=== PATIENT | female | born 1955 | race African-American/Black ===

== ENCOUNTER 2024-07-30 12:49 | Emergency (ER) | payer MEDICARE, SELFPAY ==
--- NOTE | ~2024-07-30 | CT_ITS ---
EXAMINATION: CT brain wo con DATE: 07/30/2024 14:09 INDICATION: Unwitnessed fall TECHNIQUE: Computed tomography (CT) of the head was performed without intravenous contrast. Sagittal and coronal reconstructions were performed. The mA was adjusted according to patient size. Iterative reconstruction technique was employed. The dose-length product was 605.33 mGy-cm. COMPARISON: None FINDINGS: No fracture. A couple small regions of encephalomalacia in the left parietal and occipital lobes cons istent with sequela of old infarcts. Additional small old infarcts in the bilateral basal ganglia are prominent along the head and body of the right caudate nucleus with associated expected dilation of the adjacent anterior horn of the right lateral ventricle. No acute intracranial hemorrhage, acute in farction or abnormal extra axial fluid collection. There is mild scattered white matter hypoattenuati on consistent with chronic small vessel ischemic disease. Symmetric prominence of the sulci consisten t with mild age-appropriate diffuse cerebral volume loss. No mass/mass effect. Mild mucosal thickenin g the right maxillary sinus. Small bilateral mastoid effusions. The orbits are normal. IMPRESSION: 1. No fracture or acute intracranial process. 2. 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 Reviewed, dictated and finalized at location A. AURANT SERVER
--- NOTE | ~2024-07-30 | CT_ITS ---
EXAMINATION: CT cervical spine wo con DATE: 07/30/2024 14:09 INDICATION: Neck injury. Fall. TECHNIQUE: Computed tomography (CT) of the cervical spine was performed without intravenous contrast. Automated exposure control and iterative reconstruction technique were employed. The dose-length pro duct was 482.90 mGy-cm. COMPARISON: None FINDINGS: There is mild emphysema. There are bilateral mastoid effusions. There is 11 degrees dextros coliosis of cervical spine. Vertebral body heights are normal. There is mildly decreased disc height at C5-C6 and moderately decreased disc height at C7-T1. The following disc levels are specifically di scussed: C2-C3: There is no uncovertebral joint osteoarthritis. There is severe right and mild left facet join t osteoarthritis. There is no neural foraminal stenosis. There is no central canal stenosis. C3-C4: There is no uncovertebral joint osteoarthritis. There is severe right and moderate left facet joint osteoarthritis. There is no neural foraminal stenosis. There is no central canal stenosis. C4-C5: There is no uncovertebral joint osteoarthritis. There is moderate right and severe left facet joint osteoarthritis. There is no neural foraminal stenosis. There is no central canal stenosis. C5-C6: There is no uncovertebral joint osteoarthritis. There is mild right and severe left facet join t osteoarthritis. There is no neural foraminal stenosis. There is no central canal stenosis. C6-C7: There is no uncovertebral joint osteoarthritis. There is mild right and moderate left facet dinh int osteoarthritis. There is no neural foraminal stenosis. There is mild central canal stenosis. C7-T1: There is mild bilateral uncovertebral joint osteoarthritis. There is mild bilateral facet join t osteoarthritis. There is no neural foraminal stenosis. There is mild central canal stenosis. IMPRESSION: 1. No fracture. 2. Mild cervical spondylosis. 3. Cervical dextroscoliosis. Reviewed, dictated and finalized at location A. CHISE SALES MANAGER
[2024-07-30 13:08] VITALS: BP 105/67; PULSE 62; RESP 16; TEMP 36.2; O2SAT 96
--- NOTE | 2024-07-30 14:07 | PC.NURSE ---
[facility] All questions answered at this time.
--- NOTE | 2024-07-30 14:26 | ED_ITS ---
HPI - General Adult General Chief complaint: Fall Stated complaint: unwitnessed fall Time Seen by Provider: 07/30/24 13:24 Source: EMS Mode of arrival: EMS Limitations: altered mental status History of Present Illness HPI narrative: 68-year-old with a history of CVA, A&O x1 [facility] with the complaints of possible fall. Patient was seen by the nurse on the floor by her bedside. Patient upon arrival has no obvious signs of trauma she is to her baseline. Onset (ago): hour(s) (1) Related Data Home Medications ?Medication ?Instructions ?Recorded ?Confirmed ?Last Taken ?Type acetaminophen 325 mg tablet 650 mg feeding tube Q4H PRN pain 07/26/24 07/26/24 Unknown History amlodipine 10 mg tablet (Norvasc) 10 mg feeding tube DAILY 07/26/24 07/26/24 Unknown History aspirin 81 mg chewable tablet 81 mg feeding tube DAILY 07/26/24 07/26/24 Unknown History atorvastatin 80 mg tablet (Lipitor) 80 mg feeding tube HS 07/26/24 07/26/24 Unknown History clopidogrel 75 mg tablet 75 mg feeding tube DAILY 07/26/24 07/26/24 Unknown History ergocalciferol (vitamin D2) 1,250 50,000 unit feeding tube WEEKLY 07/26/24 07/26/24 Unknown History mcg (50,000 unit) capsule losartan 100 mg tablet (Cozaar) 100 mg feeding tube DAILY 07/26/24 07/26/24 Unknown History metformin 500 mg tablet 500 mg feeding tube BID 07/26/24 07/26/24 Unknown History psyllium husk (aspartame) 3.4 gram 1 packet PO BID 07/26/24 07/26/24 Unknown History oral powder packet (Metamucil Fiber Singles) ramelteon 8 mg tablet 8 mg PO HS 07/26/24 07/26/24 Unknown History Allergies Allergy/AdvReac Type Severity Reaction Status Date / Time No Known Allergies Allergy Verified 07/27/24 01:59 Review of Systems Review of Systems: ROS unobtainable: Yes unobtainable due to mental status (Dementia) PMFSH Past Medical History Medical History Diabetes mellitus with hyperglycemia Essential (primary) hypertension HLD (hyperlipidemia) Aneurysm, carotid artery, internal CKD (chronic kidney disease) Smoker Social History Social History Smoking packs per day: 0.5 Smoking cigarettes per day: 10.0 Smoking status: Current every day smoker Do You Feel Safe in your Home?: Yes Lack of Transportation: No Lack of Food: Never True Current Housing: I Have Housing Concerned About Future Housing: Decline to Answer Difficulty Paying Gas/Electric Bills: Decline to Answer Difficulty Paying for Meds: Decline to Answer Currently Unemployed: Decline to Answer Education: Don't Know Difficulty w/ Childcare or Family Care: Decline to Answer Spiritual care concerns: No Exam Narrative: GENERAL: Well-appearing, well-nourished, and in no acute distress. HEAD: Normocephalic, atraumatic. EYES: PERRLA and EOMI. ENT: Nares clear, no rhinorrhea or epistaxis. Mucous membranes moist. NECK: Supple. CHEST: Clear to auscultation. No respiratory distress. HEART: Regular rate and rhythm. No murmur heard. Normal peripheral pulses. ABDOMEN: Soft, nontender, nondistended, normal active bowel sounds. EXTREMITIES: Normal range of motion. No edema. SKIN: Warm, dry, no rash. NEURO: Alert . at her baseline PSYCH: Normal mood and affect. Course Course Emergency Course: Patient has no obvious see the history of trauma I did CT of the head and C- spine showed no acute bleed or fracture of the cervical spine. His but will send her back to the prison. With fall precaution Vital Signs Vital signs: Vital Signs Temperature 36.2 C L 07/30/24 13:08 Pulse Rate 62 07/30/24 13:08 Respiratory Rate 16 07/30/24 13:08 Blood Pressure 105/67 07/30/24 13:08 Pulse Oximetry 96 07/30/24 13:08 Oxygen Delivery Room Air 07/30/24 13:08 Temperature 36.2 C L 07/30/24 13:08 Pulse Rate 62 07/30/24 13:08 Respiratory Rate 16 07/30/24 13:08 Blood Pressure 105/67 07/30/24 13:08 Pulse Oximetry 96 07/30/24 13:08 Oxygen Delivery Room Air 07/30/24 13:08 Medical Decision Making Vital Signs Vital Signs: Vital Signs Temperature 36.2 C L 07/30/24 13:08 Pulse Rate 62 07/30/24 13:08 Respiratory Rate 16 07/30/24 13:08 Blood Pressure 105/67 07/30/24 13:08 Pulse Oximetry 96 07/30/24 13:08 Oxygen Delivery Room Air 07/30/24 13:08 Temperature 36.2 C L 07/30/24 13:08 Pulse Rate 62 07/30/24 13:08 Respiratory Rate 16 07/30/24 13:08 Blood Pressure 105/67 07/30/24 13:08 Pulse Oximetry 96 07/30/24 13:08 Oxygen Delivery Room Air 07/30/24 13:08 Imaging Data Radiologist's impression: ITS Impressions Head CT 07/30/24 14:11 IMPRESSION: 1. No fracture or acute intracranial process. 2. 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 Cervical Spine CT 07/30/24 14:13 IMPRESSION: 1. No fracture. 2. Mild cervical spondylosis. 3. Cervical dextroscoliosis. Discharge Plan Discharge Clinical Impression: Minor head injury Qualifiers: Encounter type: initial encounter Qualified Code(s): S09.90XA - Unspecified injury of head, initial encounter Patient Disposition: [place] Halfway/Asst Living Condition: Stable Instructions: Head Injury (ED) Additional Instructions: Continue home medications, fall precautions, follow with the primary doctor as needed Patient Language: Sinhala Prescriptions: No Action acetaminophen 325 mg tablet 650 mg feeding tube Q4H PRN (Reason: pain) amlodipine [Norvasc] 10 mg tablet 10 mg feeding tube DAILY aspirin 81 mg tablet,chewable 81 mg feeding tube DAILY atorvastatin [Lipitor] 80 mg tablet 80 mg feeding tube HS clopidogrel 75 mg tablet 75 mg feeding tube DAILY Rx Instructions: For 85 doses ergocalciferol (vitamin D2) 1,250 mcg (50,000 unit) capsule 50,000 unit feeding tube WEEKLY Rx Instructions: Weekly on Monday losartan [Cozaar] 100 mg tablet 100 mg feeding tube DAILY metformin 500 mg tablet 500 mg feeding tube BID ramelteon 8 mg tablet 8 mg PO HS Metamucil Fiber Singles 3.4 gram powder in packet 1 packet PO BID Follow-up/Referrals: PHYSICIAN NOT ON STAFF,NONSTAFF [Non-Staff] - Vivek Ibarra MD [Physician] - Time of Disposition: 14:31
--- OUTSIDE RECORDS SUMMARY | 2024-07-30 14:38 | XMS_ITS | Encounter Summary ---
Author Organization [facility] Healthcare Address [address] [place] [address] Care Team Providers Care Plate Driller Name Role Phone Suri Beatty NP Primary Care Provider + Encounter Details Date Type Department Care Team (Late st Contact Info) Description 09/05/2023 Documentation [facility] Social Work [address] [place] [id number] Andry Serrato Social History Tobacco Use Types Packs/Day Years Used Date Smoking Tobacco: Every Day Cigarettes 0.5 52.1 Started: 1972 [facility] Utilities Answer Date Recorded In the past 12 months has [employer] electric, gas, oil, or water company threatened to shut off services in your home? No 09/04/2023 Social Connection and Isolat ion Panel [NHANES] Answer Date Recorded In a typical week, how many times do you talk on the phone with family, friends, or neighbors? More than three times a week 09/04/2023 How often do you get togethe r with friends or relatives? Three times a week 09/04/2023 How often do you attend chur ch or christian services? Never 09/04/2023 Do you belong to any clubs o r organizations such as voodoo groups, unions, fraternal or athletic groups, or school groups? No 09/04/2023 How often do you attend meet ings of the clubs or organizations you belong to? Never 09/04/2023 Are you , , di vorced, , never , or living with a partner? 09/04/2023 AUDIT-C Answer Date Recorded Q1: How often do you have a drink containing alcohol? Never 09/03/2023 Q2: How many drinks containi ng alcohol do you have on a typical day when you are drinking? Patient does not drink Q3: How often do you have si x or more drinks on one occasion? Never 09/03/2023 Overall Financial Resource Strain (CARDIA) Answe r Date Recorded How hard is it for you to pa y for the very basics like food, housing, medical care, and heating? Not hard at all 09/04/2023 Hunger Vital Sign Answer Date Recorded Within the past 12 months, y ou worried that your food would run out before you got the money to buy more. Never true 09/04/19 24 Within the past 12 months, t he food you bought just didn't last and you didn't have money to get more. Never true 09/04/2023 PRAPARE - Transportation Answer Date Re corded In the past 12 months, has l ack of transportation kept you from medical appointments or from getting medications? No 08/11 In the past 12 months, has l ack of transportation kept you from meetings, work, or from getting things needed for daily living? No 09/04/2023 Housing Stability Vital Sign Answer Christian e Recorded In the last 12 months, was t here a time when you were not able to pay the mortgage or rent on time? No 09/04/2023 In the last 12 months, how many places have you lived? 1 09/04/2023 In the last 12 months, was t here a time when you did not have a steady place to sleep or slept in a long term (including now)? No 09/04/2023 Personal Safety Answer Date Recorded Have you ever been in or are you currently in a harmful physical or emotional relationship or is someone making you feel afraid or unsafe? Denies 09/03/2023 Comments No Sex and Gender Information Value Date Recorded Sex Assigned at Not on file Legal Sex Female 4:54 PM WEAPONS ENGINEER Gender Identity Not on file Sexual Orientation Not on file documented as of this encounter Plan of Treatment Not on file documented as of this encounter Visit Diagnoses Not on filedocumented in this encounter Additional Health Concerns Infection Onset Date Last Indicated Resolved Time C. difficile suspected 07/23/2024 07/23/202407/23 10:40 PM WEAPONS ENGINEER documented as of this encounter Care Teams Plate Driller Relationship Specialty Start Date End Date Suri Beatty NP [address] [place] [id number] PCP - General Family Practice 09/04/23 documented as of this encounter
--- OUTSIDE RECORDS SUMMARY | 2024-07-30 14:38 | XMS_ITS | Clinical Summary ---
Author Organization [facility] Address [address] [place] [id number] Phone Care Team Providers Care Blending Machine Feeder Name Role Phone Unavailable Primary Care Provider Unavailabl e Allergies No known active allergies Medications Medication Sig Dispensed Refills Start Date End Date Status amLODIPine (NORVASC) 10 MG tablet Take 10 mg by mouth 1 (one) time each day Active aspirin (ST ANTONY) 81 MG EC tablet Take 81 mg by mouth 1 (one) time each day Active buPROPion XL (WELLBUTRIN XL) 150 MG 24 hr tablet Take 150 mg by mouth 2 (two) times a day Do not crush, chew, or split. Active gabapentin (NEURONTIN) 100 MG capsule Take 100 mg by mouth 3 (three) times a day Active losartan (COZAAR) 100 MG tablet Take 100 mg by mouth 1 (one) time each day Active metFORMIN (GLUCOPHAGE) 500 MG tablet Take 500 mg by mouth 2 (two) times a day with meals Active simvastatin (ZOCOR) 20 MG tablet Take 20 mg by mouth every night Active ergocalciferol (VITAMIN D-2) 1.25 MG (13208 UT) capsule Take 1 capsule (50,000 Units total) by mouth every 30 (thirty) days 12 capsule 1 04/20/2023 Active ergocalciferol (VITAMIN D-2) 1.25 MG (50632 UT) capsule Take 1 capsule (50,000 Units total) by mouth 1 (one) time per week 4 capsule 11 08/24/2023 08/23/2024 Active ergocalciferol (VITAMIN D-2) 1.25 MG (46209 UT) capsule Take 1 capsule (50,000 Units total) by mouth 1 (one) time per week 4 capsule 11 08/24/2023 08/23/2024 Active Active Problems Problem Noted Date Diagnosed Date Anemia in chronic kidney disease 02/28/2023 Proteinuria 05/17/2021 Vitamin D deficiency Diabetes mellitus without me ntion of complication, type II or unspecified type, not stated as uncontrolled Essential hypertension Stage 3a chronic kidney disease Social History Tobacco Use Types Packs/Day Years Used Date Smoking Tobacco: Some Days Smokeless Tobacco: Never Sex and Gender Information Value Date Recorded Sex Assigned at Not on file Gender Identity Not on file Sexual Orientation Not on file Last Filed Vital Signs Vital Sign Reading Time Taken Comments Blood Pressure 143/74 08/24/2023 2:27 PM CDT Pulse 80 08/24/2023 2:27 PM CDT Temperature 36.6 C (97.8 F) 09/23/2021 1:11 PM CDT Respiratory Rate - - Oxygen Saturation - - Inhaled Oxygen Concentration - - Weight 89.4 kg (197 lb) 08/24/2023 2:27 PM CDT Height 157.5 cm (5' 2 ) 08/24/2023 2:27 PM CDT Body Mass Index 36.03 08/24/2023 2:27 PM CDT Plan of Treatment Health Maintenance Due Date Last Done Comments Pneumococcal PPSV23/PCV13 65 + Years / High and Highest Risk (1 of 4 - PCV) 10/26/1959 Diabetic Foot Exam 10/26/1963 Ophthalmology Exam 10/26/1963 Influenza Vaccine (#1) 2024 04/09/2021
--- OUTSIDE RECORDS SUMMARY | 2024-07-30 14:38 | XMS_ITS | Clinical Summary ---
Author Organization [facility] Address [address] [place] [address] Care Team Providers Care Surgery Manager Name Role Phone Fadumo Fischer MD Primary Care Provider [phone] Allergies No known active allergies Medications simvastatin 20 MG tablet Take 20 mg by mouth daily. 05/07/2017 Active amlodipine 10 MG tablet Take 10 mg by mouth daily. 05/07/2017 Active buPROPion 12 hr 150 MG 12 hr tablet Take 150 mg by mouth 2 (two) times daily. 05/07/2017 Active gabapentin 100 MG capsule Take 300 mg by mouth 3 (three) times daily. Active ibuprofen 800 MG tablet Take 800 mg by mouth every 8 (eight) hours as needed for Pain. Active metFORMIN 500 MG tablet Take 500 mg by mouth 2 (two) times daily with meals. Active losartan 50 MG tablet Take 50 mg by mouth daily. Active aspirin EC (ASPIRIN EC) 81 MG tablet Take 81 mg by mouth daily. Active vitamin D2, ergocalciferol, 72578 UNITS capsule Take 50,000 Units by mouth weekly. On Sundays Active atorvastatin 40 MG tablet Take 1 tablet (40 mg total) by mouth nightly at bedtime. 90 tablet 3 08/24/2018 Active diphenhydrAMINE HCl, Sleep, 25 MG Cap Take 50 mg by mouth. Active Active Problems Problem Noted Date Diagnosed Date TIA (transient ischemic attack) 08/23/2018 Assessment & Plan (08/24/2018 12:39 PM CDT): CVA / TIA, Acute, unresolved - present on admission, Last known normal evening of 08/22/2018 - Ct shows moderate atrophy and extensive small vessel ischemic disease. Superimposed acute infarct not excluded. Multiple areas of old infarcts including left frontal lobe, left occipital lobe, and right basal ganglia. Acute adjacent infarct not excluded. No acute hemorrhage - Neurology consulted, appreciate recs - Ordered MRI, MRA, carotid Doppler, TTE. - Aspirin 81 mg daily - Atorvastatin 40mg - Telemetry bed - continue to monitor for paroxysmal A. Fib - Ordered bedside swallow study, can eat cardiac diet and drink fluids afterwards - PT/OT consulted DM2 (diabetes mellitus, type 2) ([facility] ) 08/23/2018 Assessment & Plan (08/24/2018 12:38 PM CDT): Chronic, controlled - Stable with Glc range from 107-134 since admission. Holding metformin d/t risk of AMRITA with concominant contrast. - SSI, no basal bolus regimen at this time Lumbar radiculopathy 08/16/2018 Sacroiliitis 11/28/2017 Lumbar facet arthropathy 08/30/2017 Family History Medical History Relation Comments Diabetes Mother Heart Disease Mother Hypertension Mother Diabetes Sister 1 Relation Status Comments Brother 1 Alive Brother 2 Alive Brother 3 Alive Father Mother Sister 1 Alive Sister 2 Alive Sister 3 Alive Sister 4 Alive Social History Tobacco Use Types Packs/Day Years Used Date Smoking Tobacco: Former Cigarettes 1 42 0 10/1975 - 10/2017 Smokeless Tobacco: Never Tobacco Cessation:Ready to Q uit: Yes; Counseling Given: Yes Comments:currently using a smoking patch Alcohol Use Standard Drinks/Week Comments No 0 (1 standard drink = 0.6 oz pur e alcohol) Comments No Sex and Gender Information Value Date Recorded Sex Assigned at Female 08/23/2018 6:46 PM CDT Legal Sex Female 7:21 PM CDT Gender Identity Female 08/23/2018 6:46 PM CDT Sexual Orientation Straight 08/23/2018 1: 54 PM CDT Last Filed Vital Signs Vital Sign Reading Time Taken Comments Blood Pressure 150/97 01/18/2020 3:03 PM CDT Pulse 70 01/18/2020 3:03 PM CDT Temperature 36.4 C (97.5 F) 01/18/2020 3:03 PM CDT Respiratory Rate 18 01/18/2020 3:03 PM CDT Oxygen Saturation 99% 01/18/2020 3:03 PM CDT Inhaled Oxygen Concentration - - Weight 95.8 kg (211 lb 3.2 oz) 01/18/2020 3:03 P M CDT Height 160 cm (5' 3 ) 01/18/2020 3:03 PM CDT Body Mass Index 37.41 01/18/2020 3:03 PM CDT Plan of Treatment Health Maintenance Due Date Last Done Comments ASCVD Statin 1955 Colorectal Cancer Screening Colonoscopy (10 Years) 1955 Kidney Health Evaluation 1955 Pneumococcal Vaccine: 65+ Years (1 of 2 - PCV) 10/26/1959 Diabetes: Retinopathy Eye Exam 10/26/1971 Hepatitis C 10/26/1971 DTaP, Tdap and Td Vaccines ( 1 - Tdap) 1972 Zoster Vaccines (1 of 2) 10/26/2003 RSV Immunization or 60+ Years (1 - Risk 60-74 years 1-dose series) 2013 Dexa Scan (General) 2018 Hemoglobin A1C 02/24/2019 08/24/2018 ASCVD LDL 08/25/2019 08/24/2018 Lipid Panel 08/25/2019 08/24/2018 Mammogram Screening 03/05/2023 03/05/2021, 01/14/2021 COVID-19 Vaccine (2 - 2023-2 5 season) 2024 10/09/2020 Influenza Adult (#1) 2024 Meningococcal B Vaccine Aged Out No l onger eligible based on patient's age to complete this topic Meningococcal Vaccine Aged Out No maryjo peter eligible based on patient's age to complete this topic RSV Immunizations Under 20 Months Aged Out No longer eligible b ased on patient's age to complete this topic Procedures Procedure Name Priority Date/Time Associated Diagnosis Comments MG DIAG W EDGARDO RT DIGI Routine 03/05/2021 2:32 PM CDT Other abnormal and inconclusive findings on diagnostic imaging of breast LIPID PANEL Routine 08/24/2018 7:04 AM CDT HEMOGLOBIN, GLYCOSYLATED Routine 08/24/2018 7:04 AM CDT from Last 3 Months or Most Recently Relevant to Health Maintenance Results * MG DIAG W EDGARDO RT DIGI (03/05/2021 2:32 PM CDT) Anatomical Region Laterality Modality Breast Right Mammography 03/05/2021 3:29 PM CDT Addenda Addendum by Michael Lopez MD on 03/05/2021 3:45 PM CDT Addendum: Verbal preliminary related to the prominent lymph nodes given to patient's nurse practitioner Maritza Grover NP at 3:43 PM. Referred By: BEBE GROVER Interpreted By: Michael Lopez MD, 03/05/2021 3:41 PM Impressions 03/05/2021 3:34 PM CDT =====IMPRESSION:===== Prominent right axillary lymph nodes are present. These may be reactive. Follow- up in 6 months is recommended. I cannot exclude this may relate to underlying systemic process. Clinical correlation is recommended. CT examination may be of further use. ASSESSMENT: ACR BI-RADS 3 - PROBABLY BENIGN FINDING(S) - SHORT INTERVAL FOLLOW- UP SUGGESTED Recommendation: 1: Short interval follow-up in 6 months. Right Prominent lymph nodes are present within the right axilla. Further evaluation with additional imaging modalities may be of use in evaluating for systemic disease. COMMENTS: Referred By: BEBE GROVER Interpreted By: Michael Lopez MD, 03/05/2021 3:29 PM Narrative 03/05/2021 3:34 PM CDT EXAMINATION: Digital right diagnostic mammogram with 3-D tomosynthesis and right breast ultrasound [id number] EXAM DATE/TIME: 03/05/2021 1:50 PM REASON FOR EXAM: Other abnormal and inconclusive findings on diagnostic imaging of breast COMPARISON: January 14, 2021, December 02, 2014 TECHNIQUE: Digital diagnostic mammography of the right breast was performed in addition to 3-D Tomosynthesis technique. This study was read with the assistance of a computer-aided detection system. Grayscale and color Doppler images the right breast. TISSUE DENSITY: There are scattered areas of fibroglandular density. FINDINGS: Within the breast no suspicious masses, malignant appearing calcifications, skin thickening or other abnormalities are present. Within the right axillary tail there is increased density that is present. After compression is applied this becomes less conspicuous. Additionally noted the previously noted lymph node seen on January 14 do not persist on the current studies. Further evaluation with ultrasound is performed. In the region of the right axilla no definite masses are present in the subcutaneous tissues. There are noted prominent lymph node is present within the right axilla one measures 2.4 x 1.9 x 0.9 cm. This has normal morphology however. The cortex is not thickened. There is an additional lymph node measuring 1.8 x 1 x 2.5 cm. The cortex is noted be thickened at 4 mm. There is a third lymph node that is present measuring 3 x 0.8 x 0.7 cm. This is noted to be mildly hyperemic with thickened cortex. This may be reactive. Cortex measures approximately 4 mm. Bebe Grover PULVERIZER TENDER MAMMO Edited Resul t - Final * (ABNORMAL) HEMOGLOBIN, GLYCOSYLATED (08/24/2018 7:04 AM CDT) HGB A1C 6.5(H) 4.2 - 6.3 % 08/24/2018 11:22 AM CDT [facility] Comment: ADA GUIDELINES 2010 5.7 TO 6.4% INCREASED RISK OF DIABETES > OR = 6.5% CONSISTENT WITH DIABETES ESTIMATED AVG GLUCOSE 140 mg/dL 08/24/2018 11:22 AM CDT [facility] 08/24/2018 7:04 AM CDT Wayne Larry DO LABORATORY Final Result [facility] [address] [place] [address], [place] [phone] * LIPID PANEL (08/24/2018 7:04 AM CDT) CHOLESTEROL 167 <200 MG/DL 08/24/2018 7:57 AM CDT [facility] TRIGLYCERIDES 137 <150 MG/DL 08/24/2018 7:57 AM CDT [facility] HDL 52 >40.0 MG/DL 08/24/2018 7:57 AM CDT [facility] LDL (CALCULATED) 88 <100 MG/DL 08/25/19 19 7:57 AM CDT [facility] NON HDL CHOLESTEROL 115 <130 MG/DL 08/24 7:57 AM T [facility] CHOL/HDL RATIO 3.2 0.0 - 4.5 08/24/2018 7:57 AM T [facility] VLDL CALCULATION 27 5 - 55 MG/DL 08/24/2018 7:57 AM T [facility] LIPID INTERPRETATION 08/24/2018 7:57 AM T [facility] Comment: NIH CONCENSUS REPORT RECOMMENDATIONS: ADULT CHILD LOW RISK: CHOLESTEROL <200 <170 TRIGLYCERIDE <150 --- HDL >=60 --- LDL <100 <110 BORDERLINE: CHOLESTEROL 200-239 170-199 TRIGLYCERIDE 150-199 --- HDL 40-59 --- LDL 100-159 110-129 HIGH RISK: CHOLESTEROL >=240 >=200 TRIGLYCERIDE >=200 --- HDL <40 --- LDL >=160 >=130 08/24/2018 7:04 AM CDT Bubba Smith DO LABORATORY Final Result [facility] [address] [place] [address], [place] [phone] from Last 3 Months or Most Recently Relevant to Health Maintenance Insurance HELENA HELENA Advance Directives * Full Code (Latest Code Status on File) Date Activated Date Inactivated Comments 08/23/2018 6:45 PM 08/24/2018 9:45 PM Care Teams Surgery Manager Relationship Specialty Start Date End Date Fadumo Fischer MD [address] [place] [address] PCP - General INTERNAL MEDICINE 04/04/18
--- OUTSIDE RECORDS SUMMARY | 2024-07-30 14:38 | XMS_ITS | Patient Health Summary ---
Author Organization [facility] [employer] Address [address] [place] [address] Care Team Providers Care Flight Crew Ordnanceman Name Role Phone Tawana Larose MD Unavailable [phone] Nery Fischer MD Primary Care Provider Note from [facility],non-owned Affiliates and Associated Physician Practices is amultiple site organization consisting of ambulatory clinics and hospital sitesin [place], [place], [place] and [place]. This disclosure is being madepursuant to the Care Everywhere program and may not contain all information available regarding this patient. Last updated 18.[facility] Allergies No known active allergies Medications * Be aware that medications may not be up to date on this document. Alwaysverify current medications with the patient. * metFORMIN (GLUCOPHAGE) 500 MG tablet(Started 05/07/2017) 6 refills left * simvastatin (ZOCOR) 20 MG tablet(Started 05/07/2017) Take 20 mg by mouth DAILY. 6 refills left * gabapentin (NEURONTIN) 100 MG capsule(Started 05/07/2017) 3 refills left * buPROPion SR 12hr (WELLBUTRIN-SR) 150 MG tablet(Started 05/07/2017) Take 150 mg by mouth BID. 3 refills left * amLODIPine (NORVASC) 10 MG tablet(Started 05/07/2017) Take 10 mg by mouth DAILY. 4 refills left * vitamin D, ergocalciferol, (DRISDOL) 23580 UNITS capsule(Started 05/07/2017) 6 refills left * losartan (COZAAR) 50 MG tablet(Started 05/07/2017) 4 refills left * ibuprofen (MOTRIN) 800 MG tablet(Started 05/17/2017) 2 refills left * aspirin EC (ECOTRIN) 325 MG tablet Take 325 mg by mouth once daily Reasons: Cerebrovascular Accident or Stroke * diphenhydrAMINE HCl, Sleep, (ZZZQUIL) 25 MG Take 50 mg by mouth at bedtime Reasons: Trouble Sleeping Active Problems Problem Noted Date Diagnosed Date Chronic kidney disease 06/01/2021 Essential hypertension 06/01/2021 Cerebral aneurysm 09/27/2018 Personal history of other infectious and parasit ic diseases 08/01/2017 Immunizations * INFLUENZA VACCINE(Given 04/09/2021) Social History Tobacco Use Types Packs/Day Years Used Date Smoking Tobacco: Every Day Cigarettes Smokeless Tobacco: Never Tobacco Cessation:Counseling Given: No Comments:quit 08/2018 Alcohol Use Standard Drinks/Week Comments No 0 (1 standard drink = 0.6 oz pur e alcohol) Sex and Gender Information Value Date Recorded Sex Assigned at Not on file Gender Identity Not on file Sexual Orientation Not on file Last Filed Vital Signs Vital Sign Reading Time Taken Comments Blood Pressure 140/84 06/01/2021 1:40 PM PMO MANAGER Pulse 71 06/01/2021 1:40 PM PMO MANAGER Temperature 36.4 C (97.5 F) 06/01/2021 1:40 PM PMO MANAGER Respiratory Rate 18 12/26/2018 1:00 PM CDT Oxygen Saturation 97% 06/01/2021 1:40 PM PMO MANAGER Inhaled Oxygen Concentration - - Weight 90.7 kg (200 lb) 06/01/2021 1:40 PM PMO MANAGER Height 162.6 cm (5' 4 ) 06/01/2021 1:40 PM PMO MANAGER Body Mass Index 34.33 06/01/2021 1:40 PM PMO MANAGER Procedures * MRI ANGIO BRAIN ARTERIAL WO CONT(Performed 06/01/2021) Performed for Cerebral aneurysm (HCC) * MRI ANGIO BRAIN ARTERIAL WO CONT(Performed 02/18/2020) Performed for Brain aneurysm (HCC) * IR CAROTID CEREBRAL ANGIOGRAM(Performed 12/26/2018) Performed for Brain aneurysm (HCC) * PT-INR [facility](Performed 12/26/2018) Performed for Brain aneurysm (HCC) * BASIC METABOLIC PANEL (CALCIUM TOTAL)(Performed 12/26/2018) Performed for Brain aneurysm (HCC) * CBC W/O DIFFERENTIAL(Performed 12/26/2018) Performed for Brain aneurysm (HCC) * US BREAST UNILATERAL LTD(Performed 09/14/2017) * CT LUNG SCREEN LOW DOSE(Performed 09/01/2017) * MAMMO BILAT SCREENING(Performed 09/01/2017) * HEMOGLOBIN A1C - POINT OF CARE (AMB) [facility](Performed 08/01/2017) Results * MRI ANGIO BRAIN ARTERIAL WO CONT (06/01/2021 2:34 PM PMO MANAGER) Only the most recent of2 resultswithin the time period is included. Anatomical Region Laterality Modality Head Magnetic Resonan ce 06/02/2021 4:21 PM PMO MANAGER Impressions 06/02/2021 6:34 PM PMO MANAGER IMPRESSION: 1. Left ICA cavernous fusiform aneurysm measuring approximately 9.4 x 7.46 mm 2. Bilateral faro dealer. 3. Small caliber bilateral vertebral arteries and basilar artery. This report was electronically signed by JAE MOROCHO on 06/02/2021 6:34 PM . Narrative 06/02/2021 6:34 PM PMO MANAGER MRI ANGIO BRAIN ARTERIAL WO CONT DATE: 06/01/2021 2:45 PM EXAMINATION: Magnetic resonance imaging (MRI) of the brain without contrast HISTORY: I67.1: Cerebral aneurysm TECHNIQUE: MRI of the brain was performed without contrast according to standard protocol. COMPARISON: MRI angiography of the brain from 02/18/2020. FINDINGS: There is redemonstration of a fusiform aneurysmal dilation of the cavernous segment of the left internal carotid artery measuring 9.4 mm oblique AP x 7.46 mm on oblique TV (series 2, image 92), grossly unchanged since prior. The right distal internal carotid artery appear normal. The anterior and middle cerebral arteries appear normal. The distal vertebral arteries and basilar artery demonstrate small caliber but patent. The posterior cerebral arteries appear normal with origin of both posterior cerebral arteries. No vascular occlusions or intracranial stenoses are identified. There is encephalomalacia of the left parieto-occipital lobe. There is lacunar infarction of the right basal ganglia. There is moderate parenchymal volume loss with ex vacuo ventricular dilation. Procedure Note Jae Morocho MD - 06/02/2021 MRI ANGIO BRAIN ARTERIAL WO CONT DATE: 06/01/2021 2:45 PM EXAMINATION: Magnetic resonance imaging (MRI) of the brain withoutcontrast HISTORY: I67.1: Cerebral aneurysm TECHNIQUE: MRI of the brain was performed without contrast according to standard protocol. COMPARISON: MRI angiography of the brain from 02/18/2020. FINDINGS: There is redemonstration of a fusiform aneurysmal dilation of the cavernous segment of the left internal carotid artery measuring 9.4 mm oblique AP x 7.46 mm on oblique TV (series 2, image 92), grosslyunchanged since prior. The right distal internal carotid artery appear normal. The anterior and middle cerebral arteries appear normal. The distalvertebral arteries and basilar artery demonstrate small caliber but patent. The posterior cerebral arteries appear normal with origin of both posterior cerebral arteries. No vascular occlusions or intracranial stenoses are identified. There is encephalomalacia of the left parieto-occipital lobe. There is lacunar infarction of the right basal ganglia. There is moderate parenchymal volume loss with ex vacuo ventricular dilation. IMPRESSION: 1. Left ICA cavernous fusiform aneurysm measuring approximately 9.4 x7.46 mm 2. Bilateral faro dealer. 3. Small caliber bilateral vertebral arteries and basilar artery. This report was electronically signed by JAE MOROCHO on 06/02/2021 6:34 PM . Carlos Stanton MD MR ORDERABLES * IR CAROTID CEREBRAL ANGIOGRAM (12/26/2018 10:46 AM CDT) Anatomical Region Laterality Modality Head X-Ray Angiograph y 12/26/2018 4:47 PM CDT Impressions 12/31/2018 1:54 PM CDT Impression: 1) Left ICA cavernous fusiform aneurysmal measuring 9.5 mm x 4.6 mm 2) Bilateral faro dealer 3) Small caliber bilateral vertebral arteries and basilar artery. I, Dr. GEORGINA MOORE M.D. have personally reviewed and interpreted this examination/study. This report was electronically signed by GEORGINA MOORE M.D. on 12/31/2018 1:54 PM . Narrative 12/31/2018 1:54 PM CDT Procedure: Cerebral angiogram 12/26/2018 Comparison study: None History: The patient a 63 years -year-old Female, who presents with L cavernous ICA aneurysm which was found during work up for an ischemic stroke/TIA . She is here for catheter angiography to better visualize and characterize the aneurysm. [employer] Instructor: Mouna Moore Assist: Sherice Ambriz Vessels: Ultrasound guided access of femoral artery Right internal carotid artery angiogram: Cerebral Left internal carotid artery angiogram: Cerebral Right vertebral artery angiogram: Cerebral Left vertebral artery angiogram: Cerebral Right femoral artery angiogram 3D [facility] CT was obtained by injection of contrast with the catheter in the left internal carotid artery. The data was sent to a [employer] work station and analyzed with surface rendering. Anesthesia: Moderate sedation on this adult patient ws ordered by the calculator operator, administered intravenously in my presence, and monitored by the procedure nurse as an independent trained observer who was present throughout the procedure. The following parameters were monitored: oxygen saturation, heart rate, blood pressure, and response to care. Intra-service sedation start time was 10:32 and end time was 11:19 during which I was present. Total physician intra-service sedation time was 47 minutes. For details on sedation patient evaluation, please review the evaluation in [facility]. For details on monitored clinical parameters during the intra-service sedation time, please review the procedure nurse documentation in [facility]. Procedural detail: The risks, benefits, and alternatives to procedure were discussed in detail with the patient and her family. These included but were not limited to the risk of blood loss, vessel injury, stroke, renal injury, and contrast allergy. The patient was brought to the biplane angiography suite where she underwent prep and drape procedures. Limited ultrasound of the common femoral artery demonstrated a patent vessel. The take off of the profunda and other arteries were identified. A arias scale image was documented. The right common femoral artery was accessed using a micropuncture needle. The needle entry was documented. Following a series of exchanges, a 6 [place]uran 30 cm Brite tip sheath was placed in the right femoral artery and a 5 [place] Hardin II catheter was navigated into the aortic arch. The catheter was used to select the left subclavian artery followed by the left vertebral artery and a cerebral angiogram was obtained. The catheter was returned to the arch and used to select the left common carotid artery followed by the left internal carotid artery and a cerebral angiogram was obtained. The catheter was returned to the arch and used to select the brachiocephalic artery followed by the right common carotid artery and finally the right internal carotid artery and a cerebral angiogram was obtained. The catheter was returned to the brachiocephalic artery and used to select the right subclavian artery followed by the right vertebral artery and a cerebral angiogram was obtained. The right femoral artery angiogram was obtained through the sheath. All catheters and sheaths were removed from the arterial system. Hemostasis was achieved using a 6 [place] Angio-Seal closure device. Hemostasis was immediate at the end of the closure procedure. The right dorsalis pedis pulse was palpable at the end of the closure procedure. The patient tolerated the procedure without immediate complications. She was returned to the recovery area and hemodynamically stable condition neurologically unchanged. The estimated blood loss was less than 20 mL. A total of 10 minutes of fluoroscopic time and 140 ml of Isovue-300 contrast were utilized for the study. Findings: There was good arterial, capillary, and venous opacification of all angiographic runs. The left vertebral artery angiogram reveals a small caliber vertebral artery including V3, V4, and vertebrobasilar junction that are normal in course. The major vessels to the cerebellum are normal in course and caliber. The basilar artery and posterior cerebral arteries are also normal in course but are of small caliber. The venous drainage is also normal. The right vertebral artery angiogram reveals a small caliber V3, V4, and vertebrobasilar junction. The remainder of the posterior circulation is as described above. The left internal carotid artery angiogram reveals a fusiform aneurysm measuring 9.5 mm x 4.6 mm, originating from the superior aspect of cavernous segment. The middle cerebral artery and anterior cerebral artery are normal in course and caliber as is the venous drainage. There is a origin left posterior cerebral artery. The right internal carotid artery angiogram reveals a normal course and caliber the intracranial internal carotid artery. The middle cerebral artery and anterior cerebral artery are also normal in course and caliber as is the venous drainage. There is a origin right posterior cerebral artery. The right femoral artery angiogram reveals a puncture site above the femoral bifurcation. Procedure Note Georgina Moore MD - 12/31/2018 Procedure: Cerebral angiogram 12/26/2018 Comparison study: None History: The patient a 63 years -year-old Female, who presents with L cavernous ICA aneurysm which was found during work up for an ischemic stroke/TIA . She is here for catheter angiography to better visualizeand characterize the aneurysm. Visual Communications Instructor: Mouna Moore Assist: Sherice Ambriz Vessels: Ultrasound guided access of femoral artery Right internal carotid artery angiogram: Cerebral Left internal carotid artery angiogram: Cerebral Right vertebral artery angiogram: Cerebral Left vertebral artery angiogram: Cerebral Right femoral artery angiogram 3D [facility] CT was obtained by injection of contrast with the catheter inthe left internal carotid artery. The data was sent to a [employer] workstation and analyzed with surface rendering. Anesthesia: Moderate sedation on this adult patient ws ordered by the calculator operator, administered intravenously in my presence, and monitored bythe procedure nurse as an independent trained observer who was present throughout the procedure. The following parameters were monitored:oxygen saturation, heart rate, blood pressure, and response to care. Intra-service sedation start time was 10:32 and end time was 11:19during which I was present. Total physician intra-service sedation time was 47 minutes. For details on sedation patient evaluation, please review the evaluation in [facility]. For details on monitored clinical parameters during the intra-service sedation time, please review the procedure nurse documentation in [facility]. Procedural detail: The risks, benefits, and alternatives to procedurewere discussed in detail with the patient and her family. These included but were not limited to the risk of blood loss, vessel injury, stroke, renal injury, and contrast allergy. The patient was brought to the biplane angiography suite where she underwent prep and drape procedures. Limited ultrasound of the common femoral artery demonstrated a patent vessel.The take off of the profunda and other arteries were identified. A grayscale image was documented. The right common femoral artery was accessed usinga micropuncture needle. The needle entry was documented. Following aseries of exchanges, a 6 [place] 30 cm Brite tip sheath was placed in the right femoral artery and a 5 [place] Hardin II catheter was navigated into the aortic arch. The catheter was used to select the left subclavian artery followed by the left vertebral artery and a cerebral angiogram was obtained. The catheter was returned to the arch and used to select the left common carotid artery followed by the left internal carotid artery and a cerebral angiogram was obtained. The catheter was returned to the arch and used to select the brachiocephalic artery followed by the right common carotid artery and finally the right internal carotid artery mary cerebral angiogram was obtained. The catheter was returned to the brachiocephalic artery and used to select the right subclavian artery followed by the right vertebral artery and a cerebral angiogram was obtained. The right femoral artery angiogram was obtained through the sheath. All catheters and sheaths were removed from the arterial system. Hemostasis was achieved using a 6 [place] Angio-Seal closure device. Hemostasis was immediate at the end of the closure procedure. The right dorsalis pedis pulse was palpable at the end of the closure procedure. The patient tolerated the procedure without immediate complications. She was returned to the recovery area and hemodynamically stable condition neurologically unchanged. The estimated blood loss was less than 20 mL. A total of 10 minutes of fluoroscopic time and 140 ml of Isovue-300 contrast were utilized for the study. Findings: There was good arterial, capillary, and venous opacification of all angiographic runs. The left vertebral artery angiogram reveals a small caliber vertebral artery including V3, V4, and vertebrobasilar junction that are normal in course. The major vessels to the cerebellum are normal in course and caliber. The basilar artery and posterior cerebral arteries are also normal in course but are of small caliber. The venous drainage is also normal. The right vertebral artery angiogram reveals a small caliber V3, V4, and vertebrobasilar junction. The remainder of the posterior circulation isas described above. The left internal carotid artery angiogram reveals a fusiform aneurysm measuring 9.5 mm x 4.6 mm, originating from the superior aspect of cavernous segment. The middle cerebral artery and anterior cerebralartery are normal in course and caliber as is the venous drainage. There is a origin left posterior cerebral artery. The right internal carotid artery angiogram reveals a normal course and caliber the intracranial internal carotid artery. The middle cerebral artery and anterior cerebral artery are also normal in course andcaliber as is the venous drainage. There is a origin right posterior cerebral artery. The right femoral artery angiogram reveals a puncture site above the femoral bifurcation. Impression: 1) Left ICA cavernous fusiform aneurysmal measuring 9.5 mm x 4.6 mm 2) Bilateral faro dealer 3) Small caliber bilateral vertebral arteries and basilar artery. I, Dr. GEORGINA MOORE M.D. have personally reviewed and interpretedthis examination/study. This report was electronically signed by GEORGINA MOORE M.D. on 12/31/2018 1:54 PM . Roldan Ambriz MD IR ORDERABLES * (ABNORMAL) PT-INR [facility] (12/26/2018 9:03 AM CDT) PT 11.9(L) 12.1 - 14.8 Seconds 12/26/2018 9:25 AM T [facility] INR 0.9 See Comment 12/26/2018 9:[address] [facility] Comment: The suggested therapeutic range for standard coumadin (warfarin) therapy is an INR of 2.0-3.0. For high-risk patients (Mechanical Mitral Valve Prosthesis, etc.), the suggested prophylactic therapeutic range is an INR of 2.5-3.5. Blood BLOOD SPECIMEN / Unknown Venipuncture / Unknown 12/26/2018 9:03 AM CDT 12/26/2018 9:15 AM CDT Nancy Stark MD LAB - COAGULATION OR DERABLES Performing Organization Address City/State/[facility] Co de Phone Number [address] [phone] * (ABNORMAL) CBC W/O DIFFERENTIAL (12/26/2018 9:03 AM CDT) WBC 4.6 3.5 - 10.5 10 3/uL 12/26/2018 9:[address] [facility] RBC 4.07 3.90 - 5.00 10 6/uL 12/26/2018 9:[address] [facility] Hemoglobin 11.7(L) 12.0 - 15.5 g/dL 12/26/2018 9:[address] [facility] Hematocrit 35.7 35.0 - 45.0 % 12/26/2018 9:[address] [facility] MCV 87.7 81.0 - 97.0 fL 12/26/2018 9:[address] [facility] MCH 28.7 28.0 - 34.0 pg 12/26/2018 9:[address] [facility] MCHC 32.8 32.0 - 36.0 g/dL 12/26/2018 9:[address] [facility] Platelet Count 290 150 - 400 10 3/uL 12/26/2018 9:[address] [facility] RDW-SD 42.4 36.0 - 50.0 fL 12/26/2018 9:[address] [facility] RDW-CV 13.2 11.2 - 14.8 % 12/26/2018 9:[address] [facility] MPV 10.0 9.3 - 12.8 fL 12/26/2018 9:[address] [facility] nRBC Absolute 0.00 0 10 3/uL 12/26/2018 9:[address] [facility] nRBC Auto 0.0 0 /100 WBC 12/26/2018 9:[address] [facility] Blood BLOOD SPECIMEN / Unknown Venipuncture / Unknown 12/26/2018 9:03 AM CDT 12/26/2018 9:15 AM CDT Nancy Stark MD LAB - HEMATOLOGY ORD ERABLES [address] [phone] * (ABNORMAL) BASIC METABOLIC PANEL (CALCIUM TOTAL) (12/26/2018 9:03 AM CDT) BUN 9 7 - 26 mg/dL 12/26/2018 9:[address] [facility] Creatinine 1.3(H) 0.6 - 1.2 mg/dL 12/26/2018 9:[address] [facility] Sodium 145 136 - 145 mmol/L 12/26/2018 9:[address] [facility] Potassium 3.8 3.5 - 4.5 mmol/L 12/26/2018 9:[address] [facility] Chloride 109(H) 98 - 107 mmol/L 12/26/2018 9:[address] [facility] CO2 27 22 - 29 mmol/L 12/26/2018 9:36 AM CDT [facility] Glucose 132(H) 70 - 115 mg/dL 12/26/2018 9:36 AM CDT [facility] Calcium 9.2 8.4 - 10.2 mg/dL 12/26/2018 9:36 AM T [facility] Anion Gap 13 8 - 18 12/26/2018 9:36 AM T [facility] BUN/Creatinine Ratio 7 7 - 23 12/26/2018 9:36 AM T [facility] Osmolality Calculated 301(H) 270 - 300 mOsm/kg 12/26/2018 9:36 AM T [facility] eGFR 50(L) >60 mL/min/1.7 3 m2 12/26/2018 9:36 AM T [facility] Blood BLOOD SPECIMEN / Unknown Venipuncture / Unknown 12/26/2018 9:03 AM CDT 12/26/2018 9:15 AM CDT Nancy Stark MD LAB - CHEMISTRY FAUZIA QUIÑONEZ [facility] Organization Address City/State/[facility] Co de Phone Number [address] [phone] * Road Hero BREAST UNILATERAL LTD (09/14/2017 2:41 PM CDT) Anatomical Region Laterality Modality Other Impressions 09/14/2017 3:37 PM CDT IMPRESSION: Mass in right breast is probably benign, likely cluster of cysts. Short interval follow-up is recommended to assess stability. ASSESSMENT: BI-RADS Category 3: Probably benign finding, short interval follow up suggested. RECOMMENDATION: Targeted right breast ultrasound in six months. Findings discussed with the patient by Dr. Tsang. This report was electronically signed by JIGAR TSANG M.D. on 09/14/2017 3:37 PM . Narrative 09/14/2017 3:37 PM CDT TARGETED RIGHT BREAST ULTRASOUND DATE: 09/14/2017. HISTORY: 61-year-old female called back from screening for evaluation of a mass in the subareolar right breast. COMPARISON: Mammogram on 09/01/2017 and 12/02/2014. FINDINGS: Targeted ultrasound was performed in the subareolar right breast. Immediately beneath the nipple is a nearly anechoic mass measuring 0.5 x 0.4 x 0.4 cm. This has probable appearance of cluster of cysts. Review of the previous mammograms demonstrates a similar finding in the subareolar right breast in 2014. Procedure Note Jigar Tsang MD - 09/16/2017 TARGETED RIGHT BREAST ULTRASOUND DATE: 09/14/2017. HISTORY: 61-year-old female called back from screening for evaluation of amass in the subareolar right breast. COMPARISON: Mammogram on 09/01/2017 and 12/02/2014. FINDINGS: Targeted ultrasound was performed in the subareolar right breast.Immediately beneath the nipple is a nearly anechoic mass measuring 0.5 x0.4 x 0.4 cm. This has probable appearance of cluster of cysts. Review ofthe previous mammograms demonstrates a similar finding in the subareolar right breast in 2014. IMPRESSION IMPRESSION: Mass in right breast is probably benign, likely cluster of cysts. Shortinterval follow-up is recommended to assess stability. ASSESSMENT: BI-RADS Category 3: Probably benign finding, short interval follow upsuggested. RECOMMENDATION: Targeted right breast ultrasound in six months. Findings discussed with the patient by Dr. Tsang. This report was electronically signed by JIGAR TSANG M.D. on09/14/2017 3:37 PM . Holley Gardner MD US ORDERABLES * CT LUNG CANCER SCREEN LOW DOSE (09/01/2017 2:57 PM CDT) Anatomical Region Laterality Modality Chest Other Impressions 09/04/2017 4:44 PM CDT IMPRESSION: Solid spiculated left upper lobe nodule measuring 1.4 x 0.8 x 0.8 cm, Lung-RADS 4X. Follow-up with tissue biopsy and/or PET/CT is recommended. Dictated by Narinder Angeles MD (radiology manager). This report was approved by Narinder Angeles on 09/04/2017 11:15 AM . I, Dr. RAUL SHAFFER M.D. have personally reviewed and interpreted this examination/study. This report was electronically signed by RAUL SHAFFER M.D. on 09/04/2017 4:44 PM . Narrative 09/04/2017 4:44 PM CDT EXAMINATION: Computed tomography (CT) of the chest without contrast HISTORY: lung cancer screening in a 40 pack year smoker TECHNIQUE: CT of the chest was performed without contrast according to low dose protocol. COMPARISON: No prior study is available for comparison. FINDINGS: Evaluation of visceral and vascular structures is degraded due to lack of intravenous contrast administration. Mild centrilobular and paraseptal emphysema is present. The lungs are clear of focal consolidation. No pleural effusion or focal pleural thickening is identified. There is no evidence of pneumothorax. The trachea is patent and midline. Calcified sequela of granulomatous disease is noted in the right upper lobe. A solid spiculated nodule is present in the medial left upper lobe just superior to the aortic arch, and measures 1.4 cm AP by 0.8 cm TV by 0.8 cm CC (series 6, image 32; series 7, image 82). 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 The aorta and main pulmonary artery are normal in course and caliber. The coronary arteries and aorta are atherosclerotic. The heart size is normal. No pericardial effusion is present. No mediastinal, supraclavicular, or axillary lymphadenopathy is seen. The visible portions of the liver, gallbladder, spleen, pancreas, adrenal glands, kidneys, stomach, and bowel are normal. Bone windows demonstrate no suspicious lytic or blastic lesions. The visible osseous structures are intact. Multilevel degenerative changes are noted in the spine. Procedure Note Raul Shaffer MD - 09/16/2017 EXAMINATION: Computed tomography (CT) of the chest without contrast HISTORY: lung cancer screening in a 40 pack year smoker TECHNIQUE: CT of the chest was performed without contrast according to lowdose protocol. COMPARISON: No prior study is available for comparison. FINDINGS: Evaluation of visceral and vascular structures is degraded due to lack ofintravenous contrast administration. Mild centrilobular and paraseptal emphysema is present. The lungs areclear of focal consolidation. No pleural effusion or focal pleuralthickening is identified. There is no evidence of pneumothorax. Thetrachea is patent and midline. Calcified sequela of granulomatous disease is noted in the right upper lobe. A solidspiculated nodule is present in the medial left upper lobe just superiorto the aortic arch, and measures 1.4 cm AP by 0.8 cm TV by 0.8 cm CC(series 6, image 32; series 7, image 82). 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 The aorta and mainpulmonary artery are normal in course and caliber. The coronary arteriesand aorta are atherosclerotic. The heart size is normal. No pericardial effusion is present. Nomediastinal, supraclavicular, or axillary lymphadenopathy is seen. The visible portions of the liver, gallbladder, spleen, pancreas, adrenalglands, kidneys, stomach, and bowel are normal. Bone windows demonstrate no suspicious lytic or blastic lesions. Thevisible osseous structures are intact. Multilevel degenerative changes arenoted in the spine. IMPRESSION IMPRESSION: Solid spiculated left upper lobe nodule measuring 1.4 x 0.8 x 0.8 cm,Lung-RADS 4X. Follow-up with tissue biopsy and/or PET/CT is recommended. Dictated by Narinder Angeles MD (radiology manager). This report was approved by Narinder Angeles on 09/04/2017 11:15 AM . I, Dr. RAUL SHAFFER M.D. have personally reviewed and interpreted thisexamination/study. This report was electronically signed by RAUL SHAFFER M.D. on09/04/2017 4:44 PM . Holley Gardner MD CT ORDERABLES * MAMMO BILAT SCREENING (09/01/2017 2:46 PM CDT) Anatomical Region Laterality Modality Breast Bilateral Other Narrative 09/07/2017 12:48 PM CDT BILATERAL SCREENING MAMMOGRAM DATE: 09/01/2017. COMPARISON: Prior mammogram just received dated 12/02/2014. HISTORY: Screening mammogram. TECHNIQUE: Images were performed using 3D tomosynthesis images with reconstructed/synthetic 2D images and CAD analysis. BREAST COMPOSITION: There are scattered areas of fibroglandular density. RISK ASSESSMENT CALCULATION: Based on the information provided by the patient, her lifetime risk of breast cancer is average (<15%). FINDINGS: Questioned mass in the subareolar right breast. There is no suspicious mass, clustered microcalcification, or architectural distortion in the left breast on 3D images. ASSESSMENT: BI-RADS 0: Need additional imaging evaluation. RECOMMENDATION: Right breast targeted ultrasound and possible diagnostic mammography. This report was electronically signed by ANDREEA BLANCAS M.D. on 09/07/2017 12:48 PM . Procedure Note Andreea Blancas MD - 09/16/2017 BILATERAL SCREENING MAMMOGRAM DATE: 09/01/2017. COMPARISON: Prior mammogram just received dated 12/02/2014. HISTORY: Screening mammogram. TECHNIQUE: Images were performed using 3D tomosynthesis images withreconstructed/synthetic 2D images and CAD analysis. BREAST COMPOSITION: There are scattered areas of fibroglandular density. RISK ASSESSMENT CALCULATION: Based on the information provided by thepatient, her lifetime risk of breast cancer is average (<15%). FINDINGS: Questioned mass in the subareolar right breast. There is nosuspicious mass, clustered microcalcification, or architectural distortionin the left breast on 3D images. ASSESSMENT: BI-RADS 0: Need additional imaging evaluation. RECOMMENDATION: Right breast targeted ultrasound and possible diagnostic mammography. This report was electronically signed by ANDREEA BLANCAS M.D. on09/07/2017 12:48 PM . Holley Gardner MD MAMMO ORDERABLES * HEMOGLOBIN A1C - POINT OF CARE (AMB) [facility] (08/01/2017 4:07 PM PMO MANAGER) Hemoglobin A1c POCT 6.4 [facility] Capillary blood specimen (specimen) 08/01/2017 4:07 PM PMO MANAGER Holley Gardner MD LAB - POINT OF CARE ORDERABLES [facility] [address] Care Teams Flight Crew Ordnanceman Relationship Specialty Start Date End Date Nery Fischer MD [address] [place] [address] PCP - General 09/14/18 Tawana Larose MD [address] [place] [address] Resident - PCP Internal Medicine 12/03/17
--- OUTSIDE RECORDS SUMMARY | 2024-07-30 14:38 | XMS_ITS | Referral Summary ---
Author Organization [facility] [employer] Address [address] [place] [address] Care Team Providers Care Asphalt Patcher Name Role Phone Tawana Larose MD Unavailable [phone] Nery Fischer MD Primary Care Provider Source Comments [facility],non-owned Affiliates and Associated Physician Practices is amultiple site organization consisting of ambulatory clinics and hospital sitesin [place], [place], [place] and [place]. This disclosure is being madepursuant to the Care Everywhere program and may not contain all information available regarding this patient. Last updated 18.[facility] [employer] Allergies No known active allergies Medications * Be aware that medications may not be up to date on this document. Alwaysverify current medications with the patient. Medication Sig Dispensed Refills Start Date End Date Status metFORMIN (GLUCOPHAGE) 500 MG tablet 6 05/07/2017 Active simvastatin (ZOCOR) 20 MG tablet Take 20 mg by mouth DAILY. 6 05/07/2017 Active gabapentin (NEURONTIN) 100 MG capsule 3 05/07/2017 Active buPROPion SR 12hr (WELLBUTRIN-SR) 150 MG tablet Take 150 mg by mouth BID. 3 05/07/2017 Active amLODIPine (NORVASC) 10 MG tablet Take 10 mg by mouth DAILY. 4 05/07/2017 Active vitamin D, ergocalciferol, (DRISDOL) 41214 UNITS capsule 6 05/07/2017 Active losartan (COZAAR) 50 MG tablet 4 05/07/2017 Active ibuprofen (MOTRIN) 800 MG tablet 2 05/17/2017 Active aspirin EC (ECOTRIN) 325 MG tabletIndications: Cerebrovascular Accident Take 325 mg by mouth once daily Reasons: Cerebrovascular Accident or Stroke Active diphenhydrAMINE HCl, Sleep, (ZZZQUIL) 25 MGIndications:Inso mnia Take 50 mg by mouth at bedtime Reasons: Trouble Sleeping Active Active Problems Problem Noted Date Diagnosed Date Chronic kidney disease 06/01/2021 Essential hypertension 06/01/2021 Cerebral aneurysm 09/27/2018 Personal history of other infectious and parasit ic diseases 08/01/2017 Immunizations Name Administration Dates Next Due INFLUENZA VACCINE 04/09/2021 Social History Tobacco Use Types Packs/Day Years [...] Comments Blood Pressure 140/84 06/01/2021 1:40 PM SECURITY TEST ENGINEER Pulse 71 06/01/2021 1:40 PM SECURITY TEST ENGINEER Temperature 36.4 C (97.5 F) 06/01/2021 1:40 PM SECURITY TEST ENGINEER Respiratory Rate 18 12/26/2018 1:00 PM CDT Oxygen Saturation 97% 06/01/2021 1:40 PM SECURITY TEST ENGINEER Inhaled Oxygen Concentration - - Weight 90.7 kg (200 lb) 06/01/2021 1:40 PM SECURITY TEST ENGINEER Height 162.6 cm (5' 4 ) 06/01/2021 1:40 PM SECURITY TEST ENGINEER Body Mass Index 34.33 06/01/2021 1:40 PM SECURITY TEST ENGINEER Functional Status Functional Status Response Date of Assess ment Is person deaf or have serious hearing difficult y? No 12/26/2018 Is person blind or have serious difficulty seein g? No 12/26/2018 Does person have serious dif ficulty walking/climbing stairs? Yes 12/26/2018 Does person have difficulty dressing/bathing? Ye s 12/26/2018 Does person have difficulty doing errands alone? Yes 12/26/2018 Cognitive Status Response Date of Assessm ent Does person have difficulty concentrating/remembering/making decisions? No 12/26/2018 Plan of Treatment Not on file Procedures Procedure Name Priority Date/Time Associated Diagnosis Comments BASIC METABOLIC PANEL (CALCIUM TOTAL) Routine 12/26/2018 9:03 AM CDT Brain aneurysm (HCC) MAMMO BILAT SCREENING Routine 09/01/2017 2:46 PM CDT HEMOGLOBIN A1C - POINT OF CARE (AMB) [facility] Routine 08/01/2017 4:07 PM SECURITY TEST ENGINEER from Last 3 Months or Most Recently Relevant to Health Maintenance Results * (ABNORMAL) BASIC METABOLIC PANEL (CALCIUM TOTAL) (12/26/2018 9:03 AM CDT) BUN 9 7 - 26 mg/dL 12/26/2018 9:36 AM [facility] Creatinine 1.3(H) 0.6 - 1.2 mg/dL 12/26/2018 9:36 AM [facility] Sodium 145 136 - 145 mmol/L 12/26/2018 9:36 AM [facility] Potassium 3.8 3.5 - 4.5 mmol/L 12/26/2018 9:36 AM [facility] Chloride 109(H) 98 - 107 mmol/L 12/26/2018 9:36 AM [facility] CO2 27 22 - 29 mmol/L 12/26/2018 9:36 AM [facility] Glucose 132(H) 70 - 115 mg/dL 12/26/2018 9:36 AM [facility] Calcium 9.2 8.4 - 10.2 mg/dL 12/26/2018 9:36 AM [facility] Anion Gap 13 8 - 18 12/26/2018 9:36 AM [facility] BUN/Creatinine Ratio 7 7 - 23 12/26/2018 9:36 AM [facility] Osmolality Calculated 301(H) 270 - 300 mOsm/kg 12/26/2018 9:36 AM [facility] eGFR 50(L) >60 mL/min/1.7 3 m2 12/26/2018 9:36 AM CDT [facility] Blood BLOOD SPECIMEN / Unknown Venipuncture / Unknown 12/26/2018 9:03 AM CDT 12/26/2018 9:15 AM CDT Nancy Stark MD LAB - CHEMISTRY FAUZIA Goncalves Organization Address City/State/ZIP Co de Phone Number [address] [phone] * MAMMO BILAT SCREENING (09/01/2017 2:46 PM [...] HEMOGLOBIN A1C - POINT OF CARE (AMB) [facility] (08/01/2017 4:07 PM SECURITY TEST ENGINEER) Hemoglobin A1c POCT 6.4 [facility] Capillary blood specimen (specimen) 08/01/2017 4:07 PM SECURITY TEST ENGINEER Holley Gardner MD LAB - POINT OF CARE ORDERABLES [facility] [address] from Last 3 Months or Most Recently Relevant to Health Maintenance Care Teams Asphalt Patcher Relationship Specialty Start Date End Date Nery Fischer MD [address] [place] [address] PCP - General 09/14/18 Tawana Larose MD [address] [place] [address] Resident - PCP Internal Medicine 12/03/17
--- OUTSIDE RECORDS SUMMARY | 2024-07-30 14:38 | XMS_ITS | Clinical Summary ---
Author Organization [facility] [employer] Address [address] [place] [address] Care Team Providers Care Icer Machine Name Role Phone Tawana Larose MD Unavailable [phone] Nery Fischer MD Primary Care Provider Source Comments [facility] [employer],non-owned Affiliates and Associated Physician Practices is amultiple site organization consisting of ambulatory clinics and hospital sitesin [place], [place], [place] and [place]. This disclosure is being madepursuant to the Care Everywhere program and may not contain all information available regarding this patient. Last updated 18.[facility] [employer] Allergies No known active allergies Medications * [...] 4 05/07/2017 Active vitamin D, ergocalciferol, (DRISDOL) 01206 UNITS capsule 6 05/07/2017 Active losartan (COZAAR) [...] Administration Dates Next Due INFLUENZA VACCINE 04/09/2021 Family History Medical History Relation Name Comments Diabetes - Type 2 Mother Hypertension Mother Hypertension Sister 1 Diabetes - Type 2 Sister 2 Relation Name Status Comments Mother Sister 1 Sister 2 Social History Tobacco Use Types Packs/Day Years [...] Comments Blood Pressure 140/84 06/01/2021 1:40 PM QUALITY AUDIT REPRESENTATIVE Pulse 71 06/01/2021 1:40 PM QUALITY AUDIT REPRESENTATIVE Temperature 36.4 C (97.5 F) 06/01/2021 1:40 PM QUALITY AUDIT REPRESENTATIVE Respiratory Rate 18 12/26/2018 1:00 PM CDT Oxygen Saturation 97% 06/01/2021 1:40 PM QUALITY AUDIT REPRESENTATIVE Inhaled Oxygen Concentration - - Weight 90.7 kg (200 lb) 06/01/2021 1:40 PM QUALITY AUDIT REPRESENTATIVE Height 162.6 cm (5' 4 ) 06/01/2021 1:40 PM QUALITY AUDIT REPRESENTATIVE Body Mass Index 34.33 06/01/2021 1:40 PM QUALITY AUDIT REPRESENTATIVE Plan of Treatment Health Maintenance Due Date Last Done Comments BONE DENSITY TESTING 1955 COLOGUARD (AGES 45-75) - COLON CA SCREENING 1955 COLON MONITORING 1953 COLONOSCOPY - COLON CA SCREENING 1953 CT COLONOGRAPHY - COLON CA SCREENING 1955 Colorectal Cancer Screening 1955 FIT - COLON CA SCREENING 1953 FLEX SIG - COLON CA SCREENING 1955 HEPATITIS C SCREENING 10/21/1971 DTAP/TDAP/TD VACCINES (1 - Tdap) 1972 PNEUMOCOCCAL VACCINE 50+ (1 of 2 - PCV) 1972 ZOSTER VACCINE (1 of 2) 10/26/2003 DIABETES RETINOPATHY SCREENING 09/11/2017 DIABETES-FOOT EXAM WITH MONOFILAMENT 09/11/2017 DIABETES-HGB A1C 02/24/2019 08/24/2018, 08/01/2017 DIABETES-SERUM CREATININE 12/27/20192018, 08/24/2018, 08/24/2018, Additional history exists MAMMOGRAM 03/05/2023 03/05/2021, 09/01/2017 COVID-19 VACCINE ( - season) 2024 INFLUENZA VACCINE (#1) 2024 04/09/2021 DEPRESSION SCREENING 06/12/2024 DIABETES - URINE PROTEIN SCREENING 06/12/2024 MEDICARE AWV CALENDAR YEAR 2024 Respiratory Syncytial Virus (RSV) Vaccine Pt: or over 60 yrs (1 - 1-dose 75+ series) 2028 HEPATITIS B VACCINE Aged Out No longe r eligible based on patient's age to complete this topic HIB VACCINE Aged Out No longer eligi ble based on patient's age to complete this topic HPV VACCINE Aged Out No longer eligi ble based on patient's age to complete this topic MENINGOCOCCAL (Group B) VACCINE Aged Out No longer eligible based on patient's age to complete this topic MENINGOCOCCAL VACCINE Aged Out No maryjo peter eligible based on patient's age to complete this topic Procedures Procedure Name Priority Date/Time Associated Diagnosis Comments BASIC METABOLIC PANEL (CALCIUM TOTAL) Routine 12/26/2018 9:03 AM CDT Brain aneurysm (HCC) MAMMO BILAT SCREENING Routine 09/01/2017 2:46 PM CDT HEMOGLOBIN A1C - POINT OF CARE (AMB) [facility] Routine 08/01/2017 4:07 PM QUALITY AUDIT REPRESENTATIVE from Last 3 Months or Most Recently Relevant to Health Maintenance Results * (ABNORMAL) BASIC METABOLIC PANEL (CALCIUM TOTAL) (12/26/2018 9:03 AM CDT) BUN 9 7 - 26 mg/dL 12/26/2018 9:36 AM [facility] Creatinine 1.3(H) 0.6 - 1.2 mg/dL 12/26/2018 9:36 AM [facility] Sodium 145 136 - 145 mmol/L 12/26/2018 9:36 AM [facility] Potassium 3.8 3.5 - 4.5 mmol/L 12/26/2018 9:36 AM [facility] Chloride 109(H) 98 - 107 mmol/L 12/26/2018 9:36 AM [facility] CO2 27 22 - 29 mmol/L 12/26/2018 9:36 AM [facility] Glucose 132(H) 70 - 115 mg/dL 12/26/2018 9:36 AM [facility] Calcium 9.2 8.4 - 10.2 mg/dL 12/26/2018 9:36 AM [facility] Anion Gap 13 8 - 18 12/26/2018 9:36 AM [facility] BUN/Creatinine Ratio 7 7 - 23 12/26/2018 9:36 AM [facility] Osmolality Calculated 301(H) 270 - 300 mOsm/kg 12/26/2018 9:36 AM [facility] eGFR 50(L) >60 mL/min/1.7 3 m2 12/26/2018 9:36 AM [facility] Blood BLOOD SPECIMEN / Unknown Venipuncture / Unknown 12/26/2018 9:03 AM CDT 12/26/2018 9:15 AM CDT Nancy Stark MD LAB - CHEMISTRY FAUZIA QUIÑONEZ [facility] Organization Address City/State/ZIP Co de Phone Number [address] [phone] * MAMMO BILAT SCREENING (09/01/2017 2:46 PM [...] OF CARE (AMB) [facility] (08/01/2017 4:07 PM QUALITY AUDIT REPRESENTATIVE) Hemoglobin A1c POCT 6.4 [facility] Capillary blood specimen (specimen) 08/01/2017 4:07 PM QUALITY AUDIT REPRESENTATIVE Holley Gardner MD LAB - POINT OF CARE ORDERABLES [address] [address], [facility] from Last 3 Months or Most Recently Relevant to Health Maintenance Care Teams Icer Machine Relationship Specialty Start Date End Date Nery Fischer MD [address] [place] [address] PCP - General 09/14/18 Tawana Larose MD [address] [place] [address] Resident - PCP Internal Medicine 12/03/17
--- OUTSIDE RECORDS SUMMARY | 2024-07-30 14:39 | XMS_ITS | Clinical Summary ---
Author Organization [facility] Address [address] [place] [address] Care Team Providers Care Competitive Intelligence Manager Name Role Phone Suri Beatty NP Primary Care Provider + Allergies No known active allergies Medications amLODIPine (NORVASC) 10 mg tablet Take 1 tablet (10 mg total) by mouth daily 7 Active ergocalciferol (VITAMIN D) 50,000 unit capsule Take 1 capsule (50,000 Units total) by mouth once a week Monday 7 08/24/19 25 Active metFORMIN (GLUCOPHAGE) 500 mg tablet Take 1 tablet (500 mg total) by mouth 2 (two) times a day with meals 7 Active losartan (COZAAR) 100 mg tablet Take 1 tablet (100 mg total) by mouth daily 30 tablet 3 4 Active aspirin 81 mg chewable tablet Administer per tube 1 tablet (81 mg total) daily 5 07/26/19 26 Active atorvastatin (LIPITOR) 80 mg tablet Administer per tube 1 tablet (80 mg total) nightly 5 07/26/19 26 Active ramelteon (ROZEREM) 8 mg tabletIndicati ons:Sleep-Onse t Insomnia Take 1 tablet (8 mg total) by mouth nightly 5 07/26/19 26 Active psyllium, aspartame, SF (METAMUCIL SF) 3.4 gram packet Take 1 packet by mouth 2 (two) times a day 5 07/26/19 26 Active clopidogreL (PLAVIX) 75 mg tablet Administer per tube 1 tablet (75 mg total) daily for 85 doses 5 10/20/19 25 Active acetaminophen (TYLENOL) 325 mg tablet Administer per tube 2 tablets (650 mg total) every 4 (four) hours as needed for pain 5 Active aspirin 81 mg enteric coated tablet Take 1 tablet (81 mg total) by mouth daily 07/26/19 Discontinu ed(Stop Taking at Discharge) busPIRone (BUSPAR) 15 mg tablet Take 1 tablet (15 mg total) by mouth 2 (two) times a day 4 07/26/19 Discontinu ed(Stop Taking at Discharge) zolpidem (AMBIEN) 5 mg tabletIndicati ons:Sleep-Onse t Insomnia Take 1 tablet (5 mg total) by mouth nightly as needed for sleep 07/26/19 Discontinu ed(Stop Taking at Discharge) buPROPion SR (WELLBUTRIN SR) 150 mg 12 hr tablet Take 1 tablet (150 mg total) by mouth daily 07/26/19 25 Discontinu ed(Stop Taking at Discharge) acetaminophen ER (TYLENOL) 650 mg 8 hr tablet Take 3 tablets (1,950 mg total) by mouth 2 (two) times a day as needed for pain 07/26/19 Discontinu ed(Stop Taking at Discharge) gabapentin (NEURONTIN) 300 mg capsuleIndicat ions:Diabetic Peripheral Neuropathy Take 1 capsule (300 mg total) by mouth 3 (three) times a day 90 capsule 3 4 07/26/19 25 Discontinu ed(Stop Taking at Discharge) pantoprazole DR (PROTONIX) 40 mg EC tabletIndicati ons:Stress Ulcer Prophylaxis,Tr eatment of Non-Bleeding Gastric Disorder,Gastr ic acid reflux disease Take 1 tablet (40 mg total) by mouth daily 30 tablet 3 4 07/26/19 25 Discontinu ed(Stop Taking at Discharge) rosuvastatin (CRESTOR) 10 mg tablet Take 1 tablet (10 mg total) by mouth daily 30 tablet 3 4 07/26/19 Discontinu ed(Stop Taking at Discharge) nicotine 21-14-7 mg/24 hr patch, TD daily, sequential 21 mg daily x6 weeks, 14 mg daily for 4 weeks, 7 mg daily for 2 weeks then stop 84 patch 4 07/26/19 Discontinu ed(Stop Taking at Discharge) Active Problems Problem Noted Date Diagnosed Date Acute ischemic left MCA stroke 07/13/2024 Gastroesophageal reflux disease without esophagi tis 09/04/2023 Essential (primary) hypertension 09/04/2023 Hypercholesteremia 09/04/2023 Type 2 diabetes mellitus with peripheral neuropa thy 09/04/2023 Stage 3a chronic kidney disease 09/04/2023 Generalized anxiety disorder 09/04/2023 Chest pain, unspecified type 09/03/2023 Encounters Date Type Department Care Team Description 07/23/2024 1:19 PM PER DIEM NURSE - 07/23/2024 11:59 PM PER DIEM NURSE Hospital Encounter [facility] Radiology [address] [place] [address] Discharge Disposition: Discharge to home or self care 07/13/2024 11:59 AM PER DIEM NURSE Anesthesia Event [facility] [address] [place] [address] Elmer Lockwood III, MD PhD Rylie Case, KATHY 07/13/2024 11:06 AM PER DIEM NURSE - 07/26/2024 9:30 PM PER DIEM NURSE Hospital Encounter [address] [address] Carlyle Evans MD Kang, Peter, MD Holder, Derek Lance, MD Das, Saurav, MD Cerebrovascular accident (CVA) due to occlusion of left middle cerebral artery (HCC) (Primary Dx); Acute ischemic left MCA stroke (HCC); Dysphagia, unspecified type Discharge Disposition: Discharge to an Rehab facility from Last 3 Months Surgical History Surgery Date Site/Laterality Comments HERNIA REPAIR approx 5-6yrs old IR G TUBE PLACEMENT PERCUTANEOUS 07/18/2024 N/A Medical History Medical History Date Comments Hypertension Diabetes mellitus (HCC) HLD (hyperlipidemia) Chronic kidney disease Anxiety CVA (cerebral vascular accident) (HCC) Social History Tobacco Use Types Packs/Day Years Used Date Smoking Tobacco: Every Day Cigarettes 0.5 52.1 Started: 1972 Tobacco Cessation:Ready to Q uit: Not Asked; Counseling Given: Not Answered [facility] Utilities Answer Date Recorded In the past 12 months has th e electric, gas, oil, or water company threatened [...] often do you attend chur ch or druze services? Never 09/04/2023 Do you belong to any clubs o r organizations such as denominational groups, unions, fraternal or athletic groups, or [...] place to sleep or slept in a custodial (including now)? No 09/04/2023 Personal Safety Answer Date Recorded Have you ever been in or are you currently in a harmful physical or emotional relationship or is someone making you feel afraid or unsafe? Patient unable to answer 07/13/2024 Comments No Sex and Gender Information Value Date Recorded Sex Assigned at Not on file Legal Sex Female 4:54 PM PER DIEM NURSE Gender Identity Not on file Sexual Orientation Not on file Obstetrics History Last Filed Vital Signs Vital Sign Reading Time Taken Comments Blood Pressure 117/57 07/26/2024 9:06 PM PER DIEM NURSE Pulse 74 07/26/2024 9:06 PM PER DIEM NURSE Temperature 37 C (98.6 F) 07/26/2024 9:06 PM PER DIEM NURSE Respiratory Rate 18 07/26/2024 9:06 PM PER DIEM NURSE Oxygen Saturation 99% 07/26/2024 9:06 PM PER DIEM NURSE Inhaled Oxygen Concentration - - Weight 79 kg (174 lb 2.6 oz) 07/23/2024 10:15 PM PER DIEM NURSE Height 167.6 cm (5' 6 ) 07/13/2024 5:25 PM PER DIEM NURSE Body Mass Index 28.11 07/13/2024 5:25 PM PER DIEM NURSE Plan of Treatment Health Maintenance Due Date Last Done Comments Albumin Creatinine Ratio, Urine 1953 Colon Cancer Screening-Colonoscopy 1953 Depression Screening 1953 Hepatitis C Screening 1955 Osteoporosis Screening-Bone Density Scan 1953 Dilated Eye Exam 1953 Foot Exam 1953 Hepatitis B Screening 10/26/1971 Zoster Vaccine (1 of 2) 10/26/2003 Lung Cancer Screening 09/01/2018 09/01/2017 Well Visit 65+ 2018 Breast Cancer Screening-Mammogram 01/14/2022 021, 09/01/2017 Pneumococcal vaccine 65+ (2 of 2 - PCV) 04/12/2022 04/12/2021, 01/30/2020 Covid-19 Vaccine (3 - 2023-2 5 season) 2024 04/12/2021, 10/09/2020 Influenza Vaccine (#1) 2024 04/09/2021, 2019 Lipid Panel 09/02/2024 09/03/2023, 08/24/2018 Hemoglobin A1C 01/10/2025 07/13/2024, 08/10, 04/13/2023, Additional history exists Fall Risk Assessment 07/26/2025 07/26/2024 eGFR 07/26/2025 07/26/2024, 07/13, 07/23/2024, Additional history exists DTaP/Tdap/Td Vaccine (2 - Td or Tdap) 11/16/2030 11/16/2020 Medical Devices Implanted Type Area Plastic Manager Device Identifier Shelf Expiration Date Model / Serial / Lot [employer] Angio-Seal Vip Bondek-Plus 8fr .038in 70cm Hemostatic Latex Free [id number] - [id number] Implanted:Qty: 1 on 07/13/2024 by Rinku Dave MD at [facility] [employer] 01/02/2025 [id number] / / [id number] Procedures Procedure Name Priority Date/Time Associated Diagnosis Comments POCT GLUCOSE DEVICE Routine 07/26/2024 8 :30 PM PER DIEM NURSE POCT GLUCOSE DEVICE Routine 07/26/2024 3 :12 PM PER DIEM NURSE POCT GLUCOSE DEVICE Routine 07/26/2024 11:30 AM PER DIEM NURSE POCT GLUCOSE DEVICE Routine 07/26/2024 7 :47 AM PER DIEM NURSE EGFR Routine 07/26/2024 5:28 AM PER DIEM NURSE BASIC METABOLIC PANEL Routine 07/26/2024 5:28 AM PER DIEM NURSE CBC WITHOUT DIFFERENTIAL Routine 025 5:28 AM PER DIEM NURSE MAGNESIUM Routine 07/26/2024 5:28 AM PER DIEM NURSE POCT GLUCOSE DEVICE Routine 07/26/2024 5 :00 AM PER DIEM NURSE POCT GLUCOSE DEVICE Routine 07/26/2024 12:56 AM PER DIEM NURSE POCT GLUCOSE DEVICE Routine 07/25/2024 9 :12 PM PER DIEM NURSE POCT GLUCOSE DEVICE Routine 07/25/2024 6 :27 PM PER DIEM NURSE POCT GLUCOSE DEVICE Routine 07/25/2024 3 :08 PM PER DIEM NURSE POCT GLUCOSE DEVICE Routine 07/25/2024 11:49 AM PER DIEM NURSE POCT GLUCOSE DEVICE Routine 07/25/2024 8 :47 AM PER DIEM NURSE POCT GLUCOSE DEVICE Routine 07/25/2024 4 :35 AM PER DIEM NURSE POCT GLUCOSE DEVICE Routine 07/25/2024 12:19 AM PER DIEM NURSE POCT GLUCOSE DEVICE Routine 07/24/2024 8 :53 PM PER DIEM NURSE EGFR Routine 07/24/2024 8:33 PM PER DIEM NURSE BASIC METABOLIC PANEL Routine 07/24/2024 8:33 PM PER DIEM NURSE CBC WITHOUT DIFFERENTIAL Routine 025 8:33 PM PER DIEM NURSE MAGNESIUM Routine 07/24/2024 8:33 PM PER DIEM NURSE POCT GLUCOSE DEVICE Routine 07/24/2024 5 :03 PM PER DIEM NURSE POCT GLUCOSE DEVICE Routine 07/24/2024 12:[address] ABDOMEN PELVIS WO CONTRAST IP Routine 07/24/2024 9:38 AM PER DIEM NURSE POCT GLUCOSE DEVICE Routine 07/24/2024 8 :19 AM PER DIEM NURSE POCT GLUCOSE DEVICE Routine 07/24/2024 4 :05 AM PER DIEM NURSE POCT GLUCOSE DEVICE Routine 07/24/2024 12:20 AM PER DIEM NURSE EGFR Routine 07/23/2024 9:30 PM PER DIEM NURSE BASIC METABOLIC PANEL Routine 07/23/2024 9:30 PM PER DIEM NURSE CBC WITHOUT DIFFERENTIAL Routine 025 9:30 PM PER DIEM NURSE MAGNESIUM Routine 07/23/2024 9:30 PM PER DIEM NURSE POCT GLUCOSE DEVICE Routine 07/23/2024 8 :12 PM PER DIEM NURSE INFECTION PREVENTION VRE CULTURE Routine 07/23/2024 7:01 PM PER DIEM NURSE C. DIFFICILE TESTING STAT 07/23/2024 7:01 PM PER DIEM NURSE POCT GLUCOSE DEVICE Routine 07/23/2024 4 :48 PM PER DIEM NURSE FL MODIFIED BARIUM SWALLOW W VIDEO IP Routine 07/23/2024 1:48 PM PER DIEM NURSE CORRECTION LIEUTENANT EVALUATE AND TREAT VIDEOFLUOROSCOPIC SWALLOW STUDY Routine 07/23/2024 1:35 PM PER DIEM NURSE POCT GLUCOSE DEVICE Routine 07/23/2024 12:14 PM PER DIEM NURSE POCT GLUCOSE DEVICE Routine 07/23/2024 8 :14 AM PER DIEM NURSE POCT GLUCOSE DEVICE Routine 07/23/2024 3 :44 AM PER DIEM NURSE EGFR Routine 07/22/2024 11:54 PM PER DIEM NURSE BASIC METABOLIC PANEL Routine 07/22/2024 11:54 PM PER DIEM NURSE CBC WITHOUT DIFFERENTIAL Routine 025 11:54 PM PER DIEM NURSE MAGNESIUM Routine 07/22/2024 11:54 PM PER DIEM NURSE POCT GLUCOSE DEVICE Routine 07/22/2024 11:47 PM PER DIEM NURSE POCT GLUCOSE DEVICE Routine 07/22/2024 8 :33 PM PER DIEM NURSE POCT GLUCOSE DEVICE Routine 07/22/2024 4 :40 PM PER DIEM NURSE POCT GLUCOSE DEVICE Routine 07/22/2024 12:38 PM PER DIEM NURSE POCT GLUCOSE DEVICE Routine 07/22/2024 8 :29 AM PER DIEM NURSE POCT GLUCOSE DEVICE Routine 07/22/2024 4 :48 AM PER DIEM NURSE POCT GLUCOSE DEVICE Routine 07/22/2024 12:37 AM PER DIEM NURSE POCT GLUCOSE DEVICE Routine 07/22/2024 12:13 AM PER DIEM NURSE EGFR Routine 07/21/2024 10:37 PM PER DIEM NURSE BASIC METABOLIC PANEL Routine 07/21/2024 10:37 PM PER DIEM NURSE CBC WITHOUT DIFFERENTIAL Routine 025 10:37 PM PER DIEM NURSE MAGNESIUM Routine 07/21/2024 10:37 PM PER DIEM NURSE POCT GLUCOSE DEVICE Routine 07/21/2024 10:12 PM PER DIEM NURSE POCT GLUCOSE DEVICE Routine 07/21/2024 6 :20 PM PER DIEM NURSE POCT GLUCOSE DEVICE Routine 07/21/2024 5 :27 PM PER DIEM NURSE POCT GLUCOSE DEVICE Routine 07/21/2024 12:49 PM PER DIEM NURSE POCT GLUCOSE DEVICE Routine 07/21/2024 8 :22 AM PER DIEM NURSE POCT GLUCOSE DEVICE Routine 07/21/2024 4 :07 AM PER DIEM NURSE EGFR Routine 07/21/2024 3:45 AM PER DIEM NURSE BASIC METABOLIC PANEL Routine 07/21/2024 3:45 AM PER DIEM NURSE PHOSPHORUS Timed 07/21/2024 3:45 AM PER DIEM NURSE CBC WITHOUT DIFFERENTIAL Routine 025 3:45 AM PER DIEM NURSE MAGNESIUM Routine 07/21/2024 3:45 AM PER DIEM NURSE POCT GLUCOSE DEVICE Routine 07/21/2024 12:15 AM PER DIEM NURSE POCT GLUCOSE DEVICE Routine 07/20/2024 9 :05 PM PER DIEM NURSE POCT GLUCOSE DEVICE Routine 07/20/2024 3 :55 PM PER DIEM NURSE POCT GLUCOSE DEVICE Routine 07/20/2024 12:33 PM PER DIEM NURSE POCT GLUCOSE DEVICE Routine 07/20/2024 8 :08 AM PER DIEM NURSE EGFR Routine 07/20/2024 3:36 AM PER DIEM NURSE BASIC METABOLIC PANEL Routine 07/20/2024 3:36 AM PER DIEM NURSE CBC WITHOUT DIFFERENTIAL Routine 025 3:36 AM PER DIEM NURSE MAGNESIUM Routine 07/20/2024 3:36 AM PER DIEM NURSE POCT GLUCOSE DEVICE Routine 07/19/2024 6 :01 PM PER DIEM NURSE POCT GLUCOSE DEVICE Routine 07/19/2024 11:37 AM PER DIEM NURSE POCT GLUCOSE DEVICE Routine 07/19/2024 8 :07 AM PER DIEM NURSE EGFR Routine 07/19/2024 5:51 AM PER DIEM NURSE BASIC METABOLIC PANEL Routine 07/19/2024 5:51 AM PER DIEM NURSE CBC WITHOUT DIFFERENTIAL Routine 025 5:51 AM PER DIEM NURSE MAGNESIUM Routine 07/19/2024 5:51 AM PER DIEM NURSE POCT GLUCOSE DEVICE Routine 07/18/2024 5 :11 PM PER DIEM NURSE POCT GLUCOSE DEVICE Routine 07/18/2024 2 :14 PM PER DIEM NURSE IR G TUBE PLACEMENT PERCUTANEOUS IP Routine 07/18/2024 12:30 PM PER DIEM NURSE EGFR Routine 07/18/2024 6:06 AM PER DIEM NURSE BASIC METABOLIC PANEL Routine 07/18/2024 6:06 AM PER DIEM NURSE EGFR Routine 07/17/2024 8:38 PM PER DIEM NURSE PROTIME-INR Routine 07/17/2024 8:38 PM PER DIEM NURSE CBC WITHOUT DIFFERENTIAL Routine 025 8:38 PM PER DIEM NURSE BASIC METABOLIC PANEL Routine 07/17/2024 8:38 PM PER DIEM NURSE MAGNESIUM Routine 07/17/2024 8:38 PM PER DIEM NURSE EGFR Routine 07/16/2024 10:33 PM PER DIEM NURSE CBC WITHOUT DIFFERENTIAL Routine 025 10:33 PM PER DIEM NURSE BASIC METABOLIC PANEL Routine 07/16/2024 10:33 PM PER DIEM NURSE MAGNESIUM Routine 07/16/2024 10:33 PM PER DIEM NURSE EGFR Routine 07/15/2024 8:01 PM PER DIEM NURSE CBC WITHOUT DIFFERENTIAL Routine 025 8:01 PM PER DIEM NURSE BASIC METABOLIC PANEL Routine 07/15/2024 8:01 PM PER DIEM NURSE MAGNESIUM Routine 07/15/2024 8:01 PM PER DIEM NURSE TRANSTHORACIC ECHO (TTE) COMPLETE W DOPPLER/CF W CONTRAST W BUBBLE ED Urgent/IP Urgent 07/15/2024 9:33 AM PER DIEM NURSE EGFR Routine 07/14/2024 9:31 PM PER DIEM NURSE CBC WITHOUT DIFFERENTIAL Routine 025 9:31 PM PER DIEM NURSE BASIC METABOLIC PANEL Routine 07/14/2024 9:31 PM PER DIEM NURSE MAGNESIUM Routine 07/14/2024 9:31 PM PER DIEM NURSE XR ABDOMEN AP 1 VIEW ED Urgent/IP Urgent 07/14/2024 10:40 AM PER DIEM NURSE POCT GLUCOSE DEVICE Routine 07/14/2024 7 :35 AM PER DIEM NURSE POCT GLUCOSE DEVICE Routine 07/14/2024 3 :45 AM PER DIEM NURSE MRI BRAIN WO CONTRAST IP Routine 07/14/2024 1:47 AM PER DIEM NURSE POCT GLUCOSE DEVICE Routine 07/13/2024 11:54 PM PER DIEM NURSE EGFR Routine 07/13/2024 8:11 PM PER DIEM NURSE HEMOGLOBIN A1C STAT 07/13/2024 8:11 PM PER DIEM NURSE CHOLESTEROL, LDL, DIRECT STAT 025 8:11 PM PER DIEM NURSE PHOSPHORUS Routine 07/13/2024 8:11 PM PER DIEM NURSE MAGNESIUM Routine 07/13/2024 8:11 PM PER DIEM NURSE BASIC METABOLIC PANEL Routine 07/13/2024 8:11 PM PER DIEM NURSE CBC WITHOUT DIFFERENTIAL Routine 025 8:11 PM PER DIEM NURSE POCT GLUCOSE DEVICE Routine 07/13/2024 7 :40 PM PER DIEM NURSE POCT GLUCOSE DEVICE Routine 07/13/2024 5 :04 PM PER DIEM NURSE MS CRITICAL CARE ILL/INJURED PATIENT INIT 30-74 MIN Routine 07/13/2024 2:25 PM PER DIEM NURSE URINALYSIS, MICROSCOPIC ONLY Routine 07/13/2024 2:23 PM PER DIEM NURSE PROTIME-INR STAT 07/13/2024 2:23 PM PER DIEM NURSE APTT STAT 07/13/2024 2:23 PM PER DIEM NURSE TROPONIN I HIGH-SENSITIVITY 2-HOUR Timed 07/13/2024 2:23 PM PER DIEM NURSE URINALYSIS AND REFLEX TO MICROSCOPIC AND CULTURE Routine 07/13/2024 2:23 PM PER DIEM NURSE POCT GLUCOSE DEVICE Routine 07/13/2024 2 :03 PM PER DIEM NURSE PERCUTANEOUS ARTERIAL THROMBECTOMY, INTRACRANIAL Critical/Life- Threatening 07/13/2024 1:29 PM PER DIEM NURSE MS AN PROCEDURE PLACEHOLDER Routine 07/13/2024 12:39 PM PER DIEM NURSE POCT GLUCOSE DEVICE Routine 07/13/2024 12:36 PM PER DIEM NURSE MS AN PROCEDURE PLACEHOLDER Routine 07/13/2024 12:33 PM PER DIEM NURSE MS AN EMERGENT ENDOTRACHEAL AIRWAY Routine 07/13/2024 12:33 PM PER DIEM NURSE POCT GLUCOSE DEVICE Routine 07/13/2024 11:48 AM PER DIEM NURSE CTA/CTP RAPID STROKE Critical/Life- Threatening 07/13/2024 11:30 AM PER DIEM NURSE EGFR STAT 07/13/2024 11:06 AM PER DIEM NURSE DIFFERENTIAL AUTO STAT 07/13/2024 11:06 AM PER DIEM NURSE TROPONIN I HIGH-SENSITIVITY SERIES (BASELINE, 2HR, 4HR, 6HR) STAT 07/13/2024 11:06 AM PER DIEM NURSE APTT STAT 07/13/2024 11:06 AM PER DIEM NURSE COMPREHENSIVE METABOLIC PANEL STAT 07/13/2024 11:06 AM PER DIEM NURSE CBC WITH AUTO DIFFERENTIAL STAT 07/13/2024 11:06 AM PER DIEM NURSE LIPID PANEL Routine 09/03/2023 6:28 PM CDT from Last 3 Months or Most Recently Relevant to Health Maintenance Results * POCT glucose (07/26/2024 8:30 PM PER DIEM NURSE) Glucose, POC 131 70 - 199 mg/dL Blood 07/26/2024 8:30 PM PER DIEM NURSE 07/26/2024 8:30 PM PER DIEM NURSE us Arnold Ramos MD LAB POCT ORDERABLES - DONYA CE Final Result [facility] Department [place] [address] * POCT glucose (07/26/2024 3:12 PM PER DIEM NURSE) Glucose, POC 134 70 - 199 mg/dL Blood 07/26/2024 3:12 PM PER DIEM NURSE 07/26/2024 3:12 PM PER DIEM NURSE us Arnold Ramos MD LAB POCT ORDERABLES - DONYA CE Final Result Performing Organization Address [facility] de Phone Number [facility] [place] [address] * POCT glucose (07/26/2024 11:30 AM PER DIEM NURSE) Glucose, POC 122 70 - 199 mg/dL Blood 07/26/2024 11:3 0 AM PER DIEM NURSE 07/26/2024 11:30 AM PER DIEM NURSE us Arnold Ramos MD LAB POCT ORDERABLES - DONYA CE Final Result Performing Organization Address [facility] de Phone Number [facility] [place] [address] * POCT glucose (07/26/2024 7:47 AM PER DIEM NURSE) Glucose, POC 109 70 - 199 mg/dL Blood 07/26/2024 7:47 AM PER DIEM NURSE 07/26/2024 7:47 AM PER DIEM NURSE us Arnold Ramos MD LAB POCT ORDERABLES - DONYA CE Final Result Performing Organization Address [facility] [place] [address] * (ABNORMAL) eGFR (07/26/2024 5:28 AM PER DIEM NURSE) eGFR 58(L) >=60 mL/min/1. 73 m2 Comment: Interpretive Data Reference Interval Normal >/= 90 mL/min/1.73m2 Mildly decreased* 60 - 89 mL/min/1.73m2 Mildly to moderately decreased 45 - 59 mL/min/1.73m2 Moderately to severely decreased 30 - 44 mL/min/1.73m2 Severely decreased 15 - 29 mL/min/1.73m2 Kidney Failure < 15 mL/min/1.73m2 *Relative to young adult level Estimated glomerular filtration rate is determined by the 2020 CKD-EPI equation recommended by the National Kidney Foundation (A Unifying Approach to GFR Estimation: Recommendations of the NKF-ASK Task Force on Reassessing the Inclusion of Race in Diagnosing Kidney Disease, JASN 202). The CKD-EPI equation should not be used for patients with unstable renal function and has not been validated in children and those over 70. Current interpretive data was last reviewed 2021. Blood 07/26/2024 5:28 AM PER DIEM NURSE 07/26/2024 5:54 AM PER DIEM NURSE us Radha Pendleton MD LAB BLOOD ORDERABLES Final Resul t [facility] Department [place] [address] * (ABNORMAL) CBC without differential (07/26/2024 5:28 AM PER DIEM NURSE) WBC 8.1 3.8 - 9.9 K/cumm Hgb 10.9(L) 11.9 - 15.5 g/dL [facility] Hct 32.6(L) 35.6 - 45.5 % [facility] Plt 353 150 - 400 K/cumm [facility] MPV 11.9 9.1 - 12.[address] [facility] RBC 3.72(L) 3.90 - 5.20 M/cumm [facility] MCV 87.6 81.3 - 96.[address] [facility] MCH 29.3 27.1 - 33.[address] [facility] MCHC 33.4 32.3 - 35.7 g/dL [facility] RDW CV 12.0 11.1 - 14.9 % [facility] RDW SD 38.8 35.7 - 48.[address] [facility] NRBC abs 0.00 0.00 - 0.01 K/cumm [facility] Blood 07/26/2024 5:28 AM PER DIEM NURSE 07/26/2024 5:55 AM PER DIEM NURSE Desi Hurtado NP LAB BLOOD ORDERABLES Final Result Performing Organization Address City/[facility]/ZIP Co de Phone Number [facility] Department [place] [address] * Magnesium (07/26/2024 5:28 AM PER DIEM NURSE) Pathologist [facility] Magnesium 2.3 1.4 - 2.5 mg/dL Blood 07/26/2024 5:28 AM PER DIEM NURSE 07/26/2024 5:54 AM PER DIEM NURSE Radha Pendleton MD LAB BLOOD ORDERABLES Final Resul t Performing Organization Address [facility] de Phone Number [facility] Department [place] [address] * Basic metabolic panel (07/26/2024 5:28 AM PER DIEM NURSE) [facility] Sodium 143 135 - 145 mmol/L Potassium, pl 3.9 3.3 - 4.9 mmol/L [facility] Chloride 104 97 - 110 mmol/L [facility] CO2 30 22 - 32 mmol/L [facility] Anion gap 9 2 - 15 mmol/L [facility] BUN 14 6 - 25 mg/dL [facility] Creatinine 1.03 0.60 - 1.10 mg/dL [facility] Glucose 148 70 - 199 mg/dL [facility] Comment: Interpretive Data Fasting glucose >/= 126 mg/dl is diagnostic for diabetes. Fasting is defined as no caloric intake for at least 8 hours. Fasting glucose between 100 mg/dl to 125 mg/dl is diagnostic of prediabetes. In a patient with classic symptoms of hyperglycemia or hyperglycemic crisis, a random glucose >/= 200 mg/dl is diagnostic for diabetes. In the absence of unequivocal hyperglycemia, results should be confirmed by repeat testing. The classification and Diagnosis of Diabetes Diabetes Care 2021; 46: S19-S40. Current interpretive data was last revised 2022. Calcium 9.2 8.5 - 10.3 mg/dL [facility] Blood 07/26/2024 5:28 AM PER DIEM NURSE 07/26/2024 5:54 AM PER DIEM NURSE us Radha Pendleton MD LAB BLOOD ORDERABLES Final Resul t Performing Organization Address [facility] Co de Phone Number [facility] [place] [address] * POCT glucose (07/26/2024 5:00 AM PER DIEM NURSE) Glucose, POC 178 70 - 199 mg/dL Blood 07/26/2024 5:00 AM PER DIEM NURSE 07/26/2024 5:00 AM PER DIEM NURSE us Arnold Ramos MD LAB POCT ORDERABLES - DONYA CE Final Result Performing Organization Address [facility] de Phone Number [facility] [place] [address] * POCT glucose (07/26/2024 12:56 AM PER DIEM NURSE) Glucose, POC 142 70 - 199 mg/dL Blood 07/26/2024 12:5 6 AM PER DIEM NURSE 07/26/2024 12:56 AM PER DIEM NURSE us Arnold Ramos MD LAB POCT ORDERABLES - DONYA CE Final Result Performing Organization Address [facility] [place] [address] * POCT glucose (07/25/2024 9:12 PM PER DIEM NURSE) Glucose, POC 90 70 - 199 mg/dL Blood 07/25/2024 9:12 PM PER DIEM NURSE 07/25/2024 9:12 PM PER DIEM NURSE us Arnold Ramos MD LAB POCT ORDERABLES - DONYA CE Final Result [facility] [place] [address] * POCT glucose (07/25/2024 6:27 PM PER DIEM NURSE) Glucose, POC 135 70 - 199 mg/dL Blood 07/25/2024 6:27 PM PER DIEM NURSE 07/25/2024 6:27 PM PER DIEM NURSE Arnold Ramos MD LAB POCT ORDERABLES - DONYA CE Final Result Performing Organization Address [facility] [place] [address] * POCT glucose (07/25/2024 3:08 PM PER DIEM NURSE) Glucose, POC 181 70 - 199 mg/dL Blood 07/25/2024 3:08 PM PER DIEM NURSE 07/25/2024 3:08 PM PER DIEM NURSE us Arnold Ramos MD LAB POCT ORDERABLES - DONYA CE Final Result Performing Organization Address City/[facility]/ZIP Co de Phone Number [facility] [place] [address] * POCT glucose (07/25/2024 11:49 AM PER DIEM NURSE) Glucose, POC 96 70 - 199 mg/dL Blood 07/25/2024 11:4 9 AM PER DIEM NURSE 07/25/2024 11:49 AM PER DIEM NURSE us Arnold Ramos MD LAB POCT ORDERABLES - DONYA CE Final Result Performing Organization Address City/[facility] [place] [address] * POCT glucose (07/25/2024 8:47 AM PER DIEM NURSE) Glucose, POC 147 70 - 199 mg/dL Blood 07/25/2024 8:47 AM PER DIEM NURSE 07/25/2024 8:47 AM PER DIEM NURSE us Arnold Ramos MD LAB POCT ORDERABLES - DONYA CE Final Result Performing Organization Address [facility] de Phone Number [facility] [place] [address] * POCT glucose (07/25/2024 4:35 AM PER DIEM NURSE) Glucose, POC 105 70 - 199 mg/dL Blood 07/25/2024 4:35 AM PER DIEM NURSE 07/25/2024 4:35 AM PER DIEM NURSE us Arnold Ramos MD LAB POCT ORDERABLES - DONYA CE Final Result Performing Organization Address [facility] Phone Number [facility] [place] [address] * POCT glucose (07/25/2024 12:19 AM PER DIEM NURSE) Glucose, POC 121 70 - 199 mg/dL Blood 07/25/2024 12:1 9 AM PER DIEM NURSE 07/25/2024 12:19 AM PER DIEM NURSE Result Liv Ramos MD LAB POCT ORDERABLES - DONYA CE Final Result Performing Organization Address [facility] [place] [address] * POCT glucose (07/24/2024 8:53 PM PER DIEM NURSE) Glucose, POC 124 70 - 199 mg/dL Blood 07/24/2024 8:53 PM PER DIEM NURSE 07/24/2024 8:53 PM PER DIEM NURSE us Arnold Ramos MD LAB POCT ORDERABLES - DONYA CE Final Result Performing Organization Address [facility] de Phone Number [facility] Department [place] [address] * (ABNORMAL) eGFR (07/24/2024 8:33 PM PER DIEM NURSE) Pathologist [facility] Department eGFR 57(L) >=60 mL/min/1. 73 m2 Comment: Interpretive Data Reference Interval Normal >/= 90 mL/min/1.73m2 Mildly decreased* 60 - 89 mL/min/1.73m2 Mildly to moderately decreased 45 - 59 mL/min/1.73m2 Moderately to severely decreased 30 - 44 mL/min/1.73m2 Severely decreased 15 - 29 mL/min/1.73m2 Kidney Failure < 15 mL/min/1.73m2 *Relative to young adult level Estimated glomerular filtration rate is determined by the 2020 CKD-EPI equation recommended by the National Kidney Foundation (A Unifying Approach to GFR Estimation: Recommendations of the NKF-ASK Task Force on Reassessing the Inclusion of Race in Diagnosing Kidney Disease, JASN 2020). The CKD-EPI equation should not be used for patients with unstable renal function and has not been validated in children and those over 70. Current interpretive data was last reviewed 2021. Blood 07/24/2024 8:33 PM PER DIEM NURSE 07/24/2024 9:40 PM PER DIEM NURSE us Radha Pendleton MD LAB BLOOD ORDERABLES Final Resul t Performing Organization Address [facility] Co de Phone Number [facility] Department [place] [address] * (ABNORMAL) CBC without differential (07/24/2024 8:33 PM PER DIEM NURSE) [facility] WBC 7.5 3.8 - 9.9 K/cumm Hgb 11.2(L) 11.9 - 15.5 g/dL [facility] Hct 34.2(L) 35.6 - 45.5 % [facility] Plt 328 150 - 400 K/cumm [facility] MPV 11.7 9.1 - 12.[address] [facility] RBC 3.79(L) 3.90 - 5.20 M/cumm [facility] MCV 90.2 81.3 - 96.[address] [facility] MCH 29.6 27.1 - 33.[address] [facility] MCHC 32.7 32.3 - 35.7 g/dL [facility] RDW CV 12.2 11.1 - 14.9 % [facility] RDW SD 40.1 35.7 - 48.[address] [facility] NRBC abs 0.00 0.00 - 0.01 K/cumm [facility] Blood 07/24/2024 8:33 PM PER DIEM NURSE 07/24/2024 9:40 PM PER DIEM NURSE Desi Hurtado NP LAB BLOOD ORDERABLES Final Result Performing Organization Address [facility] Co de Phone Number [facility] [place] [address] * Magnesium (07/24/2024 8:33 PM PER DIEM NURSE) Pathologist [facility] Magnesium 2.4 1.4 - 2.5 mg/dL Blood 07/24/2024 8:33 PM PER DIEM NURSE 07/24/2024 9:40 PM PER DIEM NURSE Radha Pendleton MD LAB BLOOD ORDERABLES Final Resul t Performing Organization Address [facility] de Phone Number [facility] [place] [address] * (ABNORMAL) Basic metabolic panel (07/24/2024 8:33 PM PER DIEM NURSE) Pathologist [facility] Sodium 147(H) 135 - 145 mmol/L Potassium, pl 3.7 3.3 - 4.9 mmol/L [facility] Chloride 108 97 - 110 mmol/L [facility] CO2 31 22 - 32 mmol/L [facility] Anion gap 8 2 - 15 mmol/L [facility] BUN 17 6 - 25 mg/dL [facility] Creatinine 1.06 0.60 - 1.10 mg/dL [facility] Glucose 121 70 - 199 mg/dL [facility] Comment: Interpretive Data Fasting glucose >/= 126 mg/dl is diagnostic for diabetes. Fasting is defined as no caloric intake for at least 8 hours. Fasting glucose between 100 mg/dl to 125 mg/dl is diagnostic of prediabetes. In a patient with classic symptoms of hyperglycemia or hyperglycemic crisis, a random glucose >/= 200 mg/dl is diagnostic for diabetes. In the absence of unequivocal hyperglycemia, results should be confirmed by repeat testing. The classification and Diagnosis of Diabetes Diabetes Care 2021; 46: S19-S40. Current interpretive data was last revised 2022. Calcium 8.8 8.5 - 10.3 mg/dL [facility] Blood 07/24/2024 8:33 PM PER DIEM NURSE 07/24/2024 9:40 PM PER DIEM NURSE us Radha Pendleton MD LAB BLOOD ORDERABLES Final Resul t Performing Organization Address City/[facility] Co de Phone Number [facility] Department [place] [address] * POCT glucose (07/24/2024 5:03 PM PER DIEM NURSE) Glucose, POC 107 70 - 199 mg/dL Blood 07/24/2024 5:03 PM PER DIEM NURSE 07/24/2024 5:03 PM PER DIEM NURSE Arnold Ramos MD LAB POCT ORDERABLES - DONYA CE Final Result Performing Organization Address City/[facility]/ZIP Co de Phone Number [facility] Department [place] [address] * POCT glucose (07/24/2024 12:20 PM PER DIEM NURSE) Glucose, POC 117 70 - 199 mg/dL Blood 07/24/2024 12:2 0 PM PER DIEM NURSE 07/24/2024 12:20 PM PER DIEM NURSE us Arnold Ramos MD LAB POCT ORDERABLES - DONYA CE Final Result [facility] [place] [address] * CT Abdomen Pelvis WO Contrast (07/24/2024 9:38 AM PER DIEM NURSE) Anatomical Region Laterality Modality Body N/A Computed Tomogra phy 07/24/2024 9:56 AM PER DIEM NURSE Impressions 07/24/2024 9:58 AM PER DIEM NURSE Gastrostomy tube in appropriate position with balloon terminating in the gastric antrum. Dictated by: Itzel Alvarenga MD, PhD The radiology attending physician has personally reviewed this study, and had reviewed and/or edited this written report and agrees with it. Electronically signed by: Jessica Cisneros M.D. Narrative 07/24/2024 9:58 AM PER DIEM NURSE EXAMINATION: CT of the abdomen, and pelvis without intravenous contrast. HISTORY: 68-year-old status post left M1 occlusion, gastrostomy tube placement 07/18/2024, evaluate gastrostomy tube positioning. TECHNIQUE: Transaxial computed tomographic images of the abdomen, and pelvis were obtained without intravenous contrast according to the standard protocol. COMPARISON: G-tube placement dated 07/18/2024. FINDINGS: Imaged portion of the chest demonstrates right greater than left basilar atelectasis. Heart size is normal without pericardial effusion. Aortic valve and triple-vessel coronary artery calcifications. ABDOMEN AND PELVIS: Liver is normal without focal hepatic lesion. Cholelithiasis without cholecystis. Spleen, pancreas, and adrenal glands are normal. Kidneys demonstrate a normal noncontrasted appearance. Urinary bladder is decompressed by a Shoemaker catheter. Gastrostomy tube in place with the balloon terminating in the gastric antrum. Small bowel and large bowel are normal in caliber without evidence of obstruction. Appendix is normal. Diverticulosis without diverticulitis. No abdominal or pelvic lymphadenopathy. Abdominal and pelvic vasculature is normal in course and caliber with atherosclerosis. No free fluid or pneumoperitoneum. Barium contrast is present throughout the cecum, ascending colon, transverse colon, descending colon and sigmoid colon, following modified barium swallow. No suspicious osseous lesions. Procedure Note Jessica Cisneros MD - 07/24/2024 EXAMINATION: CT of the abdomen, and pelvis without intravenous contrast. HISTORY: 68-year-old status post left M1 occlusion, gastrostomy tube placement 07/18/2024, evaluate gastrostomy tube positioning. TECHNIQUE: Transaxial computed tomographic images of the abdomen, and pelvis were obtained without intravenous contrast according to the standard protocol. COMPARISON: G-tube placement dated 07/18/2024. FINDINGS: Imaged portion of the chest demonstrates right greater than left basilar atelectasis. Heart size is normal without pericardial effusion. Aortic valve and triple-vessel coronary artery calcifications. ABDOMEN AND PELVIS: Liver is normal without focal hepatic lesion. Cholelithiasis without cholecystis. Spleen, pancreas, and adrenal glands are normal. Kidneys demonstrate a normal noncontrasted appearance. Urinary bladder is decompressed by a Shoemaker catheter. Gastrostomy tube in place with the balloon terminating in the gastric antrum. Small bowel and large bowel are normal in caliber without evidence of obstruction. Appendix is normal. Diverticulosis without diverticulitis. No abdominal or pelvic lymphadenopathy. Abdominal and pelvic vasculature is normal in course and caliber with atherosclerosis. No free fluid or pneumoperitoneum. Barium contrast is present throughout the cecum, ascending colon, transverse colon, descending colon and sigmoid colon, following modified barium swallow. No suspicious osseous lesions. IMPRESSION: Gastrostomy tube in appropriate position with balloon terminating in the gastric antrum. Dictated by: Itzel Alavrenga MD, PhD The radiology attending physician has personally reviewed this study, and had reviewed and/or edited this written report and agrees with it. Electronically signed by: Jessica Cisneros M.D. Arnold Ramos MD IMG CT PROCEDURES Final Re sult * POCT glucose (07/24/2024 8:19 AM PER DIEM NURSE) Glucose, POC 131 70 - 199 mg/dL Blood 07/24/2024 8:19 AM PER DIEM NURSE 07/24/2024 8:19 AM PER DIEM NURSE Arnold Ramos MD LAB POCT ORDERABLES - DONYA CE Final Result [facility] [place] [address] * POCT glucose (07/24/2024 4:05 AM PER DIEM NURSE) Glucose, POC 107 70 - 199 mg/dL Blood 07/24/2024 4:05 AM PER DIEM NURSE 07/24/2024 4:05 AM PER DIEM NURSE Arnold Ramso MD LAB POCT ORDERABLES - DONYA CE Final Result [facility] [place] [address] * POCT glucose (07/24/2024 12:20 AM PER DIEM NURSE) Glucose, POC 176 70 - 199 mg/dL Blood 07/24/2024 12:2 0 AM PER DIEM NURSE 07/24/2024 12:20 AM PER DIEM NURSE Arnold Ramos MD LAB POCT ORDERABLES - DONYA CE Final Result Performing Organization Address City/[facility] Co de [facility] [place] [address] * (ABNORMAL) eGFR (07/23/2024 9:30 PM PER DIEM NURSE) eGFR 58(L) >=60 mL/min/1. 73 m2 Comment: Interpretive Data Reference Interval Normal >/= 90 mL/min/1.73m2 Mildly decreased* 60 - 89 mL/min/1.73m2 Mildly to moderately decreased 45 - 59 mL/min/1.73m2 Moderately to severely decreased 30 - 44 mL/min/1.73m2 Severely decreased 15 - 29 mL/min/1.73m2 Kidney Failure < 15 mL/min/1.73m2 *Relative to young adult level Estimated glomerular filtration rate is determined by the 2020 CKD-EPI equation recommended by the National Kidney Foundation (A Unifying Approach to GFR Estimation: Recommendations of the NKF-ASK Task Force on Reassessing the Inclusion of Race in Diagnosing Kidney Disease, JASN 2021). The CKD-EPI equation should not be used for patients with unstable renal function and has not been validated in children and those over 70. Current interpretive data was last reviewed 2021. Blood 07/23/2024 9:30 PM PER DIEM NURSE 07/23/2024 10:35 PM PER DIEM NURSE Radha Pendleton MD LAB BLOOD ORDERABLES Final Resul t Performing Organization Address City/[facility]/ZIP Co de Phone Number [facility] [place] [address] * CBC without differential (07/23/2024 9:30 PM PER DIEM NURSE) WBC 8.1 3.8 - 9.9 K/cumm Hgb 11.9 11.9 - 15.5 g/dL [facility] Hct 36.1 35.6 - 45.5 % [facility] Plt 322 150 - 400 K/cumm [facility] MPV 12.0 9.1 - 12.[address] [facility] RBC 4.03 3.90 - 5.20 M/cumm [facility] MCV 89.6 81.3 - 96.[address] [facility] MCH 29.5 27.1 - 33.[address] [facility] MCHC 33.0 32.3 - 35.7 g/dL [facility] RDW CV 12.5 11.1 - 14.9 % [facility] RDW SD 40.5 35.7 - 48.[address] [facility] NRBC abs 0.00 0.00 - 0.01 K/cumm [facility] Blood 07/23/2024 9:30 PM PER DIEM NURSE 07/23/2024 10:34 PM PER DIEM NURSE us Desi Hurtado NP LAB BLOOD ORDERABLES Final Result Performing Organization Address City/[facility] Co de Phone Number [facility] Department [place] [address] * Magnesium (07/23/2024 9:30 PM PER DIEM NURSE) Pathologist [facility] Magnesium 2.3 1.4 - 2.5 mg/dL Blood 07/23/2024 9:30 PM PER DIEM NURSE 07/23/2024 10:35 PM PER DIEM NURSE Radha Pendleton MD LAB BLOOD ORDERABLES Final Resul t [facility] [place] [address] * (ABNORMAL) Basic metabolic panel (07/23/2024 9:30 PM PER DIEM NURSE) Pathologist [facility] Sodium 149(H) 135 - 145 mmol/L Potassium, pl 3.8 3.3 - 4.9 mmol/L [facility] Chloride 111(H) 97 - 110 mmol/L [facility] CO2 28 22 - 32 mmol/L [facility] Anion gap 10 2 - 15 mmol/L [facility] BUN 19 6 - 25 mg/dL [facility] Creatinine 1.04 0.60 - 1.10 mg/dL [facility] Glucose 218(H) 70 - 199 mg/dL [facility] Comment: Interpretive Data Fasting glucose >/= 126 mg/dl is diagnostic for diabetes. Fasting is defined as no caloric intake for at least 8 hours. Fasting glucose between 100 mg/dl to 125 mg/dl is diagnostic of prediabetes. In a patient with classic symptoms of hyperglycemia or hyperglycemic crisis, a random glucose >/= 200 mg/dl is diagnostic for diabetes. In the absence of unequivocal hyperglycemia, results should be confirmed by repeat testing. The classification and Diagnosis of Diabetes Diabetes Care 202; 46: S19-S40. Current interpretive data was last revised 2022. Calcium 9.0 8.5 - 10.3 mg/dL [facility] Blood 07/23/2024 9:30 PM PER DIEM NURSE 07/23/2024 10:35 PM PER DIEM NURSE Radha Pendleton MD LAB BLOOD ORDERABLES Final Resul t Performing Organization Address City/[facility]/ZIP Co de Phone Number [facility] Department [place] [address] * POCT glucose (07/23/2024 8:12 PM PER DIEM NURSE) Pathologist [facility] Glucose, POC 116 70 - 199 mg/dL Blood 07/23/2024 8:12 PM PER DIEM NURSE 07/23/2024 8:12 PM PER DIEM NURSE Arnold Ramos MD LAB POCT ORDERABLES - DONYA CE Final Result Performing Organization Address City/[facility]/ZIP Co de Phone Number [facility] [place] [address] * C. difficile testing Stool (07/23/2024 7:01 PM PER DIEM NURSE) Pathologist [facility] Result Negative Negative Toxin Result Negative Negative [facility] C. diff result Negative, free toxin Negative, free toxin [facility] C. diff interp Negative for toxigenic Clostridioides (Clostridium) difficile. Analysis was performed using a glutamate dehydrogenase antigen detection assay combined with a C. difficile toxin detection assay. [facility] Stool 07/23/2024 7:01 PM PER DIEM NURSE 07/23/2024 8:28 PM PER DIEM NURSE Result [facility] Arnold Ramos MD LAB MICROBIOLOGY - GENERAL ORDERABLES Final Result Performing Organization Address [facility] Co de Phone Number [facility] [place] [address] * Infection Prevention VRE Culture Stool (07/23/2024 7:01 PM PER DIEM NURSE) [facility] Report Final Report: Negative Stool 07/23/2024 7:01 PM PER DIEM NURSE 07/23/2024 10:46 PM PER DIEM NURSE Narrative [facility] - 07/26/2024 6:47 AM PER DIEM NURSE Surveillance culture for Infection Prevention purposes only; results indicate colonization, not infection requiring treatment. Testing performed by [facility] ([phone]). Arnold Ramos MD LAB MICROBIOLOGY - GENERAL ORDERABLES Final Result Performing Organization Address City/[facility]/ZIP Co de Phone Number [facility] [place] [address] * POCT glucose (07/23/2024 4:48 PM PER DIEM NURSE) Glucose, POC 106 70 - 199 mg/dL Blood 07/23/2024 4:48 PM PER DIEM NURSE 07/23/2024 4:48 PM PER DIEM NURSE Arnold Ramos MD LAB POCT ORDERABLES - DNOYA CE Final Result Performing Organization Address [facility] Co de Phone Number [facility] [place] [address] * FL Modified Barium Swallow W Video (07/23/2024 1:48 PM PER DIEM NURSE) Anatomical Region Laterality Modality Head and Neck N/A Radio Fluoroscop y 07/23/2024 2:12 PM PER DIEM NURSE Impressions 07/23/2024 4:31 PM PER DIEM NURSE The swallowing mechanism is abnormal; see above comments. Please refer to the Speech Pathology procedure note for safe swallow recommendations as well as additional information regarding the oral-pharyngeal swallow function, plan of care, and recommended follow up. Dictated by: Daryl Soto MD The radiology attending physician has personally reviewed this study, and had reviewed and/or edited this written report and agrees with it. Electronically signed by: Gerard Romero M.D. Narrative 07/23/2024 4:31 PM PER DIEM NURSE EXAMINATION: MODIFIED BARIUM SWALLOW HISTORY: Dysphagia. TECHNIQUE: This procedure was completed in conjunction with a Speech Language Pathologist. The patient was given barium of multiple different consistencies to swallow. Video fluoroscopy was employed during the exam. FINDINGS: Oral-pharyngeal swallow function is severely impaired. Penetration: Yes There is penetration of thin liquid. Penetration is not sensed. The penetrated material is cleared. Aspiration: Yes There is aspiration of thin liquid. Aspiration is not sensed. The aspirated material is cleared. Residue:Yes There is oral residue of thin liquid. Residue is not sensed. The residual material is not cleared. Other comments: None Procedure Note Gerard Romero MD - 07/23/2024 EXAMINATION: MODIFIED BARIUM SWALLOW HISTORY: Dysphagia. TECHNIQUE: This procedure was completed in conjunction with a Speech Language Pathologist. The patient was given barium of multiple different consistencies to swallow. Video fluoroscopy was employed during the exam. FINDINGS: Oral-pharyngeal swallow function is severely impaired. Penetration: Yes There is penetration of thin liquid. Penetration is not sensed. The penetrated material is cleared. Aspiration: Yes There is aspiration of thin liquid. Aspiration is not sensed. The aspirated material is cleared. Residue:Yes There is oral residue of thin liquid. Residue is not sensed. The residual material is not cleared. Other comments: None IMPRESSION: The swallowing mechanism is abnormal; see above comments. Please refer to the Speech Pathology procedure note for safe swallow recommendations as well as additional information regarding the oral-pharyngeal swallow function, plan of care, and recommended follow up. Dictated by: Daryl Soto MD The radiology attending physician has personally reviewed this study, and had reviewed and/or edited this written report and agrees with it. Electronically signed by: Gerard Romero M.D. us Arnold Ramos MD IMG FLUOROSCOPY PROCEDURES Final Result * [facility] LIE[facility] Evaluate and Treat (VFSS) (07/23/2024 1:35 PM PER DIEM NURSE) Zeenat Huff, CEASAR - 07/23/2024 1:35 PM PER DIEM NURSE Tracy [place] 07/23/2024 4:43 PM Speech-Language Pathology: Videofluoroscopic Study of Swallow (VFSS/MBS) HPI/PMH Dorene Faust is an 68 y.o. 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 Patient woke this morning at 0730 with dysarthria, aphasia, RUE > LLE weakness, R HH and L gaze preference. NIHSS was 13 upon arrival to the ED with CTH showing hyperdense L M1 with multiple hypodensities, CTP showing large area of penumbra in L M1 territory and CTA showing L M1 LVO. LNK was 2230 so patient was NO GO for TNK as MRI wake up protocol would delay thrombectomy. Patient now s/p thrombectomy with 3 passes (1 aspiration, 2 stent retriever) with no increased perfusion with 3rd pass showing severe underlying stenosis in the occluded L MCA which is likely a chronic finding. Patient arrives to the ICU extubated with stable vitals. Respiratory/Intubation Status: RA Imaging:HCT 2/: 1. Hyperdense left MCA sign on noncontrasted head CT with corresponding left M1 occlusion on CTA. 2. Perfusion imaging demonstrating large area of ischemic tissue at risk of infract in the left MCA distribution with mismatch volume 95 mL. No core infarct on RAPID. 3. Remote infarcts of the left frontal, parietal, and occipital lobes on the left frontal adams radiata and internal capsule. 4. Patulous cavernous and clinoid segments of the left ICA which may represent fusiform aneurysm, or dolichoectasia. BMRI 2/: Multiple areas of diffusion restriction noted within the left M1 distribution as detailed above. Current Diet Order: NPO, FT Baseline Diet: Unknown General Information Dorene Faust 07/23/24 [facility]IE[facility]NT Received On: 07/23/24 General Observations: Pt was seated upright and alert in the MBS chair upon student CORRECTION LIEUTENANT arrival. Pt made no vocalizations throughout study and was unable to follow commands. Reason for Referral:To further evaluate swallow function and safety. Pain Score: 0 - No pain If pain >4, was RN notified? N/A Patient Stated Goal/Comments: Pt did not state goals related to skilled ST on this date. Precautions:Fall, JAM Clinical Impression & Professional Recommendations Diet Solids Recommendation: NPO Diet Liquids Recommendations: NPO for liquids Recommended Form of Medications: Non-orally Specialty Instructions: Good oral care 2-3x/day Overall Clinical Impression/Additional Information: Moderate oral swallow dysfunction with motor and sensory deficits characterized by the following: Oral Phase Deficits: Premature spillage to pyriform sinuses, impaired tongue control, and prolonged bolus holding Pharyngeal Phase Deficits: Pharyngeal phase WFL Deficits result in: Upon trial of thin liquids via tsp, pt w/ significant anterior loss and slow swallow initiation. Attempted thin liquids via straw but pt was not able to form a labial seal to receive the liquid via straw. Cut straw was also unsuccessful. Attempted thin liquids via cup edge; pt w/ anterior loss and premature spillage to pyriform sinuses. Attempted more trials of thin liquids but pt could not initiate a swallow and bolus was removed via suction. No penetration or aspiration w/ thin (via tsp or cup edge). However, only 2 swallows visualized. With puree, pt was not able to initiate a swallow and bolus was removed via suction. During attempt of puree, it was noted pt had moderate regurgitation followed by mild aspiration from material falling into the airway. Pt did not sense aspiration and material remained at the vocal cords. Study concluded 2/2 poor swallow initiation and PO acceptance. Given significant regurgitation followed by aspiration, recommend GI consult to further assess for esophageal impairment. Assessment Details & Results Purpose and Procedure of Videofluoroscopic Study of Swallow: Videofluoroscopic Study of Swallow completed to assess oropharyngeal swallow function and safety/efficiency of the swallow so that diet recommendations can be made. This test is completed in conjunction with Radiology. Results of this test are indicative of performance at the time of the exam. Standard procedure is in lateral view at 90 degrees. Consistencies Administered: Thin liquids, Purees Respiratory Support: No Significant Impairment- Respiratory support is adequate for speech & swallowing Administered consistencies contain barium product. Thin Liquids: Laryngeal Penetration: None Aspiration Present: No Penetration Aspiration Scale-Thin: 1-Material does not enter airway MBSImp: MBSImp Results: Lip closure : 4-Escape beyond mid-chin Tongue Control with Bolus Hold: 2-Posterior escape of less than half of bolus Bolus Preparation/Mastication : (did not assess) Bolus Transport/Lingual Motion : 2-Slowed tongue motion Oral Residue: 4-Minimal to no clearance Initiation of Pharyngeal Swallow : 3-Bolus head in pyriforms Soft Palate : 0-No bolus between soft palate and pharyngeal wall Laryngeal Elevation : 0-Complete superior movement of thyroid cartilage with complete approximation of arytenoids to epiglottic petiole Anterior Hyoid Excursion: 0-Complete anterior movement Epiglottic Movement: 0-Complete inversion Laryngeal Vestibular Closure: 0-Complete, no air/contrast in the laryngeal vestibule Pharyngeal Stripping Wave: 0-Present and complete Pharyngeal Contraction (AP view only): Not assessed, No AP view Pharyngoesophageal Segment Opening : 0-Complete distention and complete duration, no obstruction of flow Tongue Base Retraction : 0-No contrast between tongue base and posterior pharyngeal wall Pharyngeal Residue : 0-Complete pharyngeal clearance Esophageal Clearance (upright position): 3-Esophageal retention with retrograde flow through pharyngoesophageal segment Dysphagia Outcome and Severity Scale: Dysphagia Outcomes and Severity Scale: 3 Moderate dysphagia Levels 1 & 2 on the BARBARA indicate need for nonoral nutrition. Treatment Treatment was not provided this date. Please reference care plan for treatment goals and details, if indicated. Plan [facility] Frequency of Services during current admission: 2-3x/wk [facility] Recommendation (Add'l Services): Defer at this time [facility] - Next Appointment: 07/25/24 Next Visit Plan: treatment/therapy Additional Referrals: GI Discharge Summary Statement If this is the last swallow therapy visit, this serves as the discharge summary. us Arnold Ramos MD [facility] ORDERABLES Final Resu lt * POCT glucose (07/23/2024 12:14 PM PER DIEM NURSE) Glucose, POC 116 70 - 199 mg/dL Blood 07/23/2024 12:1 4 PM PER DIEM NURSE 07/23/2024 12:14 PM PER DIEM NURSE Arnold Ramos MD LAB POCT ORDERABLES - DONYA CE Final Result Performing Organization Address [facility] Co de Phone Number [facility] [place] [address] * POCT glucose (07/23/2024 8:14 AM PER DIEM NURSE) Glucose, POC 173 70 - 199 mg/dL Blood 07/23/2024 8:14 AM PER DIEM NURSE 07/23/2024 8:14 AM PER DIEM NURSE Arnold Ramos MD LAB POCT ORDERABLES - DONYA CE Final Result Performing Organization Address [facility] Co de Phone Number [facility] [place] [address] * POCT glucose (07/23/2024 3:44 AM PER DIEM NURSE) Glucose, POC 92 70 - 199 mg/dL Blood 07/23/2024 3:44 AM PER DIEM NURSE 07/23/2024 3:44 AM PER DIEM NURSE us Arnold Ramos MD LAB POCT ORDERABLES - DONYA CE Final Result Performing Organization Address [facility] de Phone Number [facility] [place] [address] * (ABNORMAL) eGFR (07/22/2024 11:54 PM PER DIEM NURSE) Pathologist [facility] Department eGFR 47(L) >=60 mL/min/1. 73 m2 Comment: Interpretive Data Reference Interval Normal >/= 90 mL/min/1.73m2 Mildly decreased* 60 - 89 mL/min/1.73m2 Mildly to moderately decreased 45 - 59 mL/min/1.73m2 Moderately to severely decreased 30 - 44 mL/min/1.73m2 Severely decreased 15 - 29 mL/min/1.73m2 Kidney Failure < 15 mL/min/1.73m2 *Relative to young adult level Estimated glomerular filtration rate is determined by the 2020 CKD-EPI equation recommended by the National Kidney Foundation (A Unifying Approach to GFR Estimation: Recommendations of the NKF-ASK Task Force on Reassessing the Inclusion of Race in Diagnosing Kidney Disease, JASN 2020). The CKD-EPI equation should not be used for patients with unstable renal function and has not been validated in children and those over 70. Current interpretive data was last reviewed 2021. Blood 07/22/2024 11:5 4 PM PER DIEM NURSE 07/23/2024 12:07 AM PER DIEM NURSE us aRdha Pendleton MD LAB BLOOD ORDERABLES Final Resul t Performing Organization Address [facility] Co de Phone Number [facility] Department [place] [address] * (ABNORMAL) CBC without differential (07/22/2024 11:54 PM PER DIEM NURSE) [facility] WBC 8.7 3.8 - 9.9 K/cumm Hgb 11.5(L) 11.9 - 15.5 g/dL [facility] Hct 35.3(L) 35.6 - 45.5 % [facility] Plt 338 150 - 400 K/cumm [facility] MPV 11.6 9.1 - 12.[address] [facility] RBC 3.91 3.90 - 5.20 M/cumm [facility] MCV 90.3 81.3 - 96.[address] [facility] MCH 29.4 27.1 - 33.[address] [facility] MCHC 32.6 32.3 - 35.7 g/dL [facility] RDW CV 12.6 11.1 - 14.9 % [facility] RDW SD 41.5 35.7 - 48.[address] [facility] NRBC abs 0.00 0.00 - 0.01 K/cumm [facility] Blood 07/22/2024 11:5 4 PM PER DIEM NURSE 07/23/2024 12:07 AM PER DIEM NURSE us Desi Hurtado NP LAB BLOOD ORDERABLES Final Result Performing Organization Address [facility] Co de Phone Number [facility] Department [place] [address] * (ABNORMAL) Magnesium (07/22/2024 11:54 PM PER DIEM NURSE) [facility] Magnesium 2.7(H) 1.4 - 2.5 mg/dL Blood 07/22/2024 11:5 4 PM PER DIEM NURSE 07/23/2024 12:07 AM PER DIEM NURSE Radha Pendleton MD LAB BLOOD ORDERABLES Final Resul t Performing Organization Address [facility] Co de Phone Number [facility] Department [place] [address] * (ABNORMAL) Basic metabolic panel (07/22/2024 11:54 PM PER DIEM NURSE) [facility] Sodium 152(H) 135 - 145 mmol/L Potassium, pl 4.1 3.3 - 4.9 mmol/L [facility] Chloride 112(H) 97 - 110 mmol/L [facility] CO2 32 22 - 32 mmol/L [facility] Anion gap 8 2 - 15 mmol/L [facility] BUN 25 6 - 25 mg/dL [facility] Creatinine 1.24(H) 0.60 - 1.10 mg/dL [facility] Glucose 102 70 - 199 mg/dL [facility] Comment: Interpretive Data Fasting glucose >/= 126 mg/dl is diagnostic for diabetes. Fasting is defined as no caloric intake for at least 8 hours. Fasting glucose between 100 mg/dl to 125 mg/dl is diagnostic of prediabetes. In a patient with classic symptoms of hyperglycemia or hyperglycemic crisis, a random glucose >/= 200 mg/dl is diagnostic for diabetes. In the absence of unequivocal hyperglycemia, results should be confirmed by repeat testing. The classification and Diagnosis of Diabetes Diabetes Care 2021; 46: S19-S40. Current interpretive data was last revised 2022. Calcium 9.3 8.5 - 10.3 mg/dL [facility] Blood 07/22/2024 11:5 4 PM PER DIEM NURSE 07/23/2024 12:07 AM PER DIEM NURSE us Radha Pendleton MD LAB BLOOD ORDERABLES Final Resul t [facility] [place] [address] * POCT glucose (07/22/2024 11:47 PM PER DIEM NURSE) Glucose, POC 104 70 - 199 mg/dL Blood 07/22/2024 11:4 7 PM PER DIEM NURSE 07/22/2024 11:47 PM PER DIEM NURSE us Arnold Ramos MD LAB POCT ORDERABLES - DONYA CE Final Result [facility] [place] [address] * POCT glucose (07/22/2024 8:33 PM PER DIEM NURSE) Glucose, POC 171 70 - 199 mg/dL Blood 07/22/2024 8:33 PM PER DIEM NURSE 07/22/2024 8:33 PM PER DIEM NURSE us Arnold Ramos MD LAB POCT ORDERABLES - DONYA CE Final Result Performing Organization Address [facility] Phone Number [facility] [place] [address] * (ABNORMAL) POCT glucose (07/22/2024 4:40 PM PER DIEM NURSE) Glucose, POC 207(H) 70 - 199 mg/dL Blood 07/22/2024 4:40 PM PER DIEM NURSE 07/22/2024 4:40 PM PER DIEM NURSE us Arnold Ramos MD LAB POCT ORDERABLES - DONYA CE Final Result Performing Organization Address [facility] Phone Number [facility] [place] [address] * POCT glucose (07/22/2024 12:38 PM PER DIEM NURSE) Glucose, POC 139 70 - 199 mg/dL Blood 07/22/2024 12:3 8 PM PER DIEM NURSE 07/22/2024 12:38 PM PER DIEM NURSE us Arnold Ramos MD LAB POCT ORDERABLES - DONYA CE Final Result Performing Organization Address [facility] Phone Number [facility] [place] [address] * (ABNORMAL) POCT glucose (07/22/2024 8:29 AM PER DIEM NURSE) Glucose, POC 246(H) 70 - 199 mg/dL Blood 07/22/2024 8:29 AM PER DIEM NURSE 07/22/2024 8:29 AM PER DIEM NURSE us Arnold Ramos MD LAB POCT ORDERABLES - DONYA CE Final Result Performing Organization Address [facility]/ZIP Co de Phone Number [facility] [place] [address] * POCT glucose (07/22/2024 4:48 AM PER DIEM NURSE) Glucose, POC 104 70 - 199 mg/dL Blood 07/22/2024 4:48 AM PER DIEM NURSE 07/22/2024 4:48 AM PER DIEM NURSE us Arnold Ramos MD LAB POCT ORDERABLES - DONYA CE Final Result Performing Organization Address [facility] [place] [address] * (ABNORMAL) POCT glucose (07/22/2024 12:37 AM PER DIEM NURSE) [facility] Signature Glucose, POC 202(H) 70 - 199 mg/dL Blood 07/22/2024 12:3 7 AM PER DIEM NURSE 07/22/2024 12:37 AM PER DIEM NURSE us Arnold Ramos MD LAB POCT ORDERABLES - DONYA CE Final Result Performing Organization Address [facility] Co de Phone Number [facility] [place] [address] * (ABNORMAL) POCT glucose (07/22/2024 12:13 AM PER DIEM NURSE) [facility] Glucose, POC 223(H) 70 - 199 mg/dL Blood 07/22/2024 12:1 3 AM PER DIEM NURSE 07/22/2024 12:13 AM PER DIEM NURSE us Arnold Ramos MD LAB POCT ORDERABLES - DONYA CE Final Result Performing Organization Address [facility] Co de Phone Number [facility] [place] [address] * (ABNORMAL) eGFR (07/21/2024 10:37 PM PER DIEM NURSE) [facility] eGFR 52(L) >=60 mL/min/1. 73 m2 Comment: Interpretive Data Reference Interval Normal >/= 90 mL/min/1.73m2 Mildly decreased* 60 - 89 mL/min/1.73m2 Mildly to moderately decreased 45 - 59 mL/min/1.73m2 Moderately to severely decreased 30 - 44 mL/min/1.73m2 Severely decreased 15 - 29 mL/min/1.73m2 Kidney Failure < 15 mL/min/1.73m2 *Relative to young adult level Estimated glomerular filtration rate is determined by the 2020 CKD-EPI equation recommended by the National Kidney Foundation (A Unifying Approach to GFR Estimation: Recommendations of the NKF-ASK Task Force on Reassessing the Inclusion of Race in Diagnosing Kidney Disease, JASN 2020). The CKD-EPI equation should not be used for patients with unstable renal function and has not been validated in children and those over 70. Current interpretive data was last reviewed 2021. Blood 07/21/2024 10:3 7 PM PER DIEM NURSE 07/21/2024 10:46 PM PER DIEM NURSE us Radha Pendleton MD LAB BLOOD ORDERABLES Final Resul t [facility] Department [place] [address] * CBC without differential (07/21/2024 10:37 PM PER DIEM NURSE) Pathologist [facility] WBC 9.0 3.8 - 9.9 K/cumm Hgb 12.2 11.9 - 15.5 g/dL [facility] Hct 36.9 35.6 - 45.5 % [facility] Plt 333 150 - 400 K/cumm [facility] MPV 11.4 9.1 - 12.[address] [facility] RBC 4.12 3.90 - 5.20 M/cumm [facility] MCV 89.6 81.3 - 96.[address] [facility] MCH 29.6 27.1 - 33.[address] [facility] MCHC 33.1 32.3 - 35.7 g/dL [facility] RDW CV 12.7 11.1 - 14.9 % [facility] RDW SD 41.5 35.7 - 48.[address] [facility] NRBC abs 0.00 0.00 - 0.01 K/cumm [facility] Blood 07/21/2024 10:3 7 PM PER DIEM NURSE 07/21/2024 10:46 PM PER DIEM NURSE Desi Hurtado NP LAB BLOOD ORDERABLES Final Result Performing Organization Address [facility] Co de Phone Number [facility] [place] [address] * (ABNORMAL) Magnesium (07/21/2024 10:37 PM PER DIEM NURSE) [facility] Magnesium 2.7(H) 1.4 - 2.5 mg/dL Blood 07/21/2024 10:3 7 PM PER DIEM NURSE 07/21/2024 10:46 PM PER DIEM NURSE Radha Pendleton MD LAB BLOOD ORDERABLES Final Resul t Performing Organization Address [facility] de Phone Number [facility] [place] [address] * (ABNORMAL) Basic metabolic panel (07/21/2024 10:37 PM PER DIEM NURSE) Pathologist [facility] Sodium 151(H) 135 - 145 mmol/L Potassium, pl 3.9 3.3 - 4.9 mmol/L [facility] Chloride 114(H) 97 - 110 mmol/L [facility] CO2 28 22 - 32 mmol/L [facility] Anion gap 9 2 - 15 mmol/L [facility] BUN 23 6 - 25 mg/dL [facility] Creatinine 1.14(H) 0.60 - 1.10 mg/dL [facility] Glucose 132 70 - 199 mg/dL [facility] Comment: Interpretive Data Fasting glucose >/= 126 mg/dl is diagnostic for diabetes. Fasting is defined as no caloric intake for at least 8 hours. Fasting glucose between 100 mg/dl to 125 mg/dl is diagnostic of prediabetes. In a patient with classic symptoms of hyperglycemia or hyperglycemic crisis, a random glucose >/= 200 mg/dl is diagnostic for diabetes. In the absence of unequivocal hyperglycemia, results should be confirmed by repeat testing. The classification and Diagnosis of Diabetes Diabetes Care 2021; 46: S19-S40. Current interpretive data was last revised 2022. Calcium 9.5 8.5 - 10.3 mg/dL [facility] Blood 07/21/2024 10:3 7 PM PER DIEM NURSE 07/21/2024 10:46 PM PER DIEM NURSE Radha Pendleton MD LAB BLOOD ORDERABLES Final Resul t Performing Organization Address [facility] Co de Phone Number [facility] Department [place] [address] * POCT glucose (07/21/2024 10:12 PM PER DIEM NURSE) Glucose, POC 101 70 - 199 mg/dL Blood 07/21/2024 10:1 2 PM PER DIEM NURSE 07/21/2024 10:12 PM PER DIEM NURSE Arnold Ramos MD LAB POCT ORDERABLES - DONYA CE Final Result Performing Organization Address [facility] de Phone Number [facility] Department [place] [address] * POCT glucose (07/21/2024 6:20 PM PER DIEM NURSE) Glucose, POC 133 70 - 199 mg/dL Blood 07/21/2024 6:20 PM PER DIEM NURSE 07/21/2024 6:20 PM PER DIEM NURSE Arnold Ramos MD LAB POCT ORDERABLES - DONYA CE Final Result Performing Organization Address [facility] Co de Phone Number [facility] Department [place] [address] * POCT glucose (07/21/2024 5:27 PM PER DIEM NURSE) Glucose, POC 107 70 - 199 mg/dL Blood 07/21/2024 5:27 PM PER DIEM NURSE 07/21/2024 5:27 PM PER DIEM NURSE us Arnold Raoms MD LAB POCT ORDERABLES - DONYA CE Final Result Performing Organization Address [facility] Co de Phone Number [facility] [place] [address] * (ABNORMAL) POCT glucose (07/21/2024 12:49 PM PER DIEM NURSE) Glucose, POC 227(H) 70 - 199 mg/dL Blood 07/21/2024 12:4 9 PM PER DIEM NURSE 07/21/2024 12:49 PM PER DIEM NURSE us Arnold Ramos MD LAB POCT ORDERABLES - DONYA CE Final Result Performing Organization Address [facility] de Phone Number [facility] [place] [address] * POCT glucose (07/21/2024 8:22 AM PER DIEM NURSE) Glucose, POC 123 70 - 199 mg/dL Blood 07/21/2024 8:22 AM PER DIEM NURSE 07/21/2024 8:22 AM PER DIEM NURSE us Arnold Ramos MD LAB POCT ORDERABLES - DONYA CE Final Result Performing Organization Address [facility] de Phone Number [facility] [place] [address] * POCT glucose (07/21/2024 4:07 AM PER DIEM NURSE) Glucose, POC 142 70 - 199 mg/dL Blood 07/21/2024 4:07 AM PER DIEM NURSE 07/21/2024 4:07 AM PER DIEM NURSE us Arnold Ramos MD LAB POCT ORDERABLES - DONYA CE Final Result Performing Organization Address [facility] de Phone Number [facility] Department [place] [address] * (ABNORMAL) eGFR (07/21/2024 3:45 AM PER DIEM NURSE) Pathologist [facility] Department eGFR 47(L) >=60 mL/min/1. 73 m2 Comment: Interpretive Data Reference Interval Normal >/= 90 mL/min/1.73m2 Mildly decreased* 60 - 89 mL/min/1.73m2 Mildly to moderately decreased 45 - 59 mL/min/1.73m2 Moderately to severely decreased 30 - 44 mL/min/1.73m2 Severely decreased 15 - 29 mL/min/1.73m2 Kidney Failure < 15 mL/min/1.73m2 *Relative to young adult level Estimated glomerular filtration rate is determined by the 2020 CKD-EPI equation recommended by the National Kidney Foundation (A Unifying Approach to GFR Estimation: Recommendations of the NKF-ASK Task Force on Reassessing the Inclusion of Race in Diagnosing Kidney Disease, JASN 2020). The CKD-EPI equation should not be used for patients with unstable renal function and has not been validated in children and those over 70. Current interpretive data was last reviewed 2021. Blood 07/21/2024 3:45 AM PER DIEM NURSE 07/21/2024 5:46 AM PER DIEM NURSE us Radha Pendleton MD LAB BLOOD ORDERABLES Final Resul t Performing Organization Address [facility] Co de Phone Number [facility] Department [place] [address] * CBC without differential (07/21/2024 3:45 AM PER DIEM NURSE) [facility] WBC 8.2 3.8 - 9.9 K/cumm Hgb 12.2 11.9 - 15.5 g/dL [facility] Hct 37.7 35.6 - 45.5 % [facility] Plt 316 150 - 400 K/cumm [facility] MPV 11.8 9.1 - 12.[address] [facility] RBC 4.17 3.90 - 5.20 M/cumm [facility] MCV 90.4 81.3 - 96.[address] [facility] MCH 29.3 27.1 - 33.[address] [facility] MCHC 32.4 32.3 - 35.7 g/dL [facility] RDW CV 12.9 11.1 - 14.9 % [facility] RDW SD 42.3 35.7 - 48.[address] [facility] NRBC abs 0.00 0.00 - 0.01 K/cumm [facility] Blood 07/21/2024 3:45 AM PER DIEM NURSE 07/21/2024 5:46 AM PER DIEM NURSE us Desi Hurtado NP LAB BLOOD ORDERABLES Final Result Performing Organization Address [facility] Co de Phone Number [facility] Department [place] [address] * Phosphorus (07/21/2024 3:45 AM PER DIEM NURSE) Phosphorus, pl 3.9 2.3 - 4.5 mg/dL Blood 07/21/2024 3:45 AM PER DIEM NURSE 07/21/2024 5:46 AM PER DIEM NURSE us Desi Hurtado NP LAB BLOOD ORDERABLES Final Result Performing Organization Address [facility] Co de Phone Number [facility] [place] [address] * (ABNORMAL) Magnesium (07/21/2024 3:45 AM PER DIEM NURSE) Magnesium 2.9(H) 1.4 - 2.5 mg/dL Blood 07/21/2024 3:45 AM PER DIEM NURSE 07/21/2024 5:46 AM PER DIEM NURSE us Radha Pendleton MD LAB BLOOD ORDERABLES Final Resul t Performing Organization Address [facility] Co de Phone Number [facility] [place] [address] * (ABNORMAL) Basic metabolic panel (07/21/2024 3:45 AM PER DIEM NURSE) Sodium 153(H) 135 - 145 mmol/L Potassium, pl 3.8 3.3 - 4.9 mmol/L [facility] Chloride 114(H) 97 - 110 mmol/L [facility] CO2 32 22 - 32 mmol/L [facility] Anion gap 7 2 - 15 mmol/L [facility] BUN 24 6 - 25 mg/dL [facility] Creatinine 1.23(H) 0.60 - 1.10 mg/dL [facility] Glucose 136 70 - 199 mg/dL [facility] Comment: Interpretive Data Fasting glucose >/= 126 mg/dl is diagnostic for diabetes. Fasting is defined as no caloric intake for at least 8 hours. Fasting glucose between 100 mg/dl to 125 mg/dl is diagnostic of prediabetes. In a patient with classic symptoms of hyperglycemia or hyperglycemic crisis, a random glucose >/= 200 mg/dl is diagnostic for diabetes. In the absence of unequivocal hyperglycemia, results should be confirmed by repeat testing. The classification and Diagnosis of Diabetes Diabetes Care 202; 46: S19-S40. Current interpretive data was last revised 2022. Calcium 9.5 8.5 - 10.3 mg/dL [facility] Blood 07/21/2024 3:45 AM PER DIEM NURSE 07/21/2024 5:46 AM PER DIEM NURSE us Radha Pendleton MD LAB BLOOD ORDERABLES Final Resul t Performing Organization Address [facility] Co de Phone Number [facility] Department [place] [address] * POCT glucose (07/21/2024 12:15 AM PER DIEM NURSE) Glucose, POC 115 70 - 199 mg/dL Blood 07/21/2024 12:1 5 AM PER DIEM NURSE 07/21/2024 12:15 AM PER DIEM NURSE Arnold Ramos MD LAB POCT ORDERABLES - DONYA CE Final Result Performing Organization Address [facility] Co de Phone Number [facility] Department [place] [address] * POCT glucose (07/20/2024 9:05 PM PER DIEM NURSE) Glucose, POC 102 70 - 199 mg/dL Blood 07/20/2024 9:05 PM PER DIEM NURSE 07/20/2024 9:05 PM PER DIEM NURSE Arnold Ramos MD LAB POCT ORDERABLES - DONYA CE Final Result Performing Organization Address [facility] Phone Number [facility] [place] [address] * POCT glucose (07/20/2024 3:55 PM PER DIEM NURSE) Glucose, POC 109 70 - 199 mg/dL Blood 07/20/2024 3:55 PM PER DIEM NURSE 07/20/2024 3:55 PM PER DIEM NURSE us Radha Pendleton MD LAB POCT ORDERABLES - DEVICE Fin al Result Performing Organization Address [facility] de Phone Number [facility] [place] [address] * POCT glucose (07/20/2024 12:33 PM PER DIEM NURSE) Glucose, POC 182 70 - 199 mg/dL Blood 07/20/2024 12:3 3 PM PER DIEM NURSE 07/20/2024 12:33 PM PER DIEM NURSE us Radha Pendleton MD LAB POCT ORDERABLES - DEVICE Fin al Result Performing Organization Address [facility] Co de Phone Number [facility] Department [place] [address] * POCT glucose (07/20/2024 8:08 AM PER DIEM NURSE) Glucose, POC 110 70 - 199 mg/dL Blood 07/20/2024 8:08 AM PER DIEM NURSE 07/20/2024 8:08 AM PER DIEM NURSE Radha Pendleton MD LAB POCT ORDERABLES - DEVICE Fin al Result Performing Organization Address [facility] Co de Phone Number [facility] [place] [address] * (ABNORMAL) eGFR (07/20/2024 3:36 AM PER DIEM NURSE) eGFR 51(L) >=60 mL/min/1. 73 m2 Comment: Interpretive Data Reference Interval Normal >/= 90 mL/min/1.73m2 Mildly decreased* 60 - 89 mL/min/1.73m2 Mildly to moderately decreased 45 - 59 mL/min/1.73m2 Moderately to severely decreased 30 - 44 mL/min/1.73m2 Severely decreased 15 - 29 mL/min/1.73m2 Kidney Failure < 15 mL/min/1.73m2 *Relative to young adult level Estimated glomerular filtration rate is determined by the 2020 CKD-EPI equation recommended by the National Kidney Foundation (A Unifying Approach to GFR Estimation: Recommendations of the NKF-ASK Task Force on Reassessing the Inclusion of Race in Diagnosing Kidney Disease, JASN 2020). The CKD-EPI equation should not be used for patients with unstable renal function and has not been validated in children and those over 70. Current interpretive data was last reviewed 2021. Blood 07/20/2024 3:36 AM PER DIEM NURSE 07/20/2024 3:47 AM PER DIEM NURSE us Radha Pendleton MD LAB BLOOD ORDERABLES Final Resul t Performing Organization Address [facility]/ZIP Co de Phone Number [facility] Department [place] [address] * CBC without differential (07/20/2024 3:36 AM PER DIEM NURSE) [facility] WBC 8.6 3.8 - 9.9 K/cumm Hgb 11.9 11.9 - 15.5 g/dL [facility] Hct 35.9 35.6 - 45.5 % [facility] Plt 297 150 - 400 K/cumm [facility] MPV 11.5 9.1 - 12.[address] [facility] RBC 4.06 3.90 - 5.20 M/cumm [facility] MCV 88.4 81.3 - 96.[address] [facility] MCH 29.3 27.1 - 33.[address] [facility] MCHC 33.1 32.3 - 35.7 g/dL [facility] RDW CV 12.9 11.1 - 14.9 % [facility] RDW SD 41.9 35.7 - 48.[address] [facility] NRBC abs 0.00 0.00 - 0.01 K/cumm [facility] Blood 07/20/2024 3:36 AM PER DIEM NURSE 07/20/2024 3:48 AM PER DIEM NURSE us Desi Hurtado NP LAB BLOOD ORDERABLES Final Result Performing Organization Address [facility]/ZIP Co de Phone Number [facility] [place] [address] * (ABNORMAL) Magnesium (07/20/2024 3:36 AM PER DIEM NURSE) [facility] Magnesium 3.1(H) 1.4 - 2.5 mg/dL Blood 07/20/2024 3:36 AM PER DIEM NURSE 07/20/2024 3:47 AM PER DIEM NURSE Radha Pendleton MD LAB BLOOD ORDERABLES Final Resul t [facility] [place] [address] * (ABNORMAL) Basic metabolic panel (07/20/2024 3:36 AM PER DIEM NURSE) Sodium 154(H) 135 - 145 mmol/L Potassium, pl 3.9 3.3 - 4.9 mmol/L [facility] Chloride 114(H) 97 - 110 mmol/L [facility] CO2 29 22 - 32 mmol/L [facility] Anion gap 11 2 - 15 mmol/L [facility] BUN 22 6 - 25 mg/dL [facility] Creatinine 1.15(H) 0.60 - 1.10 mg/dL [facility] Glucose 123 70 - 199 mg/dL [facility] Comment: Interpretive Data Fasting glucose >/= 126 mg/dl is diagnostic for diabetes. Fasting is defined as no caloric intake for at least 8 hours. Fasting glucose between 100 mg/dl to 125 mg/dl is diagnostic of prediabetes. In a patient with classic symptoms of hyperglycemia or hyperglycemic crisis, a random glucose >/= 200 mg/dl is diagnostic for diabetes. In the absence of unequivocal hyperglycemia, results should be confirmed by repeat testing. The classification and Diagnosis of Diabetes Diabetes Care 2021; 46: S19-S40. Current interpretive data was last revised 2022. Calcium 9.3 8.5 - 10.3 mg/dL [facility] Blood 07/20/2024 3:36 AM PER DIEM NURSE 07/20/2024 3:47 AM PER DIEM NURSE Radha Pendleton MD LAB BLOOD ORDERABLES Final Resul t Performing Organization Address [facility] Co de Phone Number [facility] [place] [address] * POCT glucose (07/19/2024 6:01 PM PER DIEM NURSE) Glucose, POC 87 70 - 199 mg/dL Blood 07/19/2024 6:01 PM PER DIEM NURSE 07/19/2024 6:01 PM PER DIEM NURSE Radha Pendleton MD LAB POCT ORDERABLES - DEVICE Fin al Result Performing Organization Address [facility] Co de Phone Number [facility] Department [place] [address] * POCT glucose (07/19/2024 11:37 AM PER DIEM NURSE) Glucose, POC 136 70 - 199 mg/dL Blood 07/19/2024 11:3 7 AM PER DIEM NURSE 07/19/2024 11:37 AM PER DIEM NURSE Radha Pendleton MD LAB POCT ORDERABLES - DEVICE Fin al Result Performing Organization Address [facility] de Phone Number [facility] Department [place] [address] * POCT glucose (07/19/2024 8:07 AM PER DIEM NURSE) Glucose, POC 134 70 - 199 mg/dL Blood 07/19/2024 8:07 AM PER DIEM NURSE 07/19/2024 8:07 AM PER DIEM NURSE Radha Pendleton MD LAB POCT ORDERABLES - DEVICE Fin al Result Performing Organization Address [facility] de Phone Number [facility] Department [place] [address] * (ABNORMAL) eGFR (07/19/2024 5:51 AM PER DIEM NURSE) eGFR 59(L) >=60 mL/min/1. 73 m2 Comment: Interpretive Data Reference Interval Normal >/= 90 mL/min/1.73m2 Mildly decreased* 60 - 89 mL/min/1.73m2 Mildly to moderately decreased 45 - 59 mL/min/1.73m2 Moderately to severely decreased 30 - 44 mL/min/1.73m2 Severely decreased 15 - 29 mL/min/1.73m2 Kidney Failure < 15 mL/min/1.73m2 *Relative to young adult level Estimated glomerular filtration rate is determined by the 2020 CKD-EPI equation recommended by the National Kidney Foundation (A Unifying Approach to GFR Estimation: Recommendations of the NKF-ASK Task Force on Reassessing the Inclusion of Race in Diagnosing Kidney Disease, JASN 2020). The CKD-EPI equation should not be used for patients with unstable renal function and has not been validated in children and those over 70. Current interpretive data was last reviewed 2021. Blood 07/19/2024 5:51 AM PER DIEM NURSE 07/19/2024 6:17 AM PER DIEM NURSE Radha Pendleton MD LAB BLOOD ORDERABLES Final Resul t Performing Organization Address [facility]/ZIP Co de Phone Number [facility] [place] [address] * (ABNORMAL) CBC without differential (07/19/2024 5:51 AM PER DIEM NURSE) WBC 10.7(H) 3.8 - 9.9 K/cumm Hgb 12.1 11.9 - 15.5 g/dL [facility] Hct 36.0 35.6 - 45.5 % [facility] Plt 270 150 - 400 K/cumm [facility] MPV 11.5 9.1 - 12.[address] [facility] RBC 4.09 3.90 - 5.20 M/cumm [facility] MCV 88.0 81.3 - 96.[address] [facility] MCH 29.6 27.1 - 33.[address] [facility] MCHC 33.6 32.3 - 35.7 g/dL [facility] RDW CV 13.1 11.1 - 14.9 % [facility] RDW SD 42.1 35.7 - 48.[address] [facility] NRBC abs 0.00 0.00 - 0.01 K/cumm [facility] Blood 07/19/2024 5:51 AM PER DIEM NURSE 07/19/2024 6:17 AM PER DIEM NURSE us Desi Hurtado NP LAB BLOOD ORDERABLES Final Result [facility] [place] [address] * (ABNORMAL) Magnesium (07/19/2024 5:51 AM PER DIEM NURSE) Magnesium 2.6(H) 1.4 - 2.5 mg/dL Blood 07/19/2024 5:51 AM PER DIEM NURSE 07/19/2024 6:17 AM PER DIEM NURSE Radha Pendleton MD LAB BLOOD ORDERABLES Final Resul t Performing Organization Address [facility] de Phone Number [facility] [place] [address] * (ABNORMAL) Basic metabolic panel (07/19/2024 5:51 AM PER DIEM NURSE) [facility] Sodium 153(H) 135 - 145 mmol/L Potassium, pl 3.9 3.3 - 4.9 mmol/L [facility] Chloride 112(H) 97 - 110 mmol/L [facility] CO2 32 22 - 32 mmol/L [facility] Anion gap 9 2 - 15 mmol/L [facility] BUN 18 6 - 25 mg/dL [facility] Creatinine 1.02 0.60 - 1.10 mg/dL [facility] Glucose 116 70 - 199 mg/dL [facility] Comment: Interpretive Data Fasting glucose >/= 126 mg/dl is diagnostic for diabetes. Fasting is defined as no caloric intake for at least 8 hours. Fasting glucose between 100 mg/dl to 125 mg/dl is diagnostic of prediabetes. In a patient with classic symptoms of hyperglycemia or hyperglycemic crisis, a random glucose >/= 200 mg/dl is diagnostic for diabetes. In the absence of unequivocal hyperglycemia, results should be confirmed by repeat testing. The classification and Diagnosis of Diabetes Diabetes Care 202; 46: S19-S40. Current interpretive data was last revised 2022. Calcium 9.5 8.5 - 10.3 mg/dL [facility] Blood 07/19/2024 5:51 AM PER DIEM NURSE 07/19/2024 6:17 AM PER DIEM NURSE Radha Pendleton MD LAB BLOOD ORDERABLES Final Resul t Performing Organization Address [facility] de Phone Number [facility] [place] [address] * POCT glucose (07/18/2024 5:11 PM PER DIEM NURSE) Glucose, POC 118 70 - 199 mg/dL Blood 07/18/2024 5:11 PM PER DIEM NURSE 07/18/2024 5:11 PM PER DIEM NURSE Radha Pendleton MD LAB POCT ORDERABLES - DEVICE Fin al Result Performing Organization Address [facility] de Phone Number [facility] [place] [address] * POCT glucose (07/18/2024 2:14 PM PER DIEM NURSE) Glucose, POC 126 70 - 199 mg/dL Blood 07/18/2024 2:14 PM PER DIEM NURSE 07/18/2024 2:14 PM PER DIEM NURSE Radha Pendleton MD LAB POCT ORDERABLES - DEVICE Fin al Result Performing Organization Address [facility] de Phone Number [facility] [place] [address] * IR G Tube Placement Percutaneous (07/18/2024 12:30 PM PER DIEM NURSE) Anatomical Region Laterality Modality Body N/A X-Ray Angiograph y 07/18/2024 12:4 8 PM PER DIEM NURSE Impressions 07/18/2024 8:39 PM PER DIEM NURSE Successful placement of a 16 Tristanian gastrostomy catheter with gastropexy. PLAN: The gastrostomy catheter will remain to gravity drainage overnight. It may be used for administration of liquid medications. The tube should be capped after administration of the medication for an hour and then reconnected to gravity drainage. The output should be recorded every shift. The patient will be examined in the morning prior to clearing the catheter for usage for tube feeds. Feedings will likely start in a day and be advanced to goal before discharge The gastropexy sutures are resorbable and do not need to be removed. Dictated by: Duglas Cosby M.D. The radiology attending physician has personally reviewed this study, and had reviewed and/or edited this written report and agrees with it. Electronically signed by: Amina Tolbert M.D. Narrative 07/18/2024 8:39 PM PER DIEM NURSE EXAMINATION: PERCUTANEOUS GASTROSTOMY CATHETER PLACEMENT INDICATION: 68-year-old female with dysphagia due to CVA ATTENDING PRESENCE: Amina Tolbert M.D., the attending radiologist was present from the beginning to the end of the procedure. SEDATION: Procedural sedation was administered under the attending physician's direction and continuous monitoring by a trained nurse specialist who was independent from those actually performing the procedure. Total monitored sedation time was 45 minutes. TECHNIQUE: The risks, benefits and alternatives were discussed and informed consent was obtained. Prior to beginning the procedure, [place] Protocol was performed to confirm the patient's identity and the planned procedure. The fluoroscopy time has been recorded in the electronic medical record. Maximum sterile barriers including cap, mask, hand hygiene, sterile gloves, sterile gown, large sterile drape and 2% chlorhexidine for cutaneous antisepsis were used. The skin over the stomach was sterilely prepped, draped and infiltrated with 1% lidocaine and 1 mg of intravenous glucagon was administered. The existing NG tube was used to inject air to distend the stomach and fluoroscopy was used to determine a safe tract to the stomach. The stomach was then accessed under fluoroscopic guidance and 2 T-tacs were placed, which were anchored to the skin. The stomach was then accessed with an 18 gauge needle. The tract was dilated over a guidewire to 20 Tristanian. Next, an 20 Tristanian peel-away sheath was placed in the stomach and the guidewire and the inner dilator were removed. Subsequently, a 16 balloon retention type catheter was advanced into the stomach through the peel-away sheath and the sheath was removed. The balloon was inflated with 10 cc of dilute contrast. The catheter was secured to the skin with the bumper and connected to gravity drainage. ESTIMATED BLOOD LOSS: Minimal. CONDITION: Stable DISCHARGED TO: Patient care division. FINDINGS: Final fluoroscopic images demonstrate the gastrostomy catheter with its tip in the body of the stomach. No complications are identified. Procedure Note Amina Tolbert MD - 07/18/2024 EXAMINATION: PERCUTANEOUS GASTROSTOMY CATHETER PLACEMENT INDICATION: 68-year-old female with dysphagia due to CVA ATTENDING PRESENCE: Amina Tolbert M.D., the attending radiologist was present from the beginning to the end of the procedure. SEDATION: Procedural sedation was administered under the attending physician's direction and continuous monitoring by a trained nurse specialist who was independent from those actually performing the procedure. Total monitored sedation time was 45 minutes. TECHNIQUE: The risks, benefits and alternatives were discussed and informed consent was obtained. Prior to beginning the procedure, [place] Protocol was performed to confirm the patient's identity and the planned procedure. The fluoroscopy time has been recorded in the electronic medical record. Maximum sterile barriers including cap, mask, hand hygiene, sterile gloves, sterile gown, large sterile drape and 2% chlorhexidine for cutaneous antisepsis were used. The skin over the stomach was sterilely prepped, draped and infiltrated with 1% lidocaine and 1 mg of intravenous glucagon was administered. The existing NG tube was used to inject air to distend the stomach and fluoroscopy was used to determine a safe tract to the stomach. The stomach was then accessed under fluoroscopic guidance and 2 T-tacs were placed, which were anchored to the skin. The stomach was then accessed with an 18 gauge needle. The tract was dilated over a guidewire to 20 Tristanian. Next, an 20 Tristanian peel-away sheath was placed in the stomach and the guidewire and the inner dilator were removed. Subsequently, a 16 balloon retention type catheter was advanced into the stomach through the peel-away sheath and the sheath was removed. The balloon was inflated with 10 cc of dilute contrast. The catheter was secured to the skin with the bumper and connected to gravity drainage. ESTIMATED BLOOD LOSS: Minimal. CONDITION: Stable DISCHARGED TO: Patient care division. FINDINGS: Final fluoroscopic images demonstrate the gastrostomy catheter with its tip in the body of the stomach. No complications are identified. IMPRESSION: Successful placement of a 16 Tristanian gastrostomy catheter with gastropexy. PLAN: The gastrostomy catheter will remain to gravity drainage overnight. It may be used for administration of liquid medications. The tube should be capped after administration of the medication for an hour and then reconnected to gravity drainage. The output should be recorded every shift. The patient will be examined in the morning prior to clearing the catheter for usage for tube feeds. Feedings will likely start in a day and be advanced to goal before discharge The gastropexy sutures are resorbable and do not need to be removed. Dictated by: Duglas Cosby M.D. The radiology attending physician has personally reviewed this study, and had reviewed and/or edited this written report and agrees with it. Electronically signed by: Amina Tolbert M.D. us Radha Pendleton MD IMG IR PROCEDURES Final Result * (ABNORMAL) eGFR (07/18/2024 6:06 AM PER DIEM NURSE) eGFR 56(L) >=60 mL/min/1. 73 m2 Comment: Interpretive Data Reference Interval Normal >/= 90 mL/min/1.73m2 Mildly decreased* 60 - 89 mL/min/1.73m2 Mildly to moderately decreased 45 - 59 mL/min/1.73m2 Moderately to severely decreased 30 - 44 mL/min/1.73m2 Severely decreased 15 - 29 mL/min/1.73m2 Kidney Failure < 15 mL/min/1.73m2 *Relative to young adult level Estimated glomerular filtration rate is determined by the 2020 CKD-EPI equation recommended by the National Kidney Foundation (A Unifying Approach to GFR Estimation: Recommendations of the NKF-ASK Task Force on Reassessing the Inclusion of Race in Diagnosing Kidney Disease, JASN 202). The CKD-EPI equation should not be used for patients with unstable renal function and has not been validated in children and those over 70. Current interpretive data was last reviewed 2021. Blood 07/18/2024 6:06 AM PER DIEM NURSE 07/18/2024 10:24 AM PER DIEM NURSE us Radha Pendleton MD LAB BLOOD ORDERABLES Final Resul t [facility] Department of Laboratories [place], [place] [id number] * (ABNORMAL) Basic metabolic panel (07/18/2024 6:06 AM PER DIEM NURSE) Sodium 150(H) 135 - 145 mmol/L Potassium, pl 4.0 3.3 - 4.9 mmol/L [facility] Chloride 107 97 - 110 mmol/L [facility] CO2 33(H) 22 - 32 mmol/L [facility] Anion gap 10 2 - 15 mmol/L [facility] BUN 16 6 - 25 mg/dL [facility] Creatinine 1.07 0.60 - 1.10 mg/dL [facility] Glucose 116 70 - 199 mg/dL [facility] Comment: Interpretive Data Fasting glucose >/= 126 mg/dl is diagnostic for diabetes. Fasting is defined as no caloric intake for at least 8 hours. Fasting glucose between 100 mg/dl to 125 mg/dl is diagnostic of prediabetes. In a patient with classic symptoms of hyperglycemia or hyperglycemic crisis, a random glucose >/= 200 mg/dl is diagnostic for diabetes. In the absence of unequivocal hyperglycemia, results should be confirmed by repeat testing. The classification and Diagnosis of Diabetes Diabetes Care 2021; 46: S19-S40. Current interpretive data was last revised 2022. Calcium 9.7 8.5 - 10.3 mg/dL [facility] Blood 07/18/2024 6:06 AM PER DIEM NURSE 07/18/2024 10:01 AM PER DIEM NURSE us Radha Pendleton MD LAB BLOOD ORDERABLES Final Resul t [facility] Department [place] [address] * eGFR (07/17/2024 8:38 PM PER DIEM NURSE) eGFR 64 >=60 mL/min/1. 73 m2 Comment: Interpretive Data Reference Interval Normal >/= 90 mL/min/1.73m2 Mildly decreased* 60 - 89 mL/min/1.73m2 Mildly to moderately decreased 45 - 59 mL/min/1.73m2 Moderately to severely decreased 30 - 44 mL/min/1.73m2 Severely decreased 15 - 29 mL/min/1.73m2 Kidney Failure < 15 mL/min/1.73m2 *Relative to young adult level Estimated glomerular filtration rate is determined by the 2020 CKD-EPI equation recommended by the National Kidney Foundation (A Unifying Approach to GFR Estimation: Recommendations of the NKF-ASK Task Force on Reassessing the Inclusion of Race in Diagnosing Kidney Disease, JASN 202). The CKD-EPI equation should not be used for patients with unstable renal function and has not been validated in children and those over 70. Current interpretive data was last reviewed 2021. Blood 07/17/2024 8:38 PM PER DIEM NURSE 07/17/2024 9:44 PM PER DIEM NURSE us Desi Hurtado NP LAB BLOOD ORDERABLES Final Result Performing Organization Address [facility] de Phone Number [facility] [place] [address] * Protime-INR (07/17/2024 8:38 PM PER DIEM NURSE) PT 10.6 9.7 - 13.0 sec INR 0.98 0.90 - 1.[address] [facility] Comment: Interpretive data Oral anticoagulant therapeutic ranges: Venous thromboembolism prophylaxis or treatment: 2.0-3.0 CARDIOLOGY Standard range: 2.0-3.0 High-intensity range: 2.5-3.5 Refer to indication-specific guidelines for appropriate target ranges for prosthetic heart valve replacement. Current interpretive data was last revised on 2019. Blood 07/17/2024 8:38 PM PER DIEM NURSE 07/17/2024 9:46 PM PER DIEM NURSE Radha Pendleton MD LAB BLOOD ORDERABLES Final Resul t Performing Organization Address [facility] de Phone Number [facility] [place] [address] * (ABNORMAL) CBC without differential (07/17/2024 8:38 PM PER DIEM NURSE) WBC 9.6 3.8 - 9.9 K/cumm Hgb 12.4 11.9 - 15.5 g/dL [facility] Hct 38.6 35.6 - 45.5 % [facility] Plt 254 150 - 400 K/cumm [facility] MPV 11.1 9.1 - 12.[address] [facility] RBC 4.24 3.90 - 5.20 M/cumm [facility] MCV 91.0 81.3 - 96.[address] [facility] MCH 29.2 27.1 - 33.[address] [facility] MCHC 32.1(L) 32.3 - 35.7 g/dL [facility] RDW CV 13.1 11.1 - 14.9 % [facility] RDW SD 42.7 35.7 - 48.[address] [facility] NRBC abs 0.00 0.00 - 0.01 K/cumm [facility] Blood 07/17/2024 8:38 PM PER DIEM NURSE 07/17/2024 9:44 PM PER DIEM NURSE us Desi Hurtado NP LAB BLOOD ORDERABLES Final Result Performing Organization Address [facility]/ZIP Co de Phone Number [facility] Department [place] [address] * Magnesium (07/17/2024 8:38 PM PER DIEM NURSE) Pathologist [facility] Magnesium 2.5 1.4 - 2.5 mg/dL Blood 07/17/2024 8:38 PM PER DIEM NURSE 07/17/2024 9:44 PM PER DIEM NURSE Radha Pendleton MD LAB BLOOD ORDERABLES Final Resul t Performing Organization Address City/[facility] Co de Phone Number [facility] [place] [address] * (ABNORMAL) Basic metabolic panel (07/17/2024 8:38 PM PER DIEM NURSE) Pathologist [facility] Sodium 150(H) 135 - 145 mmol/L Potassium, pl 3.9 3.3 - 4.9 mmol/L [facility] Chloride 108 97 - 110 mmol/L [facility] CO2 33(H) 22 - 32 mmol/L [facility] Anion gap 9 2 - 15 mmol/L [facility] BUN 17 6 - 25 mg/dL [facility] Creatinine 0.96 0.60 - 1.10 mg/dL [facility] Glucose 124 70 - 199 mg/dL [facility] Comment: Interpretive Data Fasting glucose >/= 126 mg/dl is diagnostic for diabetes. Fasting is defined as no caloric intake for at least 8 hours. Fasting glucose between 100 mg/dl to 125 mg/dl is diagnostic of prediabetes. In a patient with classic symptoms of hyperglycemia or hyperglycemic crisis, a random glucose >/= 200 mg/dl is diagnostic for diabetes. In the absence of unequivocal hyperglycemia, results should be confirmed by repeat testing. The classification and Diagnosis of Diabetes Diabetes Care 202; 46: S19-S40. Current interpretive data was last revised 2022. Calcium 10.1 8.5 - 10.3 mg/dL [facility] Blood 07/17/2024 8:38 PM PER DIEM NURSE 07/17/2024 9:44 PM PER DIEM NURSE Desi Hurtado NP LAB BLOOD ORDERABLES Final Result [facility] Department [place] [address] * eGFR (07/16/2024 10:33 PM PER DIEM NURSE) eGFR 66 >=60 mL/min/1. 73 m2 Comment: Interpretive Data Reference Interval Normal >/= 90 mL/min/1.73m2 Mildly decreased* 60 - 89 mL/min/1.73m2 Mildly to moderately decreased 45 - 59 mL/min/1.73m2 Moderately to severely decreased 30 - 44 mL/min/1.73m2 Severely decreased 15 - 29 mL/min/1.73m2 Kidney Failure < 15 mL/min/1.73m2 *Relative to young adult level Estimated glomerular filtration rate is determined by the 2020 CKD-EPI equation recommended by the National Kidney Foundation (A Unifying Approach to GFR Estimation: Recommendations of the NKF-ASK Task Force on Reassessing the Inclusion of Race in Diagnosing Kidney Disease, JASN 2020). The CKD-EPI equation should not be used for patients with unstable renal function and has not been validated in children and those over 70. Current interpretive data was last reviewed 2021. Blood 07/16/2024 10:3 3 PM PER DIEM NURSE 07/16/2024 10:53 PM PER DIEM NURSE Desi Hurtado NP LAB BLOOD ORDERABLES Final Result Performing Organization Address City/[facility] Co de Phone Number [facility] [place] [address] * (ABNORMAL) CBC without differential (07/16/2024 10:33 PM PER DIEM NURSE) Pathologist [facility] WBC 8.5 3.8 - 9.9 K/cumm Hgb 11.7(L) 11.9 - 15.5 g/dL [facility] Hct 35.1(L) 35.6 - 45.5 % [facility] Plt 245 150 - 400 K/cumm [facility] MPV 11.1 9.1 - 12.[address] [facility] RBC 3.97 3.90 - 5.20 M/cumm [facility] MCV 88.4 81.3 - 96.[address] [facility] MCH 29.5 27.1 - 33.[address] [facility] MCHC 33.3 32.3 - 35.7 g/dL [facility] RDW CV 12.9 11.1 - 14.9 % [facility] RDW SD 41.5 35.7 - 48.[address] [facility] NRBC abs 0.00 0.00 - 0.01 K/cumm [facility] Blood 07/16/2024 10:3 3 PM PER DIEM NURSE 07/16/2024 10:53 PM PER DIEM NURSE Desi Hurtado NP LAB BLOOD ORDERABLES Final Result Performing Organization Address [facility]/ZIP Co de Phone Number [facility] [place] [address] * Magnesium (07/16/2024 10:33 PM PER DIEM NURSE) Pathologist [facility] Magnesium 2.3 1.4 - 2.5 mg/dL Blood 07/16/2024 10:3 3 PM PER DIEM NURSE 07/16/2024 10:53 PM PER DIEM NURSE Radha Pendleton MD LAB BLOOD ORDERABLES Final Resul t [facility] Department [place] [address] * (ABNORMAL) Basic metabolic panel (07/16/2024 10:33 PM PER DIEM NURSE) [facility] Sodium 152(H) 135 - 145 mmol/L Potassium, pl 3.8 3.3 - 4.9 mmol/L [facility] Chloride 112(H) 97 - 110 mmol/L [facility] CO2 32 22 - 32 mmol/L [facility] Anion gap 8 2 - 15 mmol/L [facility] BUN 14 6 - 25 mg/dL [facility] Creatinine 0.93 0.60 - 1.10 mg/dL [facility] Glucose 142 70 - 199 mg/dL [facility] Comment: Interpretive Data Fasting glucose >/= 126 mg/dl is diagnostic for diabetes. Fasting is defined as no caloric intake for at least 8 hours. Fasting glucose between 100 mg/dl to 125 mg/dl is diagnostic of prediabetes. In a patient with classic symptoms of hyperglycemia or hyperglycemic crisis, a random glucose >/= 200 mg/dl is diagnostic for diabetes. In the absence of unequivocal hyperglycemia, results should be confirmed by repeat testing. The classification and Diagnosis of Diabetes Diabetes Care 202; 46: S19-S40. Current interpretive data was last revised 2022. Calcium 10.2 8.5 - 10.3 mg/dL [facility] Blood 07/16/2024 10:3 3 PM PER DIEM NURSE 07/16/2024 10:53 PM PER DIEM NURSE us Desi Hurtado NP LAB BLOOD ORDERABLES Final Result Performing Organization Address [facility]/ZIP Co de Phone Number [facility] Department [place] [address] * eGFR (07/15/2024 8:01 PM PER DIEM NURSE) [facility] eGFR 61 >=60 mL/min/1. 73 m2 Comment: Interpretive Data Reference Interval Normal >/= 90 mL/min/1.73m2 Mildly decreased* 60 - 89 mL/min/1.73m2 Mildly to moderately decreased 45 - 59 mL/min/1.73m2 Moderately to severely decreased 30 - 44 mL/min/1.73m2 Severely decreased 15 - 29 mL/min/1.73m2 Kidney Failure < 15 mL/min/1.73m2 *Relative to young adult level Estimated glomerular filtration rate is determined by the 2020 CKD-EPI equation recommended by the National Kidney Foundation (A Unifying Approach to GFR Estimation: Recommendations of the NKF-ASK Task Force on Reassessing the Inclusion of Race in Diagnosing Kidney Disease, JASN 2020). The CKD-EPI equation should not be used for patients with unstable renal function and has not been validated in children and those over 70. Current interpretive data was last reviewed 2021. Blood 07/15/2024 8:01 PM PER DIEM NURSE 07/15/2024 9:38 PM PER DIEM NURSE Desi Hurtado NP LAB BLOOD ORDERABLES Final Result [facility] Department [place] [address] * (ABNORMAL) CBC without differential (07/15/2024 8:01 PM PER DIEM NURSE) [facility] WBC 7.5 3.8 - 9.9 K/cumm Hgb 11.6(L) 11.9 - 15.5 g/dL [facility] Hct 34.4(L) 35.6 - 45.5 % [facility] Plt 238 150 - 400 K/cumm [facility] MPV 11.3 9.1 - 12.[address] [facility] RBC 3.97 3.90 - 5.20 M/cumm [facility] MCV 86.6 81.3 - 96.[address] [facility] MCH 29.2 27.1 - 33.[address] [facility] MCHC 33.7 32.3 - 35.7 g/dL [facility] RDW CV 13.0 11.1 - 14.9 % [facility] RDW SD 40.8 35.7 - 48.[address] [facility] NRBC abs 0.00 0.00 - 0.01 K/cumm [facility] Blood 07/15/2024 8:01 PM PER DIEM NURSE 07/15/2024 9:34 PM PER DIEM NURSE Desi Hurtado NP LAB BLOOD ORDERABLES Final Result [facility] [place] [address] * Magnesium (07/15/2024 8:01 PM PER DIEM NURSE) Pathologist [facility] Magnesium 2.3 1.4 - 2.5 mg/dL Blood 07/15/2024 8:01 PM PER DIEM NURSE 07/15/2024 9:34 PM PER DIEM NURSE Radha Pendleton MD LAB BLOOD ORDERABLES Final Resul t Performing Organization Address City/[facility] Co de Phone Number [facility] [place] [address] * (ABNORMAL) Basic metabolic panel (07/15/2024 8:01 PM PER DIEM NURSE) Pathologist [facility] Sodium 148(H) 135 - 145 mmol/L Potassium, pl 3.8 3.3 - 4.9 mmol/L [facility] Chloride 110 97 - 110 mmol/L [facility] CO2 29 22 - 32 mmol/L [facility] Anion gap 9 2 - 15 mmol/L [facility] BUN 13 6 - 25 mg/dL [facility] Creatinine 0.99 0.60 - 1.10 mg/dL [facility] Glucose 133 70 - 199 mg/dL [facility] Comment: Interpretive Data Fasting glucose >/= 126 mg/dl is diagnostic for diabetes. Fasting is defined as no caloric intake for at least 8 hours. Fasting glucose between 100 mg/dl to 125 mg/dl is diagnostic of prediabetes. In a patient with classic symptoms of hyperglycemia or hyperglycemic crisis, a random glucose >/= 200 mg/dl is diagnostic for diabetes. In the absence of unequivocal hyperglycemia, results should be confirmed by repeat testing. The classification and Diagnosis of Diabetes Diabetes Care 2021; 46: S19-S40. Current interpretive data was last revised 2022. Calcium 9.9 8.5 - 10.3 mg/dL [facility] Blood 07/15/2024 8:01 PM PER DIEM NURSE 07/15/2024 9:34 PM PER DIEM NURSE us Desi Hurtado NP LAB BLOOD ORDERABLES Final Result [facility] Department [place] [address] * TRANSTHORACIC ECHO (TTE) COMPLETE W DOPPLER/CF W CONTRAST W BUBBLE (07/15/2024 9:33 AM PER DIEM NURSE) LV EF % CONS SCIMAGE Anatomical Region Laterality Modality Ultrasound 07/15/2024 8:28 AM PER DIEM NURSE Narrative 07/15/2024 10:31 AM PER DIEM NURSE [facility] Cardiac [place] [address] Transthoracic Echocardiographic Report Patient Name: DOREEN FAUST L : 1955 (68y 8m) Gender: F Study Date: 07/15/2024 08:28:57 AM Ht(Inch): 66 Wt(Lb): 160.05 BSA: 1.84 Sand Blaster: Kala Jacobs RDCS Location: [id number] Order Provider: RADHA PENDLETON Heart Rate: 70 BMI: 25.83 BP: 173/83 Quality: The study images were of technically good quality. Ref Provider: RADHA PENDLETON PROCEDURES: Echocardiographic Report: [id number], [id number]) Transthoracic complete echo with strain imaging and contrast, 2D, spectral and tissue Doppler, color flow Doppler, M-mode. Additional Procedures: Agitated saline bubble study. Contrast: Contrast Enhancement was Employed: Poor visualization of endocardial borders. 0.8 ml Optison Administered, (2.2 ml wasted) & NS Bubble Study. INDICATIONS: stroke work-up. MEASUREMENTS: 2D/MM Value Range Doppler Value Range LVIDd 2D 4.47 cm [ 3.80 - 5.20 ] AV Peak Louis 1.54 m/s [ 1.00 - 1.70 ] LVIDs 2D 2.63 cm [ 2.20 - 3.50 ] AV Peak PG 9.49 IVSd 2D 0.99 cm [ 0.60 - 0.90 ] AV Mean PG 5.15 mmHg LVPWd 2D 0.89 cm [ 0.60 - 0.90 ] AV VTI 32.39 cm LV Thickness Ratio 1.11 [ 1.50 - 3.00 ] LVOT Peak Louis 1.19 m/s [ 0.70 - 1.10 ] LV FS 2D 41.18 % [ 27.00 - 45.00 ] LVOT Peak PG 5.66 LV Mass 2D 142.18 g LVOT Mean PG 2.80 mmHg LV Mass Index 2D 77.27 g/m2 LVOT VTI 21.89 cm RWT 0.40 LVOT Diam 1.97 cm EDV Mod BP 141.69 ml [ 46.00 - 106.00 ] DOMINGA VTI 2.06 cm2 LV EDV Index 77.01 ml/m2 LVOT/AV VTI 0.68 - Dimensionless index (DVI) ESV Mod BP 41.13 ml [ 14.00 - 42.00 ] MV E Peak Louis 0.61 m/s [ 0.60 - 1.30 ] EF Mod BP 71 % [ 54 - 74 ] MV A Peak Louis 0.72 m/s [ 1.00 - 1.20 ] LV GLS -14.1 % MV E/A 0.85 ratio [ 0.80 - 1.50 ] LA Length 2C 5.49 cm MV Decel Time 292.60 msec [ 104.00 - 258.00 ] LA Length 4C 5.17 cm Med E` Louis 3.29 cm/sec [ 8.00 - 15.00 ] LA Volume BP 46.23 ml Lat E` Louis 7.43 cm/sec [ 10.00 - 15.00 ] LA Volume Index 25.12 ml/m2 Average E/E` 11.38 RV Base Dimen 2D 3.3 cm [ 2.5 - 4.2 ] RV S` 10.99 cm/sec TAPSE 2.05 cm [ 1.71 - 5.00 ] TR Peak Louis 2.69 m/s [ 1.00 - 2.80 ] RA Volume 19.00 ml TR Peak PG 28.9 RA Volume Index 10.33 ml/m2 PV Peak Louis 1.10 m/s [ 0.40 - 0.80 ] AoR Diam 2D 2.91 cm [ 2.70 - 3.70 ] PV Peak PG 4.84 Ao Root Index 1.58 cm/m2 - FINDINGS: Left Ventricle: Moderately dilated left ventricle based on volume index. Normal LV wall thickness. Normal left ventricular systolic function. The Ejection Fraction (Arenas's) is measured at 71 %. Left ventricular diastolic parameters are consistent with mild (Grade I) diastolic dysfunction (impaired relaxation). The average global longitudinal strain rate is abnormal. The LV global strain is: -14 %. Right Ventricle: Normal right ventricular size. Normal right ventricular systolic function. Left Atrium: The left atrium is normal in size. Right Atrium: The right atrium is normal in size. Atrial Septum: The interatrial septum is normal in appearance. Agitated saline bubble study is negative for intracardiac shunt. Mitral Valve: Mild mitral annular calcification. There is trivial mitral regurgitation. Aortic Valve: Normal trileaflet aortic valve without regurgitation or stenosis. No aortic regurgitation seen. No aortic valve stenosis. The peak transaortic gradient is 9.49 mmHg. The mean transaortic gradient is 5.15 mmHg. The aortic valve area by the continuity equation (using VTI) is 2.06 cm2. The dimensionless index is 0.68. Tricuspid Valve: There is mild tricuspid regurgitation. The estimated pulmonary artery systolic pressure is 34 mmHg. Pulmonic Valve: Normal pulmonic valve structure without regurgitation or stenosis. No evidence of pulmonic regurgitation. Pericardium: No pericardial effusion. Aorta: Normal aortic root. The aortic root is normal in size. The aortic root is normal in size when indexed. Abdominal aorta with mild atherosclerotic disease. IVC: IVC is normal in size. CONCLUSIONS: 1. Normal LV wall thickness. Normal left ventricular systolic function. The Ejection Fraction (Arenas's) is measured at 71 %. Left ventricular diastolic parameters are consistent with mild (Grade I) diastolic dysfunction (impaired relaxation). The average global longitudinal strain rate is abnormal. 2. Normal right ventricular size. Normal right ventricular systolic function. 3. Agitated saline bubble study is negative for intracardiac shunt. 4. There is mild tricuspid regurgitation. COMPARISONS: There was no previous study available for comparison. ATTESTATION: I have reviewed and interpreted the pertinent images and measurements of this study. I attest to the conclusions in the final report that is provided above. DISCLAIMER: The study images and the final report will be retained in the patient chart by the Echo Laboratory for the legally required time period. This chart constitutes the legal record of any testing performed. Electronically Signed By: Flor Wilkinson MD 07/15/2024 10:30:33 AM PER DIEM NURSE Electronically Signed By: Flor Wilkinson MD 07/15/2024 10:30:33 AM PER DIEM NURSE Procedure Note Flor Wilkinson, DO - 07/15/2024 [facility] [place] [address] Transthoracic Echocardiographic Report Patient Name: DORENE FAUST L : 1955 (68y 8m) Gender: F Study Date: 07/15/2024 08:28:57 AM Ht(Inch): 66 Wt(Lb): 160.05 BSA: 1.84 Sand Blaster: Kala Jacobs [facility] Location: [id number] OrderProvider: RADHA PENDLETON Heart Rate: 70 BMI: 25.83 BP: 173/83 Quality: The study images were oftechnically good quality. Ref Provider: RADHA PENDLETON PROCEDURES: Echocardiographic Report: ([id number], [id number]) Transthoracic complete echo withstrain imaging and contrast, 2D, spectral and tissue Doppler, color flow Doppler,M-mode. Additional Procedures: Agitated saline bubble study. Contrast: Contrast Enhancement was Employed: Poor visualization ofendocardial borders. 0.8 ml Optison Administered, (2.2 ml wasted) & NS Bubble Study. INDICATIONS: stroke work-up. MEASUREMENTS: 2D/MM Value Range DopplerValue Range LVIDd 2D 4.47 cm [ 3.80 - 5.20 ] AV Peak Vel1.54 m/s [ 1.00 - 1.70 ] LVIDs 2D 2.63 cm [ 2.20 - 3.50 ] AV Peak PG9.49 IVSd 2D 0.99 cm [ 0.60 - 0.90 ] AV Mean PG5.15 mmHg LVPWd 2D 0.89 cm [ 0.60 - 0.90 ] AV VTI32.39 cm LV Thickness Ratio 1.11 [ 1.50 - 3.00 ] LVOT Peak Vel1.19 m/s [ 0.70 - 1.10 ] LV FS 2D 41.18 % [ 27.00 - 45.00 ] LVOT Peak PG5.66 LV Mass 2D 142.18 g LVOT Mean PG2.80 mmHg LV Mass Index 2D 77.27 g/m2 LVOT VTI21.89 cm RWT 0.40 LVOT Diam1.97 cm EDV Mod BP 141.69 ml [ 46.00 - 106.00 ] DOMINGA VTI2.06 cm2 LV EDV Index 77.01 ml/m2 LVOT/AV VTI0.68 - Dimensionless index (DVI) ESV Mod BP 41.13 ml [ 14.00 - 42.00 ] MV E Peak Vel0.61 m/s [ 0.60 - 1.30 ] EF Mod BP 71 % [ 54 - 74 ] MV A Peak Vel0.72 m/s [ 1.00 - 1.20 ] LV GLS -14.1 % MV E/A0.85 ratio [ 0.80 - 1.50 ] LA Length 2C 5.49 cm MV Decel Nixx596.60 msec [ 104.00 - 258.00 ] LA Length 4C 5.17 cm Med E` Vel3.29 cm/sec [ 8.00 - 15.00 ] LA Volume BP 46.23 ml Lat E` Vel7.43 cm/sec [ 10.00 - 15.00 ] LA Volume Index 25.12 ml/m2 Average E/E`11.38 RV Base Dimen 2D 3.3 cm [ 2.5 - 4.2 ] RV S`10.99 cm/sec TAPSE 2.05 cm [ 1.71 - 5.00 ] TR Peak Vel2.69 m/s [ 1.00 - 2.80 ] RA Volume 19.00 ml TR Peak PG28.9 RA Volume Index 10.33 ml/m2 PV Peak Vel1.10 m/s [ 0.40 - 0.80 ] AoR Diam 2D 2.91 cm [ 2.70 - 3.70 ] PV Peak PG4.84 Ao Root Index1.58 cm/m2 - FINDINGS: Left Ventricle: Moderately dilated left ventricle based on volume index.Normal LV wall thickness. Normal left ventricular systolic function. The EjectionFraction (Arenas's) is measured at 71 %. Left ventricular diastolic parameters are consistentwith mild (Grade I) diastolic dysfunction (impaired relaxation). The average globallongitudinal strain rate is abnormal. The LV global strain is: -14 %. Right Ventricle: Normal right ventricular size. Normal right ventricularsystolic function. Left Atrium: The left atrium is normal in size. Right Atrium: The right atrium is normal in size. Atrial Septum: The interatrial septum is normal in appearance. Agitatedsaline bubble study is negative for intracardiac shunt. Mitral Valve: Mild mitral annular calcification. There is trivial mitralregurgitation. Aortic Valve: Normal trileaflet aortic valve without regurgitation orstenosis. No aortic regurgitation seen. No aortic valve stenosis. The peak transaorticgradient is 9.49 mmHg. The mean transaortic gradient is 5.15 mmHg. The aortic valve area by thecontinuity equation (using VTI) is 2.06 cm2. The dimensionless index is 0.68. Tricuspid Valve: There is mild tricuspid regurgitation. The estimatedpulmonary artery systolic pressure is 34 mmHg. Pulmonic Valve: Normal pulmonic valve structure without regurgitation orstenosis. No evidence of pulmonic regurgitation. Pericardium: No pericardial effusion. Aorta: Normal aortic root. The aortic root is normal in size. The aorticroot is normal in size when indexed. Abdominal aorta with mild atherosclerotic disease. IVC: IVC is normal in size. CONCLUSIONS: 1. Normal LV wall thickness. Normal left ventricular systolic function.The Ejection Fraction (Arenas's) is measured at 71 %. Left ventricular diastolicparameters are consistent with mild (Grade I) diastolic dysfunction (impairedrelaxation). The average global longitudinal strain rate is abnormal. 2. Normal right ventricular size. Normal right ventricular systolicfunction. 3. Agitated saline bubble study is negative for intracardiac shunt. 4. There is mild tricuspid regurgitation. COMPARISONS: There was no previous study available for comparison. ATTESTATION: I have reviewed and interpreted the pertinent images and measurements ofthis study. I attest to the conclusions in the final report that is provided above. DISCLAIMER: The study images and the final report will be retained in the patientchart by the Echo Laboratory for the legally required time period. This chart constitutesthe legal record of any testing performed. Electronically Signed By: Flor Wilkinson MD 07/15/2024 10:30:33 AM PER DIEM NURSE Electronically Signed By: Flor Wilkinson MD 07/15/2024 10:30:33 AM PER DIEM NURSE us Radha Pendleton MD CV ECHO PROCEDURES Final Result * eGFR (07/14/2024 9:31 PM PER DIEM NURSE) [facility] eGFR 72 >=60 mL/min/1. 73 m2 Comment: Interpretive Data Reference Interval Normal >/= 90 mL/min/1.73m2 Mildly decreased* 60 - 89 mL/min/1.73m2 Mildly to moderately decreased 45 - 59 mL/min/1.73m2 Moderately to severely decreased 30 - 44 mL/min/1.73m2 Severely decreased 15 - 29 mL/min/1.73m2 Kidney Failure < 15 mL/min/1.73m2 *Relative to young adult level Estimated glomerular filtration rate is determined by the 2020 CKD-EPI equation recommended by the National Kidney Foundation (A Unifying Approach to GFR Estimation: Recommendations of the NKF-ASK Task Force on Reassessing the Inclusion of Race in Diagnosing Kidney Disease, JASN 2020). The CKD-EPI equation should not be used for patients with unstable renal function and has not been validated in children and those over 70. Current interpretive data was last reviewed 2021. Blood 07/14/2024 9:31 PM PER DIEM NURSE 07/14/2024 9:55 PM PER DIEM NURSE us Desi Hurtado NP LAB BLOOD ORDERABLES Final Result [facility] Department [place] [address] * (ABNORMAL) CBC without differential (07/14/2024 9:31 PM PER DIEM NURSE) [facility] WBC 8.0 3.8 - 9.9 K/cumm Hgb 11.7(L) 11.9 - 15.5 g/dL [facility] Hct 34.2(L) 35.6 - 45.5 % [facility] Plt 218 150 - 400 K/cumm [facility] MPV 11.2 9.1 - 12.[address] [facility] RBC 3.92 3.90 - 5.20 M/cumm [facility] MCV 87.2 81.3 - 96.[address] [facility] MCH 29.8 27.1 - 33.[address] [facility] MCHC 34.2 32.3 - 35.7 g/dL [facility] RDW CV 12.7 11.1 - 14.9 % [facility] RDW SD 40.0 35.7 - 48.[address] [facility] NRBC abs 0.00 0.00 - 0.01 K/cumm [facility] Blood 07/14/2024 9:31 PM PER DIEM NURSE 07/14/2024 9:55 PM PER DIEM NURSE Desi Hurtado NP LAB BLOOD ORDERABLES Final Result Performing Organization Address [facility]/ZIP Co de Phone Number [facility] Department [place] [address] * Magnesium (07/14/2024 9:31 PM PER DIEM NURSE) [facility] Magnesium 2.3 1.4 - 2.5 mg/dL Blood 07/14/2024 9:31 PM PER DIEM NURSE 07/14/2024 9:55 PM PER DIEM NURSE Radha Pendleton MD LAB BLOOD ORDERABLES Final Resul t Performing Organization Address [facility] de Phone Number [facility] Department [place] [address] * Basic metabolic panel (07/14/2024 9:31 PM PER DIEM NURSE) [facility] Sodium 145 135 - 145 mmol/L Potassium, pl 4.2 3.3 - 4.9 mmol/L [facility] Comment:Hemolyzed; Potassium value may be falsely elevated by as much as 0.6-1.0 mmol/L. Suggest redraw and reanalysis. Chloride 109 97 - 110 mmol/L [facility] CO2 25 22 - 32 mmol/L [facility] [facility] Anion gap 11 2 - 15 mmol/L [facility] BUN 9 6 - 25 mg/dL [facility] Creatinine 0.87 0.60 - 1.10 mg/dL [facility] Glucose 120 70 - 199 mg/dL [facility] Comment: Interpretive Data Fasting glucose >/= 126 mg/dl is diagnostic for diabetes. Fasting is defined as no caloric intake for at least 8 hours. Fasting glucose between 100 mg/dl to 125 mg/dl is diagnostic of prediabetes. In a patient with classic symptoms of hyperglycemia or hyperglycemic crisis, a random glucose >/= 200 mg/dl is diagnostic for diabetes. In the absence of unequivocal hyperglycemia, results should be confirmed by repeat testing. The classification and Diagnosis of Diabetes Diabetes Care 2021; 46: S19-S40. Current interpretive data was last revised 2022. Calcium 9.3 8.5 - 10.3 mg/dL [facility] Blood 07/14/2024 9:31 PM PER DIEM NURSE 07/14/2024 9:55 PM PER DIEM NURSE us Desi Hurtado NP LAB BLOOD ORDERABLES Final Result [facility] Department [place] [address] * XR Abdomen Ap 1 Vw (07/14/2024 10:40 AM PER DIEM NURSE) Anatomical Region Laterality Modality Body, Abdomen N/A Digital Radiogra phy 07/15/2024 8:38 AM PER DIEM NURSE Impressions 07/15/2024 9:14 AM PER DIEM NURSE Feeding tube tip projects over the gastric body. The lower abdomen and pelvis is excluded from the [id number]. Elevation of the right hemidiaphragm. Dictated by: Matthew Khan MD The radiology attending physician has personally reviewed this study, and had reviewed and/or edited this written report and agrees with it. Electronically signed by: Hai Baldwin M.D. Narrative 07/15/2024 9:14 AM PER DIEM NURSE EXAMINATION: Abdomen, one view. HISTORY: Check tube placement. COMPARISON: None Procedure Note Hai Baldwin MD - 07/15/2024 EXAMINATION: Abdomen, one view. HISTORY: Check tube placement. COMPARISON: None IMPRESSION: Feeding tube tip projects over the gastric body. The lower abdomen and pelvis is excluded from the [id number]. Elevation of the right hemidiaphragm. Dictated by: Matthew Khan MD The radiology attending physician has personally reviewed this study, and had reviewed and/or edited this written report and agrees with it. Electronically signed by: Hai Baldwin M.D. us Radha Pendleton MD IMG XR PROCEDURES Final Result * POCT glucose (07/14/2024 7:35 AM PER DIEM NURSE) Glucose, POC 101 70 - 199 mg/dL Blood 07/14/2024 7:35 AM PER DIEM NURSE 07/14/2024 7:35 AM PER DIEM NURSE us Radha Pendleton MD LAB POCT ORDERABLES - DEVICE Fin al Result Performing Organization Address [facility] de Phone Number [facility] [place] [address] * POCT glucose (07/14/2024 3:45 AM PER DIEM NURSE) Glucose, POC 115 70 - 199 mg/dL Blood 07/14/2024 3:45 AM PER DIEM NURSE 07/14/2024 3:45 AM PER DIEM NURSE Radha Pendleton MD LAB POCT ORDERABLES - DEVICE Fin al Result Performing Organization Address [facility] Phone Number [facility] [place] [address] * MRI Brain WO Contrast (07/14/2024 1:47 AM PER DIEM NURSE) Anatomical Region Laterality Modality Head and Neck N/A Magnetic Resonan ce 07/14/2024 8:43 AM PER DIEM NURSE Impressions 07/14/2024 8:43 AM PER DIEM NURSE Multiple areas of diffusion restriction noted within the left M1 distribution as detailed above. Electronically signed by: Naldo Baptiste M.D. Narrative 07/14/2024 8:43 AM PER DIEM NURSE EXAMINATION: Magnetic resonance imaging (MRI) of the brain and brainstem without contrast HISTORY: Left M1 occlusion status post thrombectomy TECHNIQUE: Multiplanar multi-weighted MRI of the brain and brainstem was performed without intravenous contrast using the general brain protocol. COMPARISON: 09/27/2012 FINDINGS: Motion limited exam. Multiple areas of diffusion restriction noted. These mostly are seen is a punctate foci that are scattered within the M1 distribution, however, more confluent areas of restriction are noted in the anterior tip of the left temporal lobe, and left basal ganglia, left border zone between the temporal and occipital lobes. FLAIR-weighted images demonstrate areas of remote encephalomalacia in the border zone between the middle and posterior circulation left which is similar to findings extending back to the comparison exam of 2012. Since that remote exam there has been significant development of bilateral periventricular small vessel disease and small lacunar infarct on the right basal ganglia with volume loss and adnexa vacuo dilatation of the right anterior ventricular system. Susceptibility weighted images demonstrate no significant bleed. Clot within the left M1 and early M2 distribution is well visualized. several cortical veins are also visualized and this is of uncertain significance. . Procedure Note Naldo Baptiste MD PhD - 07/14/2024 EXAMINATION: Magnetic resonance imaging (MRI) of the brain and brainstem without contrast HISTORY: Left M1 occlusion status post thrombectomy TECHNIQUE: Multiplanar multi-weighted MRI of the brain and brainstem was performed without intravenous contrast using the general brain protocol. COMPARISON: 09/27/2012 FINDINGS: Motion limited exam. Multiple areas of diffusion restriction noted. These mostly are seen is a punctate foci that are scattered within the M1 distribution, however, more confluent areas of restriction are noted in the anterior tip of the left temporal lobe, and left basal ganglia, left border zone between the temporal and occipital lobes. FLAIR-weighted images demonstrate areas of remote encephalomalacia in the border zone between the middle and posterior circulation left which is similar to findings extending back to the comparison exam of 2012. Since that remote exam there has been significant development of bilateral periventricular small vessel disease and small lacunar infarct on the right basal ganglia with volume loss and adnexa vacuo dilatation of the right anterior ventricular system. Susceptibility weighted images demonstrate no significant bleed. Clot within the left M1 and early M2 distribution is well visualized. several cortical veins are also visualized and this is of uncertain significance. . IMPRESSION: Multiple areas of diffusion restriction noted within the left M1 distribution as detailed above. Electronically signed by: Naldo Baptiste M.D. us Radha Pendleton MD IMG MRI PROCEDURES Final Result * POCT glucose (07/13/2024 11:54 PM PER DIEM NURSE) Glucose, POC 124 70 - 199 mg/dL Blood 07/13/2024 11:5 4 PM PER DIEM NURSE 07/13/2024 11:54 PM PER DIEM NURSE us Radha Pendleton MD LAB POCT ORDERABLES - DEVICE Fin al Result [facility] Department [place] [address] * (ABNORMAL) eGFR (07/13/2024 8:11 PM PER DIEM NURSE) eGFR 58(L) >=60 mL/min/1. 73 m2 Comment: Interpretive Data Reference Interval Normal >/= 90 mL/min/1.73m2 Mildly decreased* 60 - 89 mL/min/1.73m2 Mildly to moderately decreased 45 - 59 mL/min/1.73m2 Moderately to severely decreased 30 - 44 mL/min/1.73m2 Severely decreased 15 - 29 mL/min/1.73m2 Kidney Failure < 15 mL/min/1.73m2 *Relative to young adult level Estimated glomerular filtration rate is determined by the 2020 CKD-EPI equation recommended by the National Kidney Foundation (A Unifying Approach to GFR Estimation: Recommendations of the NKF-ASK Task Force on Reassessing the Inclusion of Race in Diagnosing Kidney Disease, JASN 202). The CKD-EPI equation should not be used for patients with unstable renal function and has not been validated in children and those over 70. Current interpretive data was last reviewed 2021. Blood 07/13/2024 8:11 PM PER DIEM NURSE 07/13/2024 8:28 PM PER DIEM NURSE us Radha Pendleton MD LAB BLOOD ORDERABLES Final Resul t [facility] Department [place] [address] * (ABNORMAL) CBC without differential (07/13/2024 8:11 PM PER DIEM NURSE) WBC 7.5 3.8 - 9.9 K/cumm Hgb 11.1(L) 11.9 - 15.5 g/dL [facility] Hct 33.1(L) 35.6 - 45.5 % [facility] Plt 203 150 - 400 K/cumm [facility] MPV 10.4 9.1 - 12.[address] [facility] RBC 3.74(L) 3.90 - 5.20 M/cumm [facility] MCV 88.5 81.3 - 96.[address] [facility] MCH 29.7 27.1 - 33.[address] [facility] MCHC 33.5 32.3 - 35.7 g/dL [facility] RDW CV 12.8 11.1 - 14.9 % [facility] RDW SD 41.8 35.7 - 48.[address] [facility] NRBC abs 0.00 0.00 - 0.01 K/cumm [facility] Blood 07/13/2024 8:11 PM PER DIEM NURSE 07/13/2024 8:30 PM PER DIEM NURSE us Radha Pendleton MD LAB BLOOD ORDERABLES Final Resul t Performing Organization Address [facility] Co de Phone Number [facility] Department [place] [address] * Phosphorus (07/13/2024 8:11 PM PER DIEM NURSE) Pathologist [facility] Phosphorus, pl 3.6 2.3 - 4.5 mg/dL Blood 07/13/2024 8:11 PM PER DIEM NURSE 07/13/2024 8:28 PM PER DIEM NURSE us Radha Pendleton MD LAB BLOOD ORDERABLES Final Resul t Performing Organization Address [facility] Co de Phone Number [facility] Department [place] [address] * Magnesium (07/13/2024 8:11 PM PER DIEM NURSE) Magnesium 1.9 1.4 - 2.5 mg/dL Blood 07/13/2024 8:11 PM PER DIEM NURSE 07/13/2024 8:28 PM PER DIEM NURSE Radha Pendleton MD LAB BLOOD ORDERABLES Final Resul t Performing Organization Address [facility] Co de Phone Number [facility] [place] [address] * (ABNORMAL) Cholesterol, LDL, direct (07/13/2024 8:11 PM PER DIEM NURSE) LDL Cholesterol, Direct 134(H) <=129 mg/dL Comment: Interpretive Data Ages < or = 19 years Acceptable: <110 mg/dL Borderline high: 110-129 mg/dL High: >or= 130 mg/dL Ages > or = 20 years Optimal: <100 mg/dL Near optimal: 100-129 mg/dL Borderline high: 130-159 mg/dL High: >160 mg/dL Literature References: 1. Expert Panel on Integrated Guidelines for Cardiovascular Health and Risk Reduction in Children and Adolescents. Pediatrics 2011;128:S213 2. NCEP Expert Panel. Circulation 2004;110:227 Current Interpretive Data was last revised on 2018. Blood 07/13/2024 8:11 PM PER DIEM NURSE 07/13/2024 8:31 PM PER DIEM NURSE us Radha Pendleton MD LAB BLOOD ORDERABLES Final [place]ul [place] [address] * Hemoglobin A1c (07/13/2024 8:11 PM PER DIEM NURSE) Hgb A1C 5.5 4.0 - 5.6 % Estimated Average Glucose 111 mg/dL [facility] Comment: The ADA recommends reporting an estimated Average Glucose (eAG) with all Hemoglobin A1c results using the equation derived from a study of 507 normal and diabetic adults. Minority populations were underrepresented and children were not included. (Diabetes Care 2020; 43(S1): S66-S76). The eAG is not equivalent to a fasting glucose. Blood 07/13/2024 8:11 PM PER DIEM NURSE 07/13/2024 8:31 PM PER DIEM NURSE Radha Pendleton MD LAB BLOOD ORDERABLES Final Resul t [facility] [place] [address] * Basic metabolic panel (07/13/2024 8:11 PM PER DIEM NURSE) Sodium 145 135 - 145 mmol/L Potassium, pl 3.8 3.3 - 4.9 mmol/L [facility] Chloride 110 97 - 110 mmol/L [facility] CO2 23 22 - 32 mmol/L [facility] Anion gap 12 2 - 15 mmol/L [facility] BUN 9 6 - 25 mg/dL [facility] Creatinine 1.04 0.60 - 1.10 mg/dL [facility] Glucose 124 70 - 199 mg/dL [facility] Comment: Interpretive Data Fasting glucose >/= 126 mg/dl is diagnostic for diabetes. Fasting is defined as no caloric intake for at least 8 hours. Fasting glucose between 100 mg/dl to 125 mg/dl is diagnostic of prediabetes. In a patient with classic symptoms of hyperglycemia or hyperglycemic crisis, a random glucose >/= 200 mg/dl is diagnostic for diabetes. In the absence of unequivocal hyperglycemia, results should be confirmed by repeat testing. The classification and Diagnosis of Diabetes Diabetes Care 2022; 46: S19-S40. Current interpretive data was last revised 2022. Calcium 9.0 8.5 - 10.3 mg/dL [facility] Blood 07/13/2024 8:11 PM PER DIEM NURSE 07/13/2024 8:28 PM PER DIEM NURSE Radha Pendleton MD LAB BLOOD ORDERABLES Final Resul t Performing Organization Address [facility] de Phone Number [facility] [place] [address] * POCT glucose (07/13/2024 7:40 PM PER DIEM NURSE) Glucose, POC 128 70 - 199 mg/dL Blood 07/13/2024 7:40 PM PER DIEM NURSE 07/13/2024 7:40 PM PER DIEM NURSE Radha Pendleton MD LAB POCT ORDERABLES - DEVICE Fin al Result Performing Organization Address [facility] [place] [address] * POCT glucose (07/13/2024 5:04 PM PER DIEM NURSE) Glucose, POC 105 70 - 199 mg/dL Blood 07/13/2024 5:04 PM PER DIEM NURSE 07/13/2024 5:04 PM PER DIEM NURSE Radha Pendleton MD LAB POCT ORDERABLES - DEVICE Fin al Result Performing Organization Address [facility] de Phone Number [facility] [place] [address] * MS CRITICAL CARE ILL/INJURED PATIENT INIT 30-74 MIN (07/13/2024 2:25 PM PER DIEM NURSE) Narrative Carlyle Evans MD - 07/13/2024 2:25 PM PER DIEM NURSE Carlyle Evans MD 07/13/2024 2:26 PM Critical Care Performed by: Carlyle Evans MD Authorized by: Carlyle Evans MD Critical care provider statement: As reflected in the history, physical exam, orders, notes, and/or MDM, I was personally present while the patient was critically ill and provided critical care services for 35 minutes, excluding time involved in separately billable procedures. Critical care was necessary to treat or prevent imminent or life-threatening deterioration of the following condition(s): acute cerebrovascular accident (CVA) Critical care was time spent by me providing the following: continuous telemetry, continuous pulse oximetry and interpretation of bedside monitors, imaging, and arterial/venous lab draws frequent neurologic exams, decision regarding acute lytic therapy and initiation of stroke management prepared for emergent procedure/operating room I provided emergent necessary critical care medicine services to this patient. I ordered and reviewed test results and/or imaging studies. I spent time discussing the management of this critically ill patient with consultants and the medical staff. I spent time discussing the management and therapeutic options for this critically ill patient with the patient themselves or with the appropriate designated surrogate decision-maker. I spent time documenting in the medical record. I admitted this patient to an Intensive Care unit (ICU) and discussed management with the admitting team. us Carlyle Evans MD IN CLINIC/BEDSIDE ORDERABLES Final Result * Troponin I high-sensitivity 2-hour (07/13/2024 2:23 PM PER DIEM NURSE) Trop I hs 5 <=17 ng/L Comment: Interpretive Data For further hscTnI resources including the diagnostic algorithm and an aid in interpretation, copy and paste this link: [email or web address]/[email or web address] Current Interpretive Data last revised 2019. Trop I hs delta See Comment ng/L [facility] Comment:Inappropriate collec tion time to report a delta. Trop I hs pct delta See Comment % [facility] Comment:Inappropriate collec tion time to report a delta. Trop I hs interp See Comment [facility] Comment:Inappropriate collec tion time to report a delta. Blood 07/13/2024 2:23 PM PER DIEM NURSE 07/13/2024 2:54 PM PER DIEM NURSE us Carlyle Evans MD LAB BLOOD ORDERABLES Final R esult [facility] Department [place] [address] * (ABNORMAL) Urinalysis reflex to microscopic and culture Urine (07/13/2024 2:23 PM PER DIEM NURSE) Color, ur Straw Yellow Clarity, ur Clear Clear [facility] Specific gravity, ur >1.042(H) 1.003 - 1.[address] [facility] pH, urine 6.[address] [facility] Comment: Interpretive Data U rine pH is affected by diet, medications, systemic acid-base disturbances, and renal tubular function. pH may affect urinary stone formation. For example, urine pH below 6.0 may help reduce the tendency for calcium phosphate stones and pH greater than 6.0 may reduce the tendency for uric acid stone formation. Source: [facility] Current Interpretive Data was last revised on 2017 Protein, ur ql 1+(A) Negative [facility] Glucose, ur ql Negative Negative [facility] Ketones, ur Negative Negative [facility] Bilirubin, ur Negative Negative [facility] Blood, ur Negative Negative [facility] Urobilinogen, ur <2.0 <2.0 mg/dL [facility] Nitrite, ur Negative Negative [facility] Leukocyte esterase, ur Negative Negative [facility] UA reflex comment Reflex to microscopic UA will be performed. [facility] Urine 07/13/2024 2:23 PM PER DIEM NURSE 07/13/2024 5:17 PM PER DIEM NURSE Radha Pendleton MD LAB MICROBIOLOGY - GENERAL ORDER GINNY Final Result [facility] Department [place] [address] * (ABNORMAL) Urinalysis, microscopic only (07/13/2024 2:23 PM PER DIEM NURSE) WBC, ur 0-5 0 - 5 /HPF RBC, ur 3-5(A) 0 - 2 /HPF [facility] Epithelial cells, squamous, ur 1-5 0 - 5 /HPF [facility] Bacteria, ur Trace(A) [facility] Mucous, ur Present(A) [facility] Culture Reflex Comment Reflex conditions for urine culture (WBC >10) not met. [facility] Urine 07/13/2024 2:23 PM PER DIEM NURSE 07/13/2024 5:17 PM PER DIEM NURSE us Radha Pendleton MD LAB URINE ORDERABLES Final Resul t Performing Organization Address [facility] Co de Phone Number [facility] [place] [address] * (ABNORMAL) aPTT (07/13/2024 2:23 PM PER DIEM NURSE) aPTT 26(L) 28 - 38 sec Comment: Interpretive Data Heparin therapeutic range: 66.0 - 100.0 seconds. Range based on correlation with therapeutic heparin activity range of 0.3 - 0.7 Units/mL. Current interpretive data was last revised on 2023. Blood 07/13/2024 2:23 PM PER DIEM NURSE 07/13/2024 2:51 PM PER DIEM NURSE us Radha Pendleton MD LAB BLOOD ORDERABLES Final Resul t Performing Organization Address [facility] de Phone Number [facility] [place] [address] * Protime-INR (07/13/2024 2:23 PM PER DIEM NURSE) PT 11.1 9.7 - 13.0 sec INR 1.03 0.90 - 1.[address] [facility] Comment: Interpretive data Oral anticoagulant therapeutic ranges: Venous thromboembolism prophylaxis or treatment: 2.0-3.0 CARDIOLOGY Standard range: 2.0-3.0 High-intensity range: 2.5-3.5 Refer to indication-specific guidelines for appropriate target ranges for prosthetic heart valve replacement. Current interpretive data was last revised on 2019. Blood 07/13/2024 2:23 PM PER DIEM NURSE 07/13/2024 2:51 PM PER DIEM NURSE us Radha Pendleton MD LAB BLOOD ORDERABLES Final Resul t Performing Organization Address [facility] Co de Phone Number [facility] [place] [address] * POCT glucose (07/13/2024 2:03 PM PER DIEM NURSE) Glucose, POC 116 70 - 199 mg/dL Blood 07/13/2024 2:03 PM PER DIEM NURSE 07/13/2024 2:03 PM PER DIEM NURSE us Radha Pendleton MD LAB POCT ORDERABLES - DEVICE Fin al Result [facility] [place] [address] * IR Percutaneous Arterial Thrombectomy, Intracranial (07/13/2024 1:29 PM PER DIEM NURSE) Anatomical Region Laterality Modality Head N/A Radio Fluoroscop y 07/14/2024 2:53 PM PER DIEM NURSE Impressions 07/15/2024 11:54 AM PER DIEM NURSE - 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 There is extensive pial collateral flow from the left ROSELYN and and left REGIONAL ENGINEER to the left MCA territory. - 3 thrombectomy (1 aspiration, 2 stent-retriever) passes with no increased perfusion through the occluded segment. Angiography during pass 3 with the stent-retriever expanded demonstrated a severe underlying stenosis in the occluded left MCA segment. The extensive ROSELYN and REGIONAL ENGINEER pial collaterals further suggests this is a chronic finding. 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 - Final mTICI 2A recanalization of the left MCA territory. PLAN: Admit to neuroICU Right leg straight x2 hours These results were discussed with the patient's son and primary neuroICU team upon conclusion of the case. Dictated by: Duke Perez M.D. The radiology attending physician has personally reviewed this study, and had reviewed and/or edited this written report and agrees with it. Electronically signed by: Rinku Dave M.D. Narrative 07/15/2024 11:54 AM PER DIEM NURSE ENDOVASCULAR THROMBECTOMY OF LEFT MIDDLE CEREBRAL ARTERY OCCLUSION CLINICAL INDICATION: This is a 68 years year old female patient with a history of left MCA stroke who presented with NIHSS 14 and found to have a left middle cerebral artery occlusion. We proceeded with planned emergent mechanical thrombectomy. PROCEDURE: 1. Percutaneous arterial transluminal mechanical thrombectomy and/or infusion for thrombolysis, intracranial: aspiration and stent-retriever thrombectomy of left middle cerebral artery 2. Cerebral angiography: left common carotid artery, left internal carotid artery, right femoral artery injections 3. Ultrasound-guided vascular access 4. Hemostatic device placement ATTENDING PHYSICIAN: Rinku Dave MD. He was present for the entire procedure. ASSISTING PHYSICIANS: Duke Perez MD ANESTHESIA: General anesthesia DEVICES: Cook Fixed Core Wire Guide (3mm J tip) .035 180cm Terumo Glidewire Advantage 0.035 180cm Terumo Hayden peripheral sheath 8F 10cm Imperative Zoom 88 large distal platform support catheter 8F 110cm Cook [place] Tip Torcon NB Advantage Catheter (VTK) 5F 125cm InfoNowtronic Apro 70 aspiration catheter 132cm Medtronic Solitaire X stent retriever 6 x 40 mm Scientia Reji 24 guidewire 200cm Terumo Angio-Seal VIP 8F MEDICATIONS: See anesthesia MAR for details CONTRAST: Visipaque-320 100 mL ESTIMATED BLOOD LOSS: 20 mL COMPLICATIONS: None TECHNIQUE: Emergency consent was obtained as no individual legally authorized to provide consent could be located within a medically appropriate time frame. General anesthesia was provided by the Department of Anesthesiology for the duration of the case. The patient was prepared and draped in the standard sterile fashion. The femoral head was localized with fluoroscopy. The right femoral artery punctured using a single wall needle with ultrasound guidance. A 8F Tristanian sheath was inserted over a 3mm J wire and connected to a regulated pressurized infusion of heparinized saline. A coaxial assembly of the Zoom 88 guide catheter and VTK catheter were advanced iliac artery, where the 3mm J was unable to advance. The 3mm J wire was removed and contrast was injected into the VTK which demonstrated near-complete occlusion of the right common iliac artery. A Glidewire Advantage was inserted and used to find the true lumen of the right iliac artery. The assembly was then advanced into the aortic arch under fluoroscopic visualization. Using fluoroscopic guidance, selective catheterization of the left common carotid artery was performed and digital angiograms were obtained, centered over the head and neck with AP, lateral, and oblique views. Imaging of the left common carotid artery showed demonstrated that the carotid bifurcation has mild atherosclerosis without significant stenosis with respect to the distal left internal carotid artery. Using fluoroscopic guidance, the Glidewire Advantage was advanced into the left internal carotid artery then the Zoom 88 guide catheter was brought into the cervical segment internal carotid artery. The Glidewire Advantage and VTK catheter were then removed. Digital angiograms were obtained, centered over the head and neck with AP, lateral, and oblique views of the left internal carotid artery. Initial angiography demonstrated a left M1 segment MCA occlusion with extensive pial collaterals as well as a 5mm cavernous ICA aneurysm. We then elected to proceed with endovascular thrombectomy as planned. PASS 1 A coaxial assembly comprising a Apro catheter, and Reji 24 microwire was prepared in the standard fashion through a series of rotating hemostatic valves connected to a pressurized infusion of heparinized saline. This assembly was gently advanced through the Zoom 88 guide catheter and carefully to the site of occlusion. With the Apro catheter in the left MCA and Zoom 88 guide catheter in the left distal cavernous ICA, the Reji 24 microwire was removed. Suction was then applied to the Apro catheter. After 2 minutes had passed, we prepared to remove the clot. With suction continuously applied to the Apro as well as the Zoom 88 guide catheter, the Apro catheter was carefully withdrawn into the Zoom 88 guide catheter and ultimately out of the patient. Repeat angiography performed through the Zoom 88 guide catheter demonstrated minimal reduction of the left M1 segment MCA occlusion (eTICI 1). PASS 2 A coaxial assembly comprising a Phenom 27 microcatheter, and Reji 24 microwire was prepared in the standard fashion through a series of rotating hemostatic valves connected to a pressurized infusion of heparinized saline. This assembly was gently advanced through the Zoom 88 guide catheter and carefully to the site of occlusion. The microcatheter and microwire were advanced past the area of occlusion. The microwire was removed. A 6 mm x 40 mm Solitaire stent-retreiver was then advanced through the microcatheter and unsheathed at the site of occlusion in the standard fashion under continuous fluoroscopic visualization. The microcatheter was removed. Time was allotted for clot integration. After 5 minutes had passed, we prepared to remove the clot. With suction applied to the Zoom 88 guide catheter, the stent-retriever was carefully withdrawn as a unit into the aspiration catheter and the assembly was withdrawn through the guide catheter and out of the patient. Suction on the aspiration catheter was continued for an additional 10-20 seconds. Repeat angiography performed through the Zoom 88 guide catheter demonstrated minimal increase in reperfusion of the left MCA territory (eTICI 2a). PASS 3 A coaxial assembly comprising a Phenom 27 microcatheter, and Reji 24 microwire was prepared in the standard fashion through a series of rotating hemostatic valves connected to a pressurized infusion of heparinized saline. This assembly was gently advanced through the Zoom 88 guide catheter and carefully to the site of occlusion. The microcatheter and microwire were advanced past the area of occlusion. The microwire was removed. A 6 mm x 40 mm Solitaire stent-retreiver was then advanced through the microcatheter and unsheathed at the site of occlusion in the standard fashion under continuous fluoroscopic visualization. The microcatheter was removed. Angiography of the left ICA was performed through the Zoom 88, which demonstrated severe underlying stenosis of the left M1 segment MCA. Time was allotted for clot integration. After 5 minutes had passed, we prepared to remove the clot. With suction applied to the Zoom 88 guide catheter, the stent-retriever was carefully withdrawn as a unit into the aspiration catheter and the assembly was withdrawn through the guide catheter and out of the patient. Suction on the aspiration catheter was continued for an additional 10-20 seconds. Repeat angiography performed through the Zoom 88 guide catheter demonstrated unchanged left M1 occlusion compared to the previous thrombectomy pass (eTICI 2a) as well as slightly slower filling of the left ROSELYN. 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 10 mg of verapamil was administered into the utilizing pulse-spray technique in standard fashion over a period of 2 minutes in the left ICA artery. After 5 minutes of delay, contrast was injected into the left ICA artery for imaging centered over the head in AP and lateral projections. This revealed improvement of the slowed flow in the left ROSELYN, now comparable to the patient's baseline. The Zoom 88 guide catheter was then withdrawn into the left common carotid artery. Contrast injected into the Zoom 88 guide catheter demonstrated minimal catheter induced vasospasm. The Zoom 88 guide catheter was withdrawn into the right common femoral artery where femoral angiography was performed. The Zoom 88 was then removed. Access site hemostasis was achieved by an 8F Angio-Seal. There were no immediate complications related to the procedure. Procedure Note Rinku Dave MD - 07/15/2024 ENDOVASCULAR THROMBECTOMY OF LEFT MIDDLE CEREBRAL ARTERY OCCLUSION CLINICAL INDICATION: This is a 68 years year old female patient with a history of left MCA stroke who presented with NIHSS 14 and found to have a left middle cerebral artery occlusion. We proceeded with planned emergent mechanical thrombectomy. PROCEDURE: 1. Percutaneous arterial transluminal mechanical thrombectomy and/or infusion for thrombolysis, intracranial: aspiration and stent-retriever thrombectomy of left middle cerebral artery 2. Cerebral angiography: left common carotid artery, left internal carotid artery, right femoral artery injections 3. Ultrasound-guided vascular access 4. Hemostatic device placement ATTENDING PHYSICIAN: Rinku Dave MD. He was present for the entire procedure. ASSISTING PHYSICIANS: Duke Perez MD ANESTHESIA: General anesthesia DEVICES: Cook Fixed Core Wire Guide (3mm J tip) .035 180cm Terumo Glidewire Advantage 0.035 180cm Terumo Hayden peripheral sheath 8F 10cm Imperative Zoom 88 large distal platform support catheter 8F 110cm Cook [place] Tip Torcon NB Advantage Catheter (VTK) 5F 125cm Medtronic Apro 70 aspiration catheter 132cm Medtronic Solitaire X stent retriever 6 x 40 mm Scientia Reji 24 guidewire 200cm Terumo Angio-Seal VIP 8F MEDICATIONS: See anesthesia MAR for details CONTRAST: Visipaque-320 100 mL ESTIMATED BLOOD LOSS: 20 mL COMPLICATIONS: None TECHNIQUE: Emergency consent was obtained as no individual legally authorized to provide consent could be located within a medically appropriate time frame. General anesthesia was provided by the Department of Anesthesiology for the duration of the case. The patient was prepared and draped in the standard sterile fashion. The femoral head was localized with fluoroscopy. The right femoral artery punctured using a single wall needle with ultrasound guidance. A 8F Tristanian sheath was inserted over a 3mm J wire and connected to a regulated pressurized infusion of heparinized saline. A coaxial assembly of the Zoom 88 guide catheter and VTK catheter were advanced iliac artery, where the 3mm J was unable to advance. The 3mm J wire was removed and contrast was injected into the VTK which demonstrated near-complete occlusion of the right common iliac artery. A Glidewire Advantage was inserted and used to find the true lumen of the right iliac artery. The assembly was then advanced into the aortic arch under fluoroscopic visualization. Using fluoroscopic guidance, selective catheterization of the left common carotid artery was performed and digital angiograms were obtained, centered over the head and neck with AP, lateral, and oblique views. Imaging of the left common carotid artery showed demonstrated that the carotid bifurcation has mild atherosclerosis without significant stenosis with respect to the distal left internal carotid artery. Using fluoroscopic guidance, the Glidewire Advantage was advanced into the left internal carotid artery then the Zoom 88 guide catheter was brought into the cervical segment internal carotid artery. The Glidewire Advantage and VTK catheter were then removed. Digital angiograms were obtained, centered over the head and neck with AP, lateral, and oblique views of the left internal carotid artery. Initial angiography demonstrated a left M1 segment MCA occlusion with extensive pial collaterals as well as a 5mm cavernous ICA aneurysm. We then elected to proceed with endovascular thrombectomy as planned. PASS 1 A coaxial assembly comprising a Apro catheter, and Reji 24 microwire was prepared in the standard fashion through a series of rotating hemostatic valves connected to a pressurized infusion of heparinized saline. This assembly was gently advanced through the Zoom 88 guide catheter and carefully to the site of occlusion. With the Apro catheter in the left MCA and Zoom 88 guide catheter in the left distal cavernous ICA, the Reji 24 microwire was removed. Suction was then applied to the Apro catheter. After 2 minutes had passed, we prepared to remove the clot. With suction continuously applied to the Apro as well as the Zoom 88 guide catheter, the Apro catheter was carefully withdrawn into the Zoom 88 guide catheter and ultimately out of the patient. Repeat angiography performed through the Zoom 88 guide catheter demonstrated minimal reduction of the left M1 segment MCA occlusion (eTICI 1). PASS 2 A coaxial assembly comprising a Phenom 27 microcatheter, and Reji 24 microwire was prepared in the standard fashion through a series of rotating hemostatic valves connected to a pressurized infusion of heparinized saline. This assembly was gently advanced through the Zoom 88 guide catheter and carefully to the site of occlusion. The microcatheter and microwire were advanced past the area of occlusion. The microwire was removed. A 6 mm x 40 mm Solitaire stent-retreiver was then advanced through the microcatheter and unsheathed at the site of occlusion in the standard fashion under continuous fluoroscopic visualization. The microcatheter was removed. Time was allotted for clot integration. After 5 minutes had passed, we prepared to remove the clot. With suction applied to the Zoom 88 guide catheter, the stent-retriever was carefully withdrawn as a unit into the aspiration catheter and the assembly was withdrawn through the guide catheter and out of the patient. Suction on the aspiration catheter was continued for an additional 10-20 seconds. Repeat angiography performed through the Zoom 88 guide catheter demonstrated minimal increase in reperfusion of the left MCA territory (eTICI 2a). PASS 3 A coaxial assembly comprising a Phenom 27 microcatheter, and Reji 24 microwire was prepared in the standard fashion through a series of rotating hemostatic valves connected to a pressurized infusion of heparinized saline. This assembly was gently advanced through the Zoom 88 guide catheter and carefully to the site of occlusion. The microcatheter and microwire were advanced past the area of occlusion. The microwire was removed. A 6 mm x 40 mm Solitaire stent-retreiver was then advanced through the microcatheter and unsheathed at the site of occlusion in the standard fashion under continuous fluoroscopic visualization. The microcatheter was removed. Angiography of the left ICA was performed through the Zoom 88, which demonstrated severe underlying stenosis of the left M1 segment MCA. Time was allotted for clot integration. After 5 minutes had passed, we prepared to remove the clot. With suction applied to the Zoom 88 guide catheter, the stent-retriever was carefully withdrawn as a unit into the aspiration catheter and the assembly was withdrawn through the guide catheter and out of the patient. Suction on the aspiration catheter was continued for an additional 10-20 seconds. Repeat angiography performed through the Zoom 88 guide catheter demonstrated unchanged left M1 occlusion compared to the previous thrombectomy pass (eTICI 2a) as well as slightly slower filling of the left ROSELYN. 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 10 mg of verapamil was administered into the utilizing pulse-spray technique in standard fashion over a period of 2 minutes in the left ICA artery. After 5 minutes of delay, contrast was injected into the left ICA artery for imaging centered over the head in AP and lateral projections. This revealed improvement of the slowed flow in the left ROSELYN, now comparable to the patient's baseline. The Zoom 88 guide catheter was then withdrawn into the left common carotid artery. Contrast injected into the Zoom 88 guide catheter demonstrated minimal catheter induced vasospasm. The Zoom 88 guide catheter was withdrawn into the right common femoral artery where femoral angiography was performed. The Zoom 88 was then removed. Access site hemostasis was achieved by an 8F Angio-Seal. There were no immediate complications related to the procedure. IMPRESSION: - 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 There is extensive pial collateral flow from the left ROSELYN and and left REGIONAL ENGINEER to the left MCA territory. - 3 thrombectomy (1 aspiration, 2 stent-retriever) passes with no increased perfusion through the occluded segment. Angiography during pass 3 with the stent-retriever expanded demonstrated a severe underlying stenosis in the occluded left MCA segment. The extensive ROSELYN and REGIONAL ENGINEER pial collaterals further suggests this is a chronic finding. 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 - Final mTICI 2A recanalization of the left MCA territory. PLAN: Admit to neuroICU Right leg straight x2 hours These results were discussed with the patient's son and primary neuroICU team upon conclusion of the case. Dictated by: Duke Perez M.D. The radiology attending physician has personally reviewed this study, and had reviewed and/or edited this written report and agrees with it. Electronically signed by: Rinku Dave M.D. us Abhinav Carrasquillo MD IMG IR PROCEDURES Final Result * MS AN PROCEDURE PLACEHOLDER (07/13/2024 12:39 PM PER DIEM NURSE) Narrative Rylie Case CRNA - 07/13/2024 12:39 PM PER DIEM NURSE Rylie Case CRNA 07/13/2024 12:39 PM Peripheral IV Catheter Patient location: OR Staff: Placed by: [employer] ORDER CLERK: Rylie Case CRNA Preprocedure prep: Prep solution: chlorhexadine PPE: gloves and provider hat/mask PIV line: Laterality: right Site: hand Catheter size: 18 g Technique: anatomical landmarks and palpatation Procedure details: good blood return and occlusive dressing applied Number of attempts: 1 Assessment: Events: patient tolerated procedure well with no complications us Elmer Lockwood III, MD PhD ANESTHESIA ORDERABLES Final Result * POCT glucose (07/13/2024 12:36 PM PER DIEM NURSE) Glucose, POC 100 70 - 199 mg/dL Blood 07/13/2024 12:3 6 PM PER DIEM NURSE 07/13/2024 12:36 PM PER DIEM NURSE us Radha Pendleton MD LAB POCT ORDERABLES - DEVICE Fin al Result [facility] Department [place] [address] * MS AN EMERGENT ENDOTRACHEAL AIRWAY, MS AN PROCEDURE PLACEHOLDER (07/13/2024 12:33 PM PER DIEM NURSE) Narrative Rylie Case CRNA - 07/13/2024 12:33 PM PER DIEM NURSE Rylie Case CRNA 07/13/2024 12:34 PM Airway Patient location: OR Urgency: emergent Indications for airway management: anesthesia Difficult airway: no Staff: Placed by: KATHY: Rylie Case CRNA Emergent airway documentation: Patient identity confirmed by: verbally with patient and arm band Risks and benefits discussed: yes Consent obtained: yes Consent given by: patient Airway prep: Preoxygenated: yes Patient position: sniffing Mask difficulty assessment: 1 - vent by mask Spontaneous ventilation during airway: present Sedation level during airway: GA Final airway details: Final airway type: endotracheal airway Tube type: ETT ETT size: 7.0 mm Cuffed: yes Technique used for successful ETT placement: video laryngoscopy Devices/Methods used in placement: intubating stylet Insertion site: oral Blade type: Tamar Video blade type: Goodson Blade size: 3 Cormack-Lehane (video): grade I - full view of glottis Initial cuff pressure: 20 cm H2O Cuff volume: 6 mL Cuff inflated with: air ETT to teeth: 22 cm Placement verified by: auscultation Airway secured with: silk tape Number of attempts: 1 Ventilation between attempts: BVM us Elmer Lockwood III, MD PhD ANESTHESIA ORDERABLES Final Result * POCT glucose (07/13/2024 11:48 AM PER DIEM NURSE) Glucose, POC 108 70 - 199 mg/dL Blood 07/13/2024 11:4 8 AM PER DIEM NURSE 07/13/2024 11:48 AM PER DIEM NURSE us Radha Pendleton MD LAB POCT ORDERABLES - DEVICE Fin al Result [facility] Department [place] [address] * CTA/CTP Rapid Stroke (C) (07/13/2024 11:30 AM PER DIEM NURSE) Anatomical Region Laterality Modality Head and Neck N/A Computed Tomogra phy 07/13/2024 12:2 0 PM PER DIEM NURSE Impressions 07/13/2024 1:04 PM PER DIEM NURSE 1. Hyperdense left MCA sign on noncontrasted head CT with corresponding left M1 occlusion on CTA. 2. Perfusion imaging demonstrating large area of ischemic tissue at risk of infract in the left MCA distribution with mismatch volume 95 mL. No core infarct on RAPID. 3. Remote infarcts of the left frontal, parietal, and occipital lobes on the left frontal adams radiata and internal capsule. 4. Patulous cavernous and clinoid segments of the left ICA which may represent fusiform aneurysm, or dolichoectasia. The Critical results were discussed with Dr Miranda by Dr. Scott on 07/13/2024 at 11:18 AM for the noncontrasted portion of the exam at 11:33 PM for the CTA and CTP portion of the exam Dictated by: Onel Scott M.D. The radiology attending physician has personally reviewed this study, and had reviewed and/or edited this written report and agrees with it. Electronically signed by: Luther Mac MD, PhD Narrative 07/13/2024 1:04 PM PER DIEM NURSE EXAMINATION: 1. Computed tomography angiography (CTA) of the head without and with contrast 2. Computed tomography angiography (CTA) of the neck with contrast 3. 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 TECHNIQUE: CT of the head was performed with images acquired from skull base to vertex without intravenous contrast. Computed tomographic angiography was then obtained from the aortic arch to the vertex following the uneventful administration of intravenous contrast. 3D images were generated on a dedicated workstation. CT perfusion of the brain was performed with intravenous contrast using a separate data acquisition. The data was transmitted to a separate workstation for processing by RAPID software ([employer]) to produce automated calculations of the estimated cerebral blood flow and Tmax. Contrast information: 125 mL Optiray-350 COMPARISON: CT head 05/11/2017, MRI brain 09/27/2012 FINDINGS: HEAD CT FINDINGS: There is no acute intracranial hemorrhage. There is no noncontrast evidence of acute stroke. There is hypodensity in the left M1 and M2 distributions. There are old infarcts in the left frontal, parietal, and occipital lobes, similar to prior exam. Old infarct in the right frontal adams radiata extending into the basal ganglia with mild ex vacuo dilatation of the right greater than left ventricle.. Cerebral volume is typical for age. There is ex vacuo dilatation of the right greater than left lateral ventricles. There is no mass effect or midline shift. Hyperdense appearance of the left MCA starting from the M1 segment, extending along the anterior branch. Greater than left mastoid effusions. Bilateral cavernous carotid ICA calcifications. ANGIOGRAPHIC FINDINGS: Emphysema in the lung apices. The visualized aortic arch appears normal with normal configuration of the great vessels. There is no significant stenosis of the origins of the great vessels. There is posterior vessels of the left MCA distribution. Left anterior circulation: L CCA: no occlusion or significant stenosis L carotid bifurcation: no occlusion or significant stenosis L ICA proximal: no occlusion or significant stenosis L ICA distal: no occlusion or significant stenosis L ICA terminus: no occlusion or significant stenosis. There is fusiform dilatation of the clinoid and cavernous segments of the left internal carotid artery (series 11 image 237). L M1: There is abrupt cutoff of contrast opacification of the origin of the left M1. L M2 branches: There is faint distal reconstitution of flow L A2: no occlusion or significant stenosis Right anterior circulation: R CCA: no occlusion or significant stenosis R carotid bifurcation: no occlusion or significant stenosis R ICA proximal: no occlusion or significant stenosis R ICA distal: no occlusion or significant stenosis R ICA terminus: no occlusion or significant stenosis R M1: no occlusion or significant stenosis R M2 branches: no occlusion or significant stenosis R A2: no occlusion or significant stenosis Posterior circulation: L Vertebral Artery: no occlusion or significant stenosis R Vertebral Artery: no occlusion or significant stenosis Basilar Artery: no occlusion or significant stenosis L REGIONAL ENGINEER: no occlusion or significant stenosis. origin of the left REGIONAL ENGINEER. R REGIONAL ENGINEER: no occlusion or significant stenosis. origin of the right REGIONAL ENGINEER. There is no evidence for an arteriovenous malformation. There is no suspicious cervical lymphadenopathy. There is no significant cervical spondylosis. Image portions of the lung demonstrate apical emphysema. The thoracic esophagus is patulous. PERFUSION FINDINGS: Estimated ischemic core volume (rCBF < 0.3): 0 mL Estimated hypoperfusion volume (Tmax > 6 sec): 95 mL Procedure Note Luther Mac MD PhD - 07/13/2024 EXAMINATION: 1. Computed tomography angiography (CTA) of the head without and with contrast 2. Computed tomography angiography (CTA) of the neck with contrast 3. 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 TECHNIQUE: CT of the head was performed with images acquired from skull base to vertex without intravenous contrast. Computed tomographic angiography was then obtained from the aortic arch to the vertex following the uneventful administration of intravenous contrast. 3D images were generated on a dedicated workstation. CT perfusion of the brain was performed with intravenous contrast using a separate data acquisition. The data was transmitted to a separate workstation for processing by RAPID software ([employer]) to produce automated calculations of the estimated cerebral blood flow and Tmax. Contrast information: 125 mL Optiray-350 COMPARISON: CT head 05/11/2017, MRI brain 09/27/2012 FINDINGS: HEAD CT FINDINGS: There is no acute intracranial hemorrhage. There is no noncontrast evidence of acute stroke. There is hypodensity in the left M1 and M2 distributions. There are old infarcts in the left frontal, parietal, and occipital lobes, similar to prior exam. Old infarct in the right frontal adams radiata extending into the basal ganglia with mild ex vacuo dilatation of the right greater than left ventricle.. Cerebral volume is typical for age. There is ex vacuo dilatation of the right greater than left lateral ventricles. There is no mass effect or midline shift. Hyperdense appearance of the left MCA starting from the M1 segment, extending along the anterior branch. Greater than left mastoid effusions. Bilateral cavernous carotid ICA calcifications. ANGIOGRAPHIC FINDINGS: Emphysema in the lung apices. The visualized aortic arch appears normal with normal configuration of the great vessels. There is no significant stenosis of the origins of the great vessels. There is posterior vessels of the left MCA distribution. Left anterior circulation: L CCA: no occlusion or significant stenosis L carotid bifurcation: no occlusion or significant stenosis L ICA proximal: no occlusion or significant stenosis L ICA distal: no occlusion or significant stenosis L ICA terminus: no occlusion or significant stenosis. There is fusiform dilatation of the clinoid and cavernous segments of the left internal carotid artery (series 11 image 237). L M1: There is abrupt cutoff of contrast opacification of the origin of the left M1. L M2 branches: There is faint distal reconstitution of flow L A2: no occlusion or significant stenosis Right anterior circulation: R CCA: no occlusion or significant stenosis R carotid bifurcation: no occlusion or significant stenosis R ICA proximal: no occlusion or significant stenosis R ICA distal: no occlusion or significant stenosis R ICA terminus: no occlusion or significant stenosis R M1: no occlusion or significant stenosis R M2 branches: no occlusion or significant stenosis R A2: no occlusion or significant stenosis Posterior circulation: L Vertebral Artery: no occlusion or significant stenosis R Vertebral Artery: no occlusion or significant stenosis Basilar Artery: no occlusion or significant stenosis L REGIONAL ENGINEER: no occlusion or significant stenosis. origin of the left REGIONAL ENGINEER. R REGIONAL ENGINEER: no occlusion or significant stenosis. origin of the right REGIONAL ENGINEER. There is no evidence for an arteriovenous malformation. There is no suspicious cervical lymphadenopathy. There is no significant cervical spondylosis. Image portions of the lung demonstrate apical emphysema. The thoracic esophagus is patulous. PERFUSION FINDINGS: Estimated ischemic core volume (rCBF < 0.3): 0 mL Estimated hypoperfusion volume (Tmax > 6 sec): 95 mL IMPRESSION: 1. Hyperdense left MCA sign on noncontrasted head CT with corresponding left M1 occlusion on CTA. 2. Perfusion imaging demonstrating large area of ischemic tissue at risk of infract in the left MCA distribution with mismatch volume 95 mL. No core infarct on RAPID. 3. Remote infarcts of the left frontal, parietal, and occipital lobes on the left frontal adams radiata and internal capsule. 4. Patulous cavernous and clinoid segments of the left ICA which may represent fusiform aneurysm, or dolichoectasia. The Critical results were discussed with Dr Miranda by Dr. Scott on 07/13/2024 at 11:18 AM for the noncontrasted portion of the exam at 11:33 PM for the CTA and CTP portion of the exam Dictated by: Onel Scott M.D. The radiology attending physician has personally reviewed this study, and had reviewed and/or edited this written report and agrees with it. Electronically signed by: Luther Mac MD, PhD us Carlyle Evans MD IMG CT PROCEDURES Final Resu lt * Troponin I high-sensitivity series (baseline, 2hr, 4hr, 6hr) (07/13/2024 11:06 AM PER DIEM NURSE) [facility] Trop I hs 5 <=17 ng/L Comment: Code Blue Specimen Interpretive Data For further hscTnI resources including the diagnostic algorithm and an aid in interpretation, copy and paste this link: [email or web address].testcatalog.org/show/[email or web address] Current Interpretive Data last revised 2019. Blood 07/13/2024 11:0 6 AM PER DIEM NURSE 07/13/2024 11:15 AM PER DIEM NURSE us Carlyle Evans MD LAB BLOOD ORDERABLES Final R esult [facility] Department of Laboratories [place], [place] [id number] * (ABNORMAL) eGFR (07/13/2024 11:06 AM PER DIEM NURSE) [facility] eGFR 54(L) >=60 mL/min/1. 73 m2 Comment: Interpretive Data Reference Interval Normal >/= 90 mL/min/1.73m2 Mildly decreased* 60 - 89 mL/min/1.73m2 Mildly to moderately decreased 45 - 59 mL/min/1.73m2 Moderately to severely decreased 30 - 44 mL/min/1.73m2 Severely decreased 15 - 29 mL/min/1.73m2 Kidney Failure < 15 mL/min/1.73m2 *Relative to young adult level Estimated glomerular filtration rate is determined by the 2020 CKD-EPI equation recommended by the National Kid[employer] (A Unifying Approach to GFR Estimation: Recommendations of the NKF-ASK Task Force on Reassessing the Inclusion of Race in Diagnosing Kidney Disease, JASN 202). The CKD-EPI equation should not be used for patients with unstable renal function and has not been validated in children and those over 70. Current interpretive data was last reviewed 2021. Blood 07/13/2024 11:0 6 AM PER DIEM NURSE 07/13/2024 11:15 AM PER DIEM NURSE us Carlyle Evans MD LAB BLOOD ORDERABLES Final R esult [facility] Department [place] [address] * Differential, auto (07/13/2024 11:06 AM PER DIEM NURSE) Neutrophil abs 2.7 1.5 - 6.5 K/cumm Imm gran abs 0.0 0.0 - 0.1 K/cumm [facility] Lymphocyte abs 2.3 0.8 - 3.3 K/cumm [facility] Monocyte abs 0.4 0.2 - 0.8 K/cumm [facility] Eosinophil abs 0.2 0.0 - 0.5 K/cumm [facility] Basophil abs 0.0 0.0 - 0.1 K/cumm [facility] Neutrophil pct 48.5 % [facility] Comment: Interpretive Data Percent cell count reference ranges are not reported, since discordance with absolute values may lead to misinterpretation of CBC data. Current Interpretive Data was last revised on 2017. Imm gran pct 0.2 % [facility] Comment: Interpretive Data Percent cell count reference ranges are not reported, since discordance with absolute values may lead to misinterpretation of CBC data. Current Interpretive Data was last revised on 2017. Lymphocyte pct 41.5 % [facility] Comment: Interpretive Data Percent cell count reference ranges are not reported, since discordance with absolute values may lead to misinterpretation of CBC data. Current Interpretive Data was last revised on 2017. Monocyte pct 6.6 % [facility] Comment: Interpretive Data Percent cell count reference ranges are not reported, since discordance with absolute values may lead to misinterpretation of CBC data. Current Interpretive Data was last revised on 2017. Eosinophil pct 2.7 % [facility] Comment: Interpretive Data Percent cell count reference ranges are not reported, since discordance with absolute values may lead to misinterpretation of CBC data. Current Interpretive Data was last revised on 2017. Basophil pct 0.5 % [facility] Comment: Interpretive Data Percent cell count reference ranges are not reported, since discordance with absolute values may lead to misinterpretation of CBC data. Current Interpretive Data was last revised on 2017. Blood 07/13/2024 11:0 6 AM PER DIEM NURSE 07/13/2024 11:15 AM PER DIEM NURSE us Carlyle Evans MD LAB BLOOD ORDERABLES Final R esult [facility] Department [place] [address] * CBC with auto differential (07/13/2024 11:06 AM PER DIEM NURSE) WBC 5.5 3.8 - 9.9 K/cumm Comment:Code Blue Specimen Hgb 12.6 11.9 - 15.5 g/dL [facility] Hct 38.0 35.6 - 45.5 % [facility] Plt 231 150 - 400 K/cumm [facility] MPV 10.3 9.1 - 12.[address] [facility] RBC 4.28 3.90 - 5.20 M/cumm [facility] MCV 88.8 81.3 - 96.[address] [facility] MCH 29.4 27.1 - 33.[address] [facility] MCHC 33.2 32.3 - 35.7 g/dL [facility] RDW CV 12.8 11.1 - 14.9 % [facility] RDW SD 41.5 35.7 - 48.[address] [facility] NRBC abs 0.00 0.00 - 0.01 K/cumm [facility] Blood (Blood, Venous) 07/13/2024 11:06 AM PER DIEM NURSE 07/13/2024 11:15 AM PER DIEM NURSE Narrative [facility] - 07/13/2024 11:23 AM PER DIEM NURSE Potential Stroke Patient us Carlyle Evans MD LAB BLOOD ORDERABLES Edited Result - Final Performing Organization Address [facility] Co de Phone Number [facility] [place] [address] * aPTT (07/13/2024 11:06 AM PER DIEM NURSE) aPTT 28 28 - 38 sec Comment: COde Blue Specimen Interpretive Data Heparin therapeutic range: 66.0 - 100.0 seconds. Range based on correlation with therapeutic heparin activity range of 0.3 - 0.7 Units/mL. Current interpretive data was last revised on 2023. Blood (Blood, Venous) 07/13/2024 11:06 AM PER DIEM NURSE 07/13/2024 11:15 AM PER DIEM NURSE Narrative [facility] - 07/13/2024 11:35 AM PER DIEM NURSE Potential stroke patient. us Carlyle Evans MD LAB BLOOD ORDERABLES Final R esult [facility] [place] [address] * (ABNORMAL) Comprehensive metabolic panel (07/13/2024 11:06 AM PER DIEM NURSE) Sodium 145 135 - 145 mmol/L Comment:Code Blue Specimen Potassium, pl 4.1 3.3 - 4.9 mmol/L [facility] Comment:Code Blue Specimen Chloride 111(H) 97 - 110 mmol/L [facility] Comment:Code Blue Specimen CO2 25 22 - 32 mmol/L [facility] Comment:Code Blue Specimen Anion gap 9 2 - 15 mmol/L [facility] Comment:Code Blue Specimen BUN 11 6 - 25 mg/dL [facility] Comment:Code Blue Specimen Creatinine 1.10 0.60 - 1.10 mg/dL [facility] Comment:Code Blue Specimen Glucose 109 70 - 199 mg/dL [facility] Comment: Code Blue Specimen Interpretive Data Fasting glucose >/= 126 mg/dl is diagnostic for diabetes. Fasting is defined as no caloric intake for at least 8 hours. Fasting glucose between 100 mg/dl to 125 mg/dl is diagnostic of prediabetes. In a patient with classic symptoms of hyperglycemia or hyperglycemic crisis, a random glucose >/= 200 mg/dl is diagnostic for diabetes. In the absence of unequivocal hyperglycemia, results should be confirmed by repeat testing. The classification and Diagnosis of Diabetes Diabetes Care 2021; 46: S19-S40. Current interpretive data was last revised 2022. Calcium 9.6 8.5 - 10.3 mg/dL [facility] Comment:Code Blue Specimen Bilirubin, total 0.4 0.1 - 1.2 mg/dL [facility] Comment:Code Blue Specimen Protein, pl 7.6 6.5 - 8.5 g/dL [facility] Comment:Code Blue Specimen Albumin 4.3 3.5 - 5.0 g/dL [facility] Comment:Code Blue Specimen Alk phos 85 40 - 130 Units/L [facility] Comment:Code Blue Specimen ALT 12 7 - 45 Units/L [facility] Comment:Code Blue Specimen AST 20 10 - 45 Units/L [facility] Comment:Code Blue Specimen Blood (Blood, Venous) 07/13/2024 11:06 AM PER DIEM NURSE 07/13/2024 11:15 AM PER DIEM NURSE [facility] 07/13/2024 11:40 AM PER DIEM NURSE Potential Stroke Patient us Carlyle Evans MD LAB BLOOD ORDERABLES Final R esult [facility] Department [place] [address] * Lipid panel (09/03/2023 6:28 PM CDT) Cholesterol 167 30 - 199 mg/dL Comment: Interpretive Data Ages < or = 19 years Acceptable: <170 mg/dL Borderline high: 170-199 mg/dL High: >or= 200 mg/dL Ages > or = 20 years Desirable: <200 mg/dL Borderline high: 200-239 mg/dL High: >or= 240 mg/dL Literature References: 1. Expert Panel on Integrated Guidelines for Cardiovascular Health and Risk Reduction in Children and Adolescents. Pediatrics 2011;128:S213 2. NCEP Expert Panel. Circulation 2004;110:227 Current Interpretive Data was last revised on 2018. Triglycerides 121 <=149 mg/dL [facility] Comment: Interpretive Data Ages < or = 9 years Acceptable: <75 mg/dL Borderline high: 75-99 mg/dL High: >or= 100 mg/dL Ages 10 to 20 years Acceptable: <90 mg/dL Borderline high: 90-129 mg/dL High: >or= 130 mg/dL Ages > or = 20 years Desirable: <150 mg/dL Borderline high: 150-199 mg/dL High: 200-499 mg/dL Very high: >or= 499 mg/dL Literature References: 1. Expert Panel on Integrated Guidelines for Cardiovascular Health and Risk Reduction in Children and Adolescents. Pediatrics 2011;128:S213 2. NCEP Expert Panel. Circulation 2004;110:227 Current Interpretive Data was last revised on 2018. HDL 65 >=40 mg/dL [facility] Comment: Interpretive Data Ages < or = 19 years Acceptable: >45 mg/dL Borderline low: 40-45 mg/dL Low: <40 mg/dL Ages > or = 20 years Desirable: >or= 60 mg/dL Low: <40 mg/dL Literature References: 1. Expert Panel on Integrated Guidelines for Cardiovascular Health and Risk Reduction in Children and Adolescents. Pediatrics 2011;128:S213 2. NCEP Expert Panel. Circulation 2004;110:227 Current Interpretive Data was last revised on 2018. LDL, calculated 78 <=129 mg/dL [facility] Comment: Interpretive Data Ages < or = 19 years Acceptable: <110 mg/dL Borderline high: 110-129 mg/dL High: >or= 130 mg/dL Ages > or = 20 years Optimal: <100 mg/dL Near optimal: 100-129 mg/dL Borderline high: 130-159 mg/dL High: >160 mg/dL Literature References: 1. Expert Panel on Integrated Guidelines for Cardiovascular Health and Risk Reduction in Children and Adolescents. Pediatrics 2011;128:S213 2. NCEP Expert Panel. Circulation 2004;110:227 Current Interpretive Data was last revised on 2018. Non-HDL Cholesterol 102 mg/dL [facility] JEAN Comment: Interpretive Data Ages < or = 19 years Acceptable: <120 mg/dL Borderline high: 120-144 mg/dL High: >145 mg/dL Ages > or = 20 years When triglycerides are >200 mg/dL, Non-HDL cholesterol is a secondary target of therapy with treatment goals that are 30 mg/dL greater than the LDL cholesterol target. Literature References: 1. Expert Panel on Integrated Guidelines for Cardiovascular Health and Risk Reduction in Children and Adolescents. Pediatrics 2011;128:S213 2. NCEP Expert Panel. Circulation 2004;110:227 Current Interpretive Data was last revised on 2018. Chol/HDL ratio 3 [facility] Blood 09/03/2023 6:28 PM CDT 09/03/2023 6:39 PM CDT Stacey Whitten NP LAB BLOOD ORDERABLES Desiree latif Result Performing Organization Address City/State/[facility] Co de Phone Number [facility] [address] [facility] Department of Laboratories [place], [place] [id number] from Last 3 Months or Most Recently Relevant to Health Maintenance [facility] Advance Directives For more information, please contact: [phone] Documents on File Type Date Recorded Patient Roster Clerk Expl anation ADVANCE DIRECTIVE 09/04/2023 1:07 PM Power of Hazmat Cdl A Driver-Medical * Full Code (Latest Code Status on File) Date Activated Date Inactivated Comments 07/13/2024 1:57 PM 07/27/2024 2:27 AM * Full Code Date Activated Date Inactivated Comments 07/13/2024 1:57 PM 07/13/2024 1:57 PM * Full Code Date Activated Date Inactivated Comments 09/03/2023 6:00 PM 09/04/2023 11:10 PM Care Teams Competitive Intelligence Manager Relationship Specialty Start Date End Date Suri Beatty NP [address] [place] [id number] PCP - General Family Practice 09/04/23
--- OUTSIDE RECORDS SUMMARY | 2024-07-30 14:39 | XMS_ITS | Referral Summary ---
Author Organization [facility] Address [address] [place] [address] Care Team Providers Care Poker In Name Role Phone Suri Beatty NP Primary Care Provider + Encounters Date Type Department Care Team Description 07/13/2024 11:06 AM COMMERCIAL AGENT - 07/26/2024 9:30 PM COMMERCIAL AGENT Hospital Encounter [address] [id number] Carlyle Evans MD Kang, Peter, MD Holder, Derek Lance, MD Das, Saurav, MD Cerebrovascular accident (CVA) due to occlusion of left middle cerebral artery (HCC) (Primary Dx); Acute ischemic left MCA stroke (HCC); Dysphagia, unspecified type Discharge Disposition: Discharge to an IP Rehab facility 07/23/2024 1:19 PM COMMERCIAL AGENT - 07/23/2024 11:59 PM COMMERCIAL AGENT Hospital Encounter [facility] [address] [place] [phone] Discharge Disposition: Discharge to home or self care 07/13/2024 11:59 AM COMMERCIAL AGENT Anesthesia Event [facility]iology [address] [place] [address] Elmer Lockwood III, MD PhD Rylie Case, KATHY from Last 3 Months Allergies No known active allergies Medications amLODIPine [...] (81 mg total) by mouth daily 07/26/19 25 Discontinu ed(Stop Taking at Discharge) busPIRone (BUSPAR) 15 mg tablet Take 1 tablet (15 mg total) by mouth 2 (two) times a day 4 07/26/19 25 Discontinu ed(Stop Taking at Discharge) zolpidem (AMBIEN) 5 mg tabletIndicati ons:Sleep-Onse t Insomnia Take 1 tablet (5 mg total) by mouth nightly as needed for sleep 07/26/19 Discontinu ed(Stop Taking at Discharge) buPROPion SR (WELLBUTRIN SR) 150 mg 12 hr tablet Take 1 tablet (150 mg total) by mouth daily 07/26/19 Discontinu ed(Stop Taking at Discharge) acetaminophen ER (TYLENOL) 650 mg 8 hr tablet Take 3 tablets (1,950 mg total) by mouth 2 (two) times a day as needed for pain 07/26/19 Discontinu ed(Stop Taking at Discharge) gabapentin (NEURONTIN) 300 mg capsuleIndicat ions:Diabetic Peripheral Neuropathy Take 1 capsule (300 mg total) by mouth 3 (three) times a day 90 capsule 3 4 07/26/19 Discontinu ed(Stop Taking at Discharge) pantoprazole DR (PROTONIX) 40 mg EC tabletIndicati ons:Stress Ulcer Prophylaxis,Tr eatment of Non-Bleeding Gastric Disorder,Gastr ic acid reflux disease Take 1 tablet (40 mg total) by mouth daily 30 tablet 3 4 07/26/19 Discontinu ed(Stop Taking at Discharge) rosuvastatin (CRESTOR) [...] disorder 09/04/2023 Chest pain, unspecified type 09/03/2023 Social History Tobacco Use Types Packs/Day Years Used Date Smoking Tobacco: Every Day Cigarettes 0.5 52.1 Started: 1972 Tobacco Cessation:Ready to Q uit: Not Asked; Counseling Given: Not Answered [facility] Utilities Answer Date Recorded In the past [...] often do you attend chur ch or mu-ism services? Never 09/04/2023 Do you belong to any clubs o r organizations such as religion groups, unions, fraternal or athletic groups, or [...] place to sleep or slept in a group home (including now)? No 09/04/2023 Personal Safety Answer Date Recorded Have you ever been in or are you currently in a harmful physical or emotional relationship or is someone making you feel afraid or unsafe? Patient unable to answer 07/13/2024 Comments No Sex and Gender Information Value Date Recorded Sex Assigned at Not on file Legal Sex Female 4:54 PM COMMERCIAL AGENT Gender Identity Not on file Sexual Orientation Not on file Last Filed Vital Signs Vital Sign Reading Time Taken Comments Blood Pressure 117/57 07/26/2024 9:06 PM COMMERCIAL AGENT Pulse 74 07/26/2024 9:06 PM COMMERCIAL AGENT Temperature 37 C (98.6 F) 07/26/2024 9:06 PM COMMERCIAL AGENT Respiratory Rate 18 07/26/2024 9:06 PM COMMERCIAL AGENT Oxygen Saturation 99% 07/26/2024 9:06 PM COMMERCIAL AGENT Inhaled Oxygen Concentration - - Weight 79 kg (174 lb 2.6 oz) 07/23/2024 10:15 PM COMMERCIAL AGENT Height 167.6 cm (5' 6 ) 07/13/2024 5:25 PM COMMERCIAL AGENT Body Mass Index 28.11 07/13/2024 5:25 PM COMMERCIAL AGENT Plan of Treatment Not on file Medical Devices Implanted Type Area Clergy Member Device Identifier Shelf Expiration Date Model / Serial / Lot [employer] Angio-Seal Vip Bondek-Plus 8fr .038in 70cm Hemostatic Latex Free [id number] - [id number] Implanted:Qty: 1 on 07/13/2024 by Rinku Dave MD at [facility] [employer] 01/02/2025 [id number] / / [id number] Procedures Procedure Name Priority Date/Time Associated Diagnosis Comments POCT GLUCOSE DEVICE Routine 07/26/2024 8 :30 PM COMMERCIAL AGENT POCT GLUCOSE DEVICE Routine 07/26/2024 3 :12 PM COMMERCIAL AGENT POCT GLUCOSE DEVICE Routine 07/26/2024 11:30 AM COMMERCIAL AGENT POCT GLUCOSE DEVICE Routine 07/26/2024 7 :47 AM COMMERCIAL AGENT EGFR Routine 07/26/2024 5:28 AM COMMERCIAL AGENT BASIC METABOLIC PANEL Routine 07/26/2024 5:28 AM COMMERCIAL AGENT CBC WITHOUT DIFFERENTIAL Routine 025 5:28 AM COMMERCIAL AGENT MAGNESIUM Routine 07/26/2024 5:28 AM COMMERCIAL AGENT POCT GLUCOSE DEVICE Routine 07/26/2024 5 :00 AM COMMERCIAL AGENT POCT GLUCOSE DEVICE Routine 07/26/2024 12:56 AM COMMERCIAL AGENT POCT GLUCOSE DEVICE Routine 07/25/2024 9 :12 PM COMMERCIAL AGENT POCT GLUCOSE DEVICE Routine 07/25/2024 6 :27 PM COMMERCIAL AGENT POCT GLUCOSE DEVICE Routine 07/25/2024 3 :08 PM COMMERCIAL AGENT POCT GLUCOSE DEVICE Routine 07/25/2024 11:49 AM COMMERCIAL AGENT POCT GLUCOSE DEVICE Routine 07/25/2024 8 :47 AM COMMERCIAL AGENT POCT GLUCOSE DEVICE Routine 07/25/2024 4 :35 AM COMMERCIAL AGENT POCT GLUCOSE DEVICE Routine 07/25/2024 12:19 AM COMMERCIAL AGENT POCT GLUCOSE DEVICE Routine 07/24/2024 8 :53 PM COMMERCIAL AGENT EGFR Routine 07/24/2024 8:33 PM COMMERCIAL AGENT BASIC METABOLIC PANEL Routine 07/24/2024 8:33 PM COMMERCIAL AGENT CBC WITHOUT DIFFERENTIAL Routine 025 8:33 PM COMMERCIAL AGENT MAGNESIUM Routine 07/24/2024 8:33 PM COMMERCIAL AGENT POCT GLUCOSE DEVICE Routine 07/24/2024 5 :03 PM COMMERCIAL AGENT POCT GLUCOSE DEVICE Routine 07/24/2024 12:[address] ABDOMEN PELVIS WO CONTRAST IP Routine 07/24/2024 9:38 AM COMMERCIAL AGENT POCT GLUCOSE DEVICE Routine 07/24/2024 8 :19 AM COMMERCIAL AGENT POCT GLUCOSE DEVICE Routine 07/24/2024 4 :05 AM COMMERCIAL AGENT POCT GLUCOSE DEVICE Routine 07/24/2024 12:20 AM COMMERCIAL AGENT EGFR Routine 07/23/2024 9:30 PM COMMERCIAL AGENT BASIC METABOLIC PANEL Routine 07/23/2024 9:30 PM COMMERCIAL AGENT CBC WITHOUT DIFFERENTIAL Routine 025 9:30 PM COMMERCIAL AGENT MAGNESIUM Routine 07/23/2024 9:30 PM COMMERCIAL AGENT POCT GLUCOSE DEVICE Routine 07/23/2024 8 :12 PM COMMERCIAL AGENT INFECTION PREVENTION VRE CULTURE Routine 07/23/2024 7:01 PM COMMERCIAL AGENT C. DIFFICILE TESTING STAT 07/23/2024 7:01 PM COMMERCIAL AGENT POCT GLUCOSE DEVICE Routine 07/23/2024 4 :48 PM COMMERCIAL AGENT FL MODIFIED BARIUM SWALLOW W VIDEO IP Routine 07/23/2024 1:48 PM COMMERCIAL AGENT POINTING MACHINE OPERATOR EVALUATE AND TREAT VIDEOFLUOROSCOPIC SWALLOW STUDY Routine 07/23/2024 1:35 PM COMMERCIAL AGENT POCT GLUCOSE DEVICE Routine 07/23/2024 12:14 PM COMMERCIAL AGENT POCT GLUCOSE DEVICE Routine 07/23/2024 8 :14 AM COMMERCIAL AGENT POCT GLUCOSE DEVICE Routine 07/23/2024 3 :44 AM COMMERCIAL AGENT EGFR Routine 07/22/2024 11:54 PM COMMERCIAL AGENT BASIC METABOLIC PANEL Routine 07/22/2024 11:54 PM COMMERCIAL AGENT CBC WITHOUT DIFFERENTIAL Routine 025 11:54 PM COMMERCIAL AGENT MAGNESIUM Routine 07/22/2024 11:54 PM COMMERCIAL AGENT POCT GLUCOSE DEVICE Routine 07/22/2024 11:47 PM COMMERCIAL AGENT POCT GLUCOSE DEVICE Routine 07/22/2024 8 :33 PM COMMERCIAL AGENT POCT GLUCOSE DEVICE Routine 07/22/2024 4 :40 PM COMMERCIAL AGENT POCT GLUCOSE DEVICE Routine 07/22/2024 12:38 PM COMMERCIAL AGENT POCT GLUCOSE DEVICE Routine 07/22/2024 8 :29 AM COMMERCIAL AGENT POCT GLUCOSE DEVICE Routine 07/22/2024 4 :48 AM COMMERCIAL AGENT POCT GLUCOSE DEVICE Routine 07/22/2024 12:37 AM COMMERCIAL AGENT POCT GLUCOSE DEVICE Routine 07/22/2024 12:13 AM COMMERCIAL AGENT EGFR Routine 07/21/2024 10:37 PM COMMERCIAL AGENT BASIC METABOLIC PANEL Routine 07/21/2024 10:37 PM COMMERCIAL AGENT CBC WITHOUT DIFFERENTIAL Routine 025 10:37 PM COMMERCIAL AGENT MAGNESIUM Routine 07/21/2024 10:37 PM COMMERCIAL AGENT POCT GLUCOSE DEVICE Routine 07/21/2024 10:12 PM COMMERCIAL AGENT POCT GLUCOSE DEVICE Routine 07/21/2024 6 :20 PM COMMERCIAL AGENT POCT GLUCOSE DEVICE Routine 07/21/2024 5 :27 PM COMMERCIAL AGENT POCT GLUCOSE DEVICE Routine 07/21/2024 12:49 PM COMMERCIAL AGENT POCT GLUCOSE DEVICE Routine 07/21/2024 8 :22 AM COMMERCIAL AGENT POCT GLUCOSE DEVICE Routine 07/21/2024 4 :07 AM COMMERCIAL AGENT EGFR Routine 07/21/2024 3:45 AM COMMERCIAL AGENT BASIC METABOLIC PANEL Routine 07/21/2024 3:45 AM COMMERCIAL AGENT PHOSPHORUS Timed 07/21/2024 3:45 AM COMMERCIAL AGENT CBC WITHOUT DIFFERENTIAL Routine 025 3:45 AM COMMERCIAL AGENT MAGNESIUM Routine 07/21/2024 3:45 AM COMMERCIAL AGENT POCT GLUCOSE DEVICE Routine 07/21/2024 12:15 AM COMMERCIAL AGENT POCT GLUCOSE DEVICE Routine 07/20/2024 9 :05 PM COMMERCIAL AGENT POCT GLUCOSE DEVICE Routine 07/20/2024 3 :55 PM COMMERCIAL AGENT POCT GLUCOSE DEVICE Routine 07/20/2024 12:33 PM COMMERCIAL AGENT POCT GLUCOSE DEVICE Routine 07/20/2024 8 :08 AM COMMERCIAL AGENT EGFR Routine 07/20/2024 3:36 AM COMMERCIAL AGENT BASIC METABOLIC PANEL Routine 07/20/2024 3:36 AM COMMERCIAL AGENT CBC WITHOUT DIFFERENTIAL Routine 025 3:36 AM COMMERCIAL AGENT MAGNESIUM Routine 07/20/2024 3:36 AM COMMERCIAL AGENT POCT GLUCOSE DEVICE Routine 07/19/2024 6 :01 PM COMMERCIAL AGENT POCT GLUCOSE DEVICE Routine 07/19/2024 11:37 AM COMMERCIAL AGENT POCT GLUCOSE DEVICE Routine 07/19/2024 8 :07 AM COMMERCIAL AGENT EGFR Routine 07/19/2024 5:51 AM COMMERCIAL AGENT BASIC METABOLIC PANEL Routine 07/19/2024 5:51 AM COMMERCIAL AGENT CBC WITHOUT DIFFERENTIAL Routine 025 5:51 AM COMMERCIAL AGENT MAGNESIUM Routine 07/19/2024 5:51 AM COMMERCIAL AGENT POCT GLUCOSE DEVICE Routine 07/18/2024 5 :11 PM COMMERCIAL AGENT POCT GLUCOSE DEVICE Routine 07/18/2024 2 :14 PM COMMERCIAL AGENT IR G TUBE PLACEMENT PERCUTANEOUS IP Routine 07/18/2024 12:30 PM COMMERCIAL AGENT EGFR Routine 07/18/2024 6:06 AM COMMERCIAL AGENT BASIC METABOLIC PANEL Routine 07/18/2024 6:06 AM COMMERCIAL AGENT EGFR Routine 07/17/2024 8:38 PM COMMERCIAL AGENT PROTIME-INR Routine 07/17/2024 8:38 PM COMMERCIAL AGENT CBC WITHOUT DIFFERENTIAL Routine 025 8:38 PM COMMERCIAL AGENT BASIC METABOLIC PANEL Routine 07/17/2024 8:38 PM COMMERCIAL AGENT MAGNESIUM Routine 07/17/2024 8:38 PM COMMERCIAL AGENT EGFR Routine 07/16/2024 10:33 PM COMMERCIAL AGENT CBC WITHOUT DIFFERENTIAL Routine 025 10:33 PM COMMERCIAL AGENT BASIC METABOLIC PANEL Routine 07/16/2024 10:33 PM COMMERCIAL AGENT MAGNESIUM Routine 07/16/2024 10:33 PM COMMERCIAL AGENT EGFR Routine 07/15/2024 8:01 PM COMMERCIAL AGENT CBC WITHOUT DIFFERENTIAL Routine 025 8:01 PM COMMERCIAL AGENT BASIC METABOLIC PANEL Routine 07/15/2024 8:01 PM COMMERCIAL AGENT MAGNESIUM Routine 07/15/2024 8:01 PM COMMERCIAL AGENT TRANSTHORACIC ECHO (TTE) COMPLETE W DOPPLER/CF W CONTRAST W BUBBLE ED Urgent/IP Urgent 07/15/2024 9:33 AM COMMERCIAL AGENT EGFR Routine 07/14/2024 9:31 PM COMMERCIAL AGENT CBC WITHOUT DIFFERENTIAL Routine 025 9:31 PM COMMERCIAL AGENT BASIC METABOLIC PANEL Routine 07/14/2024 9:31 PM COMMERCIAL AGENT MAGNESIUM Routine 07/14/2024 9:31 PM COMMERCIAL AGENT XR ABDOMEN AP 1 VIEW ED Urgent/IP Urgent 07/14/2024 10:40 AM COMMERCIAL AGENT POCT GLUCOSE DEVICE Routine 07/14/2024 7 :35 AM COMMERCIAL AGENT POCT GLUCOSE DEVICE Routine 07/14/2024 3 :45 AM COMMERCIAL AGENT MRI BRAIN WO CONTRAST IP Routine 07/14/2024 1:47 AM COMMERCIAL AGENT POCT GLUCOSE DEVICE Routine 07/13/2024 11:54 PM COMMERCIAL AGENT EGFR Routine 07/13/2024 8:11 PM COMMERCIAL AGENT HEMOGLOBIN A1C STAT 07/13/2024 8:11 PM COMMERCIAL AGENT CHOLESTEROL, LDL, DIRECT STAT 025 8:11 PM COMMERCIAL AGENT PHOSPHORUS Routine 07/13/2024 8:11 PM COMMERCIAL AGENT MAGNESIUM Routine 07/13/2024 8:11 PM COMMERCIAL AGENT BASIC METABOLIC PANEL Routine 07/13/2024 8:11 PM COMMERCIAL AGENT CBC WITHOUT DIFFERENTIAL Routine 025 8:11 PM COMMERCIAL AGENT POCT GLUCOSE DEVICE Routine 07/13/2024 7 :40 PM COMMERCIAL AGENT POCT GLUCOSE DEVICE Routine 07/13/2024 5 :04 PM COMMERCIAL AGENT PA CRITICAL CARE ILL/INJURED PATIENT INIT 30-74 MIN Routine 07/13/2024 2:25 PM COMMERCIAL AGENT URINALYSIS, MICROSCOPIC ONLY Routine 07/13/2024 2:23 PM COMMERCIAL AGENT PROTIME-INR STAT 07/13/2024 2:23 PM COMMERCIAL AGENT APTT STAT 07/13/2024 2:23 PM COMMERCIAL AGENT TROPONIN I HIGH-SENSITIVITY 2-HOUR Timed 07/13/2024 2:23 PM COMMERCIAL AGENT URINALYSIS AND REFLEX TO MICROSCOPIC AND CULTURE Routine 07/13/2024 2:23 PM COMMERCIAL AGENT POCT GLUCOSE DEVICE Routine 07/13/2024 2 :03 PM COMMERCIAL AGENT PERCUTANEOUS ARTERIAL THROMBECTOMY, INTRACRANIAL Critical/Life- Threatening 07/13/2024 1:29 PM COMMERCIAL AGENT PA AN PROCEDURE PLACEHOLDER Routine 07/13/2024 12:39 PM COMMERCIAL AGENT POCT GLUCOSE DEVICE Routine 07/13/2024 12:36 PM COMMERCIAL AGENT PA AN PROCEDURE PLACEHOLDER Routine 07/13/2024 12:33 PM COMMERCIAL AGENT PA AN EMERGENT ENDOTRACHEAL AIRWAY Routine 07/13/2024 12:33 PM COMMERCIAL AGENT POCT GLUCOSE DEVICE Routine 07/13/2024 11:48 AM COMMERCIAL AGENT CTA/CTP RAPID STROKE Critical/Life- Threatening 07/13/2024 11:30 AM COMMERCIAL AGENT EGFR STAT 07/13/2024 11:06 AM COMMERCIAL AGENT DIFFERENTIAL AUTO STAT 07/13/2024 11:06 AM COMMERCIAL AGENT TROPONIN I HIGH-SENSITIVITY SERIES (BASELINE, 2HR, 4HR, 6HR) STAT 07/13/2024 11:06 AM COMMERCIAL AGENT APTT STAT 07/13/2024 11:06 AM COMMERCIAL AGENT COMPREHENSIVE METABOLIC PANEL STAT 07/13/2024 11:06 AM COMMERCIAL AGENT CBC WITH AUTO DIFFERENTIAL STAT 07/13/2024 11:06 AM COMMERCIAL AGENT LIPID PANEL Routine 09/03/2023 6:28 PM CDT from Last 3 Months or Most Recently Relevant to Health Maintenance Results * POCT glucose (07/26/2024 8:30 PM COMMERCIAL AGENT) [facility] Signature Glucose, POC 131 70 - 199 mg/dL Blood 07/26/2024 8:30 PM COMMERCIAL AGENT 07/26/2024 8:30 PM COMMERCIAL AGENT us Arnold Ramos MD LAB POCT ORDERABLES - DONYA CE Final Result [facility] [place] [address] * POCT glucose (07/26/2024 3:12 PM COMMERCIAL AGENT) Glucose, POC 134 70 - 199 mg/dL Blood 07/26/2024 3:12 PM COMMERCIAL AGENT 07/26/2024 3:12 PM COMMERCIAL AGENT Arnold Ramos MD LAB POCT ORDERABLES - DONYA CE Final Result Performing Organization Address [facility] Co de Phone Number [facility] [place] [address] * POCT glucose (07/26/2024 11:30 AM COMMERCIAL AGENT) Glucose, POC 122 70 - 199 mg/dL Blood 07/26/2024 11:3 0 AM COMMERCIAL AGENT 07/26/2024 11:30 AM COMMERCIAL AGENT Arnold Ramos MD LAB POCT ORDERABLES - DONYA CE Final Result Performing Organization Address [facility] Co de Phone Number [facility] Department [place] [address] * POCT glucose (07/26/2024 7:47 AM COMMERCIAL AGENT) Glucose, POC 109 70 - 199 mg/dL Blood 07/26/2024 7:47 AM COMMERCIAL AGENT 07/26/2024 7:47 AM COMMERCIAL AGENT us Arnold Ramos MD LAB POCT ORDERABLES - DONYA CE Final Result Performing Organization Address [facility] Co de Phone Number [facility] [place] [address] * (ABNORMAL) eGFR (07/26/2024 5:28 AM COMMERCIAL AGENT) eGFR 58(L) >=60 mL/min/1. 73 m2 Comment: [...] last reviewed 2021. Blood 07/26/2024 5:28 AM COMMERCIAL AGENT 07/26/2024 5:54 AM COMMERCIAL AGENT us Radha Pendleton MD LAB BLOOD ORDERABLES Final Resul t [facility] Department of Laboratories [place], [place] [id number] * (ABNORMAL) CBC without differential (07/26/2024 5:28 AM COMMERCIAL AGENT) Pathologist [facility] WBC 8.1 3.8 - 9.9 K/cumm Hgb 10.9(L) 11.9 - 15.5 g/dL [facility] Hct 32.6(L) 35.6 - 45.5 % [facility] Plt 353 150 - 400 K/cumm [facility] MPV 11.9 9.1 - 12.3 fL [facility] RBC 3.72(L) 3.90 - 5.20 M/cumm [facility] MCV 87.6 81.3 - 96.4 fL [facility] MCH 29.3 27.1 - 33.3 pg [facility] MCHC 33.4 32.3 - 35.7 g/dL [facility] RDW CV 12.0 11.1 - 14.9 % [facility] RDW SD 38.8 35.7 - 48.1 fL [facility] NRBC abs 0.00 0.00 - 0.01 K/cumm [facility] Blood 07/26/2024 5:28 AM COMMERCIAL AGENT 07/26/2024 5:55 AM COMMERCIAL AGENT Desi Hurtado NP LAB BLOOD ORDERABLES Final Result Performing Organization Address City/[facility]/ZIP Co de Phone Number [facility] [place] [address] * Magnesium (07/26/2024 5:28 AM COMMERCIAL AGENT) [facility] Magnesium 2.3 1.4 - 2.5 mg/dL Blood 07/26/2024 5:28 AM COMMERCIAL AGENT 07/26/2024 5:54 AM COMMERCIAL AGENT Radha Pendleton MD LAB BLOOD ORDERABLES Final Resul t Performing Organization Address [facility] Co de Phone Number [facility] [place] [address] * Basic metabolic panel (07/26/2024 5:28 AM COMMERCIAL AGENT) [facility] Sodium 143 135 - 145 mmol/L Potassium, pl 3.9 3.3 - 4.9 mmol/L [facility] Chloride 104 97 - 110 mmol/L [facility] CO2 30 22 - 32 mmol/L [facility] Anion gap 9 2 - 15 mmol/L [facility] BUN 14 6 - 25 mg/dL [facility] Creatinine 1.03 0.60 - 1.10 mg/dL [facility] Glucose 148 70 - 199 mg/dL [facility] Comment: Interpretive Data Fasting glucose >/= 126 [...] 9.2 8.5 - 10.3 mg/dL [facility] Blood 07/26/2024 5:28 AM COMMERCIAL AGENT 07/26/2024 5:54 AM COMMERCIAL AGENT us Radha Pendleton MD LAB BLOOD ORDERABLES Final Resul t Performing Organization Address [facility] Co de Phone Number [facility] [employer] [place] [address] * POCT glucose (07/26/2024 5:00 AM COMMERCIAL AGENT) Glucose, POC 178 70 - 199 mg/dL Blood 07/26/2024 5:00 AM COMMERCIAL AGENT 07/26/2024 5:00 AM COMMERCIAL AGENT us Arnold Ramos MD LAB POCT ORDERABLES - DONYA CE Final Result Performing Organization Address [facility] Co de Phone Number [facility] [place] [address] * POCT glucose (07/26/2024 12:56 AM COMMERCIAL AGENT) Glucose, POC 142 70 - 199 mg/dL Blood 07/26/2024 12:5 6 AM COMMERCIAL AGENT 07/26/2024 12:56 AM COMMERCIAL AGENT us Arnold Ramos MD LAB POCT ORDERABLES - DONYA CE Final Result Performing Organization Address [facility] Co de Phone Number [facility] Department [place] [address] * POCT glucose (07/25/2024 9:12 PM COMMERCIAL AGENT) Glucose, POC 90 70 - 199 mg/dL Blood 07/25/2024 9:12 PM COMMERCIAL AGENT 07/25/2024 9:12 PM COMMERCIAL AGENT Result Liv Ramos MD LAB POCT ORDERABLES - DONYA CE Final Result Performing Organization Address [facility] Phone Number [facility] [place] [address] * POCT glucose (07/25/2024 6:27 PM COMMERCIAL AGENT) Glucose, POC 135 70 - 199 mg/dL Blood 07/25/2024 6:27 PM COMMERCIAL AGENT 07/25/2024 6:27 PM COMMERCIAL AGENT Result Liv Ramos MD LAB POCT ORDERABLES - DONYA CE Final Result Performing Organization Address [facility] Phone Number [facility] [place] [address] * POCT glucose (07/25/2024 3:08 PM COMMERCIAL AGENT) Glucose, POC 181 70 - 199 mg/dL Blood 07/25/2024 3:08 PM COMMERCIAL AGENT 07/25/2024 3:08 PM COMMERCIAL AGENT Result Liv Ramos MD LAB POCT ORDERABLES - DONYA CE Final Result Performing Organization Address [facility] Phone Number [facility] [place] [address] * POCT glucose (07/25/2024 11:49 AM COMMERCIAL AGENT) Glucose, POC 96 70 - 199 mg/dL Blood 07/25/2024 11:4 9 AM COMMERCIAL AGENT 07/25/2024 11:49 AM COMMERCIAL AGENT Result Liv Ramos MD LAB POCT ORDERABLES - DONYA CE Final Result Performing Organization Address City/[facility]/ZIP Co de Phone Number [facility] [place] [address] * POCT glucose (07/25/2024 8:47 AM COMMERCIAL AGENT) Glucose, POC 147 70 - 199 mg/dL Blood 07/25/2024 8:47 AM COMMERCIAL AGENT 07/25/2024 8:47 AM COMMERCIAL AGENT Arnold Ramos MD LAB POCT ORDERABLES - DONYA CE Final Result Performing Organization Address [facility] Co de Phone Number [facility] [place] [address] * POCT glucose (07/25/2024 4:35 AM COMMERCIAL AGENT) Glucose, POC 105 70 - 199 mg/dL Blood 07/25/2024 4:35 AM COMMERCIAL AGENT 07/25/2024 4:35 AM COMMERCIAL AGENT Arnold Ramos MD LAB POCT ORDERABLES - DONYA CE Final Result Performing Organization Address [facility] Co de Phone Number [facility] [place] [address] * POCT glucose (07/25/2024 12:19 AM COMMERCIAL AGENT) Glucose, POC 121 70 - 199 mg/dL Blood 07/25/2024 12:1 9 AM COMMERCIAL AGENT 07/25/2024 12:19 AM COMMERCIAL AGENT us Arnold Ramos MD LAB POCT ORDERABLES - DONYA CE Final Result Performing Organization Address City/[facility] Co de Phone Number [facility] [place] [address] * POCT glucose (07/24/2024 8:53 PM COMMERCIAL AGENT) Pathologist [facility] Glucose, POC 124 70 - 199 mg/dL Blood 07/24/2024 8:53 PM COMMERCIAL AGENT 07/24/2024 8:53 PM COMMERCIAL AGENT us Arnold Ramos MD LAB POCT ORDERABLES - DONYA CE Final Result Performing Organization Address City/[facility]/ZIP Co de Phone Number [facility] [place] [address] * (ABNORMAL) eGFR (07/24/2024 8:33 PM COMMERCIAL AGENT) [facility] eGFR 57(L) >=60 mL/min/1. 73 m2 Comment: [...] last reviewed 2021. Blood 07/24/2024 8:33 PM COMMERCIAL AGENT 07/24/2024 9:40 PM COMMERCIAL AGENT us Radha Pendleton MD LAB BLOOD ORDERABLES Final Resul t Performing Organization Address City/[facility]/ZIP Co de Phone Number [facility] [place] [address] * (ABNORMAL) CBC without differential (07/24/2024 8:33 PM COMMERCIAL AGENT) [facility] WBC 7.5 3.8 - 9.9 K/cumm Hgb 11.2(L) 11.9 - 15.5 g/dL [facility] Hct 34.2(L) 35.6 - 45.5 % [facility] Plt 328 150 - 400 K/cumm [facility] MPV 11.7 9.1 - 12.3 fL [facility] RBC 3.79(L) 3.90 - 5.20 M/cumm [facility] MCV 90.2 81.3 - 96.4 fL [facility] MCH 29.6 27.1 - 33.3 pg [facility] MCHC 32.7 32.3 - 35.7 g/dL [facility] RDW CV 12.2 11.1 - 14.9 % [facility] RDW SD 40.1 35.7 - 48.1 fL [facility] NRBC abs 0.00 0.00 - 0.01 K/cumm [facility] Blood 07/24/2024 8:33 PM COMMERCIAL AGENT 07/24/2024 9:40 PM COMMERCIAL AGENT us Desi Hurtado NP LAB BLOOD ORDERABLES Final Result Performing Organization Address City/[facility] Co de Phone Number [facility] Department [place] [address] * Magnesium (07/24/2024 8:33 PM COMMERCIAL AGENT) [facility] Magnesium 2.4 1.4 - 2.5 mg/dL Blood 07/24/2024 8:33 PM COMMERCIAL AGENT 07/24/2024 9:40 PM COMMERCIAL AGENT Radha Pendleton MD LAB BLOOD ORDERABLES Final Resul t [facility] Department [place] [address] * (ABNORMAL) Basic metabolic panel (07/24/2024 8:33 PM COMMERCIAL AGENT) [facility] Sodium 147(H) 135 - 145 mmol/L Potassium, pl 3.7 3.3 - 4.9 mmol/L [facility] Chloride 108 97 - 110 mmol/L [facility] CO2 31 22 - 32 mmol/L [facility] Anion gap 8 2 - 15 mmol/L [facility] BUN 17 6 - 25 mg/dL [facility] Creatinine 1.06 0.60 - 1.10 mg/dL [facility] Glucose 121 70 - 199 mg/dL [facility] Comment: Interpretive Data Fasting glucose >/= 126 [...] 8.8 8.5 - 10.3 mg/dL [facility] Blood 07/24/2024 8:33 PM COMMERCIAL AGENT 07/24/2024 9:40 PM COMMERCIAL AGENT us Radha Pendleton MD LAB BLOOD ORDERABLES Final Resul t Performing Organization Address City/[facility]/ZIP Co de Phone Number [facility] Department [place] [address] * POCT glucose (07/24/2024 5:03 PM COMMERCIAL AGENT) [facility] Glucose, POC 107 70 - 199 mg/dL Blood 07/24/2024 5:03 PM COMMERCIAL AGENT 07/24/2024 5:03 PM COMMERCIAL AGENT us Arnold Ramos MD LAB POCT ORDERABLES - DONYA CE Final Result Performing Organization Address [facility]/ZIP Co de Phone Number [facility] Department [place] [address] * POCT glucose (07/24/2024 12:20 PM COMMERCIAL AGENT) Glucose, POC 117 70 - 199 mg/dL Blood 07/24/2024 12:2 0 PM COMMERCIAL AGENT 07/24/2024 12:20 PM COMMERCIAL AGENT us Arnold Ramos MD LAB POCT ORDERABLES - DONYA CE Final Result [facility] Department [place] [address] * CT Abdomen Pelvis WO Contrast (07/24/2024 9:38 AM COMMERCIAL AGENT) Anatomical Region Laterality Modality Body N/A Computed Tomogra phy 07/24/2024 9:56 AM COMMERCIAL AGENT Impressions 07/24/2024 9:58 AM COMMERCIAL AGENT Gastrostomy tube in appropriate position with balloon terminating in the gastric antrum. Dictated by: Itzel Alvarenga MD, PhD The radiology attending physician has personally reviewed this study, and had reviewed and/or edited this written report and agrees with it. Electronically signed by: Jessica Cisneros M.D. Narrative 07/24/2024 9:58 AM COMMERCIAL AGENT EXAMINATION: CT of the abdomen, and pelvis [...] it. Electronically signed by: Jessica Cisneros M.D. us Arnold Ramos MD IMG CT PROCEDURES Final Re sult * POCT glucose (07/24/2024 8:19 AM COMMERCIAL AGENT) Glucose, POC 131 70 - 199 mg/dL Blood 07/24/2024 8:19 AM COMMERCIAL AGENT 07/24/2024 8:19 AM COMMERCIAL AGENT us Arnold Ramos MD LAB POCT ORDERABLES - DONYA CE Final Result Performing Organization Address [facility] de Phone Number [facility] [employer] [place] [address] * POCT glucose (07/24/2024 4:05 AM COMMERCIAL AGENT) Glucose, POC 107 70 - 199 mg/dL Blood 07/24/2024 4:05 AM COMMERCIAL AGENT 07/24/2024 4:05 AM COMMERCIAL AGENT us Arnold Ramos MD LAB POCT ORDERABLES - DONYA CE Final Result Performing Organization Address [facility] de Phone Number [facility] [employer] [place] [address] * POCT glucose (07/24/2024 12:20 AM COMMERCIAL AGENT) Glucose, POC 176 70 - 199 mg/dL Blood 07/24/2024 12:2 0 AM COMMERCIAL AGENT 07/24/2024 12:20 AM COMMERCIAL AGENT us Arnold Ramos MD LAB POCT ORDERABLES - DONYA CE Final Result Performing Organization Address [facility] [place] [address] * (ABNORMAL) eGFR (07/23/2024 9:30 PM COMMERCIAL AGENT) eGFR 58(L) >=60 mL/min/1. 73 m2 Comment: [...] last reviewed 2021. Blood 07/23/2024 9:30 PM COMMERCIAL AGENT 07/23/2024 10:35 PM COMMERCIAL AGENT us Radha Pendleton MD LAB BLOOD ORDERABLES Final Resul t [facility] Department [place] [address] * CBC without differential (07/23/2024 9:30 PM COMMERCIAL AGENT) WBC 8.1 3.8 - 9.9 K/cumm Hgb 11.9 11.9 - 15.5 g/dL [facility] Hct 36.1 35.6 - 45.5 % [facility] Plt 322 150 - 400 K/cumm [facility] MPV 12.0 9.1 - 12.3 fL [facility] RBC 4.03 3.90 - 5.20 M/cumm [facility] MCV 89.6 81.3 - 96.4 fL [facility] MCH 29.5 27.1 - 33.3 pg [facility] MCHC 33.0 32.3 - 35.7 g/dL [facility] RDW CV 12.5 11.1 - 14.9 % [facility] RDW SD 40.5 35.7 - 48.1 fL [facility] NRBC abs 0.00 0.00 - 0.01 K/cumm [facility] Blood 07/23/2024 9:30 PM COMMERCIAL AGENT 07/23/2024 10:34 PM COMMERCIAL AGENT Desi Hurtado NP LAB BLOOD ORDERABLES Final Result [facility] Department [place] [address] * Magnesium (07/23/2024 9:30 PM COMMERCIAL AGENT) Pathologist [facility] Magnesium 2.3 1.4 - 2.5 mg/dL Blood 07/23/2024 9:30 PM COMMERCIAL AGENT 07/23/2024 10:35 PM COMMERCIAL AGENT Radha Pendleton MD LAB BLOOD ORDERABLES Final Resul t Performing Organization Address [facility] Co de Phone Number [facility] [place] [address] * (ABNORMAL) Basic metabolic panel (07/23/2024 9:30 PM COMMERCIAL AGENT) [facility] Sodium 149(H) 135 - 145 mmol/L Potassium, pl 3.8 3.3 - 4.9 mmol/L [facility] Chloride 111(H) 97 - 110 mmol/L [facility] CO2 28 22 - 32 mmol/L [facility] Anion gap 10 2 - 15 mmol/L [facility] BUN 19 6 - 25 mg/dL [facility] Creatinine 1.04 0.60 - 1.10 mg/dL [facility] Glucose 218(H) 70 - 199 mg/dL [facility] Comment: Interpretive Data Fasting glucose >/= 126 [...] 9.0 8.5 - 10.3 mg/dL [facility] Blood 07/23/2024 9:30 PM COMMERCIAL AGENT 07/23/2024 10:35 PM COMMERCIAL AGENT Radha Pendleton MD LAB BLOOD ORDERABLES Final Resul t Performing Organization Address [facility] Co de Phone Number [facility] [place] [address] * POCT glucose (07/23/2024 8:12 PM COMMERCIAL AGENT) Pathologist [facility] Glucose, POC 116 70 - 199 mg/dL Blood 07/23/2024 8:12 PM COMMERCIAL AGENT 07/23/2024 8:12 PM COMMERCIAL AGENT Arnold Ramos MD LAB POCT ORDERABLES - DONYA CE Final Result Performing Organization Address [facility] [place] [address] * C. difficile testing Stool (07/23/2024 7:01 PM COMMERCIAL AGENT) Pathologist [facility] Result Negative Negative Toxin Result Negative Negative [facility] C. diff result Negative, free toxin Negative, free toxin [facility] C. diff interp Negative for toxigenic Clostridioides (Clostridium) difficile. Analysis was performed using a glutamate dehydrogenase antigen detection assay combined with a C. difficile toxin detection assay. [facility] Stool 07/23/2024 7:01 PM COMMERCIAL AGENT 07/23/2024 8:28 PM COMMERCIAL AGENT Arnold Ramos MD LAB MICROBIOLOGY - GENERAL ORDERABLES Final Result Performing Organization Address [facility] [place] [address] * Infection Prevention VRE Culture Stool (07/23/2024 7:01 PM COMMERCIAL AGENT) Pathologist [facility] Report Final Report: Negative Stool 07/23/2024 7:01 PM COMMERCIAL AGENT 07/23/2024 10:46 PM COMMERCIAL AGENT Narrative [facility] 07/26/2024 6:47 AM COMMERCIAL AGENT Surveillance culture for Infection Prevention purposes only; results indicate colonization, not infection requiring treatment. Testing performed by [facility] ([phone]). Arnold Ramos MD LAB MICROBIOLOGY - GENERAL ORDERABLES Final Result Performing Organization Address [facility] Co de Phone Number [facility] Department [place] [address] * POCT glucose (07/23/2024 4:48 PM COMMERCIAL AGENT) Glucose, POC 106 70 - 199 mg/dL Blood 07/23/2024 4:48 PM COMMERCIAL AGENT 07/23/2024 4:48 PM COMMERCIAL AGENT Arnold Ramos MD LAB POCT ORDERABLES - DONYA CE Final Result Performing Organization Address [facility] de Phone Number [facility] Department [place] [address] * FL Modified Barium Swallow W Video (07/23/2024 1:48 PM COMMERCIAL AGENT) Anatomical Region Laterality Modality Head and Neck N/A Radio Fluoroscop y 07/23/2024 2:12 PM COMMERCIAL AGENT Impressions 07/23/2024 4:31 PM COMMERCIAL AGENT The swallowing mechanism is abnormal; see above [...] Gerard Romero M.D. Narrative 07/23/2024 4:31 PM COMMERCIAL AGENT EXAMINATION: MODIFIED BARIUM SWALLOW HISTORY: Dysphagia. TECHNIQUE: [...] it. Electronically signed by: Gerard Romero M.D. Arnold Ramos MD IM FLUOROSCOPY PROCEDURES Final Result * POINTING MACHINE OPERATOR Evaluate and Treat (VFSS) (07/23/2024 1:35 PM COMMERCIAL AGENT) Zeenat Huff SLP - 07/23/2024 1:35 PM COMMERCIAL AGENT Tracy Rubio 07/23/2024 4:43 PM Speech-Language Pathology: [...] may represent fusiform aneurysm, or dolichoectasia. BMRI 2/2: Multiple areas of diffusion restriction noted within the left M1 distribution as detailed above. Current Diet Order: NPO, FT Baseline Diet: Unknown General Information Dorene Faust 07/23/24 POINTING MACHINE OPERATOR Received On: 07/23/24 General Observations: Pt was seated upright and alert in the [facility] chair upon student POINTING MACHINE OPERATOR arrival. Pt made no vocalizations throughout study [...] treatment goals and details, if indicated. Plan POINTING MACHINE OPERATOR Frequency of Services during current admission: 2-3x/wk POINTING MACHINE OPERATOR Recommendation (Add'l Services): Defer at this time POINTING MACHINE OPERATOR - Next Appointment: 07/25/24 Next Visit Plan: treatment/therapy Additional Referrals: GI Discharge Summary Statement If this is the last swallow therapy visit, this serves as the discharge summary. us Arnold Ramos MD POINTING MACHINE OPERATOR ORDERABLES Final Resu lt * POCT glucose (07/23/2024 12:14 PM COMMERCIAL AGENT) Glucose, POC 116 70 - 199 mg/dL Blood 07/23/2024 12:1 4 PM COMMERCIAL AGENT 07/23/2024 12:14 PM COMMERCIAL AGENT Result Liv Ramos MD LAB POCT ORDERABLES - DONYA CE Final Result Performing Organization Address [facility] Co de Phone Number [facility] Department of [employer] [place] [address] * POCT glucose (07/23/2024 8:14 AM COMMERCIAL AGENT) Glucose, POC 173 70 - 199 mg/dL Blood 07/23/2024 8:14 AM COMMERCIAL AGENT 07/23/2024 8:14 AM COMMERCIAL AGENT Result Liv Ramos MD LAB POCT ORDERABLES - DONYA CE Final Result Performing Organization Address [facility] Co de Phone Number [facility] Department of [place] [address] * POCT glucose (07/23/2024 3:44 AM COMMERCIAL AGENT) Glucose, POC 92 70 - 199 mg/dL Blood 07/23/2024 3:44 AM COMMERCIAL AGENT 07/23/2024 3:44 AM COMMERCIAL AGENT us Arnold Ramos MD LAB POCT ORDERABLES - DONYA CE Final Result Performing Organization Address [facility] Co de Phone Number [facility] Department [place] [address] * (ABNORMAL) eGFR (07/22/2024 11:54 PM COMMERCIAL AGENT) Pathologist [facility] eGFR 47(L) >=60 mL/min/1. 73 m2 Comment: [...] reviewed 2021. Blood 07/22/2024 11:5 4 PM COMMERCIAL AGENT 07/23/2024 12:07 AM COMMERCIAL AGENT us Radha Pendleton MD LAB BLOOD ORDERABLES Final Resul t Performing Organization Address [facility]/ZIP Co de Phone Number [facility] Department [place] [address] * (ABNORMAL) CBC without differential (07/22/2024 11:54 PM COMMERCIAL AGENT) [facility] WBC 8.7 3.8 - 9.9 K/cumm Hgb 11.5(L) 11.9 - 15.5 g/dL [facility] Hct 35.3(L) 35.6 - 45.5 % [facility] Plt 338 150 - 400 K/cumm [facility] MPV 11.6 9.1 - 12.3 fL [facility] RBC 3.91 3.90 - 5.20 M/cumm [facility] MCV 90.3 81.3 - 96.4 fL [facility] MCH 29.4 27.1 - 33.3 pg [facility] MCHC 32.6 32.3 - 35.7 g/dL [facility] RDW CV 12.6 11.1 - 14.9 % [facility] RDW SD 41.5 35.7 - 48.1 fL [facility] NRBC abs 0.00 0.00 - 0.01 K/cumm [facility] Blood 07/22/2024 11:5 4 PM COMMERCIAL AGENT 07/23/2024 12:07 AM COMMERCIAL AGENT us Desi Hurtado NP LAB BLOOD ORDERABLES Final Result Performing Organization Address [facility] Co de Phone Number [facility] Department [place] [address] * (ABNORMAL) Magnesium (07/22/2024 11:54 PM COMMERCIAL AGENT) [facility] Magnesium 2.7(H) 1.4 - 2.5 mg/dL Blood 07/22/2024 11:5 4 PM COMMERCIAL AGENT 07/23/2024 12:07 AM COMMERCIAL AGENT us Radha Pendleton MD LAB BLOOD ORDERABLES Final Resul t Performing Organization Address City/[facility] Co de Phone Number [facility] Department [place] [address] * (ABNORMAL) Basic metabolic panel (07/22/2024 11:54 PM COMMERCIAL AGENT) Sodium 152(H) 135 - 145 mmol/L Potassium, pl 4.1 3.3 - 4.9 mmol/L [facility] Chloride 112(H) 97 - 110 mmol/L [facility] CO2 32 22 - 32 mmol/L [facility] Anion gap 8 2 - 15 mmol/L [facility] BUN 25 6 - 25 mg/dL [facility] Creatinine 1.24(H) 0.60 - 1.10 mg/dL [facility] Glucose 102 70 - 199 mg/dL [facility] Comment: Interpretive Data Fasting glucose >/= 126 [...] 9.3 8.5 - 10.3 mg/dL [facility] Blood 07/22/2024 11:5 4 PM COMMERCIAL AGENT 07/23/2024 12:07 AM COMMERCIAL AGENT us Radha Pendleton MD LAB BLOOD ORDERABLES Final Resul t Performing Organization Address City/[facility]/ZIP Co de Phone Number [facility] [place] [address] * POCT glucose (07/22/2024 11:47 PM COMMERCIAL AGENT) Glucose, POC 104 70 - 199 mg/dL Blood 07/22/2024 11:4 7 PM COMMERCIAL AGENT 07/22/2024 11:47 PM COMMERCIAL AGENT us Arnold Ramos MD LAB POCT ORDERABLES - DONYA CE Final Result Performing Organization Address [facility] Co de Phone Number [facility] [place] [address] * POCT glucose (07/22/2024 8:33 PM COMMERCIAL AGENT) Glucose, POC 171 70 - 199 mg/dL Blood 07/22/2024 8:33 PM COMMERCIAL AGENT 07/22/2024 8:33 PM COMMERCIAL AGENT Arnold Ramos MD LAB POCT ORDERABLES - DONYA CE Final Result Performing Organization Address City/[facility] Co de Phone Number [facility] [place] [address] * (ABNORMAL) POCT glucose (07/22/2024 4:40 PM COMMERCIAL AGENT) Glucose, POC 207(H) 70 - 199 mg/dL Blood 07/22/2024 4:40 PM COMMERCIAL AGENT 07/22/2024 4:40 PM COMMERCIAL AGENT Arnold Ramos MD LAB POCT ORDERABLES - DONYA CE Final Result Performing Organization Address City/[facility]/ZIP Co de Phone Number [facility] [place] [address] * POCT glucose (07/22/2024 12:38 PM COMMERCIAL AGENT) Glucose, POC 139 70 - 199 mg/dL Blood 07/22/2024 12:3 8 PM COMMERCIAL AGENT 07/22/2024 12:38 PM COMMERCIAL AGENT Arnold Ramos MD LAB POCT ORDERABLES - DONYA CE Final Result Performing Organization Address City/[facility] [place] [address] * (ABNORMAL) POCT glucose (07/22/2024 8:29 AM COMMERCIAL AGENT) Glucose, POC 246(H) 70 - 199 mg/dL Blood 07/22/2024 8:29 AM COMMERCIAL AGENT 07/22/2024 8:29 AM COMMERCIAL AGENT Result Liv Ramos MD LAB POCT ORDERABLES - DONYA CE Final Result Performing Organization Address [facility] de Phone Number [facility] [place] [address] * POCT glucose (07/22/2024 4:48 AM COMMERCIAL AGENT) Glucose, POC 104 70 - 199 mg/dL Blood 07/22/2024 4:48 AM COMMERCIAL AGENT 07/22/2024 4:48 AM COMMERCIAL AGENT Result Liv Ramos MD LAB POCT ORDERABLES - DONYA CE Final Result Performing Organization Address [facility] Phone Number [facility] [place] [address] * (ABNORMAL) POCT glucose (07/22/2024 12:37 AM COMMERCIAL AGENT) Glucose, POC 202(H) 70 - 199 mg/dL Blood 07/22/2024 12:3 7 AM COMMERCIAL AGENT 07/22/2024 12:37 AM COMMERCIAL AGENT Result Liv Ramos MD LAB POCT ORDERABLES - DONYA CE Final Result Performing Organization Address [facility] Phone Number [facility] [employer] [place] [address] * (ABNORMAL) POCT glucose (07/22/2024 12:13 AM COMMERCIAL AGENT) Glucose, POC 223(H) 70 - 199 mg/dL Blood 07/22/2024 12:1 3 AM COMMERCIAL AGENT 07/22/2024 12:13 AM COMMERCIAL AGENT us Arnold Ramos MD LAB POCT ORDERABLES - DONYA CE Final Result Performing Organization Address [facility] Co de Phone Number [facility] Department [place] [address] * (ABNORMAL) eGFR (07/21/2024 10:37 PM COMMERCIAL AGENT) Pathologist [facility] eGFR 52(L) >=60 mL/min/1. 73 m2 Comment: [...] reviewed 2021. Blood 07/21/2024 10:3 7 PM COMMERCIAL AGENT 07/21/2024 10:46 PM COMMERCIAL AGENT us Radha Pendleton MD LAB BLOOD ORDERABLES Final Resul t Performing Organization Address City/[facility]/ZIP Co de Phone Number [facility] Department [place] [address] * CBC without differential (07/21/2024 10:37 PM COMMERCIAL AGENT) [facility] WBC 9.0 3.8 - 9.9 K/cumm Hgb 12.2 11.9 - 15.5 g/dL [facility] Hct 36.9 35.6 - 45.5 % [facility] Plt 333 150 - 400 K/cumm [facility] MPV 11.4 9.1 - 12.3 fL [facility] RBC 4.12 3.90 - 5.20 M/cumm [facility] MCV 89.6 81.3 - 96.4 fL [facility] MCH 29.6 27.1 - 33.3 pg [facility] MCHC 33.1 32.3 - 35.7 g/dL [facility] RDW CV 12.7 11.1 - 14.9 % [facility] RDW SD 41.5 35.7 - 48.1 fL [facility] NRBC abs 0.00 0.00 - 0.01 K/cumm [facility] Blood 07/21/2024 10:3 7 PM COMMERCIAL AGENT 07/21/2024 10:46 PM COMMERCIAL AGENT us Desi Hurtado NP LAB BLOOD ORDERABLES Final Result Performing Organization Address [facility] Co de Phone Number [facility] Department [place] [address] * (ABNORMAL) Magnesium (07/21/2024 10:37 PM COMMERCIAL AGENT) Pathologist [facility] Magnesium 2.7(H) 1.4 - 2.5 mg/dL Blood 07/21/2024 10:3 7 PM COMMERCIAL AGENT 07/21/2024 10:46 PM COMMERCIAL AGENT Radha Pendleton MD LAB BLOOD ORDERABLES Final Resul t Performing Organization Address City/[facility] Co de Phone Number [facility] Department [place] [address] * (ABNORMAL) Basic metabolic panel (07/21/2024 10:37 PM COMMERCIAL AGENT) Pathologist [facility] Sodium 151(H) 135 - 145 mmol/L Potassium, pl 3.9 3.3 - 4.9 mmol/L [facility] Chloride 114(H) 97 - 110 mmol/L [facility] CO2 28 22 - 32 mmol/L [facility] Anion gap 9 2 - 15 mmol/L [facility] BUN 23 6 - 25 mg/dL [facility] Creatinine 1.14(H) 0.60 - 1.10 mg/dL [facility] Glucose 132 70 - 199 mg/dL [facility] Comment: Interpretive Data Fasting glucose >/= 126 [...] 9.5 8.5 - 10.3 mg/dL [facility] Blood 07/21/2024 10:3 7 PM COMMERCIAL AGENT 07/21/2024 10:46 PM COMMERCIAL AGENT Radha Pendleton MD LAB BLOOD ORDERABLES Final Resul t Performing Organization Address City/[facility]/ZIP Co de Phone Number [facility] [place] [address] * POCT glucose (07/21/2024 10:12 PM COMMERCIAL AGENT) Glucose, POC 101 70 - 199 mg/dL Blood 07/21/2024 10:1 2 PM COMMERCIAL AGENT 07/21/2024 10:12 PM COMMERCIAL AGENT us Arnold Ramos MD LAB POCT ORDERABLES - DONYA CE Final Result [facility] [place] [address] * POCT glucose (07/21/2024 6:20 PM COMMERCIAL AGENT) Glucose, POC 133 70 - 199 mg/dL Blood 07/21/2024 6:20 PM COMMERCIAL AGENT 07/21/2024 6:20 PM COMMERCIAL AGENT us Arnold Ramos MD LAB POCT ORDERABLES - DONYA CE Final Result Performing Organization Address [facility] Co de Phone Number [facility] [place] [address] * POCT glucose (07/21/2024 5:27 PM COMMERCIAL AGENT) Glucose, POC 107 70 - 199 mg/dL Blood 07/21/2024 5:27 PM COMMERCIAL AGENT 07/21/2024 5:27 PM COMMERCIAL AGENT us Arnold Ramos MD LAB POCT ORDERABLES - DONYA CE Final Result Performing Organization Address [facility] de Phone Number [facility] [place] [address] * (ABNORMAL) POCT glucose (07/21/2024 12:49 PM COMMERCIAL AGENT) Glucose, POC 227(H) 70 - 199 mg/dL Blood 07/21/2024 12:4 9 PM COMMERCIAL AGENT 07/21/2024 12:49 PM COMMERCIAL AGENT us Arnold Ramos MD LAB POCT ORDERABLES - DONYA CE Final Result Performing Organization Address [facility] Co de Phone Number [facility] [place] [address] * POCT glucose (07/21/2024 8:22 AM COMMERCIAL AGENT) Glucose, POC 123 70 - 199 mg/dL Blood 07/21/2024 8:22 AM COMMERCIAL AGENT 07/21/2024 8:22 AM COMMERCIAL AGENT us Arnold Ramos MD LAB POCT ORDERABLES - DONYA CE Final Result Performing Organization Address City/[facility] Co de Phone Number [facility] [place], [place] [address] * POCT glucose (07/21/2024 4:07 AM COMMERCIAL AGENT) Glucose, POC 142 70 - 199 mg/dL Blood 07/21/2024 4:07 AM COMMERCIAL AGENT 07/21/2024 4:07 AM COMMERCIAL AGENT us Arnold Ramos MD LAB POCT ORDERABLES - DONYA CE Final Result Performing Organization Address [facility] Co de Phone Number [facility] Department [place] [address] * (ABNORMAL) eGFR (07/21/2024 3:45 AM COMMERCIAL AGENT) Pathologist [facility] eGFR 47(L) >=60 mL/min/1. 73 m2 Comment: [...] last reviewed 2021. Blood 07/21/2024 3:45 AM COMMERCIAL AGENT 07/21/2024 5:46 AM COMMERCIAL AGENT us Radha Pendleton MD LAB BLOOD ORDERABLES Final Resul t Performing Organization Address [facility]/ZIP Co de Phone Number [facility] Department [place] [address] * CBC without differential (07/21/2024 3:45 AM COMMERCIAL AGENT) [facility] WBC 8.2 3.8 - 9.9 K/cumm Hgb 12.2 11.9 - 15.5 g/dL [facility] Hct 37.7 35.6 - 45.5 % [facility] Plt 316 150 - 400 K/cumm [facility] MPV 11.8 9.1 - 12.3 fL [facility] RBC 4.17 3.90 - 5.20 M/cumm [facility] MCV 90.4 81.3 - 96.4 fL [facility] MCH 29.3 27.1 - 33.3 pg [facility] MCHC 32.4 32.3 - 35.7 g/dL [facility] RDW CV 12.9 11.1 - 14.9 % [facility] RDW SD 42.3 35.7 - 48.1 fL [facility] NRBC abs 0.00 0.00 - 0.01 K/cumm [facility] Blood 07/21/2024 3:45 AM COMMERCIAL AGENT 07/21/2024 5:46 AM COMMERCIAL AGENT Desi Hurtado NP LAB BLOOD ORDERABLES Final Result Performing Organization Address City/[facility]/ZIP Co de Phone Number [facility] Department [place] [address] * Phosphorus (07/21/2024 3:45 AM COMMERCIAL AGENT) [facility] Phosphorus, pl 3.9 2.3 - 4.5 mg/dL Blood 07/21/2024 3:45 AM COMMERCIAL AGENT 07/21/2024 5:46 AM COMMERCIAL AGENT Desi Hurtado NP LAB BLOOD ORDERABLES Final Result Performing Organization Address City/[facility] Co de Phone Number [facility] [place] [address] * (ABNORMAL) Magnesium (07/21/2024 3:45 AM COMMERCIAL AGENT) Magnesium 2.9(H) 1.4 - 2.5 mg/dL Blood 07/21/2024 3:45 AM COMMERCIAL AGENT 07/21/2024 5:46 AM COMMERCIAL AGENT Radha Pendleton MD LAB BLOOD ORDERABLES Final Resul t [facility] Department [place] [address] * (ABNORMAL) Basic metabolic panel (07/21/2024 3:45 AM COMMERCIAL AGENT) Sodium 153(H) 135 - 145 mmol/L Potassium, pl 3.8 3.3 - 4.9 mmol/L [facility] Chloride 114(H) 97 - 110 mmol/L [facility] CO2 32 22 - 32 mmol/L [facility] Anion gap 7 2 - 15 mmol/L [facility] BUN 24 6 - 25 mg/dL [facility] Creatinine 1.23(H) 0.60 - 1.10 mg/dL [facility] Glucose 136 70 - 199 mg/dL [facility] Comment: Interpretive Data Fasting glucose >/= 126 [...] 9.5 8.5 - 10.3 mg/dL [facility] Blood 07/21/2024 3:45 AM COMMERCIAL AGENT 07/21/2024 5:46 AM COMMERCIAL AGENT us Radha Pendleton MD LAB BLOOD ORDERABLES Final Resul t Performing Organization Address City/[facility]/ZIP Co de Phone Number [facility] Department [place] [address] * POCT glucose (07/21/2024 12:15 AM COMMERCIAL AGENT) Glucose, POC 115 70 - 199 mg/dL Blood 07/21/2024 12:1 5 AM COMMERCIAL AGENT 07/21/2024 12:15 AM COMMERCIAL AGENT Arnold Ramos MD LAB POCT ORDERABLES - DONYA CE Final Result Performing Organization Address [facility] [place] [address] * POCT glucose (07/20/2024 9:05 PM COMMERCIAL AGENT) Glucose, POC 102 70 - 199 mg/dL Blood 07/20/2024 9:05 PM COMMERCIAL AGENT 07/20/2024 9:05 PM COMMERCIAL AGENT Arnold Ramos MD LAB POCT ORDERABLES - DONYA CE Final Result Performing Organization Address [facility] [place] [address] * POCT glucose (07/20/2024 3:55 PM COMMERCIAL AGENT) Glucose, POC 109 70 - 199 mg/dL Blood 07/20/2024 3:55 PM COMMERCIAL AGENT 07/20/2024 3:55 PM COMMERCIAL AGENT Radha Pendleton MD LAB POCT ORDERABLES - DEVICE Fin al Result Performing Organization Address [facility] [place] [address] * POCT glucose (07/20/2024 12:33 PM COMMERCIAL AGENT) Glucose, POC 182 70 - 199 mg/dL Blood 07/20/2024 12:3 3 PM COMMERCIAL AGENT 07/20/2024 12:33 PM COMMERCIAL AGENT Radha Pendleton MD LAB POCT ORDERABLES - DEVICE Fin al Result Performing Organization Address City/[facility] Co de Phone Number [facility] [place] [address] * POCT glucose (07/20/2024 8:08 AM COMMERCIAL AGENT) Glucose, POC 110 70 - 199 mg/dL Blood 07/20/2024 8:08 AM COMMERCIAL AGENT 07/20/2024 8:08 AM COMMERCIAL AGENT Radha Pendleton MD LAB POCT ORDERABLES - DEVICE Fin al Result Performing Organization Address [facility] de Phone Number [facility] [place] [address] * (ABNORMAL) eGFR (07/20/2024 3:36 AM COMMERCIAL AGENT) eGFR 51(L) >=60 mL/min/1. 73 m2 Comment: [...] last reviewed 2021. Blood 07/20/2024 3:36 AM COMMERCIAL AGENT 07/20/2024 3:47 AM COMMERCIAL AGENT us Radha Pendleton MD LAB BLOOD ORDERABLES Final Resul t Performing Organization Address [facility] Co de Phone Number [facility] [place] [address] * CBC without differential (07/20/2024 3:36 AM COMMERCIAL AGENT) WBC 8.6 3.8 - 9.9 K/cumm Hgb 11.9 11.9 - 15.5 g/dL [facility] Hct 35.9 35.6 - 45.5 % [facility] Plt 297 150 - 400 K/cumm [facility] MPV 11.5 9.1 - 12.3 fL [facility] RBC 4.06 3.90 - 5.20 M/cumm [facility] MCV 88.4 81.3 - 96.4 fL [facility] MCH 29.3 27.1 - 33.3 pg [facility] MCHC 33.1 32.3 - 35.7 g/dL [facility] RDW CV 12.9 11.1 - 14.9 % [facility] RDW SD 41.9 35.7 - 48.1 fL [facility] NRBC abs 0.00 0.00 - 0.01 K/cumm [facility] Blood 07/20/2024 3:36 AM COMMERCIAL AGENT 07/20/2024 3:48 AM COMMERCIAL AGENT us Desi Hurtado NP LAB BLOOD ORDERABLES Final Result Performing Organization Address [facility] Co de Phone Number [facility] Department [place] [address] * (ABNORMAL) Magnesium (07/20/2024 3:36 AM COMMERCIAL AGENT) Pathologist [facility] Magnesium 3.1(H) 1.4 - 2.5 mg/dL Blood 07/20/2024 3:36 AM COMMERCIAL AGENT 07/20/2024 3:47 AM COMMERCIAL AGENT us Radha Pendleton MD LAB BLOOD ORDERABLES Final Resul t [facility] Department [place] [address] * (ABNORMAL) Basic metabolic panel (07/20/2024 3:36 AM COMMERCIAL AGENT) Sodium 154(H) 135 - 145 mmol/L Potassium, pl 3.9 3.3 - 4.9 mmol/L [facility] Chloride 114(H) 97 - 110 mmol/L [facility] CO2 29 22 - 32 mmol/L [facility] Anion gap 11 2 - 15 mmol/L [facility] BUN 22 6 - 25 mg/dL [facility] Creatinine 1.15(H) 0.60 - 1.10 mg/dL [facility] Glucose 123 70 - 199 mg/dL [facility] Comment: Interpretive Data Fasting glucose >/= 126 [...] 9.3 8.5 - 10.3 mg/dL [facility] Blood 07/20/2024 3:36 AM COMMERCIAL AGENT 07/20/2024 3:47 AM COMMERCIAL AGENT us Radha Pendleton MD LAB BLOOD ORDERABLES Final Resul t Performing Organization Address [facility]/ZIP Co de Phone Number [facility] Department of [employer] [place] [address] * POCT glucose (07/19/2024 6:01 PM COMMERCIAL AGENT) Glucose, POC 87 70 - 199 mg/dL Blood 07/19/2024 6:01 PM COMMERCIAL AGENT 07/19/2024 6:01 PM COMMERCIAL AGENT Radha Pendleton MD LAB POCT ORDERABLES - DEVICE Fin al Result Performing Organization Address [facility] de Phone Number [facility] [place] [address] * POCT glucose (07/19/2024 11:37 AM COMMERCIAL AGENT) Glucose, POC 136 70 - 199 mg/dL Blood 07/19/2024 11:3 7 AM COMMERCIAL AGENT 07/19/2024 11:37 AM COMMERCIAL AGENT Radha Pendleton MD LAB POCT ORDERABLES - DEVICE Fin al Result Performing Organization Address [facility] de Phone Number [facility] [employer] [place] [address] * POCT glucose (07/19/2024 8:07 AM COMMERCIAL AGENT) Glucose, POC 134 70 - 199 mg/dL Blood 07/19/2024 8:07 AM COMMERCIAL AGENT 07/19/2024 8:07 AM COMMERCIAL AGENT Radha Pendleton MD LAB POCT ORDERABLES - DEVICE Fin al Result Performing Organization Address [facility] Phone Number [facility] [place] [address] * (ABNORMAL) eGFR (07/19/2024 5:51 AM COMMERCIAL AGENT) eGFR 59(L) >=60 mL/min/1. 73 m2 Comment: [...] last reviewed 2021. Blood 07/19/2024 5:51 AM COMMERCIAL AGENT 07/19/2024 6:17 AM COMMERCIAL AGENT us Radha Pendleton MD LAB BLOOD ORDERABLES Final Resul t [facility] Department [place] [address] * (ABNORMAL) CBC without differential (07/19/2024 5:51 AM COMMERCIAL AGENT) WBC 10.7(H) 3.8 - 9.9 K/cumm Hgb 12.1 11.9 - 15.5 g/dL [facility] Hct 36.0 35.6 - 45.5 % [facility] Plt 270 150 - 400 K/cumm [facility] MPV 11.5 9.1 - 12.3 fL [facility] RBC 4.09 3.90 - 5.20 M/cumm [facility] MCV 88.0 81.3 - 96.4 fL [facility] MCH 29.6 27.1 - 33.3 pg [facility] MCHC 33.6 32.3 - 35.7 g/dL [facility] RDW CV 13.1 11.1 - 14.9 % [facility] RDW SD 42.1 35.7 - 48.1 fL [facility] NRBC abs 0.00 0.00 - 0.01 K/cumm [facility] Blood 07/19/2024 5:51 AM COMMERCIAL AGENT 07/19/2024 6:17 AM COMMERCIAL AGENT us Desi Hurtado NP LAB BLOOD ORDERABLES Final Result [facility] Department [place] [address] * (ABNORMAL) Magnesium (07/19/2024 5:51 AM COMMERCIAL AGENT) Magnesium 2.6(H) 1.4 - 2.5 mg/dL Blood 07/19/2024 5:51 AM COMMERCIAL AGENT 07/19/2024 6:17 AM COMMERCIAL AGENT Radha Pendleton MD LAB BLOOD ORDERABLES Final Resul t Performing Organization Address [facility] Co de Phone Number [facility] Department [place] [address] * (ABNORMAL) Basic metabolic panel (07/19/2024 5:51 AM COMMERCIAL AGENT) Pathologist [facility] Sodium 153(H) 135 - 145 mmol/L Potassium, pl 3.9 3.3 - 4.9 mmol/L [facility] Chloride 112(H) 97 - 110 mmol/L [facility] CO2 32 22 - 32 mmol/L [facility] Anion gap 9 2 - 15 mmol/L [facility] BUN 18 6 - 25 mg/dL [facility] Creatinine 1.02 0.60 - 1.10 mg/dL [facility] Glucose 116 70 - 199 mg/dL [facility] Comment: Interpretive Data Fasting glucose >/= 126 [...] 9.5 8.5 - 10.3 mg/dL [facility] Blood 07/19/2024 5:51 AM COMMERCIAL AGENT 07/19/2024 6:17 AM COMMERCIAL AGENT us Radha Pendleton MD LAB BLOOD ORDERABLES Final Resul t Performing Organization Address [facility] Phone Number [facility] [employer] [place] [address] * POCT glucose (07/18/2024 5:11 PM COMMERCIAL AGENT) Glucose, POC 118 70 - 199 mg/dL Blood 07/18/2024 5:11 PM COMMERCIAL AGENT 07/18/2024 5:11 PM COMMERCIAL AGENT Radha Pendleton MD LAB POCT ORDERABLES - DEVICE Fin al Result Performing Organization Address [facility] de Phone Number [facility] [place] [address] * POCT glucose (07/18/2024 2:14 PM COMMERCIAL AGENT) Glucose, POC 126 70 - 199 mg/dL Blood 07/18/2024 2:14 PM COMMERCIAL AGENT 07/18/2024 2:14 PM COMMERCIAL AGENT Radha Pendleton MD LAB POCT ORDERABLES - DEVICE Fin al Result Performing Organization Address [facility] [place] [address] * IR G Tube Placement Percutaneous (07/18/2024 12:30 PM COMMERCIAL AGENT) Anatomical Region Laterality Modality Body N/A X-Ray Angiograph y 07/18/2024 12:4 8 PM COMMERCIAL AGENT Impressions 07/18/2024 8:39 PM COMMERCIAL AGENT Successful placement of a 16 Malian gastrostomy catheter with gastropexy. PLAN: The gastrostomy [...] Amina Tolbert M.D. Narrative 07/18/2024 8:39 PM COMMERCIAL AGENT EXAMINATION: PERCUTANEOUS GASTROSTOMY CATHETER PLACEMENT INDICATION: 68-year-old [...] was obtained. Prior to beginning the procedure, [place] Protocol was performed to confirm the patient's [...] was dilated over a guidewire to 20 Malian. Next, an 20 Malian peel-away sheath was placed in the stomach [...] was obtained. Prior to beginning the procedure, [place] Protocol was performed to confirm the patient's [...] was dilated over a guidewire to 20 Malian. Next, an 20 Malian peel-away sheath was placed in the stomach [...] identified. IMPRESSION: Successful placement of a 16 Malian gastrostomy catheter with gastropexy. PLAN: The gastrostomy [...] Result * (ABNORMAL) eGFR (07/18/2024 6:06 AM COMMERCIAL AGENT) eGFR 56(L) >=60 mL/min/1. 73 m2 Comment: [...] last reviewed 2021. Blood 07/18/2024 6:06 AM COMMERCIAL AGENT 07/18/2024 10:24 AM COMMERCIAL AGENT us Radha Pendleton MD LAB BLOOD ORDERABLES Final Resul t [facility] Department [place] [address] * (ABNORMAL) Basic metabolic panel (07/18/2024 6:06 AM COMMERCIAL AGENT) Sodium 150(H) 135 - 145 mmol/L Potassium, pl 4.0 3.3 - 4.9 mmol/L [facility] Chloride 107 97 - 110 mmol/L [facility] CO2 33(H) 22 - 32 mmol/L [facility] Anion gap 10 2 - 15 mmol/L [facility] BUN 16 6 - 25 mg/dL [facility] Creatinine 1.07 0.60 - 1.10 mg/dL [facility] Glucose 116 70 - 199 mg/dL [facility] Comment: Interpretive Data Fasting glucose >/= 126 [...] 9.7 8.5 - 10.3 mg/dL [facility] Blood 07/18/2024 6:06 AM COMMERCIAL AGENT 07/18/2024 10:01 AM COMMERCIAL AGENT Radha Pendleton MD LAB BLOOD ORDERABLES Final Resul t [facility] Department [place] [address] * eGFR (07/17/2024 8:38 PM COMMERCIAL AGENT) Pathologist [facility] eGFR 64 >=60 mL/min/1. 73 m2 Comment: [...] last reviewed 2021. Blood 07/17/2024 8:38 PM COMMERCIAL AGENT 07/17/2024 9:44 PM COMMERCIAL AGENT us Desi Hurtado NP LAB BLOOD ORDERABLES Final Result Performing Organization Address [facility] de Phone Number [facility] [place] [address] * Protime-INR (07/17/2024 8:38 PM COMMERCIAL AGENT) PT 10.6 9.7 - 13.0 sec INR 0.98 0.90 - 1.20 [facility] Comment: Interpretive data Oral anticoagulant therapeutic ranges: Venous thromboembolism prophylaxis or treatment: 2.0-3.0 CARDIOLOGY Standard range: 2.0-3.0 High-intensity range: 2.5-3.5 Refer to indication-specific guidelines for appropriate target ranges for prosthetic heart valve replacement. Current interpretive data was last revised on 2019. Blood 07/17/2024 8:3 8 PM COMMERCIAL AGENT 07/17/2024 9:46 PM COMMERCIAL AGENT us Radha Pendleton MD LAB BLOOD ORDERABLES Final Resul t Performing Organization Address [facility] Co de Phone Number [facility] [place] [address] * (ABNORMAL) CBC without differential (07/17/2024 8:38 PM COMMERCIAL AGENT) [facility] WBC 9.6 3.8 - 9.9 K/cumm Hgb 12.4 11.9 - 15.5 g/dL [facility] Hct 38.6 35.6 - 45.5 % [facility] Plt 254 150 - 400 K/cumm [facility] MPV 11.1 9.1 - 12.3 fL [facility] RBC 4.24 3.90 - 5.20 M/cumm [facility] MCV 91.0 81.3 - 96.4 fL [facility] MCH 29.2 27.1 - 33.3 pg [facility] MCHC 32.1(L) 32.3 - 35.7 g/dL [facility] RDW CV 13.1 11.1 - 14.9 % [facility] RDW SD 42.7 35.7 - 48.1 fL [facility] NRBC abs 0.00 0.00 - 0.01 K/cumm [facility] Blood 07/17/2024 8:38 PM COMMERCIAL AGENT 07/17/2024 9:44 PM COMMERCIAL AGENT us Desi Hurtado NP LAB BLOOD ORDERABLES Final Result Performing Organization Address City/[facility] Co de Phone Number [facility] Department [place] [address] * Magnesium (07/17/2024 8:38 PM COMMERCIAL AGENT) [facility] Magnesium 2.5 1.4 - 2.5 mg/dL Blood 07/17/2024 8:38 PM COMMERCIAL AGENT 07/17/2024 9:44 PM COMMERCIAL AGENT us Radha Pendleton MD LAB BLOOD ORDERABLES Final Resul t Performing Organization Address City/[facility] Co de Phone Number [facility] Department [place] [address] * (ABNORMAL) Basic metabolic panel (07/17/2024 8:38 PM COMMERCIAL AGENT) [facility] Sodium 150(H) 135 - 145 mmol/L Potassium, pl 3.9 3.3 - 4.9 mmol/L [facility] Chloride 108 97 - 110 mmol/L [facility] CO2 33(H) 22 - 32 mmol/L [facility] Anion gap 9 2 - 15 mmol/L [facility] BUN 17 6 - 25 mg/dL [facility] Creatinine 0.96 0.60 - 1.10 mg/dL [facility] Glucose 124 70 - 199 mg/dL [facility] Comment: Interpretive Data Fasting glucose >/= 126 [...] 10.1 8.5 - 10.3 mg/dL [facility] Blood 07/17/2024 8:38 PM COMMERCIAL AGENT 07/17/2024 9:44 PM COMMERCIAL AGENT Desi Hurtado NP LAB BLOOD ORDERABLES Final Result [facility] Department [place] [address] * eGFR (07/16/2024 10:33 PM COMMERCIAL AGENT) Pathologist [facility] eGFR 66 >=60 mL/min/1. 73 m2 Comment: [...] reviewed 2021. Blood 07/16/2024 10:3 3 PM COMMERCIAL AGENT 07/16/2024 10:53 PM COMMERCIAL AGENT Desi Hurtado NP LAB BLOOD ORDERABLES Final Result [facility] Department [place] [address] * (ABNORMAL) CBC without differential (07/16/2024 10:33 PM COMMERCIAL AGENT) WBC 8.5 3.8 - 9.9 K/cumm Hgb 11.7(L) 11.9 - 15.5 g/dL [facility] Hct 35.1(L) 35.6 - 45.5 % [facility] Plt 245 150 - 400 K/cumm [facility] MPV 11.1 9.1 - 12.3 fL [facility] RBC 3.97 3.90 - 5.20 M/cumm [facility] MCV 88.4 81.3 - 96.4 fL [facility] MCH 29.5 27.1 - 33.3 pg [facility] MCHC 33.3 32.3 - 35.7 g/dL [facility] RDW CV 12.9 11.1 - 14.9 % [facility] RDW SD 41.5 35.7 - 48.1 fL [facility] NRBC abs 0.00 0.00 - 0.01 K/cumm [facility] Blood 07/16/2024 10:3 3 PM COMMERCIAL AGENT 07/16/2024 10:53 PM COMMERCIAL AGENT Desi Hurtado NP LAB BLOOD ORDERABLES Final Result [facility] Department [place] [address] * Magnesium (07/16/2024 10:33 PM COMMERCIAL AGENT) Pathologist [facility] Magnesium 2.3 1.4 - 2.5 mg/dL Blood 07/16/2024 10:3 3 PM COMMERCIAL AGENT 07/16/2024 10:53 PM COMMERCIAL AGENT Radha Pendleton MD LAB BLOOD ORDERABLES Final Resul t Performing Organization Address City/[facility] Co de Phone Number [facility] [place] [address] * (ABNORMAL) Basic metabolic panel (07/16/2024 10:33 PM COMMERCIAL AGENT) Pathologist [facility] Sodium 152(H) 135 - 145 mmol/L Potassium, pl 3.8 3.3 - 4.9 mmol/L [facility] Chloride 112(H) 97 - 110 mmol/L [facility] CO2 32 22 - 32 mmol/L [facility] Anion gap 8 2 - 15 mmol/L [facility] BUN 14 6 - 25 mg/dL [facility] Creatinine 0.93 0.60 - 1.10 mg/dL [facility] Glucose 142 70 - 199 mg/dL [facility] Comment: Interpretive Data Fasting glucose >/= 126 [...] 10.2 8.5 - 10.3 mg/dL [facility] Blood 07/16/2024 10:3 3 PM COMMERCIAL AGENT 07/16/2024 10:53 PM COMMERCIAL AGENT Desi Hurtado NP LAB BLOOD ORDERABLES Final Result Performing Organization Address [facility] Co de Phone Number [facility] Department [place] [address] * eGFR (07/15/2024 8:01 PM COMMERCIAL AGENT) Pathologist [facility] eGFR 61 >=60 mL/min/1. 73 m2 Comment: [...] last reviewed 2021. Blood 07/15/2024 8:01 PM COMMERCIAL AGENT 07/15/2024 9:38 PM COMMERCIAL AGENT Desi Hurtado NP LAB BLOOD ORDERABLES Final Result Performing Organization Address [facility] Co de Phone Number [facility] Department [place] [address] * (ABNORMAL) CBC without differential (07/15/2024 8:01 PM COMMERCIAL AGENT) [facility] WBC 7.5 3.8 - 9.9 K/cumm Hgb 11.6(L) 11.9 - 15.5 g/dL [facility] Hct 34.4(L) 35.6 - 45.5 % [facility] Plt 238 150 - 400 K/cumm [facility] MPV 11.3 9.1 - 12.3 fL [facility] RBC 3.97 3.90 - 5.20 M/cumm [facility] MCV 86.6 81.3 - 96.4 fL [facility] MCH 29.2 27.1 - 33.3 pg [facility] MCHC 33.7 32.3 - 35.7 g/dL [facility] RDW CV 13.0 11.1 - 14.9 % [facility] RDW SD 40.8 35.7 - 48.1 fL [facility] NRBC abs 0.00 0.00 - 0.01 K/cumm [facility] Blood 07/15/2024 8:01 PM COMMERCIAL AGENT 07/15/2024 9:34 PM COMMERCIAL AGENT Desi Hurtado NP LAB BLOOD ORDERABLES Final Result Performing Organization Address [facility] Co de Phone Number [facility] Department [place] [address] * Magnesium (07/15/2024 8:01 PM COMMERCIAL AGENT) [facility] Magnesium 2.3 1.4 - 2.5 mg/dL Blood 07/15/2024 8:01 PM COMMERCIAL AGENT 07/15/2024 9:34 PM COMMERCIAL AGENT Radha Pendleton MD LAB BLOOD ORDERABLES Final Resul t Performing Organization Address [facility] Co de Phone Number [facility] Department [place] [address] * (ABNORMAL) Basic metabolic panel (07/15/2024 8:01 PM COMMERCIAL AGENT) [facility] Sodium 148(H) 135 - 145 mmol/L Potassium, pl 3.8 3.3 - 4.9 mmol/L [facility] Chloride 110 97 - 110 mmol/L [facility] CO2 29 22 - 32 mmol/L [facility] Anion gap 9 2 - 15 mmol/L [facility] BUN 13 6 - 25 mg/dL [facility] Creatinine 0.99 0.60 - 1.10 mg/dL [facility] Glucose 133 70 - 199 mg/dL [facility] Comment: Interpretive Data Fasting glucose >/= 126 [...] 2022. Calcium 9.9 8.5 - 10.3 mg/dL [facility] Blood 07/15/2024 8:01 PM COMMERCIAL AGENT 07/15/2024 9:34 PM COMMERCIAL AGENT Desi Hutrado NP LAB BLOOD ORDERABLES Final Result [facility] Department [place] [address] * TRANSTHORACIC ECHO (TTE) COMPLETE W DOPPLER/CF W CONTRAST W BUBBLE (07/15/2024 9:33 AM COMMERCIAL AGENT) LV EF % CONS SCIMAGE Anatomical Region Laterality Modality Ultrasound 07/15/2024 8:28 AM COMMERCIAL AGENT Narrative 07/15/2024 10:31 AM COMMERCIAL AGENT [facility] [place] [address] Transthoracic Echocardiographic Report Patient Name: DORENE FAUST L : 1955 (68y 8m) Gender: F Study Date: 07/15/2024 08:28:57 AM Ht(Inch): 66 Wt(Lb): 160.05 BSA: 1.84 Audio Visual Production Specialist: Kala Jacobs [facility] Location: [id number] Order Provider: RADHA PENDLETON Heart Rate: 70 BMI: 25.83 BP: 173/83 Quality: The study images were of technically good quality. Ref Provider: RADHA PENDLETON PROCEDURES: Echocardiographic Report: ([id number]) Transthoracic complete echo with strain imaging and [...] By: Flor Wilkinson MD 07/15/2024 10:30:33 AM COMMERCIAL AGENT Electronically Signed By: Flor Wilkinson MD 07/15/2024 10:30:33 AM COMMERCIAL AGENT Procedure Note Flor Wilkinson, - 07/15/2024 [facility] Cardiac [place] [address] Transthoracic Echocardiographic Report Patient Name: DORENE FAUST L : 1955 (68y 8m) Gender: F Study Date: 07/15/2024 08:28:57 AM Ht(Inch): 66 Wt(Lb): 160.05 BSA: 1.84 Audio Visual Production Specialist: Kala Jacobs [facility] Location: [id number] OrderProvider: RADHA PENDLETON Heart Rate: 70 BMI: 25.83 BP: 173/83 Quality: The study images were oftechnically good quality. Ref Provider: RADHA PENDLETON PROCEDURES: Echocardiographic Report: [id number], [id number]) Transthoracic complete echo withstrain imaging and contrast, [...] LA Length 2C 5.49 cm MV Decel Stoh035.60 msec [ 104.00 - 258.00 ] LA [...] By: Flor Wilkinson MD 07/15/2024 10:30:33 AM COMMERCIAL AGENT Electronically Signed By: Flor Wilkinson MD 07/15/2024 10:30:33 AM COMMERCIAL AGENT us Radha Pendleton MD CV ECHO PROCEDURES Final Result * eGFR (07/14/2024 9:31 PM COMMERCIAL AGENT) eGFR 72 >=60 mL/min/1. 73 m2 Comment: [...] last reviewed 2021. Blood 07/14/2024 9:31 PM COMMERCIAL AGENT 07/14/2024 9:55 PM COMMERCIAL AGENT us Desi Hurtado NP LAB BLOOD ORDERABLES Final Result [facility] Department [place] [address] * (ABNORMAL) CBC without differential (07/14/2024 9:31 PM COMMERCIAL AGENT) WBC 8.0 3.8 - 9.9 K/cumm Hgb 11.7(L) 11.9 - 15.5 g/dL [facility] Hct 34.2(L) 35.6 - 45.5 % [facility] Plt 218 150 - 400 K/cumm [facility] MPV 11.2 9.1 - 12.3 fL [facility] RBC 3.92 3.90 - 5.20 M/cumm [facility] MCV 87.2 81.3 - 96.4 fL [facility] MCH 29.8 27.1 - 33.3 pg [facility] MCHC 34.2 32.3 - 35.7 g/dL [facility] RDW CV 12.7 11.1 - 14.9 % [facility] RDW SD 40.0 35.7 - 48.1 fL [facility] NRBC abs 0.00 0.00 - 0.01 K/cumm [facility] Blood 07/14/2024 9:31 PM COMMERCIAL AGENT 07/14/2024 9:55 PM COMMERCIAL AGENT Desi Hurtado NP LAB BLOOD ORDERABLES Final Result Performing Organization Address [facility] Co de Phone Number [facility] Department of [employer] [place] [address] * Magnesium (07/14/2024 9:31 PM COMMERCIAL AGENT) [facility] Magnesium 2.3 1.4 - 2.5 mg/dL Blood 07/14/2024 9:31 PM COMMERCIAL AGENT 07/14/2024 9:55 PM COMMERCIAL AGENT Radha Pendleton MD LAB BLOOD ORDERABLES Final Resul t Performing Organization Address [facility] Co de Phone Number [facility] Department of [employer] [place] [address] * Basic metabolic panel (07/14/2024 9:31 PM COMMERCIAL AGENT) [facility] Sodium 145 135 - 145 mmol/L Potassium, pl 4.2 3.3 - 4.9 mmol/L [facility] Comment:Hemolyzed; Potassium value may be falsely elevated by as much as 0.6-1.0 mmol/L. Suggest redraw and reanalysis. Chloride 109 97 - 110 mmol/L [facility] CO2 25 22 - 32 mmol/L [facility] Anion gap 11 2 - 15 mmol/L [facility] BUN 9 6 - 25 mg/dL [facility] Creatinine 0.87 0.60 - 1.10 mg/dL [facility] Glucose 120 70 - 199 mg/dL [facility] Comment: Interpretive Data Fasting glucose >/= 126 [...] 9.3 8.5 - 10.3 mg/dL [facility] Blood 07/14/2024 9:31 PM COMMERCIAL AGENT 07/14/2024 9:55 PM COMMERCIAL AGENT Desi Hurtado NP LAB BLOOD ORDERABLES Final Result [facility] Department [place] [address] * XR Abdomen Ap 1 Vw (07/14/2024 10:40 AM COMMERCIAL AGENT) Anatomical Region Laterality Modality Body, Abdomen N/A Digital Radiogra phy 07/15/2024 8:38 AM COMMERCIAL AGENT Impressions 07/15/2024 9:14 AM COMMERCIAL AGENT Feeding tube tip projects over the gastric body. The lower abdomen and pelvis is excluded from the [id number]. Elevation of the right hemidiaphragm. Dictated by: Matthew Khan MD The radiology attending physician has personally reviewed this study, and had reviewed and/or edited this written report and agrees with it. Electronically signed by: Hai Baldwin M.D. Narrative 07/15/2024 9:14 AM COMMERCIAL AGENT EXAMINATION: Abdomen, one view. HISTORY: Check tube placement. COMPARISON: None Procedure Note Hai Baldwin MD - 07/15/2024 EXAMINATION: Abdomen, one view. HISTORY: Check tube placement. COMPARISON: None IMPRESSION: Feeding tube tip projects over the gastric body. The lower abdomen and pelvis is excluded from the [id number]. Elevation of the right hemidiaphragm. Dictated by: Matthew Khan MD The radiology attending physician has personally reviewed this study, and had reviewed and/or edited this written report and agrees with it. Electronically signed by: Hai Baldwin M.D. us Radha Pendleton MD IMG XR PROCEDURES Final Result * POCT glucose (07/14/2024 7:35 AM COMMERCIAL AGENT) Glucose, POC 101 70 - 199 mg/dL Blood 07/14/2024 7:35 AM COMMERCIAL AGENT 07/14/2024 7:35 AM COMMERCIAL AGENT us Radha Pendleton MD LAB POCT ORDERABLES - DEVICE Fin al Result Performing Organization Address [facility] de Phone Number [facility] Department of [employer] [place] [address] * POCT glucose (07/14/2024 3:45 AM COMMERCIAL AGENT) Glucose, POC 115 70 - 199 mg/dL Blood 07/14/2024 3:45 AM COMMERCIAL AGENT 07/14/2024 3:45 AM COMMERCIAL AGENT us Radha Pendleton MD LAB POCT ORDERABLES - DEVICE Fin al Result Performing Organization Address [facility] de Phone Number [facility] [employer] [place] [address] * MRI Brain WO Contrast (07/14/2024 1:47 AM COMMERCIAL AGENT) Anatomical Region Laterality Modality Head and Neck N/A Magnetic Resonan ce 07/14/2024 8:43 AM COMMERCIAL AGENT Impressions 07/14/2024 8:43 AM COMMERCIAL AGENT Multiple areas of diffusion restriction noted within the left M1 distribution as detailed above. Electronically signed by: Naldo Baptiste M.D. Narrative 07/14/2024 8:43 AM COMMERCIAL AGENT EXAMINATION: Magnetic resonance imaging (MRI) of the [...] above. Electronically signed by: Naldo Baptiste M.D. Radha Pendleton MD IMG MRI PROCEDURES Final Result * POCT glucose (07/13/2024 11:54 PM COMMERCIAL AGENT) Glucose, POC 124 70 - 199 mg/dL Blood 07/13/2024 11:5 4 PM COMMERCIAL AGENT 07/13/2024 11:54 PM COMMERCIAL AGENT Radha Pendleton MD LAB POCT ORDERABLES - DEVICE Fin al Result [facility] Department [place] [address] * (ABNORMAL) eGFR (07/13/2024 8:11 PM COMMERCIAL AGENT) Pathologist [facility] eGFR 58(L) >=60 mL/min/1. 73 m2 Comment: [...] last reviewed 2021. Blood 07/13/2024 8:11 PM COMMERCIAL AGENT 07/13/2024 8:28 PM COMMERCIAL AGENT us Radha Pendleton MD LAB BLOOD ORDERABLES Final Resul t Performing Organization Address City/[facility] Co de Phone Number [facility] [place] [address] * (ABNORMAL) CBC without differential (07/13/2024 8:11 PM COMMERCIAL AGENT) Pathologist [facility] WBC 7.5 3.8 - 9.9 K/cumm Hgb 11.1(L) 11.9 - 15.5 g/dL [facility] Hct 33.1(L) 35.6 - 45.5 % [facility] Plt 203 150 - 400 K/cumm [facility] MPV 10.4 9.1 - 12.3 fL [facility] RBC 3.74(L) 3.90 - 5.20 M/cumm [facility] MCV 88.5 81.3 - 96.4 fL [facility] MCH 29.7 27.1 - 33.3 pg [facility] MCHC 33.5 32.3 - 35.7 g/dL [facility] RDW CV 12.8 11.1 - 14.9 % [facility] RDW SD 41.8 35.7 - 48.1 fL [facility] NRBC abs 0.00 0.00 - 0.01 K/cumm [facility] Blood 07/13/2024 8:11 PM COMMERCIAL AGENT 07/13/2024 8:30 PM COMMERCIAL AGENT us Radha Pendleton MD LAB BLOOD ORDERABLES Final Resul t Performing Organization Address City/[facility]/ZIP Co de Phone Number [facility] [place] [address] * Phosphorus (07/13/2024 8:11 PM COMMERCIAL AGENT) Pathologist [facility] Phosphorus, pl 3.6 2.3 - 4.5 mg/dL Blood 07/13/2024 8:11 PM COMMERCIAL AGENT 07/13/2024 8:28 PM COMMERCIAL AGENT us Radha Pendleton MD LAB BLOOD ORDERABLES Final Resul t Performing Organization Address [facility] de Phone Number [facility] [place] [address] * Magnesium (07/13/2024 8:11 PM COMMERCIAL AGENT) Magnesium 1.9 1.4 - 2.5 mg/dL Blood 07/13/2024 8:11 PM COMMERCIAL AGENT 07/13/2024 8:28 PM COMMERCIAL AGENT us Radha Pendleton MD LAB BLOOD ORDERABLES Final Resul t Performing Organization Address [facility] de Phone Number [facility] [place] [address] * (ABNORMAL) Cholesterol, LDL, direct (07/13/2024 8:11 PM COMMERCIAL AGENT) LDL Cholesterol, Direct 134(H) <=129 mg/dL Comment: [...] revised on 2018. Blood 07/13/2024 8:11 PM COMMERCIAL AGENT 07/13/2024 8:31 PM COMMERCIAL AGENT us Radha Pendleton MD LAB BLOOD ORDERABLES Final Resul t Performing Organization Address [facility] de Phone Number [facility] [place] [address] * Hemoglobin A1c (07/13/2024 8:11 PM COMMERCIAL AGENT) [facility] Hgb A1C 5.5 4.0 - 5.6 % Estimated Average Glucose 111 mg/dL [facility] Comment: The ADA recommends reporting an estimated Average Glucose (eAG) with all Hemoglobin A1c results using the equation derived from a study of 507 normal and diabetic adults. Minority populations were underrepresented and children were not included. (Diabetes Care 2020; 43(S1): S66-S76). The eAG is not equivalent to a fasting glucose. Blood 07/13/2024 8:11 PM COMMERCIAL AGENT 07/13/2024 8:31 PM COMMERCIAL AGENT us Radha Pendleton MD LAB BLOOD ORDERABLES Final Resul t [facility] [place] [address] * Basic metabolic panel (07/13/2024 8:11 PM COMMERCIAL AGENT) [facility] Sodium 145 135 - 145 mmol/L Potassium, pl 3.8 3.3 - 4.9 mmol/L [facility] Chloride 110 97 - 110 mmol/L [facility] CO2 23 22 - 32 mmol/L [facility] Anion gap 12 2 - 15 mmol/L [facility] BUN 9 6 - 25 mg/dL [facility] Creatinine 1.04 0.60 - 1.10 mg/dL [facility] Glucose 124 70 - 199 mg/dL [facility] Comment: Interpretive Data Fasting glucose >/= 126 [...] 9.0 8.5 - 10.3 mg/dL [facility] Blood 07/13/2024 8:11 PM COMMERCIAL AGENT 07/13/2024 8:28 PM COMMERCIAL AGENT Radha Pendleton MD LAB BLOOD ORDERABLES Final Resul t Performing Organization Address [facility] de Phone Number [facility] [place] [address] * POCT glucose (07/13/2024 7:40 PM COMMERCIAL AGENT) Glucose, POC 128 70 - 199 mg/dL Blood 07/13/2024 7:40 PM COMMERCIAL AGENT 07/13/2024 7:40 PM COMMERCIAL AGENT Radha Pendleton MD LAB POCT ORDERABLES - DEVICE Fin al Result Performing Organization Address [facility] de Phone Number [facility] [place] [address] * POCT glucose (07/13/2024 5:04 PM COMMERCIAL AGENT) Glucose, POC 105 70 - 199 mg/dL Blood 07/13/2024 5:04 PM COMMERCIAL AGENT 07/13/2024 5:04 PM COMMERCIAL AGENT Radha Pendleton MD LAB POCT ORDERABLES - DEVICE Fin al Result Performing Organization Address [facility] de Phone Number [facility] [employer] [place] [address] * PA CRITICAL CARE ILL/INJURED PATIENT INIT 30-74 MIN (07/13/2024 2:25 PM COMMERCIAL AGENT) Narrative Carlyle Evans MD - 07/13/2024 2:25 PM COMMERCIAL AGENT Carlyle Evans MD 07/13/2024 2:26 PM Critical [...] Troponin I high-sensitivity 2-hour (07/13/2024 2:23 PM COMMERCIAL AGENT) Trop I hs 5 <=17 ng/L Comment: Interpretive Data For further hscTnI resources including the diagnostic algorithm and an aid in interpretation, copy and paste this link: https://bjhlab.testcatalog.org/show/hsTrop-1 Current Interpretive Data last revised 2019. Trop I hs delta See Comment ng/L [facility] Comment:Inappropriate collec tion time to report a delta. Trop I hs pct delta See Comment % [facility] Comment:Inappropriate collec tion time to report a delta. Trop I hs interp See Comment [facility] Comment:Inappropriate collec tion time to report a delta. Blood 07/13/2024 2:23 PM COMMERCIAL AGENT 07/13/2024 2:54 PM COMMERCIAL AGENT us Carlyle Evans MD LAB BLOOD ORDERABLES Final R esult [facility] [place] [address] * (ABNORMAL) Urinalysis reflex to microscopic and culture Urine (07/13/2024 2:23 PM COMMERCIAL AGENT) Color, ur Straw Yellow Clarity, ur Clear Clear [facility] Specific gravity, ur >1.042(H) 1.003 - 1.030 [facility] pH, urine 6.5 [facility] Comment: Interpretive Data U rine pH is affected by diet, medications, systemic acid-base disturbances, and renal tubular function. pH may affect urinary stone formation. For example, urine pH below 6.0 may help reduce the tendency for calcium phosphate stones and pH greater than 6.0 may reduce the tendency for uric acid stone formation. Source: [facility] [employer] Current Interpretive Data was last revised on 2017 Protein, ur ql 1+(A) Negative [facility] Glucose, ur ql Negative Negative [facility] Ketones, ur Negative Negative [facility] Bilirubin, ur Negative Negative [facility] Blood, ur Negative Negative [facility] Urobilinogen, ur <2.0 <2.0 mg/dL [facility] Nitrite, ur Negative Negative [facility] Leukocyte esterase, ur Negative Negative [facility] UA reflex comment Reflex to microscopic UA will be performed. [facility] Urine 07/13/2024 2:23 PM COMMERCIAL AGENT 07/13/2024 5:17 PM COMMERCIAL AGENT Radha Pendleton MD LAB MICROBIOLOGY - GENERAL ORDER GINNY Final Result [facility] [place] [address] * (ABNORMAL) Urinalysis, microscopic only (07/13/2024 2:23 PM COMMERCIAL AGENT) WBC, ur 0-5 0 - 5 /HPF RBC, ur 3-5(A) 0 - 2 /HPF [facility] Epithelial cells, squamous, ur 1-5 0 - 5 /HPF [facility] Bacteria, ur Trace(A) [facility] Mucous, ur Present(A) [facility] Culture Reflex Comment Reflex conditions for urine culture (WBC >10) not met. [facility] Urine 07/13/2024 2:23 PM COMMERCIAL AGENT 07/13/2024 5:17 PM COMMERCIAL AGENT us Radha Pendleton MD LAB URINE ORDERABLES Final Resul t Performing Organization Address [facility] de Phone Number [facility] [place] [address] * (ABNORMAL) aPTT (07/13/2024 2:23 PM COMMERCIAL AGENT) aPTT 26(L) 28 - 38 sec Comment: Interpretive Data Heparin therapeutic range: 66.0 - 100.0 seconds. Range based on correlation with therapeutic heparin activity range of 0.3 - 0.7 Units/mL. Current interpretive data was last revised on 2023. Blood 07/13/2024 2:23 PM COMMERCIAL AGENT 07/13/2024 2:51 PM COMMERCIAL AGENT us Radha Pendleton MD LAB BLOOD ORDERABLES Final Resul t Performing Organization Address [facility] de Phone Number [facility] [place] [address] * Protime-INR (07/13/2024 2:23 PM COMMERCIAL AGENT) PT 11.1 9.7 - 13.0 sec INR 1.03 0.90 - 1.20 [facility] Comment: Interpretive data Oral anticoagulant therapeutic ranges: Venous thromboembolism prophylaxis or treatment: 2.0-3.0 CARDIOLOGY Standard range: 2.0-3.0 High-intensity range: 2.5-3.5 Refer to indication-specific guidelines for appropriate target ranges for prosthetic heart valve replacement. Current interpretive data was last revised on 2019. Blood 07/13/2024 2:23 PM COMMERCIAL AGENT 07/13/2024 2:51 PM COMMERCIAL AGENT us Radha Pendleton MD LAB BLOOD ORDERABLES Final Resul t [facility] [place] [address] * POCT glucose (07/13/2024 2:03 PM COMMERCIAL AGENT) Glucose, POC 116 70 - 199 mg/dL Blood 07/13/2024 2:03 PM COMMERCIAL AGENT 07/13/2024 2:03 PM COMMERCIAL AGENT Radha Pendleton MD LAB POCT ORDERABLES - DEVICE Fin al Result Performing Organization Address [facility] Co de Phone Number [facility] [place] [address] * IR Percutaneous Arterial Thrombectomy, Intracranial (07/13/2024 1:29 PM COMMERCIAL AGENT) Anatomical Region Laterality Modality Head N/A Radio Fluoroscop y 07/14/2024 2:53 PM COMMERCIAL AGENT Impressions 07/15/2024 11:54 AM COMMERCIAL AGENT - 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 There is extensive pial collateral flow from the left ROSELYN and and left [employer]GR[employer] P[employer]ER to the left MCA territory. - 3 thrombectomy (1 aspiration, 2 stent-retriever) passes with no increased perfusion through the occluded segment. Angiography during pass 3 with the stent-retriever expanded demonstrated a severe underlying stenosis in the occluded left MCA segment. The extensive ROSELYN and AGR[employer] PACKER pial collaterals further suggests this is a [...] Rinku Dave M.D. Narrative 07/15/2024 11:54 AM COMMERCIAL AGENT ENDOVASCULAR THROMBECTOMY OF LEFT MIDDLE CEREBRAL ARTERY [...] Duke Perez MD ANESTHESIA: General anesthesia DEVICES: [employer] Fixed Core Wire Guide (3mm J tip) .035 180cm Terumo Glidewire Advantage 0.035 180cm Terumo Madras peripheral sheath 8F 10cm Imperative Zoom 88 large distal platform support catheter 8F 110cm Cook Moose Tip Torcon NB Advantage Catheter (VTK) 5F [...] wall needle with ultrasound guidance. A 8F Malian sheath was inserted over a 3mm J [...] 180cm Terumo Glidewire Advantage 0.035 180cm Terumo Madras peripheral sheath 8F 10cm Imperative Zoom 88 large distal platform support catheter 8F 110cm Cook Moose Tip Torcon NB Advantage Catheter (VTK) 5F [...] wall needle with ultrasound guidance. A 8F Malian sheath was inserted over a 3mm J [...] from the left ROSELYN and and left [employer] P[employer]ER to the left MCA territory. - 3 thrombectomy (1 aspiration, 2 stent-retriever) passes with no increased perfusion through the occluded segment. Angiography during pass 3 with the stent-retriever expanded demonstrated a severe underlying stenosis in the occluded left MCA segment. The extensive ROSELYN and [employer] pial collaterals further suggests this is a [...] Rinku Dave M.D. us Abhinav Carrasquillo MD IM IR PROCEDURES Final Result * PA AN PROCEDURE PLACEHOLDER (07/13/2024 12:39 PM COMMERCIAL AGENT) Narrative Rylie Case CRNA - 07/13/2024 12:39 PM COMMERCIAL AGENT Rylie Case CRNA 07/13/2024 12:39 PM Peripheral IV Catheter Patient location: OR Staff: Placed by: KATHY: Rylie Case CRNA Preprocedure prep: Prep solution: [...] Result * POCT glucose (07/13/2024 12:36 PM COMMERCIAL AGENT) Glucose, POC 100 70 - 199 mg/dL Blood 07/13/2024 12:3 6 PM COMMERCIAL AGENT 07/13/2024 12:36 PM COMMERCIAL AGENT us Radha Pendleton MD LAB POCT ORDERABLES - DEVICE Fin al Result [facility] [place] [address] * PA AN EMERGENT ENDOTRACHEAL AIRWAY, PA AN PROCEDURE PLACEHOLDER (07/13/2024 12:33 PM COMMERCIAL AGENT) Narrative Rylie Case CRNA - 07/13/2024 12:33 PM COMMERCIAL AGENT Rylie Case CRNA 07/13/2024 12:34 PM Airway [...] Result * POCT glucose (07/13/2024 11:48 AM COMMERCIAL AGENT) Glucose, POC 108 70 - 199 mg/dL Blood 07/13/2024 11:4 8 AM COMMERCIAL AGENT 07/13/2024 11:48 AM COMMERCIAL AGENT us Radha Pendlteon MD LAB POCT ORDERABLES - DEVICE Fin al Result [facility] Department [place] [address] * CTA/CTP Rapid Stroke (C) (07/13/2024 11:30 AM COMMERCIAL AGENT) Anatomical Region Laterality Modality Head and Neck N/A Computed Tomogra phy 07/13/2024 12:2 0 PM COMMERCIAL AGENT Impressions 07/13/2024 1:04 PM COMMERCIAL AGENT 1. Hyperdense left MCA sign on noncontrasted [...] Mac MD, PhD Narrative 07/13/2024 1:04 PM COMMERCIAL AGENT EXAMINATION: 1. Computed tomography angiography (CTA) of [...] separate workstation for processing by RAPID software ([employer] to produce automated calculations of the estimated [...] Artery: no occlusion or significant stenosis L AGRICULTURAL PRODUCE PACKER: no occlusion or significant stenosis. origin of the left AGRICULTURAL PRODUCE PACKER. R AGRICULTURAL PRODUCE PACKER: no occlusion or significant stenosis. origin of the right AGRICULTURAL PRODUCE PACKER. There is no evidence for an arteriovenous [...] separate workstation for processing by RAPID software ([employer] to produce automated calculations of the estimated [...] Artery: no occlusion or significant stenosis L AGRICULTURAL PRODUCE PACKER: no occlusion or significant stenosis. origin of the left AGRICULTURAL PRODUCE PACKER. R AGRICULTURAL PRODUCE PACKER: no occlusion or significant stenosis. origin of the right AGRICULTURAL PRODUCE PACKER. There is no evidence for an arteriovenous [...] (baseline, 2hr, 4hr, 6hr) (07/13/2024 11:06 AM COMMERCIAL AGENT) Trop I hs 5 <=17 ng/L Comment: Code Blue Specimen Interpretive Data For further hscTnI resources including the diagnostic algorithm and an aid in interpretation, copy and paste this link: [email or web address].testcatalog.org/show/[email or web address] Current Interpretive Data last revised 2019. Blood 07/13/2024 11:0 6 AM COMMERCIAL AGENT 07/13/2024 11:15 AM COMMERCIAL AGENT us Carlyle Evans MD LAB BLOOD ORDERABLES Final R esult [facility] Department [place] [address] * (ABNORMAL) eGFR (07/13/2024 11:06 AM COMMERCIAL AGENT) Pathologist [facility] eGFR 54(L) >=60 mL/min/1. 73 m2 Comment: [...] reviewed 2021. Blood 07/13/2024 11:0 6 AM COMMERCIAL AGENT 07/13/2024 11:15 AM COMMERCIAL AGENT us Carlyle Evans MD LAB BLOOD ORDERABLES Final R esult [facility] Department [place] [address] * Differential, auto (07/13/2024 11:06 AM COMMERCIAL AGENT) Pathologist [facility] Neutrophil abs 2.7 1.5 - 6.5 K/cumm Imm gran abs 0.0 0.0 - 0.1 K/cumm [facility] Lymphocyte abs 2.3 0.8 - 3.3 K/cumm [facility] Monocyte abs 0.4 0.2 - 0.8 K/cumm [facility] Eosinophil abs 0.2 0.0 - 0.5 K/cumm [facility] Basophil abs 0.0 0.0 - 0.1 K/cumm [facility] Neutrophil pct 48.5 % [facility] Comment: Interpretive Data Percent cell count reference ranges are not reported, since discordance with absolute values may lead to misinterpretation of CBC data. Current Interpretive Data was last revised on 2017. Imm gran pct 0.2 % [facility] Comment: Interpretive Data Percent cell count reference ranges are not reported, since discordance with absolute values may lead to misinterpretation of CBC data. Current Interpretive Data was last revised on 2017. Lymphocyte pct 41.5 % [facility] Comment: Interpretive Data Percent cell count reference ranges are not reported, since discordance with absolute values may lead to misinterpretation of CBC data. Current Interpretive Data was last revised on 2017. Monocyte pct 6.6 % [facility] Comment: Interpretive Data Percent cell count reference ranges are not reported, since discordance with absolute values may lead to misinterpretation of CBC data. Current Interpretive Data was last revised on 2017. Eosinophil pct 2.7 % [facility] Comment: Interpretive Data Percent cell count reference ranges are not reported, since discordance with absolute values may lead to misinterpretation of CBC data. Current Interpretive Data was last revised on 2017. Basophil pct 0.5 % [facility] Comment: Interpretive Data Percent cell count reference ranges are not reported, since discordance with absolute values may lead to misinterpretation of CBC data. Current Interpretive Data was last revised on 2017. Blood 07/13/2024 11:0 6 AM COMMERCIAL AGENT 07/13/2024 11:15 AM COMMERCIAL AGENT us Carlyle Evans MD LAB BLOOD ORDERABLES Final R esult [facility] Department [place] [address] * CBC with auto differential (07/13/2024 11:06 AM COMMERCIAL AGENT) WBC 5.5 3.8 - 9.9 K/cumm Comment:Code Blue Specimen Hgb 12.6 11.9 - 15.5 g/dL [facility] Hct 38.0 35.6 - 45.5 % [facility] Plt 231 150 - 400 K/cumm [facility] MPV 10.3 9.1 - 12.3 fL [facility] RBC 4.28 3.90 - 5.20 M/cumm [facility] MCV 88.8 81.3 - 96.4 fL [facility] MCH 29.4 27.1 - 33.3 pg [facility] MCHC 33.2 32.3 - 35.7 g/dL [facility] RDW CV 12.8 11.1 - 14.9 % [facility] RDW SD 41.5 35.7 - 48.1 fL [facility] NRBC abs 0.00 0.00 - 0.01 K/cumm [facility] Blood (Blood, Venous) 07/13/2024 11:06 AM COMMERCIAL AGENT 07/13/2024 11:15 AM COMMERCIAL AGENT Narrative [facility] - 07/13/2024 11:23 AM COMMERCIAL AGENT Potential Stroke Patient us Carlyle Evans MD LAB BLOOD ORDERABLES Edited Result - Final [facility] [place] [address] * aPTT (07/13/2024 11:06 AM COMMERCIAL AGENT) aPTT 28 28 - 38 sec Comment: COde Blue Specimen Interpretive Data Heparin therapeutic range: 66.0 - 100.0 seconds. Range based on correlation with therapeutic heparin activity range of 0.3 - 0.7 Units/mL. Current interpretive data was last revised on 2023. Blood (Blood, Venous) 07/13/2024 11:06 AM COMMERCIAL AGENT 07/13/2024 11:15 AM COMMERCIAL AGENT Narrative [facility] - 07/13/2024 11:35 AM COMMERCIAL AGENT Potential stroke patient. us Carlyle Evans MD LAB BLOOD ORDERABLES Final R esult [facility] Department [place] [address] * (ABNORMAL) Comprehensive metabolic panel (07/13/2024 11:06 AM COMMERCIAL AGENT) Sodium 145 135 - 145 mmol/L Comment:Code Blue Specimen Potassium, pl 4.1 3.3 - 4.9 mmol/L [facility] Comment:Code Blue Specimen Chloride 111(H) 97 - 110 mmol/L [facility] Comment:Code Blue Specimen CO2 25 22 - 32 mmol/L [facility] Comment:Code Blue Specimen Anion gap 9 2 - 15 mmol/L [facility] Comment:Code Blue Specimen BUN 11 6 - 25 mg/dL [facility] Comment:Code Blue Specimen Creatinine 1.10 0.60 - 1.10 mg/dL [facility] Comment:Code Blue Specimen Glucose 109 70 - 199 mg/dL [facility] Comment: Code Blue Specimen Interpretive Data Fasting [...] 9.6 8.5 - 10.3 mg/dL [facility] Comment:Code Blue Specimen Bilirubin, total 0.4 0.1 - 1.2 mg/dL [facility] Comment:Code Blue Specimen Protein, pl 7.6 6.5 - 8.5 g/dL [facility] Comment:Code Blue Specimen Albumin 4.3 3.5 - 5.0 g/dL [facility] Comment:Code Blue Specimen Alk phos 85 40 - 130 Units/L [facility] Comment:Code Blue Specimen ALT 12 7 - 45 Units/L [facility] Comment:Code Blue Specimen AST 20 10 - 45 Units/L [facility] Comment:Code Blue Specimen Blood (Blood, Venous) 07/13/2024 11:06 AM COMMERCIAL AGENT 07/13/2024 11:15 AM COMMERCIAL AGENT Narrative [facility] - 07/13/2024 11:40 AM COMMERCIAL AGENT Potential Stroke Patient us Carllye Evans MD LAB BLOOD ORDERABLES Final R esult [facility] Department [place] [address] * Lipid panel (09/03/2023 6:28 PM CDT) [...] 2018. LDL, calculated 78 <=129 mg/dL [facility] Comment: Interpretive Data Ages [...] revised on 2018. Chol/HDL ratio 3 [facility] Blood 09/03/2023 6:28 PM CDT 09/03/2023 6:39 PM CDT Stacey Whitten NP LAB BLOOD ORDERABLES eDsiree latif Result [facility] [address] [facility] [place] [address] from Last 3 Months or Most Recently Relevant to Health Maintenance Insurance [employer] [facility] [address] [place], [place] [id number] Advance Directives For more information, please contact: [phone] Documents on File Type Date Recorded Patient Pressing Machine Operator Expl anation ADVANCE DIRECTIVE 09/04/2023 1:07 PM Power of Tax Commissioner-Medical * Full Code (Latest Code Status on File) Date Activated Date Inactivated Comments 07/13/2024 1:57 PM 07/27/2024 2:27 AM * Full Code Date Activated Date Inactivated Comments 07/13/2024 1:57 PM 07/13/2024 1:57 PM * Full Code Date Activated Date Inactivated Comments 09/03/2023 6:00 PM 09/04/2023 11:10 PM Care Teams Poker In Relationship Specialty Start Date End Date Suri Beatty NP [address] [place] [address] PCP - General Family Practice 09/04/23
--- NOTE | 2024-07-30 14:54 | PC.NURSE ---
Report called to MAIRA Jacob at [facility]. All questions answered.
[2024-07-30 15:01] VITALS: BP 119/67; PULSE 85; RESP 16; O2SAT 99
--- NOTE | 2024-07-30 15:01 | PC.NURSE ---
No wound or injury to assess.
--- NOTE | 2024-07-30 17:15 | PC.NURSE ---
Pt. had bm and urinated in depend. Dirty depend ad paper pants removed. Isabel care applied with soap and water. Clean depend and clean pair of paper pants applied.
[2024-07-30 17:20] VITALS: BP 124/86; PULSE 70; RESP 16; O2SAT 97
--- NOTE | 2024-07-30 17:32 | PC.NURSE ---
Report given to [facility]. All questions answered. [facility] transport pt[facility] back to [facility].
== END 2024-07-30 17:37 ==
PROVIDERS: Emergency Provider Family Medicine
DX: S09.90XA Unspecified injury of head, initial encounter (principal); M47.812 Spondylosis without myelopathy or radiculopathy, cervical region; F17.210 Nicotine dependence, cigarettes, uncomplicated; I12.9 Hypertensive chronic kidney disease with stage 1 through stage 4 chronic kidney disease, or unspecified chronic kidney disease; N18.9 Chronic kidney disease, unspecified; W19.XXXA Unspecified fall, initial encounter
CPT/HCPCS: 70450; 72125; 99284

== ENCOUNTER 2025-04-29 09:40 | Inpatient (IN) | payer MEDICARE, MEDICAID, SELFPAY ==
[2025-04-29] VITALS (11 sets, daily range): BP systolic 77–138; BP diastolic 36–65; PULSE 91–102; RESP 16–33; TEMP 36.4–36.8; O2SAT 97–100; BMI 15.9
--- NOTE | ~2025-04-29 | US_ITS ---
EXAMINATION: US renal BI DATE: 04/30/2025 15:31 INDICATION: Acute renal insufficiency TECHNIQUE: Multiple ultrasound grayscale images of the kidneys were obtained. COMPARISON: None. FINDINGS: The right kidney measures 10.9 x 4.2 x 5.3 cm. The left kidney measures 11.0 x 5.0 x 4.8 cm. There is bilateral increased renal cortical and statistically consistent with medical renal disease. There is no hydronephrosis in either kidney. No renal stones identified. The bladder was not visualized at patient request. Instantly noted is a 1.6 cm echogenic and shadowing gallstone within the partially decompressed gallbladder. There is a second 1.7 x 1.2 x 0.9 cm intraluminal hypoechoic nodule without posterior acoustic shadowing at the gallbladder fundus which is more suspicious for a sludge ball or large polyp.. Would favor the former as there is no evident soft tissue density correlate on the prior CT imaging. IMPRESSION: 1. Bilateral diffuse increased renal cortical echogenicity consistent with medical renal disease. No hydronephrosis. 2. Cholelithiasis with additional indeterminate 1.7 x 1.2 x 0.9 cm nonshadowing echogenic nodule at the fundus which could represent a sludge ball or potentially a gallbladder polyp. Consider further evaluation with ultrasound or pre and postcontrast MRI or CT. Reviewed, dictated and finalized at location A. GRADER IMPRESSION: 1. Bilateral diffuse increased renal cortical echogenicity consistent with med ical renal disease. No hydronephrosis. 2. Cholelithiasis with additional indeterminate 1.7 x 1.2 x 0.9 cm nonshadowing echogenic nodule at the fundus which could represent a sludge ball or potentia lly a gallbladder polyp. Consider further evaluation with ultrasound or pre and postcontrast MRI or CT.
--- NOTE | ~2025-04-29 | CT_ITS ---
EXAM/PROCEDURE: CT chest abdomen pelvis wo con HISTORY: AMS COMPARISON: None available. TECHNIQUE: Noncontrast CT of the chest abdomen and pelvis performed. FINDINGS: CHEST CT: 10 mm spiculated nodule in the posterior segment right lower lobe image 40 series 4. The lungs are otherwise clear. Advanced emphysematous changes throughout the lung davis. Heart size normal with no significant pericardial effusion or bulky lymphadenopathy. No thoracic aortic aneurysm. Diffuse sigmoidal scoliotic and degenerative changes throughout the thoracolumbar spine with no acute or aggressive bony process seen. Extra thoracic soft tissues unremarkable. In the ABDOMEN AND PELVIS, exam limited by noncontrast technique and minimal mesenteric fat obscuring ventral contrast planes. Moderate amount of stool extends to the cecum. No grossly inflamed appendix or AAA. Diffuse atherosclerotic changes. Percutaneous gastrojejunostomy catheter present with no obvious complication. Moderate amount of stool extends to the cecum. Mild sigmoidal wall thickening may be present. Contrast is present in the large intestine. 1.8 cm gallstone with no obvious CT evidence of acute cholecystitis. The pancreas is poorly seen. No hydroureteronephrosis. No grossly inflamed appendix seen. No obvious masses or lymphadenopathy seen. Uterus and adnexal regions unremarkable. Indwelling catheter present with the urinary bladder nondistended and not well seen but no obvious abnormality identified. The bowel gas pattern is nonobstructive with no free air or pneumatosis. Trace amount of free fluid may be present. IMPRESSION: 1. Directed noncontrast exam demonstrating no gross acute intrathoracic process identified. 10 mm spiculated right lower lobe nodule concerning for possible malignant lesion. Correlate with short interval follow-up chest CT or PET/CT. 2. Limited evaluation of the abdomen and pelvis; no acute surgical abnormality identified. Possible wall thickening in the sigmoid region which could be associated with inflammatory/infectious colitis or stercoral colitis. Reviewed, dictated and finalized at location A. T EDUCATION MANAGER IMPRESSION: 1. Directed noncontrast exam demonstrating no gross acute intrathoracic process identified. 10 mm spiculated right lower lobe nodule concerning for possible m alignant lesion. Correlate with short interval follow-up chest CT or PET/CT. 2. Limited evaluation of the abdomen and pelvis; no acute surgical abnormality identified. Possible wall thickening in the sigmoid region which could be assoc iated with inflammatory/infectious colitis or stercoral colitis.
--- NOTE | 2025-04-29 09:50 | ED.GENADULT ---
HPI - General Adult General Chief complaint: Altered Mental Status Stated complaint: AMS History of Present Illness HPI narrative: 69-year-old female that is nonverbal at baseline due to prior CVA present to the emergency department for evaluation for change in behavior and hypotension. Patient was found to have a blood pressure of 40 systolic at her care facility. Patient was transported to the emergency department by EMS and was treated with 1 L of normal saline EN route and this did improve her blood pressure to 77 systolic. Patient did present from the care facility with a soiled diaper and is very unkempt. Related Data Home Medications ?Medication ?Instructions ?Recorded ?Confirmed ?Last Taken ?Type acetaminophen 325 mg tablet 500 mg feeding tube Q6H PRN pain 07/26/24 04/29/25 Unknown History amlodipine 10 mg tablet (Norvasc) 5 mg feeding tube DAILY 07/26/24 04/29/25 Unknown History aspirin 81 mg chewable tablet 81 mg feeding tube DAILY 07/26/24 04/29/25 Unknown History atorvastatin 80 mg tablet (Lipitor) 80 mg feeding tube HS 07/26/24 04/29/25 Unknown History bisacodyl 10 mg rectal suppository 10 mg RECTAL DAILY PRN constipation 04/29/25 04/29/25 Unknown History cholecalciferol (vitamin D3) 1 tablet feeding tube DAILY 04/29/25 04/29/25 Unknown History losartan 25 mg tablet 25 mg feeding tube DAILY 04/29/25 04/29/25 Unknown History magnesium citrate 300 ml PO ONCE PRN constipation 04/29/25 04/29/25 Unknown History magnesium hydroxide 400 mg/5 mL 30 ml PO DAILY PRN constipation 04/29/25 04/29/25 Unknown History oral suspension (Milk of Magnesia) memantine 5 mg tablet 5 mg feeding tube BID 04/29/25 04/29/25 Unknown History potassium, sodium phosphates 280 1 packet feeding tube DAILY 04/29/25 04/29/25 Unknown History mg-160 mg-250 mg oral powder packet sodium bicarbonate 650 mg tablet 650 mg feeding tube BID GERD 04/29/25 04/29/25 Unknown History sodium phosphates 19 gram-7 118 ml RECTAL DAILY PRN 04/29/25 04/29/25 Unknown History gram/118 mL enema (Fleet Enema) constipation thiamine HCl (vitamin B1) 100 mg 100 mg PO DAILY 04/29/25 04/29/25 Unknown History capsule Allergies Allergy/AdvReac Type Severity Reaction Status Date / Time No Known Allergies Allergy Verified 04/29/25 14:31 Review of Systems Review of Systems: All systems reviewed & are unremarkable except as noted in HPI and below [facility] Past Medical History Medical History Hemiparesis of right dominant side as late effect of cerebral infarction Global aphasia 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 Dysarthria as late effect of stroke Acute ischemic left middle cerebral artery (MCA) stroke Dysphagia as late effect of stroke Right homonymous hemianopsia Type 2 diabetes mellitus without complications Aneurysm, carotid artery, internal Essential (primary) hypertension HLD (hyperlipidemia) CKD (chronic kidney disease) Smoker Surgical History Surgical History PEG (percutaneous endoscopic gastrostomy) status Social History Social History Smoking packs per day: 0.5 Smoking cigarettes per day: 10.0 Smoking status: Current every day smoker Alcohol intake: unknown Substance use: unknown Do You Feel Safe in your Home?: Yes Lack of Transportation: No Lack of Food: Never True Current Housing: I Have Housing Concerned About Future Housing: Decline to Answer Difficulty Paying Gas/Electric Bills: Decline to Answer Difficulty Paying for Meds: Decline to Answer Currently Unemployed: Decline to Answer Education: Don't Know Difficulty w/ Childcare or Family Care: Decline to Answer Spiritual care concerns: No Exam Narrative: APPEARANCE: cachectic and ill-appearing HEAD: normocephalic, atraumatic. EYES: PERRLA/EOMI, conjunctivae clear. NOSE: Normal no drainage EARS:TMS clear with good light reflex. THROAT: Pharynx clear, no exudate. NECK: Supple. No adenopathy, no masses. RESPIRATORY: Airway patent, respirations nonlabored. Clear to auscultation bilaterally, no rales, rhonchi, wheezing. CARDIOVASCULAR: Regular rate and rhythm without murmurs rubs or gallops. ABDOMINAL: Soft, nontender, nondistended, normal bowel sounds MUSCULOSKELETAL: contracted lower extremities NEURO: alert but nonresponsive SKIN: Warm, dry. Normal Color Course Vital Signs Vital signs: Vital Signs Temperature 98.3 F 04/29/25 09:43 Pulse Rate 94 04/29/25 09:43 Respiratory Rate 33 H 04/29/25 09:43 Blood Pressure 77/41 L 04/29/25 09:43 Pulse Oximetry 100 04/29/25 09:43 Oxygen Delivery Room Air 04/29/25 09:43 Temperature 97.6 F 04/29/25 14:35 Pulse Rate 91 04/29/25 18:46 Respiratory Rate 20 04/29/25 16:57 Blood Pressure 112/65 04/29/25 14:35 Pulse Oximetry 99 04/29/25 16:57 Oxygen Delivery Room Air 04/29/25 16:57 Medical Decision Making MDM Narrative Medical decision making narrative: 69-year-old female presents emergency department for evaluation for low blood pressure. Patient's initial blood pressure was 77/41 but did improve with rehydration. Patient is very dry on appearance. Patient is afebrile but does have a mild leukocytosis of 10.7 and hemoglobin of 10.0. INR is 1.0. Patient's BUN is 115 and creatinine is 2.51. Patient's typical baseline creatinine is closer to 0.8. No elevation of lactic acid. Patient does have an elevated CRP of 2.3. Patient has no elevation of T bili at 0.3 and mild elevation of ALT AST. Urine was positive for nitrates leukocyte esterase greater than 100 blood cells and high bacteria. Patient was started on IV Rocephin in the emergency department. Blood cultures are pending. CT abdomen pelvis was ordered and showed no other acute abnormalities. case we discussed with the hospitalist for admission. Symptoms are most likely secondary to dehydration and urinary tract infection. No evidence of urinary obstruction. Patient's vitals did improve with rehydration. Repeat BMP is pending. Differential Diagnosis Differential Diagnosis: Obstructive uropathy, dehydration, UTI, colitis, diverticulitis Vital Signs Vital Signs: Vital Signs Temperature 98.3 F 04/29/25 09:43 Pulse Rate 94 04/29/25 09:43 Respiratory Rate 33 H 04/29/25 09:43 Blood Pressure 77/41 L 04/29/25 09:43 Pulse Oximetry 100 04/29/25 09:43 Oxygen Delivery Room Air 04/29/25 09:43 Temperature 97.6 F 04/29/25 14:35 Pulse Rate 91 04/29/25 18:46 Respiratory Rate 20 04/29/25 16:57 Blood Pressure 112/65 04/29/25 14:35 Pulse Oximetry 99 04/29/25 16:57 Oxygen Delivery Room Air 04/29/25 16:57 Lab Data Lab results reviewed: Yes I reviewed the patient's lab results. 04/29/25 10:15 04/29/25 14:53 Labs: Lab Results 04/29/25 04/29/25 04/29/25 Range/Units 10:15 11:18 14:53 WBC 10.7 H (4.5-10.0) K/mm3 RBC 3.44 L (4.2-5.4) M/mm3 Hgb 10.0 L (12.0-15.0) g/dL Hct 32.8 L (37.0-47.0) % MCV 95.3 (80-100) fl MCH 29.1 (26-34) pg MCHC 30.5 L (32-36) g/dl RDW 13.6 (11.5-14.5) % Plt Count 305 (150-375) k/mm3 MPV 13.0 H (7.4-10.4) fl Immature Gran % (Auto) 0.6 H (0-0.5) % Neut % (Auto) 79.8 H (45.5-73.1) % Lymph % (Auto) 14.4 L (18.3-44.2) % [place] % (Auto) 4.7 (2.6-8.5) % Eos % (Auto) 0.4 (0-4.4) % Baso % (Auto) 0.1 L (0.2-1.2) % Lymph # (Auto) 1.54 (0.9-3.2) K/mm3 [place] # (Auto) 0.5 (0.1-0.6) K/mm3 Eos # (Auto) 0.0 (0-0.3) K/mm3 Baso # (Auto) 0.0 (0.0-0.1) K/mm3 Abs Immat Gran (auto) 0.06 H (0.00-0.031) K/mm3 Absolute Neuts (auto) 8.5 H (1.3-6.7) K/mm3 Absolute Nucleated RBC 0.000 (0.0-0.012) K/mm3 Nucleated RBC % 0.0 (0.0-0.2) % PT 12.9 (11.1-14.7) Seconds INR 1.0 APTT < 20.0 L (22.3-36.8) Seconds Sodium 159 H 156 H (137-145) mmol/L Potassium 4.2 4.2 (3.4-5.0) mmol/L Chloride 119 H 119 H (98-107) mmol/L Carbon Dioxide 34 H 30 (22-30) mmol/L Anion Gap 6 7 (4-12) mmol/L BUN 115 H* D 113 H* (7-17) mg/dL Creatinine 2.51 H 2.17 H (0.7-1.0) mg/dL Estim Creat Clear Calc 12 14 ml/min Estimated GFR 19 L 22 L (59 - ) Glucose 127 H 118 H (65-110) mg/dL Lactic Acid 1.3 (0.7-2.0) mmol/L Calcium 7.9 L 8.1 L (8.4-10.2) mg/dL Total Bilirubin 0.3 (0.2-1.3) mg/dL AST 166 H (14-36) U/L ALT 270 H (6-35) U/L Alkaline Phosphatase 133 H (38-126) U/L C-Reactive Protein 2.3 H (<1.0) mg/dL Total Protein 6.5 (6.3-8.2) g/dL Albumin 3.0 L (3.5-5.1) g/dL Urine Color Yellow (Yellow) Urine Appearance Turbid H (Clear) Urine pH >=9.0 H (5.0-9.0) Ur Specific [place] 1.014 (1.001-1.035) Urine Protein 2+ H (Negative) mg/dL Urine Glucose (UA) Negative (Negative) mg/dL Urine Ketones Negative (Negative) mg/dL Ur Blood (Man) 1+ H (Negative) Urine Nitrate Positive H (Negative) Urine Bilirubin Negative (Negative) Urine Urobilinogen 0.2 (<2.0) mg/dL Add Ur Microanalysis Reviewed Leukocyte Esterase Rfl 3+ H (Negative) KAROLINA/UL Urine RBC 0-2 (0-2) /hpf Urine WBC >100 H (0-3) /hpf Ur Squamous Epith Cells Occasional (Few) /hpf Urine Bacteria 4+ H /hpf Urine Casts 11-20 Influenza A (RT-PCR) Negative (Negative) Influenza B (RT-PCR) Negative (Negative) RSV (RT-PCR) Negative (Negative) SARS-CoV-2 RNA (RT-PCR) Negative (Negative) Imaging Data Radiologist's impression: Impressions Chest/Abdomen/Pelvis CT 04/29/25 11:44 IMPRESSION: 1. Directed noncontrast exam demonstrating no gross acute intrathoracic process identified. 10 mm spiculated right lower lobe nodule concerning for possible malignant lesion. Correlate with short interval follow-up chest CT or PET/CT. 2. Limited evaluation of the abdomen and pelvis; no acute surgical abnormality identified. Possible wall thickening in the sigmoid region which could be associated with inflammatory/infectious colitis or stercoral colitis. Discharge Plan Discharge Clinical Impression: Acute UTI AMS (altered mental status) Qualifiers: Altered mental status type: transient alteration of awareness Qualified Code(s): R40.4 - Transient alteration of awareness Patient Disposition: Still a Patient Condition: Serious
[2025-04-29 10:23] LABS: Hematocrit 32.8 % (37.0-47.0); Hemoglobin 10.0 g/dL (12.0-15.0); Immature Granulocyte Percent A 0.6 % (0-0.5); Lymphocytes Absolute Auto 1.54 K/mm3 (0.9-3.2); Mean Corpuscular HGB Conc 30.5 g/dl (32-36); Mean Corpuscular Hemoglobin 29.1 pg (26-34); Mean Corpuscular Volume 95.3 fl (80-100); Nucleated Red Blood Cells Absolute Auto 0.000 K/mm3 (0.0-0.012); Nucleated Red Blood Cells Perc 0.0 % (0.0-0.2); Platelet Count Result 305 k/mm3 (150-375); Red Blood Count 3.44 M/mm3 (4.2-5.4); White Blood Count 10.7 K/mm3 (4.5-10.0)
[2025-04-29] MEDS: LACTATED RINGERS 1,000 ML 999 ML IV CONT ×2 (10:27→11:13)
[2025-04-29 10:38] LABS: INR 1.0; Prothrombin Time 12.9 Seconds (11.1-14.7)
[2025-04-29 10:44] LABS: Alanine Aminotransferase 270 U/L (6-35); Albumin Level 3.0 g/dL (3.5-5.1); Alkaline Phosphatase 133 U/L (38-126); Anion Gap 6 mmol/L (4-12); Aspartate Amino Transferase 166 U/L (14-36); Bilirubin,Total 0.3 mg/dL (0.2-1.3); CRP 2.3 mg/dL (<1.0); Calcium 7.9 mg/dL (8.4-10.2); Carbon Dioxide 34 mmol/L (22-30); Chloride 119 mmol/L (98-107); Estimated CRCL calculation 12 ml/min; Estimated Glomerular Filt Rate 19; Glucose 127 mg/dL (65-110); Potassium 4.2 mmol/L (3.4-5.0); Sodium 159 mmol/L (137-145); Total Protein 6.5 g/dL (6.3-8.2)
[2025-04-29 10:45] LABS: Blood Urea Nitrogen 115 mg/dL (7-17)
[2025-04-29 10:53] LABS: Partial Thromboplastin Time < 20.0 Seconds (22.3-36.8)
[2025-04-29 11:00] LABS: Influenza A QL RT-PCR Negative (Negative); Influenza B QL RT-PCR Negative (Negative); RSV RNA, RT-PCR Negative (Negative); SARS-CoV-2 RNA PCR Negative (Negative)
[2025-04-29 12:01] LABS: Add Urine Microscopic? YES; Appearance Urine Turbid (Clear); Glucose Urine UA Negative (Negative); Leukocyte Esterase Ur 3+ LEU/UL (Negative); Need Manual Microscopic Reviewed; Nitrate Urine Positive (Negative); Specific Grav Ur 1.014 (1.001-1.035)
--- NOTE | 2025-04-29 12:31 | PM.IMHP ---
H&P: HPI History of Present Illness Date/Time: 04/29/25 12:31 Chief Complaint: Unconscious Narrative: 69 y/o F with PMH of CVA (nonverbal, RUE weakness s/p mechanical thrombectomy and now has g-tube), DM, hypernatremia, HTN, HLD, and CKD presents here with unconsciousness and tachypnea. HPI obtained through EMS report, ED provider report, and chart review as the patient is nonverbal at baseline. The patient arrives from [facility] via EMS for further evaluation of unconsciousness and a rapid respiratory rate. Staff at the residential checked the patient's vitals and reported a initial blood pressure of 40/20. Upon EMS arrival, patient's blood pressure was 90/50. She was given a 500 mL bolus while in route to the hospital. She arrived 77/41. She was given an additional 2L and BP has improved to 138/36. She arrived with a soiled depends and uncapped. Per ED doc, appeared very dry upon appearance. No further history available. Patient is nonverbal at baseline due to a previous stroke for which she was seen at [facility] and underwent a thrombectomy. She then failed multiple swallow studies and had a G-tube placed. She additionally has residual right hemiparesis. Initial VS at presentation: 98.3? F, HR 94, R 33, 77/41, and 100% on RA. BP now 138/36 with fluid resuscitation. ED workup showed: WBC 10.7, hemoglobin 10.0 (10.8 on 08/10/2024), INR 1.0, sodium 159 (139 on 08/10/2024), creatinine 2.51/BUN 115/GFR 19 (0.85 and GFR >60 on 08/10/2024), glucose 127, calcium 7.9, albumin 3.0, and UA consistent with UTI. CT of the abdomen/chest/pelvis showed no acute intrathoracic process, 10 mm spiculated right lower lobe nodule concerning for possible malignant lesion, possible wall thickening in the sigmoid region which could be associated with inflammatory/infectious colitis or stercoral colitis. 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 Dysarthria as late effect of stroke Acute ischemic left middle cerebral artery (MCA) stroke Dysphagia as late effect of stroke Right homonymous hemianopsia Type 2 diabetes mellitus without complications Aneurysm, carotid artery, internal Essential (primary) hypertension HLD (hyperlipidemia) CKD (chronic kidney disease) Smoker Surgical History Surgical History PEG (percutaneous endoscopic gastrostomy) status Social History Social History Smoking packs per day: 0.5 Smoking cigarettes per day: 10.0 Smoking status: Current every day smoker Alcohol intake: unknown Substance use: unknown Do You Feel Safe in your Home?: Yes Lack of Transportation: No Lack of Food: Never True Current Housing: I Have Housing Concerned About Future Housing: Decline to Answer Difficulty Paying Gas/Electric Bills: Decline to Answer Difficulty Paying for Meds: Decline to Answer Currently Unemployed: Decline to Answer Education: Don't Know Difficulty w/ Childcare or Family Care: Decline to Answer Spiritual care concerns: No Meds Home Medications and Allergies Home Medications ?Medication ?Instructions ?Recorded ?Confirmed ?Type acetaminophen 325 mg tablet 500 mg feeding tube Q6H PRN pain 07/26/24 04/29/25 History amlodipine 10 mg tablet (Norvasc) 5 mg feeding tube DAILY 07/26/24 04/29/25 History aspirin 81 mg chewable tablet 81 mg feeding tube DAILY 07/26/24 04/29/25 History atorvastatin 80 mg tablet (Lipitor) 80 mg feeding tube HS 07/26/24 04/29/25 History bisacodyl 10 mg rectal suppository 10 mg RECTAL DAILY PRN constipation 04/29/25 04/29/25 History cholecalciferol (vitamin D3) 1 tablet feeding tube DAILY 04/29/25 04/29/25 History losartan 25 mg tablet 25 mg feeding tube DAILY 04/29/25 04/29/25 History magnesium citrate 300 ml PO ONCE PRN constipation 04/29/25 04/29/25 History magnesium hydroxide 400 mg/5 mL 30 ml PO DAILY PRN constipation 04/29/25 04/29/25 History oral suspension (Milk of Magnesia) memantine 5 mg tablet 5 mg feeding tube BID 04/29/25 04/29/25 History potassium, sodium phosphates 280 1 packet feeding tube DAILY 04/29/25 04/29/25 History mg-160 mg-250 mg oral powder packet sodium bicarbonate 650 mg tablet 650 mg feeding tube BID GERD 04/29/25 04/29/25 History sodium phosphates 19 gram-7 118 ml RECTAL DAILY PRN 04/29/25 04/29/25 History gram/118 mL enema (Fleet Enema) constipation thiamine HCl (vitamin B1) 100 mg 100 mg PO DAILY 04/29/25 04/29/25 History capsule Allergies Allergy/AdvReac Type Severity Reaction Status Date / Time No Known Allergies Allergy Verified 04/29/25 14:31 Vital Signs Vital Signs - 24 hr 04/29/25 09:43 04/29/25 09:59 04/29/25 11:13 Temperature 98.3 F Pulse Rate 94 95 96 Respiratory Rate 33 H 23 H Blood Pressure 77/41 L 138/36 L Pulse Oximetry 100 97 Oxygen Delivery Room Air Exam Const: Other: He , female, chronically ill-appearing, nontoxic appearance, no grimacing or distress noted HENMT: Face/Nose/Sinus: Normal nares present Other: Tacky mucous membranes Eyes: General: appearance normal, both eyes and all related structures Sclera: sclerae normal Pupils: Equal, round and reactive pupils present EOM: EOMs intact bilaterally Resp: Effort & Inspection: normal respiratory effort Auscultation: clear to auscultation bilaterally Cardio: Rate: regular rate Rhythm: regular rhythm Other: S1-S2 present without murmur, rub, ectopy GI: Other: Abdomen soft, nondistended, normoactive bowel sounds in all quadrants. G-tube present, initially leaking however stopcock placed. no signs of infection. Skin: General skin exam: normal color and no rashes or lesions noted Wounds: wounds noted (L hip, erythematous wound bed without drainage) Other: Poor skin turgor Neuro: Other: A&Ox0, alert, right and left leg resistant to extension and grimacing with range of motion. Extrem: General: normal to inspection Psych: Other: Flat affect. H&P: Results Labs Labs: Short CBC 04/29/25 Range/Units 10:15 WBC 10.7 H (4.5-10.0) K/mm3 Hgb 10.0 L (12.0-15.0) g/dL Hct 32.8 L (37.0-47.0) % Plt Count 305 (150-375) k/mm3 BMP 04/29/25 10:15 Sodium 159 H Potassium 4.2 Chloride 119 H Carbon Dioxide 34 H BUN 115 H* D Creatinine 2.51 H Glucose 127 H Calcium 7.9 L Liver Function 04/29/25 Range/Units 10:15 Total Bilirubin 0.3 (0.2-1.3) mg/dL AST 166 H (14-36) U/L ALT 270 H (6-35) U/L Alkaline Phosphatase 133 H (38-126) U/L Albumin 3.0 L (3.5-5.1) g/dL Urine 04/29/25 Range/Units 11:18 Urine Color Yellow (Yellow) Urine Appearance Turbid H (Clear) Urine pH >=9.0 H (5.0-9.0) Ur Specific [place] 1.014 (1.001-1.035) Urine Protein 2+ H (Negative) mg/dL Urine Glucose (UA) Negative (Negative) mg/dL Assessment and Plan Assessment and plan (1) AMS (altered mental status): Qualifiers: Altered mental status type: transient alteration of awareness Qualified Code(s): R40.4 - Transient alteration of awareness Code(s): R41.82 - Altered mental status, unspecified Status: Acute Assessment and Plan: Per residential report, patient initially unconscious and tachypneic. Initial BP at NH 40/20, responded to 500 mL bolus -> 77/41. Given additional 2L bolus -> 136/36. Patient now alert but nonresponsive. Workup significant for hypernatremia at 159 and in AMRITA superimposed on CKD coupled with a UTI. Possible colitis on CT. Altered mental status secondary to acute hypotension superimposed on UTI. Broad-spectrum antibiotics started for UTI. Patient now back to baseline. Has history of CVA with global aphasia, right hemiparesis, dysphagia, and apraxia. - broad-spectrum antibiotics for UTI - fluid resuscitated in the emergency department, continue maintenance fluids. Poor skin turgor and mucous membranes remain tachy despite fluids in the ED. - monitor hypernatremia, likely concentrated due to acute dehydration - monitor mental status (2) SIRS (systemic inflammatory response syndrome): Code(s): R65.10 - Systemic inflammatory response syndrome (SIRS) of non-infectious origin without acute organ dysfunction Status: Acute Assessment and Plan: Septic shock/SIRS versus acute dehydration. In favor of acute dehydration as the patient was significantly fluid responsive and patient's WBC only 10.7. Lactic 1.3. Blood cultures however were obtained on 04/29 in the emergency department, follow. Patient does have suspected source, UTI for which a urine culture is pending. Sepsis bolus 1.26 L, given 2L in the ED and now hemodynamically stable. Patient does remain slightly tachypneic RR 20-25. - initial lactic within normal limits, will forego procalcitonin at this time - blood cultures obtained on 04/29, follow - suspicion for UTI, started on broad-spectrum antibiotics and urine culture obtained, follow - continue IV fluids, given sepsis bolus in ED with stabilization of vitals - monitor hemodynamic stability, telemetry monitoring (3) Acute kidney injury superimposed on CKD: Code(s): N17.9 - Acute kidney failure, unspecified; N18.9 - Chronic kidney disease, unspecified Status: Acute Assessment and Plan: See synopsis above. Patient likely acutely dehydrated, dry on exam in the ED with a sodium of 159 and a significant AMRITA superimposed on CKD. Responsive to initial 500 mL bolus, has received 2L and is now normotensive. Will continue maintenance fluids. Will hold off on further workup at this time given AMRITA is likely prerenal and clinical impression is consistent with acute dehydration. If renal function not improving or she develops significant electrolyte derangements, consider Nephrology consultation and further workup. - IV fluids: 500 mL per EMS, 2L bolus in ED -> LR 150 mL/hr - monitor renal function - monitor electrolytes, correct as needed - monitor I&Os (4) Acute UTI: Code(s): N39.0 - Urinary tract infection, site not specified Status: Acute Assessment and Plan: - UA: Turbid, pH greater than 9, 2+ protein, 1+ blood, positive nitrates, 3+ leuk esterase, greater than 100 WBC, occasional epithelial cells, 4+ bacteria - UC pending, obtained on 04/29 - no previous micro available for review - started on Ceftriaxone on 04/29, continue inpatient - replace [place] (5) Hypernatremia: Code(s): E87.0 - Hyperosmolality and hypernatremia Status: Acute Assessment and Plan: Na initially 159. Reviewed previous lab work, no previously documented hypernatremia. However has hypernatremia documented in history. Suspect sodium is concentrated secondary to acute dehydration. Patient fluid resuscitate in the ED, continue maintenance fluids. - monitor sodium - IV fluids (6) Pressure ulcer of left hip: Qualifiers: Pressure injury stage: unspecified pressure injury stage Qualified Code(s): L89.229 - Pressure ulcer of left hip, unspecified stage Code(s): L89.229 - Pressure ulcer of left hip, unspecified stage Status: Acute Assessment and Plan: Small pressure wound to left hip. No signs of infection. Wound consulted. (7) Type 2 diabetes mellitus without complications: Code(s): E11.9 - Type 2 diabetes mellitus without complications Status: Chronic Assessment and Plan: - hypoglycemia protocol - POC blood glucose Q6H - no longer on anti diabetic medications, on tube feeds -> Jevity 1.550 mL/hour continuous with 200 mL flushes Q8H - correct regimen ordered - low dose Q6H - A1C 6.0% on 07/27/2024 (8) Essential (primary) hypertension: Code(s): I10 - Essential (primary) hypertension Status: Chronic Assessment and Plan: - chronic. Significantly hypotensive upon initial evaluation in the ED on 04/29. Will hold antihypertensives until stable/normotensive for 24 hours. Resume when appropriate. Home medications include amlodipine and losartan. - monitor Plan BMP repeated this evening. Mild improvement in hypernatremia 159 -> 156 and renal function 2.51 -> 2.17, BUN 115 -> 113, and GFR 19 -> 22. IV fluids increased from 125 to 150 mL/hr. Diet: Tube feedings, Jevity 1.5 GI Prophylaxis: n/a DVT Prophylaxis: Lovenox IV fluids: 2.5L -> 150 mL/hr Lines/Tubes: For for IV, G-tube Code Status: Full code Quality VTE Prophylaxis VTE prophylaxis: pharmacologic ordered Hospitalist [facility] Advance Care Plan I have confirmed that the patient's Advanced Care Plan is present, code status is documented, or surrogate decision maker is listed in patient medical record.: Yes Medication Reconciliation I have utilized all available resources to obtain, update and review the patients current medications (includes all prescriptions, OTC, herbals, cannabis, and nutritional supplements).: Yes
[2025-04-29] MEDS: cefTRIAXone 1 GM in SODIUM CHLORIDE 0.9% IV 50 ML 100 ML IVPB (12:40)
[2025-04-29] MEDS: ENOXAPARIN 30 MG/0.3 ML SYRINGE SUB-Q (13:19)
--- NOTE | 2025-04-29 13:25 | WPCEDHO ---
ED Hand Off Checklist All vitals saved:yes IV Site documented:yes All med administrations documented:yes Triage Note Triage Note pt to ED by ems from [facility]. 04/29/25 09:43 staff reports they found pt in room unconscious w/ rapid RR. staff states bp was 40/20. ems states her bp was 90/50 for them. administered 500mL bolus of fluids. pt is nonverbal at baseline. hx of cva. pt responds to verbal stimuli. Allergies No Known Allergies Allergy (Verified 07/27/24 01:59) Administered/Completed Medications Discontinued Medications Enoxaparin Sodium (Enoxaparin 30 Mg/0.3 Ml Syringe) 30 mg SUB-Q ONCE STA Stop: 04/29/25 13:01 Last Admin: 04/29/25 13:19 Dose: 30 mg Documented By: CARLA Lactated Ringer's (Lr - Lactated Ringers Iv) 1,000 mls @ 999 mls/hr IV CONT .Q1H1M STA Stop: 04/29/25 10:46 Last Infusion: 04/29/25 12:38 Dose: Infused Documented By: [facility] Admin: 04/29/25 10:27 Dose: 999 mls/hr Documented By: SAURABH Lactated Ringer's (Lr - Lactated Ringers Iv) 1,000 mls @ 999 mls/hr IV CONT .Q1H1M STA Stop: 04/29/25 12:02 Last Infusion: 04/29/25 12:38 Dose: Infused Documented By: [facility] Admin: 04/29/25 11:13 Dose: 999 mls/hr Documented By: CARLA Ceftriaxone Sodium 1 gm/ (Sodium Chloride) 50 mls @ 100 mls/hr IVPB ONCE STA Stop: 04/29/25 12:47 Last Infusion: 04/29/25 13:15 Dose: Infused Documented By: [facility] Admin: 04/29/25 12:40 Dose: 100 mls/hr Documented By: [facility] Lactated Ringer's (Lr - Lactated Ringers Iv) 1,000 mls @ 125 mls/hr IV CONT .Q8H [facility] Last Admin: 04/29/25 12:39 Dose: Not Given Documented By: [facility] Non-Admin Reason: No Dose Required Interventions/Assessments Cardiac Monitoring Start: 04/29/25 09:39 Freq: Status: Active Protocol: Document 04/29/25 09:59 [facility] (Rec: 04/29/25 10:00 [facility] [id number]) Electrical And Radio Mechanic Assessment Electrical And Radio Mechanic Yes Applied Pulse Rate (60-100 95 beats/min) EKG Rythm Sinus Rhythm IV / Saline Lock, Insert Start: 04/29/25 09:39 Freq: Status: Active Protocol: Document 04/29/25 11:12 [facility] (Rec: 04/29/25 11:12 [facility] [id number]) IV Assessment Peripheral Access Left Forearm IV Insertion Date 04/29/25 IV Insertion Time 11:12 Catheter Gauge 20 Ultrasound Used for Yes Placement IV Site Assessment WNL IV Care and WNL Maintenance PA: Cardiovascular Assessment Start: 04/29/25 09:39 Freq: Status: Active Protocol: Document 04/29/25 10:00 [facility] (Rec: 04/29/25 10:04 [facility] [id number]) Cardiovascular Assessment Cardiovascular None Symptoms Skin Description Normal Color Heart Sounds Normal Jugular Vein None Distention Rhythm/Strength Apical Rhythm Regular Pulse Strength 3+ Normal EKG Rythm Sinus Rhythm Capillary Refill Bilateral Upper Extremity Capillary Refill Normal/Less than 2 Seconds PA: Neurological Assessment Start: 04/29/25 09:39 Freq: Status: Active Protocol: Document 04/29/25 10:00 [facility] (Rec: 04/29/25 10:04 [facility] [id number]) Neurological Assessment Level of Drowsy Consciousness Arousable to Verbal Orientation Unable to Assess Neurological Unresponsiveness Symptoms Hallucination Type None Patient Unable to Comprehend Comprehension Ability to Maintain Impaired Balance Speech Pattern Non-Verbal [place] Coma Scale Eyes To Voice Verbal Moans, Unintelligible Motor Localizes Pain [place] Coma Total 10 Score PA: Respiratory Assessment Start: 04/29/25 09:39 Freq: Status: Active Protocol: Document 04/29/25 10:00 [facility] (Rec: 04/29/25 10:04 [facility] [id number]) Respiratory Assessment Pattern Tachypnea Depth Shallow Chest Expansion Symmetrical Adult Capillary Normal/Less than 2 Seconds Refill Bilateral Upper Lobe(s) Phase Inspiratory & Expiratory Lung Sounds Clear Last Vital Signs Temperature 98.3 F 04/29/25 09:43 Pulse Rate 95 04/29/25 13:13 Respiratory Rate 17 04/29/25 13:13 Pulse Oximetry 100 04/29/25 13:13 Blood Pressure 108/62 04/29/25 13:13 Blood Pressure Mean 77 04/29/25 13:13 Oxygen Delivery Room Air 04/29/25 09:43 Weight 42 kg 04/29/25 09:43 Last Result - Abnormals Only WBC 10.7 K/mm3 (4.5-10.0) H 04/29/25 10:15 RBC 3.44 M/mm3 (4.2-5.4) L 04/29/25 10:15 Hgb 10.0 g/dL (12.0-15.0) L 04/29/25 10:15 Hct 32.8 % (37.0-47.0) L 04/29/25 10:15 MCHC 30.5 g/dl (32-36) L 04/29/25 10:15 MPV 13.0 fl (7.4-10.4) H 04/29/25 10:15 Immature Gran % (Auto) 0.6 % (0-0.5) H 04/29/25 10:15 Neut % (Auto) 79.8 % (45.5-73.1) H 04/29/25 10:15 Lymph % (Auto) 14.4 % (18.3-44.2) L 04/29/25 10:15 Baso % (Auto) 0.1 % (0.2-1.2) L 04/29/25 10:15 Abs Immat Gran (auto) 0.06 K/mm3 (0.00-0.031) H 04/29/25 10:15 Absolute Neuts (auto) 8.5 K/mm3 (1.3-6.7) H 04/29/25 10:15 APTT < 20.0 Seconds (22.3-36.8) L 04/29/25 10:15 Sodium 159 mmol/L (137-145) H 04/29/25 10:15 Chloride 119 mmol/L (98-107) H 04/29/25 10:15 Carbon Dioxide 34 mmol/L (22-30) H 04/29/25 10:15 BUN 115 mg/dL (7-17) H* D 04/29/25 10:15 Creatinine 2.51 mg/dL (0.7-1.0) H 04/29/25 10:15 Estimated GFR 19 (59-) L 04/29/25 10:15 Glucose 127 mg/dL (65-110) H 04/29/25 10:15 Calcium 7.9 mg/dL (8.4-10.2) L 04/29/25 10:15 AST 166 U/L (14-36) H 04/29/25 10:15 ALT 270 U/L (6-35) H 04/29/25 10:15 Alkaline Phosphatase 133 U/L (38-126) H 04/29/25 10:15 C-Reactive Protein 2.3 mg/dL (<1.0) H 04/29/25 10:15 Albumin 3.0 g/dL (3.5-5.1) L 04/29/25 10:15 Urine Appearance Turbid (Clear) H 04/29/25 11:18 Urine pH >=9.0 (5.0-9.0) H 04/29/25 11:18 Urine Protein 2+ mg/dL (Negative) H 04/29/25 11:18 Ur Blood (Man) 1+ (Negative) H 04/29/25 11:18 Urine Nitrate Positive (Negative) H 04/29/25 11:18 Leukocyte Esterase Rfl 3+ KAROLINA/UL (Negative) H 04/29/25 11:18 Urine WBC >100 /hpf (0-3) H 04/29/25 11:18 Urine Bacteria 4+ /hpf H 04/29/25 11:18
--- NOTE | 2025-04-29 13:50 | ADMGEN ---
This patient, Dorene Silva, was admitted to 2 Medical Room 240-. Patient/family oriented to hospital policies and general routines including ID bracelet, bed and alarms, visiting hours, pain management, procedures, bathroom and other care routines, personal items, smoking policy, room service/diet, and visiting hours. Information on how to activate the Rapid Response Team has been discussed. Patient/Family are encouraged to report perceived risks to care and to ask questions if they do not understand what they are told or what they should do.
--- NOTE | 2025-04-29 14:06 | WNDPHOTO ---
PHOTO ONLY - See Nursing Notes and/ or assessments for documentation.
[2025-04-29 15:17] LABS: Anion Gap 7 mmol/L (4-12); Blood Urea Nitrogen 113 mg/dL (7-17); Calcium 8.1 mg/dL (8.4-10.2); Carbon Dioxide 30 mmol/L (22-30); Chloride 119 mmol/L (98-107); Estimated CRCL calculation 14 ml/min; Estimated Glomerular Filt Rate 22; Glucose 118 mg/dL (65-110); Potassium 4.2 mmol/L (3.4-5.0); Sodium 156 mmol/L (137-145)
[2025-04-29] MEDS: SODIUM BICARBONATE TAB 650 MG TABLET FEED TUBE (17:00)
[2025-04-29] MEDS: MEMANTINE 5 MG TABLET FEED TUBE (17:00)
[2025-04-29] MEDS: LACTATED RINGERS 1,000 ML 150 ML IV CONT (17:01)
[2025-04-29] MEDS: ATORVASTATIN 40 MG TABLET 80 MG FEED TUBE (21:48)
[2025-04-30] VITALS (10 sets, daily range): BP systolic 95–132; BP diastolic 47–71; PULSE 94–103; RESP 18–28; TEMP 36.6–36.9; O2SAT 100; BMI 18.7
[2025-04-30] MEDS: ALBUMIN HUMAN 25% 25 GM/100 ML 100 ML IVPB (00:13)
--- NOTE | 2025-04-30 00:26 | PC.NURSE ---
(04/29)Aaliyah INSTITUTION LIBRARIAN notified pt blood pressure 91/46 MAP 63, ordered to continue LR@150ml/hr and order timed sodium draw. (04-30) Tiffany INSTITUTION LIBRARIAN notified pt blood pressure decreased again down to 85/40 w/ manual check, respirations also increased 25-30/min, respirations have had non-sustained increases up to 30/min since 1899, tachypnea more consistent now. One time albumin ordered as pt has elevated sodium so IVF must be administered with caution.
[2025-04-30 00:47] LABS: Sodium 156 mmol/L (137-145)
[2025-04-30] MEDS: LACTATED RINGERS 1,000 ML 150 ML IV CONT (02:05)
[2025-04-30 05:29] LABS: Hematocrit 26.1 % (37.0-47.0); Hemoglobin 8.0 g/dL (12.0-15.0); Immature Granulocyte Percent A 0.6 % (0-0.5); Immature Platelet Fraction Pct 5.0 % (0.9-11.2); Lymphocytes Absolute Auto 2.04 K/mm3 (0.9-3.2); Mean Corpuscular HGB Conc 30.7 g/dl (32-36); Mean Corpuscular Hemoglobin 29.3 pg (26-34); Mean Corpuscular Volume 95.6 fl (80-100); Nucleated Red Blood Cells Absolute Auto 0.000 K/mm3 (0.0-0.012); Nucleated Red Blood Cells Perc 0.0 % (0.0-0.2); Platelet Count Result 208 k/mm3 (150-375); Red Blood Count 2.73 M/mm3 (4.2-5.4); White Blood Count 10.1 K/mm3 (4.5-10.0)
[2025-04-30 05:41] LABS: Alanine Aminotransferase 156 U/L (6-35); Albumin Level 2.9 g/dL (3.5-5.1); Alkaline Phosphatase 98 U/L (38-126); Anion Gap 7 mmol/L (4-12); Aspartate Amino Transferase 69 U/L (14-36); Bilirubin,Total 0.4 mg/dL (0.2-1.3); Blood Urea Nitrogen 96 mg/dL (7-17); Calcium 8.0 mg/dL (8.4-10.2); Carbon Dioxide 30 mmol/L (22-30); Chloride 120 mmol/L (98-107); Estimated CRCL calculation 15 ml/min; Estimated Glomerular Filt Rate 24; Glucose 140 mg/dL (65-110); Potassium 3.6 mmol/L (3.4-5.0); Sodium 157 mmol/L (137-145); Total Protein 5.7 g/dL (6.3-8.2)
[2025-04-30 08:13] LABS: Iron 37 ug/dL (37-170); Magnesium 3.3 mg/dL (1.6-2.3)
[2025-04-30 08:30] LABS: Percent Iron Saturation 20 % (20-50)
[2025-04-30 08:42] LABS: Creatine Kinase 390 U/L (30-135)
[2025-04-30 09:00] LABS: Vitamin B12 805.0 pg/mL (239-931)
[2025-04-30 09:24] LABS: Ferritin 202.00 ng/mL (11.1-264)
[2025-04-30] MEDS: CHOLECALCIFEROL (VITAMIN D3) 10 MCG (400 UNITS) TABLET FEED TUBE (09:53)
[2025-04-30] MEDS: THIAMINE HCL 100 MG TABLET FEED TUBE (09:53)
[2025-04-30] MEDS: POTASSIUM/PHOSPHORUS/SODIUM 1.5 GM PACKET 1 PACKET FEED TUBE (09:53)
[2025-04-30] MEDS: ASPIRIN 81 MG CHEWABLE TABLET FEED TUBE (09:53)
[2025-04-30] MEDS: cefTRIAXone 1 GM in SODIUM CHLORIDE 0.9% IV 50 ML 100 ML IVPB (09:53)
[2025-04-30] MEDS: MEMANTINE 5 MG TABLET FEED TUBE ×2 (09:53→17:58)
[2025-04-30] MEDS: SODIUM CHLORIDE 0.45% 1,000 ML 100 ML IV CONT ×2 (09:57→20:00)
[2025-04-30 11:34] LABS: Total Protein Urine Random 49 mg/dL; Ur Ttl Prot Creatinine Ratio 1.42 mg/mg (0-0.20)
[2025-04-30 11:35] LABS: Urea Random Urine 802 MG/DL
--- NOTE | 2025-04-30 11:45 | P.PNIM_ITS ---
Progress Note: A&P Assessment and Plan (1) Acute kidney injury superimposed on CKD: Code(s): N17.9 - Acute kidney failure, unspecified; N18.9 - Chronic kidney disease, unspecified Status: Acute Assessment and Plan: Nephrology consulted, IV fluids given on admit and patient changed from LR to 0.45% NaCl at 100 mL/hr plus tube feeds/flushes with free water (2) Hypernatremia: Code(s): E87.0 - Hyperosmolality and hypernatremia Status: Acute Assessment and Plan: Nephrology consulted, IV fluids given on admit and patient changed from LR to 0.45% NaCl at 100 mL/hr plus tube feeds/flushes with free water (3) Acute UTI: Code(s): N39.0 - Urinary tract infection, site not specified Status: Acute Assessment and Plan: Suspected UTI with positive nitrates, WBCs, leukocyte esterase and 4+ bacteria. Catheter in place (4) Severe protein-calorie malnutrition: Code(s): E43 - Unspecified severe protein-calorie malnutrition Status: Acute Assessment and Plan: Weight loss of nearly 80 lb in 7 months Dietitian recommendation Jevity 1.5 75 mL/hr with free water flushes (currently 75 mL Q4 while on IV fluids but recommend 200 mL Q4.) G-J tube leaking since admission and unknown time prior to hospitalization. Gastroenterology consulted for tube change if possible (5) Pressure ulcer of left hip: Qualifiers: Pressure injury stage: unspecified pressure injury stage Qualified Code(s): L89.229 - Pressure ulcer of left hip, unspecified stage Code(s): L89.229 - Pressure ulcer of left hip, unspecified stage Status: Acute Assessment and Plan: Recommend pressure off loading and wound care consult (6) Diabetes mellitus with hyperglycemia: Code(s): E11.65 - Type 2 diabetes mellitus with hyperglycemia Status: Acute Assessment and Plan: Q.6 hour fingerstick glucose and low-dose sliding scale insulin correction Previous A1c 6.0 in July of 2024 (7) Essential (primary) hypertension: Code(s): I10 - Essential (primary) hypertension Status: Chronic Assessment and Plan: Blood pressures have been low since admission without current antihypertensive medications (8) HLD (hyperlipidemia): Qualifiers: Hyperlipidemia type: unspecified Qualified Code(s): E78.5 - Hyperlipidemia, unspecified Code(s): E78.5 - Hyperlipidemia, unspecified Status: Chronic Assessment and Plan: Hold statin due to AMRITA with elevated CK levels and mildly elevated liver enzymes Consider restarting at lower dose once electrolyte/renal improvements Time Spent With Patient Time with patient: Greater than 35 minutes Subjective Date/time seen: 04/30/25 11:45 Interval history: 69-year-old female patient admitted for hypernatremia AMRITA anemia and severe weight loss. She is nonverbal and no family present at time of evaluation. Patient resides in a nursing facility [facility] after a prior stroke. She has lost nearly 80 lbs in 7 months. Patient unable to answer any questions or even shake head yes and no. She has a G-J tube in place that is broken and leaking all over the bed, unknown how long this has been happening but at least since admission to the floor yesterday. Dietary consulted and recommendations made due to severe protein calorie malnutrition. Nephrology consulted due to AMRITA and severe hyperglycemia. Once sodium is corrected commercial front load operator recommending 200 mL Free water flush Q4H and Jevity 1.5 at 75 mL/hr. Consulted GI for tube replacement if possible. Patient being treated for presumed UTI with Rocephin 1 g daily. No prior cultures on file. Nephrology ordered urine labs and IV fluids half-normal saline at 100 mL/hour. Sodium bicarb discontinued due to severe hypernatremia. Patient received magnesium citrate on admission for constipation, magnesium level elevated this morning but no intervention recommended for a level of 3.3. Will recheck tomorrow. Review of Systems Review of Systems: ROS unobtainable: Yes unobtainable due to medical condition and unobtainable due to mental status Exam Narrative: GENERAL: Appears older than stated age, contracted, nonverbal HEAD: Normocephalic, atraumatic. ENT:? Mucous membranes dry. CHEST: Clear to auscultation.? No respiratory distress. HEART: Regular rate and rhythm. ? Normal peripheral pulses. ABDOMEN: Soft, nontender, loss subcutaneous tissue, gastric tube leaking EXTREMITIES: No peripheral edema. Contracted SKIN: Warm dry pale appearing NEURO: Does not follow commands or track reliably Objective Data Vital Signs Vital Signs: Vital Signs - 24 hr 04/29/25 13:13 04/29/25 14:35 04/29/25 14:36 Temperature 36.4 C Pulse Rate 95 95 95 Respiratory Rate 17 16 16 Blood Pressure 108/62 112/65 Pulse Oximetry 100 100 100 Oxygen Delivery Room Air 04/29/25 16:57 04/29/25 18:46 04/29/25 19:39 Temperature 36.7 C Pulse Rate 95 91 95 Respiratory Rate 20 16 Blood Pressure 91/49 L Pulse Oximetry 99 100 Oxygen Delivery Room Air 04/29/25 20:00 04/29/25 23:46 04/30/25 00:00 Temperature 36.7 C Pulse Rate 94 102 H 103 H Respiratory Rate 26 H Blood Pressure 85/44 L Pulse Oximetry 100 Oxygen Delivery 04/30/25 02:05 04/30/25 03:45 04/30/25 04:00 Temperature 36.9 C Pulse Rate 99 101 H Respiratory Rate 28 H Blood Pressure 95/50 L 96/47 L Pulse Oximetry 100 Oxygen Delivery 04/30/25 08:00 Temperature 36.8 C Pulse Rate 98 Respiratory Rate 27 H Blood Pressure 95/49 L Pulse Oximetry 100 Oxygen Delivery Intake/Output Intake/Output: Intake & Output 04/27/25 04/28/25 04/29/25 04/30/25 23:59 23:59 23:59 23:59 Intake Total 3182.5 1030.5 Output Total 400 700 Balance 2782.5 330.5 Meds/Results Medications: Active Medications Generic Name Dose Route Start Last Admin Trade Name Freq PRN Reason Stop Dose Admin Acetaminophen 650 mg 04/29/25 12:53 Acetaminophen Elixir 325 Mg/10.15 Ml Udc FEED TUBE Q6H PRN Mild Pain (1-3) or Fever Acetaminophen 500 mg 04/29/25 15:56 Acetaminophen 500 Mg Tablet FEED TUBE Q6H PRN Pain 1-3 Aspirin 81 mg 04/30/25 09:00 04/30/25 09:53 Aspirin 81 Mg Chewable Tablet FEED TUBE 81 mg DAILY FIONA Administration Atorvastatin Calcium 80 mg 04/29/25 21:00 04/29/25 21:48 Atorvastatin 40 Mg Tablet FEED TUBE 80 mg On Hold: 04/30/25 08:47 HS FIONA Administration Bisacodyl 10 mg 04/29/25 15:56 Bisacodyl 10 Mg Suppository RECTAL DAILY PRN Constipation Dextrose 12.5 gm 04/29/25 12:53 Dextrose 50% 25 Gm/50 Ml Syringe IV PUSH PRN PRN Hypoglycemia Protocol Glucagon 1 mg 04/29/25 12:53 Glucagon For Inj 1 Mg Vial IM PRN PRN Hypoglycemia Protocol Glucose 15 gm 04/29/25 12:53 Glucose Oral Gel 15 Gm Of Glucse In 37.5 Gm Tube PO PRN PRN Hypoglycemia Protocol Ceftriaxone Sodium 1 gm/ 50 mls @ 100 mls/hr 04/30/25 09:00 04/30/25 09:53 Sodium Chloride IVPB 100 mls/hr Q24H FIONA Administration Dextrose 1,000 mls @ 100 mls/hr 04/29/25 12:53 Dextrose 5% 1,000 Ml IVPB PRN PRN Hypoglycemia Protocol Sodium Chloride 1,000 mls @ 100 mls/hr 04/30/25 09:00 04/30/25 09:57 Sodium Chloride 0.45% IV CONT 100 mls/hr .Q10H FIONA Administration Insulin Aspart 2 - 5 units 04/29/25 18:00 04/30/25 04:52 Insulin Aspart (*Bkc) 100 Units/Ml SUB-Q Not Given Q6HR FOINA Protocol Magnesium Citrate 300 ml 04/29/25 15:56 Magnesium Citrate 300 Ml Btl PO ONCE PRN Constipation Magnesium Hydroxide 30 ml 04/29/25 15:56 Magnesium Hydroxide Susp 30 Ml Udc PO DAILY PRN Constipation Memantine 5 mg 04/29/25 17:00 04/30/25 09:53 Memantine 5 Mg Tablet FEED TUBE 5 mg BID FIONA Administration Miscellaneous Information 1 each 04/29/25 16:03 Central Supply Item Sodium Phosphates [Fleet Enema] 19-7 Gram/118 Ml Enema) XX 04/30/25 16:02 PRN PRN Informational Ondansetron HCl 4 mg 04/29/25 13:00 Ondansetron Inj 4 Mg/2 Ml Vial IV PUSH Q6H PRN Nausea And Vomiting Potassium Phos/Sodium Phos 1 packet 04/30/25 09:00 04/30/25 09:53 Potassium/Phosphorus/Sodium 1.5 Gm Packet FEED TUBE 1 packet DAILY FIONA Administration Sodium Bicarbonate 650 mg 04/29/25 17:00 04/29/25 17:00 Sodium Bicarbonate Tab 650 Mg Tablet FEED TUBE 650 mg On Hold: 04/30/25 07:31 BID FIONA Administration Thiamine HCl 100 mg 04/30/25 09:00 11/19/25 09:53 Thiamine Hcl 100 Mg Tablet FEED TUBE 100 mg QAM FIONA Administration Vitamin D 10 mcg 04/30/25 09:00 04/30/25 09:53 Cholecalciferol (Vitamin D3) 10 Mcg (400 Units) Tablet FEED TUBE 10 mcg DAILY FIONA Administration Radiology Results: ITS Impressions Chest/Abdomen/Pelvis CT 04/29/25 11:44 IMPRESSION: 1. Directed noncontrast exam demonstrating no gross acute intrathoracic process identified. 10 mm spiculated right lower lobe nodule concerning for possible malignant lesion. Correlate with short interval follow-up chest CT or PET/CT. 2. Limited evaluation of the abdomen and pelvis; no acute surgical abnormality identified. Possible wall thickening in the sigmoid region which could be associated with inflammatory/infectious colitis or stercoral colitis. Labs Labs: Laboratory Results - last 24 hr 04/29/25 04/29/25 04/29/25 11:18 14:53 17:06 WBC RBC Hgb Hct MCV MCH MCHC RDW Plt Count MPV Immature Gran % (Auto) Neut % (Auto) Lymph % (Auto) Leake % (Auto) Eos % (Auto) Baso % (Auto) Lymph # (Auto) Leake # (Auto) Eos # (Auto) Baso # (Auto) Abs Immat Gran (auto) Absolute Neuts (auto) Absolute Nucleated RBC Nucleated RBC % % Immature Plt Fraction Sodium 156 H Potassium 4.2 Chloride 119 H Carbon Dioxide 30 Anion Gap 7 BUN 113 H* Creatinine 2.17 H Estim Creat Clear Calc 14 Estimated GFR 22 L Glucose 118 H POC Capillary Glucose 108 H Calcium 8.1 L Magnesium Iron TIBC % Saturation Ferritin Total Bilirubin AST ALT Alkaline Phosphatase Total Creatine Kinase Total Protein Albumin Vitamin B12 Folate Urine Color Yellow Urine Appearance Turbid H Urine pH >=9.0 H Ur Specific Dixon 1.014 Urine Protein 2+ H Urine Glucose (UA) Negative Urine Ketones Negative Ur Blood (Man) 1+ H Urine Nitrate Positive H Urine Bilirubin Negative Urine Urobilinogen 0.2 Add Ur Microanalysis Reviewed Leukocyte Esterase Rfl 3+ H Urine RBC 0-2 Urine WBC >100 H Ur Squamous Epith Cells Occasional Urine Bacteria 4+ H Urine Casts 11-20 U Random Total Protein Ur Random Sodium Ur Random Urea Urine Creatinine Protein/Creat Ratio 2 Blood Type Antibody Screen 04/29/25 04/30/25 04/30/25 23:51 00:35 03:53 WBC RBC Hgb Hct MCV MCH MCHC RDW Plt Count MPV Immature Gran % (Auto) Neut % (Auto) Lymph % (Auto) Leake % (Auto) Eos % (Auto) Baso % (Auto) Lymph # (Auto) Leake # (Auto) Eos # (Auto) Baso # (Auto) Abs Immat Gran (auto) Absolute Neuts (auto) Absolute Nucleated RBC Nucleated RBC % % Immature Plt Fraction Sodium 156 H Potassium Chloride Carbon Dioxide Anion Gap BUN Creatinine Estim Creat Clear Calc Estimated GFR Glucose POC Capillary Glucose 116 H 135 H Calcium Magnesium Iron TIBC % Saturation Ferritin Total Bilirubin AST ALT Alkaline Phosphatase Total Creatine Kinase Total Protein Albumin Vitamin B12 Folate Urine Color Urine Appearance Urine pH Ur Specific Dixon Urine Protein Urine Glucose (UA) Urine Ketones Ur Blood (Man) Urine Nitrate Urine Bilirubin Urine Urobilinogen Add Ur Microanalysis Leukocyte Esterase Rfl Urine RBC Urine WBC Ur Squamous Epith Cells Urine Bacteria Urine Casts U Random Total Protein Ur Random Sodium Ur Random Urea Urine Creatinine Protein/Creat Ratio 2 Blood Type Antibody Screen 04/30/25 04/30/25 04/30/25 04:37 07:43 07:57 WBC 10.1 H RBC 2.73 L Hgb 8.0 L Hct 26.1 L MCV 95.6 MCH 29.3 MCHC 30.7 L RDW 13.6 Plt Count 208 MPV 13.4 H Immature Gran % (Auto) 0.6 H Neut % (Auto) 71.9 Lymph % (Auto) 20.2 Leake % (Auto) 4.9 Eos % (Auto) 2.2 Baso % (Auto) 0.2 Lymph # (Auto) 2.04 Leake # (Auto) 0.5 Eos # (Auto) 0.2 Baso # (Auto) 0.0 Abs Immat Gran (auto) 0.06 H Absolute Neuts (auto) 7.3 H Absolute Nucleated RBC 0.000 Nucleated RBC % 0.0 % Immature Plt Fraction 5.0 Sodium 157 H Potassium 3.6 Chloride 120 H Carbon Dioxide 30 Anion Gap 7 BUN 96 H D Creatinine 2.07 H Estim Creat Clear Calc 15 Estimated GFR 24 L Glucose 140 H POC Capillary Glucose 116 H Calcium 8.0 L Magnesium 3.3 H Iron 37 TIBC 186 L % Saturation 20 Ferritin 202.00 Total Bilirubin 0.4 AST 69 H ALT 156 H Alkaline Phosphatase 98 Total Creatine Kinase 390 H Total Protein 5.7 L Albumin 2.9 L Vitamin B12 805.0 Folate 5.5 Urine Color Urine Appearance Urine pH Ur Specific Dixon Urine Protein Urine Glucose (UA) Urine Ketones Ur Blood (Man) Urine Nitrate Urine Bilirubin Urine Urobilinogen Add Ur Microanalysis Leukocyte Esterase Rfl Urine RBC Urine WBC Ur Squamous Epith Cells Urine Bacteria Urine Casts U Random Total Protein Ur Random Sodium Ur Random Urea Urine Creatinine Protein/Creat Ratio 2 Blood Type B Positive Antibody Screen Negative 04/30/25 04/30/25 10:57 11:27 WBC RBC Hgb Hct MCV MCH MCHC RDW Plt Count MPV Immature Gran % (Auto) Neut % (Auto) Lymph % (Auto) Leake % (Auto) Eos % (Auto) Baso % (Auto) Lymph # (Auto) Leake # (Auto) Eos # (Auto) Baso # (Auto) Abs Immat Gran (auto) Absolute Neuts (auto) Absolute Nucleated RBC Nucleated RBC % % Immature Plt Fraction Sodium Potassium Chloride Carbon Dioxide Anion Gap BUN Creatinine Estim Creat Clear Calc Estimated GFR Glucose POC Capillary Glucose 110 H Calcium Magnesium Iron TIBC % Saturation Ferritin Total Bilirubin AST ALT Alkaline Phosphatase Total Creatine Kinase Total Protein Albumin Vitamin B12 Folate Urine Color Urine Appearance Urine pH Ur Specific Dixon Urine Protein Urine Glucose (UA) Urine Ketones Ur Blood (Man) Urine Nitrate Urine Bilirubin Urine Urobilinogen Add Ur Microanalysis Leukocyte Esterase Rfl Urine RBC Urine WBC Ur Squamous Epith Cells Urine Bacteria Urine Casts U Random Total Protein 49 Ur Random Sodium 63 Ur Random Urea 802 Urine Creatinine 34.6 Protein/Creat Ratio 2 1.42 H Blood Type Antibody Screen Pulse Oximetry SpO2 results: 100% on room air Attestation: I personally reviewed and interpreted this pulse oximetry as follows: Interpretation: No need for supplemental oxygenation at this time Quality VTE Prophylaxis VTE prophylaxis: mechanical ordered Hospitalist MIPS Advance Care Plan I have confirmed that the patient's Advanced Care Plan is present, code status is documented, or surrogate decision maker is listed in patient medical record.: Yes Medication Reconciliation I have utilized all available resources to obtain, update and review the patients current medications (includes all prescriptions, OTC, herbals, cannabis, and nutritional supplements).: Yes
[2025-04-30 12:21] LABS: IFOB Positive Control Positive; Immunochemical Fecal Occult Bl Negative (N)
--- NOTE | 2025-04-30 12:50 | P.CONNP_ITS ---
Assessment and Plan Assessment and plan (1) Hypernatremia: Code(s): E87.0 - Hyperosmolality and hypernatremia Status: Acute Assessment and Plan: * as noted on presentation * suspect related to severe free water deficit complicated by G-tube malfunction * IVFs adjusted to 1/2NS to provide free water as well as volume resuscitation * resumed free water flushes * slowly titrate in an effort to wean off IVFs * follow trend of repeat sodium levels (2) Acute kidney injury: Code(s): N17.9 - Acute kidney failure, unspecified Status: Acute Assessment and Plan: * slow improvement noted * as noted on admission * normal creatinine at baseline (from labs in August 2024) * suspect due to volume depletion possilby worsened by infection (UTI) * check renal ultrasound, urine studies, and CPK * trial of IVF resuscitation * follow trend of repeat labs and UOP (3) Acute UTI: Code(s): N39.0 - Urinary tract infection, site not specified Status: Acute Assessment and Plan: * amdission UA noted: * turbid appearance, 2+ protein, 1+ blood, positive nitrates, 3+ leuk esterase, greater than 100 WBC, occasional epithelial cells, 4+ bacteria * follow urine culture * complicated by chronic aguayo catheter - exchanged in ER * on antibiotics (4) PEG tube malfunction: Code(s): K94.23 - Gastrostomy malfunction Status: Acute Assessment and Plan: * significant leakage around stoma of PEG tube on admission * GI consulted for replacement of tube * PEG tube replaced on 04/30 without complications * functioning appropriately at this time (5) Severe protein-calorie malnutrition: Code(s): E43 - Unspecified severe protein-calorie malnutrition Status: Acute Assessment and Plan: * reportred weight loss of nearly 80 lb in 7 months * likely complicated by #4 * on tube feeds * Rough Rounder recommendations noted (6) Anemia: Code(s): D64.9 - Anemia, unspecified Status: Acute Assessment and Plan: * noted with IVF hydration * due to AMRITA/ARF and acute illness * follow trend of H/H (7) Essential (primary) hypertension: Code(s): I10 - Essential (primary) hypertension Status: Chronic Assessment and Plan: * despite history, soft BP noted since admission * holding BP medications for now * follow trned of hemodynamics (8) Diabetes mellitus with hyperglycemia: Code(s): E11.65 - Type 2 diabetes mellitus with hyperglycemia Status: Acute Assessment and Plan: * follow accu-cheks * glycemic control per hospitalist Will continue to follow. L History of Present Illness Reason for Consult Consult date: 04/30/25 Reason for consult: acute renal failure and hypernatremia Chief Complaint Chief complaint: sepsis,uti History of Present Illness Narrative: All the information that I have obtained is from review of the electronic medical record and EMS report as well as discussion with the physicians & nurses involved in the patient's care as the patient is unable to provide any meaningful medical history due to her nonverbal/noncommunicative status. The patient is a 69 year [place] female who is nonverbal/ noncommunicative baseline with a past medical history as outlined presented to [facility] Room via EMS reports of unconsciousness as well as elevated respiratory rate. The staff at the [facility] checked the patient's vitals and reported a initial blood pressure of 40/20 and EMS was called; Upon EMS arrival, patient's blood pressure was 90/50. She was noted to be soiled in her depends/diaper. The patient is nonverbal at baseline due to a previous stroke for which she was seen at [facility] and underwent a thrombectomy. She then failed multiple swallow studies and had a G-tube placed. She additionally has residual right hemiparesis. While in route to the emergency room, EMS gave the patient several fluid boluses which ventrally improved her blood pressure to the 100s. On presentation to the ER, her blood pressure dropped again to the 70s systolic and she was noted be somewhat tachypneic but with stable oxygenation and afebrile. She received further aggressive IV fluid resuscitation and her blood pressure improved to 2 the 130s to 140 systolic range. Routine testing noted a WBC 10.7, hemoglobin 10.0, INR 1.0, sodium 159, creatinine 2.51, BUN 115, glucose 127, calcium 7.9, albumin 3.0, and UA consistent with UTI. CT of the abdomen/chest/pelvis showed no acute intrathoracic process but with a 10 mm spiculated right lower lobe nodule concerning for possible malignant lesion, possible wall thickening in the sigmoid region which could be associated with inflammatory/infectious colitis or stercoral colitis. Given these laboratory and imaging findings, the patient was continuing IV fluids and after appropriate cultures were obtained, she was started antibiotics for her suspected urinary tract infection. She was subsequently admitted to the hospital for further evaluation therapy. Since her admission to hospital, her sodium level remains about the same in her renal function has only minimally improved. Renal consultation was requested due to her acute kidney injury/acute renal failure in conjunction with her severe hypernatremia. From her previous labs about 8 months ago, her sodium level was well within normal limits as was her renal function/creatinine. Her clinical appearance/ exam in the emergency room was consistent with severe volume depletion and was further noted that her G- tube had significant amount of drainage around the insertion point concerning for malfunction. gastroenterology has been consulted to replace her G-tube in the interim, she has been continued on aggressive IV fluids in hopes of improving / stabilize her electrolytes as well as acute kidney injury. Currently, at the time my evaluation, she appears to be in no acute distress. Review of Systems 2 Review of Systems: As per HPI. 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 Dysarthria as late effect of stroke Right homonymous hemianopsia Global aphasia Hemiparesis of right dominant side as late effect of cerebral infarction Acute ischemic left middle cerebral artery (MCA) stroke Type 2 diabetes mellitus without complications HLD (hyperlipidemia) Essential (primary) hypertension Surgical History Surgical History PEG (percutaneous endoscopic gastrostomy) status Social History Social History Smoking packs per day: 0.5 Smoking cigarettes per day: 10.0 Smoking status: Current every day smoker Alcohol intake: unknown Substance use: unknown Do You Feel Safe in your Home?: Yes Lack of Transportation: No Lack of Food: Never True Current Housing: I Have Housing Concerned About Future Housing: Decline to Answer Difficulty Paying Gas/Electric Bills: Decline to Answer Difficulty Paying for Meds: Decline to Answer Currently Unemployed: Decline to Answer Education: Don't Know Difficulty w/ Childcare or Family Care: Decline to Answer Spiritual care concerns: No Meds Home Medications and Allergies Home Medications ?Medication ?Instructions ?Recorded ?Confirmed ?Type acetaminophen 325 mg tablet 500 mg feeding tube Q6H IL N pain 07/26/24 04/29/25 History amlodipine 10 mg tablet (Norvasc) 5 mg feeding tube DA WILFRIDO 07/26/24 04/29/25 History aspirin 81 mg chewable tablet 81 mg feeding tube DAILY 07/26/24 04/29/25 History atorvastatin 80 mg tablet (Lipitor) 80 mg feeding tube HS 07/26/24 04/29/25 History bisacodyl 10 mg rectal suppository 10 mg RECTAL DAILY PRN constipation 04/29/25 04/29/25 History cholecalciferol (vitamin D3) 1 tablet feeding tube STEFF LY 04/29/25 04/29/25 History losartan 25 mg tablet 25 mg feeding tube DAILY 04/29/25 History magnesium citrate 300 ml PO ONCE PRN constipat ion 04/29/25 04/29/25 History magnesium hydroxide 400 mg/5 mL 30 ml PO DAILY PRN con stipation 04/29/25 04/29/25 History oral suspension (Milk of Magnesia) memantine 5 mg tablet 5 mg feeding tube BID 04/29/25 History potassium, sodium phosphates 280 1 packet feeding tube DAILY 04/29/25 04/29/25 History mg-160 mg-250 mg oral powder packet sodium bicarbonate 650 mg tablet 650 mg feeding tube B ID GERD 04/29/25 04/29/25 History sodium phosphates 19 gram-7 118 ml RECTAL DAILY PRN 04/29/25 History gram/118 mL enema (Fleet Enema) constipation thiamine HCl (vitamin B1) 100 mg 100 mg PO DAILY 04/2904/29/25 History capsule Allergies Allergy/AdvReac Type Severity Reaction Status Date / Time No Known Allergies Allergy Verified 04/29/25 14:31 Vital Signs Vital Signs Temp Pulse Resp BP Pulse Ox 04/30/25 12:00 97.8 F 97 20 95/51 L 100 04/30/25 09:53 96 04/30/25 08:00 98.2 F 98 27 H 95/49 L 100 04/30/25 04:00 101 H 04/30/25 03:45 98.4 F 99 28 H 96/47 L 100 04/30/25 02:05 95/50 L 04/30/25 00:00 103 H 04/29/25 23:46 98.1 F 102 H 26 H 85/44 L 100 04/29/25 20:00 94 04/29/25 19:39 98.1 F 95 16 91/49 L 100 04/29/25 18:46 91 Exam 2 Narrative: GENERAL APPEARANCE: frail and elderly female in no apparent distress HEENT: normocephalic, atraumatic, normal conjunctiva and sclera, nares patient NECK: no lymphadenopathy, thyromegaly, or JVD MOUTH: dry mucous membranes CARDIOVASCULAR: RRR, normal S1 and S2, no rub detected RESPIRATORY: clear to auscultation bilaterally ABDOMEN: soft, nontender, nondistended, positive bowel sounds present; + G-tube EXTREMITIES: no evidence of cyanosis, clubbing, or edema; + contractures NEUROLOGICAL: nonverbal and non-communicative Results Lab Results 05/03/25 04:39 05/03/25 04:39 Lab results: Most recent lab results Calcium 8.0 mg/dL (8.4-10.2) L 04/30/25 04:37 Magnesium 3.3 mg/dL (1.6-2.3) H 04/30/25 07:43 Urine Creatinine 34.6 mg/dL 04/30/25 10:57
[2025-04-30 13:03] LABS: Urine Eos QC 2nd Tech Confirmed
[2025-04-30 14:14] LABS: Gastric Negative Control Negative; Gastric Positive Control Positive
[2025-04-30 17:37] LABS: Hemoglobin A1C 5.7 % (<5.7)
[2025-04-30 17:56] LABS: Anion Gap 7 mmol/L (4-12); Blood Urea Nitrogen 83 mg/dL (7-17); Calcium 8.3 mg/dL (8.4-10.2); Carbon Dioxide 29 mmol/L (22-30); Chloride 121 mmol/L (98-107); Estimated CRCL calculation 19 ml/min; Estimated Glomerular Filt Rate 26; Glucose 99 mg/dL (65-110); Potassium 3.7 mmol/L (3.4-5.0); Sodium 157 mmol/L (137-145)
--- NOTE | 2025-04-30 18:42 | WPDGICN ---
Assessment and Plan Assessment and plan (1) PEG tube malfunction: Code(s): K94.23 - Gastrostomy malfunction Status: Acute Assessment and Plan: Existing PEG with signicant leakage around stoma. New 18 F tube placed, balloon insuflated with 18 cc of normal saline. Plan Tube can be used for feeding and medication GI Consult Note Consult date/time: 04/30/25 18:42 Reason for consult: PEG change HPI: Dorene Silva is a 69 year old female with multiple medical problems, including sequela of CVA and dysphagia, with a gastrostomy tube that is malfunctioning (leakage). We are consulted to change the tube. 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 Dysarthria as late effect of stroke Acute ischemic left middle cerebral artery (MCA) stroke Dysphagia as late effect of stroke Right homonymous hemianopsia Type 2 diabetes mellitus without complications Aneurysm, carotid artery, internal Essential (primary) hypertension HLD (hyperlipidemia) CKD (chronic kidney disease) Smoker Surgical History Surgical History PEG (percutaneous endoscopic gastrostomy) status Social History Social History Smoking packs per day: 0.5 Smoking cigarettes per day: 10.0 Smoking status: Current every day smoker Alcohol intake: unknown Substance use: unknown Do You Feel Safe in your Home?: Yes Lack of Transportation: No Lack of Food: Never True Current Housing: I Have Housing Concerned About Future Housing: Decline to Answer Difficulty Paying Gas/Electric Bills: Decline to Answer Difficulty Paying for Meds: Decline to Answer Currently Unemployed: Decline to Answer Education: Don't Know Difficulty w/ Childcare or Family Care: Decline to Answer Spiritual care concerns: No Meds Home Medications and Allergies Home Medications ?Medication ?Instructions ?Recorded ?Confirmed ?Type acetaminophen 325 mg tablet 500 mg feeding tube Q6H PRN pain 07/26/24 04/29/25 History amlodipine 10 mg tablet (Norvasc) 5 mg feeding tube DAILY 07/26/24 04/29/25 History aspirin 81 mg chewable tablet 81 mg feeding tube DAILY 07/26/24 04/29/25 History atorvastatin 80 mg tablet (Lipitor) 80 mg feeding tube HS 07/26/24 04/29/25 History bisacodyl 10 mg rectal suppository 10 mg RECTAL DAILY PRN constipation 04/29/25 04/29/25 History cholecalciferol (vitamin D3) 1 tablet feeding tube DAILY 04/29/25 04/29/25 History losartan 25 mg tablet 25 mg feeding tube DAILY 04/29/25 04/29/25 History magnesium citrate 300 ml PO ONCE PRN constipation 04/29/25 04/29/25 History magnesium hydroxide 400 mg/5 mL 30 ml PO DAILY PRN constipation 04/29/25 04/29/25 History oral suspension (Milk of Magnesia) memantine 5 mg tablet 5 mg feeding tube BID 04/29/25 04/29/25 History potassium, sodium phosphates 280 1 packet feeding tube DAILY 04/29/25 04/29/25 History mg-160 mg-250 mg oral powder packet sodium bicarbonate 650 mg tablet 650 mg feeding tube BID GERD 04/29/25 04/29/25 History sodium phosphates 19 gram-7 118 ml RECTAL DAILY PRN 04/29/25 04/29/25 History gram/118 mL enema (Fleet Enema) constipation thiamine HCl (vitamin B1) 100 mg 100 mg PO DAILY 04/29/25 04/29/25 History capsule Allergies Allergy/AdvReac Type Severity Reaction Status Date / Time No Known Allergies Allergy Verified 04/29/25 14:31 Vital Signs Vital Signs - 24 hr 04/29/25 18:46 04/29/25 19:39 04/29/25 20:00 Temperature 98.1 F Pulse Rate 91 95 94 Respiratory Rate 16 Blood Pressure 91/49 L Pulse Oximetry 100 04/29/25 23:46 04/30/25 00:00 04/30/25 02:05 Temperature 98.1 F Pulse Rate 102 H 103 H Respiratory Rate 26 H Blood Pressure 85/44 L 95/50 L Pulse Oximetry 100 04/30/25 03:45 04/30/25 04:00 04/30/25 08:00 Temperature 98.4 F 98.2 F Pulse Rate 99 101 H 98 Respiratory Rate 28 H 27 H Blood Pressure 96/47 L 95/49 L Pulse Oximetry 100 100 04/30/25 09:53 04/30/25 12:00 04/30/25 12:00 Temperature 97.8 F Pulse Rate 96 95 97 Respiratory Rate 20 Blood Pressure 95/51 L Pulse Oximetry 100 04/30/25 16:00 04/30/25 16:00 Temperature 98.2 F Pulse Rate 95 94 Respiratory Rate 20 Blood Pressure 95/51 L Pulse Oximetry 100 Exam Const: General: cooperative and healthy appearing Resp: Effort & Inspection: normal respiratory effort and able to speak in complete sentences Auscultation: clear to auscultation bilaterally Cardio: Rate: regular rate Rhythm: regular rhythm GI: Inspection: normal to inspection GI Palp: No No hepatosplenomegaly present Auscultation: normal bowel sounds Rectal Exam: deferred Skin: General skin exam: normal color Psych: Appearance: grossly normal Mental Status: mental status grossly normal Results Labs 04/30/25 04:37 04/30/25 17:32 Labs: Short CBC 04/30/25 Range/Units 04:37 WBC 10.1 H (4.5-10.0) K/mm3 Hgb 8.0 L (12.0-15.0) g/dL Hct 26.1 L (37.0-47.0) % Plt Count 208 (150-375) k/mm3 [facility] 04/30/25 04/30/25 04/30/25 00:35 04:37 17:32 Sodium 156 H 157 H 157 H Potassium 3.6 3.7 Chloride 120 H 121 H Carbon Dioxide 30 29 BUN 96 H D 83 H D Creatinine 2.07 H 1.92 H Glucose 140 H 99 Calcium 8.0 L 8.3 L Cardiac Enzymes 04/30/25 Range/Units 07:43 Total Creatine Kinase 390 H (30-135) U/L Liver Function 04/30/25 Range/Units 04:37 Total Bilirubin 0.4 (0.2-1.3) mg/dL AST 69 H (14-36) U/L ALT 156 H (6-35) U/L Alkaline Phosphatase 98 (38-126) U/L Albumin 2.9 L (3.5-5.1) g/dL
[2025-05-01] VITALS (9 sets, daily range): BP systolic 100–143; BP diastolic 47–87; PULSE 8–104; RESP 14–20; TEMP 36.3–37.4; O2SAT 94–100
[2025-05-01 05:14] LABS: Hematocrit 27.2 % (37.0-47.0); Hemoglobin 8.3 g/dL (12.0-15.0); Immature Granulocyte Percent A 0.4 % (0-0.5); Immature Platelet Fraction Pct 5.3 % (0.9-11.2); Lymphocytes Absolute Auto 2.03 K/mm3 (0.9-3.2); Mean Corpuscular HGB Conc 30.5 g/dl (32-36); Mean Corpuscular Hemoglobin 29.2 pg (26-34); Mean Corpuscular Volume 95.8 fl (80-100); Nucleated Red Blood Cells Absolute Auto 0.000 K/mm3 (0.0-0.012); Nucleated Red Blood Cells Perc 0.0 % (0.0-0.2); Platelet Count Result 212 k/mm3 (150-375); Red Blood Count 2.84 M/mm3 (4.2-5.4); White Blood Count 10.7 K/mm3 (4.5-10.0)
[2025-05-01 05:33] LABS: Alanine Aminotransferase 116 U/L (6-35); Albumin Level 2.8 g/dL (3.5-5.1); Alkaline Phosphatase 92 U/L (38-126); Anion Gap 6 mmol/L (4-12); Aspartate Amino Transferase 61 U/L (14-36); Bilirubin,Total 0.3 mg/dL (0.2-1.3); Blood Urea Nitrogen 75 mg/dL (7-17); Calcium 8.1 mg/dL (8.4-10.2); Carbon Dioxide 27 mmol/L (22-30); Chloride 122 mmol/L (98-107); Creatine Kinase 717 U/L (30-135); Estimated CRCL calculation 21 ml/min; Estimated Glomerular Filt Rate 29; Glucose 123 mg/dL (65-110); Magnesium 3.1 mg/dL (1.6-2.3); Potassium 3.7 mmol/L (3.4-5.0); Sodium 155 mmol/L (137-145); Total Protein 5.9 g/dL (6.3-8.2)
[2025-05-01] MEDS: SODIUM CHLORIDE 0.45% 1,000 ML 100 ML IV CONT (06:18)
--- NOTE | 2025-05-01 07:01 | P.PNIM_ITS ---
Progress Note: A&P Assessment and Plan (1) Acute kidney injury superimposed on CKD: Code(s): N17.9 - Acute kidney failure, unspecified; N18.9 - Chronic kidney disease, unspecified Status: Acute Assessment and Plan: * Nephrology consulted - appreciate further recommendations * IV fluids given on admit and patient changed from LR to 0.45% NaCl at 100 mL/hr plus tube feeds/flushes with free water * 05/01 - Kidney function remains largely unchanged (2) Hypernatremia: Code(s): E87.0 - Hyperosmolality and hypernatremia Status: Acute Assessment and Plan: * Nephrology consulted, IV fluids given on admit and patient changed from LR to 0.45% NaCl at 100 mL/hr plus tube feeds/flushes with free water * Na steadily decreasin -> 155 -> 152 (3) Acute UTI: Code(s): N39.0 - Urinary tract infection, site not specified Status: Acute Assessment and Plan: * UA: Turbid, pH greater than 9, 2+ protein, 1+ blood, positive nitrates, 3+ leuk esterase, greater than 100 WBC, occasional epithelial cells, 4+ bacteria * UC - gram (-) bacilli * no previous micro available for review * started on Ceftriaxone on 04/29, continue inpatient * Shoemaker replaced (4) Severe protein-calorie malnutrition: Code(s): E43 - Unspecified severe protein-calorie malnutrition Status: Acute Assessment and Plan: * Weight loss of nearly 80 lb in 7 months * Dietitian recommendation Jevity 1.5 75 mL/hr with free water flushes (currently 75 mL Q4 while on IV fluids but recommend 200 mL Q4.) * G-J tube leaking since admission and unknown time prior to hospitalization. * Gastroenterology consulted * New 18 F tube placed (5) PEG tube malfunction: Code(s): K94.23 - Gastrostomy malfunction Status: Acute Assessment and Plan: * On exam there appears to be significant leakage around stoma of PEG tube * GI consulted for replacement of tube * PEG replaced on 04/30 without complications * Continue tube feedings (6) Pressure ulcer of left hip: Qualifiers: Pressure injury stage: unspecified pressure injury stage Qualified Code(s): L89.229 - Pressure ulcer of left hip, unspecified stage Code(s): L89.229 - Pressure ulcer of left hip, unspecified stage Status: Acute Assessment and Plan: * Recommend pressure off loading and wound care consult (7) Diabetes mellitus with hyperglycemia: Code(s): E11.65 - Type 2 diabetes mellitus with hyperglycemia Status: Acute Assessment and Plan: * Q.6 hour fingerstick glucose and low-dose sliding scale insulin correction * Previous A1c 6.0 in July of 2024 * A1C: 5.7% this visit (8) Essential (primary) hypertension: Code(s): I10 - Essential (primary) hypertension Status: Chronic Assessment and Plan: * Blood pressures have been low since admission without current antihypertensive medications * Continue to hold antihypertensives given low BP * 106/47 (9) HLD (hyperlipidemia): Qualifiers: Hyperlipidemia type: unspecified Qualified Code(s): E78.5 - Hyperlipidemia, unspecified Code(s): E78.5 - Hyperlipidemia, unspecified Status: Chronic Assessment and Plan: Hold statin due to AMRITA with elevated CK levels and mildly elevated liver enzymes Consider restarting at lower dose once electrolyte/renal improvements Subjective Date/time seen: 05/01/25 07:01 Interval history: 69-year-old female patient admitted for hypernatremia AMRITA anemia and severe weig ht loss. She is nonverbal and no family present at time of evaluation. Patient resides in a nursing facility [facility] after a prior stroke. She has lost nearly 80 lbs in 7 months. Patient unable to answer any questions or even shake head yes and no. She has a G-J tube in place. 05/01/2025 Patient sitting in bed at time of exam. GI consulted regarding PEG tube malfunct ion - PEG replaced on 04/30. Na continues to decreased 155 -> 152. Kidney function remains unchanged. Nephro consulted - appreciate further recommendations. Blood cultures still pending, urine culture shows growth of gram (-) bacilli. Continue rocephin for UTI. Review of Systems Review of Systems: ROS unobtainable: Yes unobtainable due to medical condition and unobtainable due to mental status Exam Narrative: GENERAL: Appears older than stated age, contracted, nonverbal HEAD: Normocephalic, atraumatic. ENT:? Mucous membranes dry. CHEST: Clear to auscultation.? No respiratory distress. HEART: Regular rate and rhythm. ? Normal peripheral pulses. ABDOMEN: Soft, nontender, loss subcutaneous tissue, gastric tube leaking EXTREMITIES: No peripheral edema. Contracted SKIN: Warm dry pale appearing NEURO: Does not follow commands or track reliably Const: Other: He , female, chronically ill-appearing, nontoxic appearance, no grimacing or distress noted HENMT: Face/Nose/Sinus: Normal nares present Other: Tacky mucous membranes Eyes: General: appearance normal, both eyes and all related structures Sclera: sclerae normal Pupils: Equal, round and reactive pupils present EOM: EOMs intact bilaterally Resp: Effort & Inspection: normal respiratory effort Auscultation: clear to auscultation bilaterally Cardio: Rate: regular rate Rhythm: regular rhythm Other: S1-S2 present without murmur, rub, ectopy GI: Other: Abdomen soft, nondistended, normoactive bowel sounds in all quadrants. G-tube present, initially leaking however stopcock placed. no signs of infection. Skin: General skin exam: normal color, no rashes or lesions noted and wounds noted (L hip, erythematous wound bed without drainage) Wounds: no wounds and wounds noted (L hip, erythematous wound bed without drainage) Other: Poor skin turgor Neuro: Cranial nerves: Yes Equal, round and reactive pupils present Other: A&Ox0, alert, right and left leg resistant to extension and grimacing with range of motion. Extrem: General: normal to inspection Psych: Other: Flat affect. Objective Data Vital Signs Vital Signs: Vital Signs - 24 hr 04/30/25 08:00 04/30/25 09:53 04/30/25 12:00 Temperature 98.2 F Pulse Rate 98 96 95 Respiratory Rate 27 H Blood Pressure 95/49 L Pulse Oximetry 100 Oxygen Delivery 04/30/25 12:00 04/30/25 16:00 04/30/25 16:00 Temperature 97.8 F 98.2 F Pulse Rate 97 95 94 Respiratory Rate 20 20 Blood Pressure 95/51 L 95/51 L Pulse Oximetry 100 100 Oxygen Delivery 04/30/25 19:57 04/30/25 20:00 04/30/25 20:00 Temperature 98 F Pulse Rate 96 96 Respiratory Rate 18 Blood Pressure 132/71 Pulse Oximetry 100 Oxygen Delivery Room Air 05/01/25 00:00 05/01/25 00:00 05/01/25 04:00 Temperature 98 F Pulse Rate 99 97 101 H Respiratory Rate 20 Blood Pressure 100/47 L Pulse Oximetry 100 Oxygen Delivery 05/01/25 05:00 Temperature 98.6 F Pulse Rate 94 Respiratory Rate 18 Blood Pressure 106/47 L Pulse Oximetry 100 Oxygen Delivery Intake/Output Intake/Output: Intake & Output 04/28/25 04/29/25 04/30/25 05/01/25 23:59 23:59 23:59 23:59 Intake Total 3182.5 2610.5 2350 Output Total 400 1600 650 Balance 2782.5 1010.5 1700 Meds/Results Medications: Active Medications Generic Name Dose Route Start Last Admin Trade Name Freq PRN Reason Stop Dose Admin Acetaminophen 650 mg 04/29/25 12:53 Acetaminophen Elixir 325 Mg/10.15 Ml Udc FEED TUBE Q6H PRN Mild Pain (1-3) or Fever Acetaminophen 500 mg 04/29/25 15:56 Acetaminophen 500 Mg Tablet FEED TUBE Q6H PRN Pain 1-3 Aspirin 81 mg 04/30/25 09:00 04/30/25 09:53 Aspirin 81 Mg Chewable Tablet FEED TUBE 81 mg DAILY FIONA Administration Atorvastatin Calcium 80 mg 04/29/25 21:00 04/29/25 21:48 Atorvastatin 40 Mg Tablet FEED TUBE 80 mg On Hold: 04/30/25 08:47 HS FIONA Administration Bisacodyl 10 mg 04/29/25 15:56 Bisacodyl 10 Mg Suppository RECTAL DAILY PRN Constipation Dextrose 12.5 gm 04/29/25 12:53 Dextrose 50% 25 Gm/50 Ml Syringe IV PUSH PRN PRN Hypoglycemia Protocol Glucagon 1 mg 04/29/25 12:53 Glucagon For Inj 1 Mg Vial IM PRN PRN Hypoglycemia Protocol Glucose 15 gm 04/29/25 12:53 Glucose Oral Gel 15 Gm Of Glucse In 37.5 Gm Tube PO PRN PRN Hypoglycemia Protocol Ceftriaxone Sodium 1 gm/ 50 mls @ 100 mls/hr 04/30/25 09:00 04/30/25 09:53 Sodium Chloride IVPB 100 mls/hr Q24H FIONA Administration Dextrose 1,000 mls @ 100 mls/hr 04/29/25 12:53 Dextrose 5% 1,000 Ml IVPB PRN PRN Hypoglycemia Protocol Sodium Chloride 1,000 mls @ 100 mls/hr 04/30/25 09:00 05/01/25 06:18 Sodium Chloride 0.45% IV CONT 100 mls/hr .Q10H FIONA Administration Insulin Aspart 2 - 5 units 04/29/25 18:00 05/01/25 06:49 Insulin Aspart (*Bkc) 100 Units/Ml SUB-Q Not Given Q6HR FIONA Protocol Magnesium Citrate 300 ml 04/29/25 15:56 Magnesium Citrate 300 Ml Btl PO ONCE PRN Constipation Magnesium Hydroxide 30 ml 04/29/25 15:56 Magnesium Hydroxide Susp 30 Ml Udc PO DAILY PRN Constipation Memantine 5 mg 04/29/25 17:00 04/30/25 17:58 Memantine 5 Mg Tablet FEED TUBE 5 mg BID FIONA Administration Ondansetron HCl 4 mg 04/29/25 13:00 Ondansetron Inj 4 Mg/2 Ml Vial IV PUSH Q6H PRN Nausea And Vomiting Potassium Phos/Sodium Phos 1 packet 04/30/25 09:00 04/30/25 09:53 Potassium/Phosphorus/Sodium 1.5 Gm Packet FEED TUBE 1 packet DAILY FIONA Administration Sodium Bicarbonate 650 mg 04/29/25 17:00 04/29/25 17:00 Sodium Bicarbonate Tab 650 Mg Tablet FEED TUBE 650 mg On Hold: 04/30/25 07:31 BID FIONA Administration Thiamine HCl 100 mg 04/30/25 09:00 04/30/25 09:53 Thiamine Hcl 100 Mg Tablet FEED TUBE 100 mg QAM FIONA Administration Vitamin D 10 mcg 04/30/25 09:00 04/30/25 09:53 Cholecalciferol (Vitamin D3) 10 Mcg (400 Units) Tablet FEED TUBE 10 mcg DAILY FIONA Administration Radiology Results: ITS Impressions Chest/Abdomen/Pelvis CT 04/29/25 11:44 IMPRESSION: 1. Directed noncontrast exam demonstrating no gross acute intrathoracic process identified. 10 mm spiculated right lower lobe nodule concerning for possible malignant lesion. Correlate with short interval follow-up chest CT or PET/CT. 2. Limited evaluation of the abdomen and pelvis; no acute surgical abnormality identified. Possible wall thickening in the sigmoid region which could be associated with inflammatory/infectious colitis or stercoral colitis. Renal Ultrasound 04/30/25 15:33 IMPRESSION: 1. Bilateral diffuse increased renal cortical echogenicity consistent with medical renal disease. No hydronephrosis. 2. Cholelithiasis with additional indeterminate 1.7 x 1.2 x 0.9 cm nonshadowing echogenic nodule at the fundus which could represent a sludge ball or potentially a gallbladder polyp. Consider further evaluation with ultrasound or pre and postcontrast MRI or CT. Labs Labs: Laboratory Results - last 24 hr 04/30/25 04/30/25 04/30/25 00:43 07:43 07:57 WBC RBC Hgb Hct MCV MCH MCHC RDW Plt Count MPV Immature Gran % (Auto) Neut % (Auto) Lymph % (Auto) Dyer % (Auto) Eos % (Auto) Baso % (Auto) Lymph # (Auto) Dyer # (Auto) Eos # (Auto) Baso # (Auto) Abs Immat Gran (auto) Absolute Neuts (auto) Absolute Nucleated RBC Nucleated RBC % % Immature Plt Fraction Sodium Potassium Chloride Carbon Dioxide Anion Gap BUN Creatinine Estim Creat Clear Calc Estimated GFR Glucose POC Capillary Glucose 116 H Hemoglobin A1c 5.7 Calcium Magnesium 3.3 H Iron 37 TIBC 186 L % Saturation 20 Ferritin 202.00 Total Bilirubin AST ALT Alkaline Phosphatase Total Creatine Kinase 390 H Total Protein Albumin Vitamin B12 805.0 Folate 5.5 Urine Eosinophils U Random Total Protein Ur Random Sodium Ur Random Urea Urine Creatinine Protein/Creat Ratio 2 Gastric Fluid pH Gastric Occult Blood Stl Occult Blood (IFOB) Blood Type B Positive Antibody Screen Negative 04/30/25 04/30/25 04/30/25 10:57 11:27 12:08 WBC RBC Hgb Hct MCV MCH MCHC RDW Plt Count MPV Immature Gran % (Auto) Neut % (Auto) Lymph % (Auto) Dyer % (Auto) Eos % (Auto) Baso % (Auto) Lymph # (Auto) Dyer # (Auto) Eos # (Auto) Baso # (Auto) Abs Immat Gran (auto) Absolute Neuts (auto) Absolute Nucleated RBC Nucleated RBC % % Immature Plt Fraction Sodium Potassium Chloride Carbon Dioxide Anion Gap BUN Creatinine Estim Creat Clear Calc Estimated GFR Glucose POC Capillary Glucose 110 H Hemoglobin A1c Calcium Magnesium Iron TIBC % Saturation Ferritin Total Bilirubin AST ALT Alkaline Phosphatase Total Creatine Kinase Total Protein Albumin Vitamin B12 Folate Urine Eosinophils 10 U Random Total Protein 49 Ur Random Sodium 63 Ur Random Urea 802 Urine Creatinine 34.6 Protein/Creat Ratio 2 1.42 H Gastric Fluid pH Gastric Occult Blood Stl Occult Blood (IFOB) Negative Blood Type Antibody Screen 04/30/25 04/30/25 04/30/25 13:49 17:32 18:36 WBC RBC Hgb Hct MCV MCH MCHC RDW Plt Count MPV Immature Gran % (Auto) Neut % (Auto) Lymph % (Auto) Dyer % (Auto) Eos % (Auto) Baso % (Auto) Lymph # (Auto) Dyer # (Auto) Eos # (Auto) Baso # (Auto) Abs Immat Gran (auto) Absolute Neuts (auto) Absolute Nucleated RBC Nucleated RBC % % Immature Plt Fraction Sodium 157 H Potassium 3.7 Chloride 121 H Carbon Dioxide 29 Anion Gap 7 BUN 83 H D Creatinine 1.92 H Estim Creat Clear Calc 19 Estimated GFR 26 L Glucose 99 POC Capillary Glucose 138 H Hemoglobin A1c Calcium 8.3 L Magnesium Iron TIBC % Saturation Ferritin Total Bilirubin AST ALT Alkaline Phosphatase Total Creatine Kinase Total Protein Albumin Vitamin B12 Folate Urine Eosinophils U Random Total Protein Ur Random Sodium Ur Random Urea Urine Creatinine Protein/Creat Ratio 2 Gastric Fluid pH 3 Gastric Occult Blood Positive H Stl Occult Blood (IFOB) Blood Type Antibody Screen 05/01/25 05/01/25 05/01/25 00:38 04:24 05:06 WBC 10.7 H RBC 2.84 L Hgb 8.3 L Hct 27.2 L MCV 95.8 MCH 29.2 MCHC 30.5 L RDW 13.4 Plt Count 212 MPV 13.6 H Immature Gran % (Auto) 0.4 Neut % (Auto) 73.7 H Lymph % (Auto) 18.9 Dyer % (Auto) 4.6 Eos % (Auto) 2.3 Baso % (Auto) 0.1 L Lymph # (Auto) 2.03 Dyer # (Auto) 0.5 Eos # (Auto) 0.3 Baso # (Auto) 0.0 Abs Immat Gran (auto) 0.04 H Absolute Neuts (auto) 7.9 H Absolute Nucleated RBC 0.000 Nucleated RBC % 0.0 % Immature Plt Fraction 5.3 Sodium 155 H Potassium 3.7 Chloride 122 H Carbon Dioxide 27 Anion Gap 6 BUN 75 H Creatinine 1.75 H Estim Creat Clear Calc 21 Estimated GFR 29 L Glucose 123 H POC Capillary Glucose 123 H 124 H Hemoglobin A1c Calcium 8.1 L Magnesium 3.1 H Iron TIBC % Saturation Ferritin Total Bilirubin 0.3 AST 61 H ALT 116 H Alkaline Phosphatase 92 Total Creatine Kinase 717 H Total Protein 5.9 L Albumin 2.8 L Vitamin B12 Folate Urine Eosinophils U Random Total Protein Ur Random Sodium Ur Random Urea Urine Creatinine Protein/Creat Ratio 2 Gastric Fluid pH Gastric Occult Blood Stl Occult Blood (IFOB) Blood Type Antibody Screen Quality VTE Prophylaxis VTE prophylaxis: mechanical ordered
[2025-05-01] MEDS: cefTRIAXone 1 GM in SODIUM CHLORIDE 0.9% IV 50 ML 100 ML IVPB (08:26)
[2025-05-01] MEDS: ASPIRIN 81 MG CHEWABLE TABLET FEED TUBE (08:27)
[2025-05-01] MEDS: THIAMINE HCL 100 MG TABLET FEED TUBE (08:27)
[2025-05-01] MEDS: MEMANTINE 5 MG TABLET FEED TUBE ×2 (08:27→16:08)
[2025-05-01] MEDS: CHOLECALCIFEROL (VITAMIN D3) 10 MCG (400 UNITS) TABLET FEED TUBE (08:27)
[2025-05-01] MEDS: DEXTROSE 5% 1,000 ML 1,000 ML 75 ML IV CONT (09:16)
[2025-05-01 12:50] LABS: Anion Gap 4 mmol/L (4-12); Blood Urea Nitrogen 64 mg/dL (7-17); Calcium 8.2 mg/dL (8.4-10.2); Carbon Dioxide 27 mmol/L (22-30); Chloride 121 mmol/L (98-107); Estimated CRCL calculation 21 ml/min; Estimated Glomerular Filt Rate 29; Glucose 162 mg/dL (65-110); Potassium 3.7 mmol/L (3.4-5.0); Sodium 152 mmol/L (137-145)
--- NOTE | 2025-05-01 13:16 | P.PNNP_ITS ---
Progress Note: A&P Assessment and Plan (1) Hypernatremia: Code(s): E87.0 - Hyperosmolality and hypernatremia Status: Acute Assessment and Plan: * as noted on presentation * suspect related to severe free water deficit complicated by G-tube malfunction * IVFs adjusted to 1/2NS to provide free water as well as volume resuscitation * resumed free water flushes * slowly titrate in an effort to wean off IVFs * follow trend of repeat sodium levels (2) Acute kidney injury: Code(s): N17.9 - Acute kidney failure, unspecified Status: Acute Assessment and Plan: * slow improvement noted * as noted on admission * normal creatinine at baseline (from labs in August 2024) * suspect due to volume depletion possilby worsened by infection (UTI) * evaluation to date noted: * renal ultrasound w/o obstruction but findings suggestive of CKD * urine electrolytes non-prerenal * 10% urine eosinophils (likely due to inflammation on UA) * moderate proteinuria * CPK slighlty elevated (but not enought to affect kidney function) * appears to be responding to IVF resuscitation * follow trend of repeat labs and UOP * possible new baseline creatinine(?) (3) Acute UTI: Code(s): N39.0 - Urinary tract infection, site not specified Status: Acute Assessment and Plan: * amdission UA noted: * turbid appearance, 2+ protein, 1+ blood, positive nitrates, 3+ leuk esterase, greater than 100 WBC, occasional epithelial cells, 4+ bacteria * urine culture with GNB * complicated by chronic aguayo catheter - exchanged in ER * on antibiotics (4) PEG tube malfunction: Code(s): K94.23 - Gastrostomy malfunction Status: Acute Assessment and Plan: * significant leakage around stoma of PEG tube on admission * GI consulted for replacement of tube * PEG tube replaced on 04/30 without complications * functioning appropriately at this time (5) Severe protein-calorie malnutrition: Code(s): E43 - Unspecified severe protein-calorie malnutrition Status: Acute Assessment and Plan: * reportred weight loss of nearly 80 lb in 7 months * likely complicated by #4 * on tube feeds * Scratcher Tender recommendations noted (6) Anemia: Code(s): D64.9 - Anemia, unspecified Status: Acute Assessment and Plan: * noted with IVF hydration * due to AMRITA/ARF and acute illness * follow trend of H/H (7) Essential (primary) hypertension: Code(s): I10 - Essential (primary) hypertension Status: Chronic Assessment and Plan: * despite history, soft BP noted since admission * holding BP medications for now * follow trned of hemodynamics (8) Diabetes mellitus with hyperglycemia: Code(s): E11.65 - Type 2 diabetes mellitus with hyperglycemia Status: Acute Assessment and Plan: * follow accu-cheks * glycemic control per hospitalist Will continue to follow. Subjective Date/time seen: 05/01/25 13:16 Interval history: Follow-up for acute kidney injury/acute renal failure and acute hypernatremia. Sodium as well as renal function/creatinine appear to be improving with current interventions/therapy to date [free water tube flushes and IVFs (first 1/2NS and now changed to D5W)]; remains nonverbal/non-communicated but in no apparent distress. Exam Narrative: General: thin/frail and elderly female in NAD Heart: normal S1 and S2; no rub Lungs: clear to auscultation Abdomen: soft, nontender, nondistended, positive bowel sounds Extremities: no cyanosis or clubbing; no edema; contracted Skin: warm and dry; + loss of muscle mass Objective Data Vital Signs Vital Signs: Vital Signs Temp Pulse Resp BP Pulse Ox O2 Del Method 05/01/25 13:00 98.1 F 97 14 116/59 L 100 05/01/25 11:43 99.3 F 96 16 125/57 L 100 05/01/25 08:00 8 L 05/01/25 08:00 98.6 F 88 14 108/49 L 05/01/25 08:00 Room Air 05/01/25 05:00 98.6 F 94 18 106/47 L 100 05/01/25 04:00 101 H 05/01/25 00:00 98 F 97 20 100/47 L 100 05/01/25 00:00 99 04/30/25 20:00 Room Air 04/30/25 20:00 96 04/30/25 19:57 98 F 96 18 132/71 100 Intake/Output Intake/Output: Intake & Output 04/28/25 04/29/25 04/30/25 05/01/25 23:59 23:59 23:59 23:59 Intake Total 3182.5 2660.5 3350 Output Total 400 1600 1100 Balance 2782.5 1060.5 2250 Meds/Results Medications: Active Medications Generic Name Dose Route Start Last Admin Trade Name Freq PRN Reason Stop Dose Admin Acetaminophen 650 mg 04/29/25 12:53 Acetaminophen Elixir 325 Mg/10.15 Ml Udc FEED TUBE Q6H PRN Mild Pain (1-3) or Fever Acetaminophen 500 mg 04/29/25 15:56 Acetaminophen 500 Mg Tablet FEED TUBE Q6H PRN Pain 1-3 Aspirin 81 mg 04/30/25 09:00 05/01/25 08:27 Aspirin 81 Mg Chewable Tablet FEED TUBE 81 mg DAILY FIONA Administration Atorvastatin Calcium 80 mg 04/29/25 21:00 04/29/25 21:48 Atorvastatin 40 Mg Tablet FEED TUBE 80 mg On Hold: 04/30/25 08:47 HS FIONA Administration Bisacodyl 10 mg 04/29/25 15:56 Bisacodyl 10 Mg Suppository RECTAL DAILY PRN Constipation Dextrose 12.5 gm 04/29/25 12:53 Dextrose 50% 25 Gm/50 Ml Syringe IV PUSH PRN PRN Hypoglycemia Protocol Glucagon 1 mg 04/29/25 12:53 Glucagon For Inj 1 Mg Vial IM PRN PRN Hypoglycemia Protocol Glucose 15 gm 04/29/25 12:53 Glucose Oral Gel 15 Gm Of Glucse In 37.5 Gm Tube PO PRN PRN Hypoglycemia Protocol Ceftriaxone Sodium 1 gm/ 50 mls @ 100 mls/hr 04/30/25 09:00 05/01/25 08:26 Sodium Chloride IVPB 100 mls/hr Q24H FIONA Administration Dextrose 1,000 mls @ 100 mls/hr 04/29/25 12:53 Dextrose 5% 1,000 Ml IVPB PRN PRN Hypoglycemia Protocol Dextrose 1,000 mls @ 50 mls/hr 05/01/25 08:50 05/01/25 09:16 Dextrose 5% 1,000 Ml IV CONT 75 mls/hr .Q20H FIONA Administration Insulin Aspart 2 - 5 units 04/29/25 18:00 05/01/25 17:54 Insulin Aspart (*Bkc) 100 Units/Ml SUB-Q Not Given Q6HR [facility] Protocol Magnesium Citrate 300 ml 04/29/25 15:56 Magnesium Citrate 300 Ml Btl PO ONCE PRN Constipation Magnesium Hydroxide 30 ml 04/29/25 15:56 Magnesium Hydroxide Susp 30 Ml Udc PO DAILY PRN Constipation Memantine 5 mg 04/29/25 17:00 05/01/25 16:08 Memantine 5 Mg Tablet FEED TUBE 5 mg BID FIONA Administration Ondansetron HCl 4 mg 04/29/25 13:00 Ondansetron Inj 4 Mg/2 Ml Vial IV PUSH Q6H PRN Nausea And Vomiting Potassium Phos/Sodium Phos 1 packet 04/30/25 09:00 05/01/25 13:31 Potassium/Phosphorus/Sodium 1.5 Gm Packet FEED TUBE Not Given DAILY FIONA Sodium Bicarbonate 650 mg 04/29/25 17:00 04/29/25 17:00 Sodium Bicarbonate Tab 650 Mg Tablet FEED TUBE 650 mg On Hold: 04/30/25 07:31 BID FIONA Administration Thiamine HCl 100 mg 04/30/25 09:00 05/01/25 08:27 Thiamine Hcl 100 Mg Tablet FEED TUBE 100 mg QAM FIONA Administration Vitamin D 10 mcg 04/30/25 09:00 05/01/25 08:27 Cholecalciferol (Vitamin D3) 10 Mcg (400 Units) Tablet FEED TUBE 10 mcg DAILY FIONA Administration Radiology Results: ITS Impressions Chest/Abdomen/Pelvis CT 04/29/25 11:44 IMPRESSION: 1. Directed noncontrast exam demonstrating no gross acute intrathoracic process identified. 10 mm spiculated right lower lobe nodule concerning for possible malignant lesion. Correlate with short interval follow-up chest CT or PET/CT. 2. Limited evaluation of the abdomen and pelvis; no acute surgical abnormality identified. Possible wall thickening in the sigmoid region which could be associated with inflammatory/infectious colitis or stercoral colitis. Renal Ultrasound 04/30/25 15:33 IMPRESSION: 1. Bilateral diffuse increased renal cortical echogenicity consistent with medical renal disease. No hydronephrosis. 2. Cholelithiasis with additional indeterminate 1.7 x 1.2 x 0.9 cm nonshadowing echogenic nodule at the fundus which could represent a sludge ball or potentially a gallbladder polyp. Consider further evaluation with ultrasound or pre and postcontrast MRI or CT. Labs Labs: Laboratory Results 05/01/25 05/01/25 04:24 12:15 WBC 10.7 H Hgb 8.3 L Hct 27.2 L Plt Count 212 Sodium 155 H 152 H Potassium 3.7 Chloride 122 H Carbon Dioxide 27 Anion Gap 6 BUN 75 H Creatinine 1.75 H Estim Creat Clear Calc 21 Estimated GFR 29 L Glucose 123 H Calcium 8.1 L Magnesium 3.1 H Total Bilirubin 0.3 AST 61 H ALT 116 H Alkaline Phosphatase 92 Total Creatine Kinase 717 H Total Protein 5.9 L Albumin 2.8 L
[2025-05-01 16:37] LABS: Albumin Level 2.9 g/dL (3.5-5.1); Anion Gap 5 mmol/L (4-12); Blood Urea Nitrogen 63 mg/dL (7-17); Calcium 8.1 mg/dL (8.4-10.2); Carbon Dioxide 27 mmol/L (22-30); Chloride 119 mmol/L (98-107); Estimated CRCL calculation 22 ml/min; Estimated Glomerular Filt Rate 30; Glucose 118 mg/dL (65-110); Potassium 4.0 mmol/L (3.4-5.0); Sodium 151 mmol/L (137-145)
[2025-05-02] VITALS (10 sets, daily range): BP systolic 113–132; BP diastolic 56–83; PULSE 82–95; RESP 12–20; TEMP 36.3–37.3; O2SAT 100
--- NOTE | 2025-05-02 | ECHO_ITS ---
Patient Info Name: Dorene Silva Age: 69 years : 1955 Gender: Female Ht: 64 in Wt: 109 lbs BSA: 1.49 m2 HR: 93 bpm BP: 120 / 65 mmHg Technical Quality: Good Exam Date: 05/02/2025 1:13 PM Patient Status: I Admit Date: 04/29/2025 Exam Type: CA echo doppler color flow Complete two-dimensional, color flow and Doppler transthoracic echocardiogram is performed. Staff Referring Physician: Faheem Galan Cna Per Diem: Sue Gonzalez Attending Provider: Chano Polanco Summary 1. Complete two-dimensional, color flow and Doppler transthoracic echocardiogram is performed. 2. Left ventricular chamber dimension is normal. 3. Left ventricular systolic function is normal, estimated at 60-65. 4. There is mild concentric increased left ventricular wall thickness. 5. The left ventricular diastolic function is grade I diastolic dysfunction. 6. E/e' 10 is not elevated. 7. There is trace aortic valve regurgitation. 8. The mitral valve has a mildly calcified annulus. 9. There is trace mitral valve regurgitation. 10. There is trace tricuspid valve regurgitation. Left Ventricle E/e' 10 is not elevated. Left ventricular chamber dimension is normal. Left ventricular systolic function is normal, estimated at 60-65. There is mild concentric increased left ventricular wall thickness. The left ventricular diastolic function is grade I diastolic dysfunction. Right Ventricle Right ventricular chamber dimension is normal. Right ventricular systolic function is normal. Left Atria Left atrial chamber dimension is normal. Right Atria Right atrial chamber dimension is normal. Aortic Valve The aortic valve is trileaflet. There is no aortic valve stenosis. There is trace aortic valve regurgitation. No aortic valve vegetation visualized. Pulmonic Valve There is no pulmonic regurgitation. No pulmonic valve vegetation visualized. Mitral Valve The mitral valve has a mildly calcified annulus. There is no mitral valve stenosis. There is trace mitral valve regurgitation. No mitral valve vegetation visualized. Tricuspid Valve There is trace tricuspid valve regurgitation. No tricuspid valve vegetation visualized. RVSP is not measured due to an inadequate TR jet. Pericardium/Pleural There is no pericardial effusion. Inferior Vena Cava Normal inferior vena cava with >50% collapse upon inspiration consistent with normal right atrial pressure, 5 mmHg. Aorta The aortic root size at the sinus of Valsalva is normal. Left Ventricular Outflow Tract Name Value Normal LVOT 2D LVOT Diameter 2.0 cm LVOT Doppler LVOT Peak Velocity 126 cm/s LVOT Peak Gradient 6 mmHg LVOT Mean Gradient 3 mmHg LVOT VTI 22 cm LVOT Stroke Volume 66 ml LVOT CO 6.2 l/min LVOT CI 4.1 l/min/m2 Pulmonic Valve Name Value Normal RVOT Doppler RVOT Peak Velocity 82 cm/s RVOT Peak Gradient 3 mmHg PV Doppler PV Peak Velocity 95 cm/s PV Peak Gradient 4 mmHg Mitral Valve Name Value Normal MV Diastolic Function MV E Peak Velocity 78 cm/s MV A Peak Velocity 92 cm/s MV E/A 0.9 MV Decel Time (PW) 251 ms MV Annular TDI MV E/e' (Septal) 11.4 MV E/e' (Lateral) 9.5 MV E/e' (Average) 10.5 Tricuspid Valve Name Value Normal TV Regurgitation Doppler TR Peak Velocity 275 cm/s TR Peak Gradient 30 mmHg Estimated PAP/RSVP RA Pressure 5 mmHg <=5 PA Systolic Pressure 35 mmHg <36 RV Systolic Pressure 35 mmHg <36 Aortic Valve Name Value Normal AV Doppler AV Peak Velocity 164 cm/s AV Peak Gradient 11 mmHg AV Area (Cont Eq Louis) 2.3 cm2 AV DI (Louis) 0.77 AV Regurgitation 2D LVOT Area 3.0 cm2 Ventricles Name Value Normal LV Dimensions 2D/MM IVS Diastolic Thickness (2D) 0.9 cm 0.6-1.0 LVID Diastole (2D) 3.7 cm 3.8-5.2 LVIW Diastolic Thickness (2D) 1.2 cm 0.6-0.9 LVID Systole (2D) 2.0 cm 2.2-3.5 LVOT Diameter 2.0 cm LV Mass (2D Cubed) 118.61 g 67.00-162.00 LV Mass Index (2D Cubed) 80 g/m2 43-95 Relative Wall Thickness (2D) 0.62 <=0.42 LV Fractional Shortening/Ejection Fraction 2D/MM LV Fractional Shortening (2D) 45 % 27-45 LV EF (2D Teichholz) 77 % LV Diastolic Volume (4C MOD) 65 ml LV EF (4C MOD) 59 % LV Diastolic Volume (2C MOD) 67 ml LV EF (2C MOD) 62 % LV Diastolic Volume (BP MOD) 68 ml 46-106 LV Diastolic Volume Index (BP MOD) 46 ml/m2 29-61 LV Systolic Volume (BP MOD) 27 ml 14-42 LV Systolic Volume Index (BP MOD) 18 ml/m2 8-24 LV EF (BP MOD) 61 % 54-74 LV Diastolic Length (4C) 6.5 cm LV Systolic Length (4C) 5.4 cm LV Stroke Volume (4C MOD) 38 ml Atria Name Value Normal LA Dimensions LA Volume (4C A-L) 26 ml LA Volume (BP A-L) 34 ml RA Dimensions RA Systolic Major Atkinson Length (4C) 4.1 cm 2.2-2.8 RA Area (4C) 9.6 cm2 <=18.0 Report Signatures
[2025-05-02] MEDS: DEXTROSE 5% 1,000 ML 1,000 ML 50 ML IV CONT (02:18)
[2025-05-02 05:31] LABS: Hematocrit 26.2 % (37.0-47.0); Hemoglobin 8.2 g/dL (12.0-15.0); Immature Granulocyte Percent A 0.4 % (0-0.5); Immature Platelet Fraction Pct 4.4 % (0.9-11.2); Lymphocytes Absolute Auto 1.97 K/mm3 (0.9-3.2); Mean Corpuscular HGB Conc 31.3 g/dl (32-36); Mean Corpuscular Hemoglobin 29.2 pg (26-34); Mean Corpuscular Volume 93.2 fl (80-100); Nucleated Red Blood Cells Absolute Auto 0.000 K/mm3 (0.0-0.012); Nucleated Red Blood Cells Perc 0.0 % (0.0-0.2); Platelet Count Result 198 k/mm3 (150-375); Red Blood Count 2.81 M/mm3 (4.2-5.4); White Blood Count 8.4 K/mm3 (4.5-10.0)
[2025-05-02 05:53] LABS: Alanine Aminotransferase 104 U/L (6-35); Albumin Level 2.6 g/dL (3.5-5.1); Alkaline Phosphatase 97 U/L (38-126); Anion Gap 4 mmol/L (4-12); Aspartate Amino Transferase 63 U/L (14-36); Bilirubin,Total 0.2 mg/dL (0.2-1.3); Blood Urea Nitrogen 54 mg/dL (7-17); Calcium 8.3 mg/dL (8.4-10.2); Carbon Dioxide 26 mmol/L (22-30); Chloride 118 mmol/L (98-107); Creatine Kinase 614 U/L (30-135); Estimated CRCL calculation 22 ml/min; Estimated Glomerular Filt Rate 30; Glucose 122 mg/dL (65-110); Magnesium 2.8 mg/dL (1.6-2.3); Potassium 4.0 mmol/L (3.4-5.0); Sodium 148 mmol/L (137-145); Total Protein 5.7 g/dL (6.3-8.2)
--- NOTE | 2025-05-02 06:56 | P.PNIM_ITS ---
Progress Note: A&P Assessment and Plan (1) Bacteremia: Code(s): R78.81 - Bacteremia Status: Acute Assessment and Plan: * suspected source: UTI * blood cultures drawn on 04/29 * Urine culture: Citrobacter amalonaticus * Repeat blood cultures order * Echo pending * IV Vanc 1gm q12 hours * Infectious Disease consult, appreciate further recommendations (2) Acute kidney injury superimposed on CKD: Code(s): N17.9 - Acute kidney failure, unspecified; N18.9 - Chronic kidney disease, unspecified Status: Acute Assessment and Plan: * Nephrology consulted - appreciate further recommendations * IV fluids given on admit and patient changed from LR to 0.45% NaCl at 100 mL/ hr plus tube feeds/flushes with free water * 05/02 - Creatinine slowly improvin.51 -> 1.92 -> 1.68 (3) Hypernatremia: Code(s): E87.0 - Hyperosmolality and hypernatremia Status: Acute Assessment and Plan: * Nephrology consulted, IV fluids given on admit and patient changed from LR to 0.45% NaCl at 100 mL/hr plus tube feeds/flushes with free water * Na steadily decreasin -> 155 -> 152 -> 146 (4) Acute UTI: Code(s): N39.0 - Urinary tract infection, site not specified Status: Acute Assessment and Plan: * UA: Turbid, pH greater than 9, 2+ protein, 1+ blood, positive nitrates, 3+ leuk esterase, greater than 100 WBC, occasional epithelial cells, 4+ bacteria * no previous micro available for review * started on Ceftriaxone on 04/29, continue inpatient * Shoemaker replaced * UC - Citrobacter amalonaticus (5) Severe protein-calorie malnutrition: Code(s): E43 - Unspecified severe protein-calorie malnutrition Status: Acute Assessment and Plan: * Weight loss of nearly 80 lb in 7 months * Dietitian recommendation Jevity 1.5 75 mL/hr with free water flushes (currently 75 mL Q4 while on IV fluids but recommend 200 mL Q4.) * G-J tube leaking since admission and unknown time prior to hospitalization. * Gastroenterology consulted * New 18 F tube placed (6) PEG tube malfunction: Code(s): K94.23 - Gastrostomy malfunction Status: Acute Assessment and Plan: * On exam there appears to be significant leakage around stoma of PEG tube * GI consulted for replacement of tube * PEG replaced on 04/30 without complications * Continue tube feedings (7) Pressure ulcer of left hip: Qualifiers: Pressure injury stage: unspecified pressure injury stage Qualified Code(s): L89.229 - Pressure ulcer of left hip, unspecified stage Code(s): L89.229 - Pressure ulcer of left hip, unspecified stage Status: Acute Assessment and Plan: * Recommend pressure off loading and wound care consult (8) Diabetes mellitus with hyperglycemia: Code(s): E11.65 - Type 2 diabetes mellitus with hyperglycemia Status: Acute Assessment and Plan: * Q.6 hour fingerstick glucose and low-dose sliding scale insulin correction * Previous A1c 6.0 in July of 2024 * A1C: 5.7% this visit (9) Essential (primary) hypertension: Code(s): I10 - Essential (primary) hypertension Status: Chronic Assessment and Plan: * Blood pressures have been low since admission without current antihypertensive medications * Continue to hold antihypertensives given low BP * 106/47 (10) HLD (hyperlipidemia): Qualifiers: Hyperlipidemia type: unspecified Qualified Code(s): E78.5 - Hyperlipidemia, unspecified Code(s): E78.5 - Hyperlipidemia, unspecified Status: Chronic Assessment and Plan: * Hold statin due to AMRITA with elevated CK levels and mildly elevated liver enzymes * Consider restarting at lower dose once electrolyte/renal improvements Subjective Date/time seen: 05/02/25 06:56 Interval history: 69-year-old female patient admitted for hypernatremia AMRITA anemia and severe weight loss. She is nonverbal and no family present at time of evaluation. Patient resides in a nursing facility [facility] after a prior stroke. She has lost nearly 80 lbs in 7 months. Patient unable to answer any questions or even shake head yes and no. She has a G-J tube in place. 05/02/2025 Patient in bed at time of exam. Nursing staff reported positive anaerobic blood culture with growth of Gram-positive cocci. IV Vancomycin q.12 hours initiated, infectious disease consult GI for further recommendations. Remains afebrile without leukocytosis. Urine culture continues to show growth of Citrobacter Amalonaticus. Repeat blood cultures, echo ordered and pending. Kidney function continues to improve. Review of Systems Review of Systems: ROS unobtainable: Yes unobtainable due to medical condition and unobtainable due to mental status Exam Narrative: GENERAL: Appears older than stated age, contracted, nonverbal HEAD: Normocephalic, atraumatic. ENT:? Mucous membranes dry. CHEST: Clear to auscultation.? No respiratory distress. HEART: Regular rate and rhythm. ? Normal peripheral pulses. ABDOMEN: Soft, nontender, loss subcutaneous tissue, gastric tube leaking EXTREMITIES: No peripheral edema. Contracted SKIN: Warm dry pale appearing NEURO: Does not follow commands or track reliably Const: Other: He , female, chronically ill-appearing, nontoxic appearance, no grimacing or distress noted HENMT: Face/Nose/Sinus: Normal nares present Other: Tacky mucous membranes Eyes: General: appearance normal, both eyes and all related structures Sclera: sclerae normal Pupils: Equal, round and reactive pupils present EOM: EOMs intact bilaterally Resp: Effort & Inspection: normal respiratory effort Auscultation: clear to auscultation bilaterally Cardio: Rate: regular rate Rhythm: regular rhythm Other: S1-S2 present without murmur, rub, ectopy GI: Other: Abdomen soft, nondistended, normoactive bowel sounds in all quadrants. G-tube present, initially leaking however stopcock placed. no signs of infection. Skin: General skin exam: normal color, no rashes or lesions noted and wounds noted (L hip, erythematous wound bed without drainage) Wounds: no wounds and wounds noted (L hip, erythematous wound bed without drainage) Other: Poor skin turgor Neuro: Cranial nerves: Yes Equal, round and reactive pupils present Other: A&Ox0, alert, right and left leg resistant to extension and grimacing with range of motion. Extrem: General: normal to inspection Psych: Other: Flat affect. Objective Data Vital Signs Vital Signs: Vital Signs - 24 hr 05/01/25 08:00 05/01/25 08:00 05/01/25 08:00 Temperature 98.6 F Pulse Rate 88 8 L Respiratory Rate 14 Blood Pressure 108/49 L Pulse Oximetry Oxygen Delivery Room Air 05/01/25 11:43 05/01/25 12:00 05/01/25 16:00 Temperature 99.3 F 98.1 F Pulse Rate 96 93 97 Respiratory Rate 16 14 Blood Pressure 125/57 L 116/59 L Pulse Oximetry 100 100 Oxygen Delivery 05/01/25 16:00 05/01/25 20:00 05/01/25 20:00 Temperature 97.3 F L Pulse Rate 95 104 H Respiratory Rate 16 Blood Pressure 143/87 H Pulse Oximetry 100 Oxygen Delivery Room Air 05/01/25 20:00 05/01/25 23:51 05/02/25 00:00 Temperature 97.5 F L Pulse Rate 103 H 50 L 94 Respiratory Rate 16 Blood Pressure 112/66 Pulse Oximetry 94 Oxygen Delivery 05/02/25 03:44 05/02/25 04:00 Temperature 98.6 F Pulse Rate 94 89 Respiratory Rate 20 Blood Pressure 129/75 Pulse Oximetry 100 Oxygen Delivery Intake/Output Intake/Output: Intake & Output 04/29/25 04/30/25 05/01/25 05/02/25 23:59 23:59 23:59 23:59 Intake Total 3182.5 2660.5 4045 305 Output Total 400 1600 1100 750 Balance 2782.5 1060.5 2945 -445 Meds/Results Medications: Active Medications Generic Name Dose Route Start Last Admin Trade Name Freq PRN Reason Stop Dose Admin Acetaminophen 650 mg 04/29/25 12:53 Acetaminophen Elixir 325 Mg/10.15 Ml Udc FEED TUBE Q6H PRN Mild Pain (1-3) or Fever Acetaminophen 500 mg 04/29/25 15:56 Acetaminophen 500 Mg Tablet FEED TUBE Q6H PRN Pain 1-3 Aspirin 81 mg 04/30/25 09:00 05/01/25 08:27 Aspirin 81 Mg Chewable Tablet FEED TUBE 81 mg DAILY FIONA Administration Atorvastatin Calcium 80 mg 04/29/25 21:00 04/29/25 21:48 Atorvastatin 40 Mg Tablet FEED TUBE 80 mg On Hold: 04/30/25 08:47 HS FIONA Administration Bisacodyl 10 mg 04/29/25 15:56 Bisacodyl 10 Mg Suppository RECTAL DAILY PRN Constipation Dextrose 12.5 gm 04/29/25 12:53 Dextrose 50% 25 Gm/50 Ml Syringe IV PUSH PRN PRN Hypoglycemia Protocol Glucagon 1 mg 04/29/25 12:53 Glucagon For Inj 1 Mg Vial IM PRN PRN Hypoglycemia Protocol Glucose 15 gm 04/29/25 12:53 Glucose Oral Gel 15 Gm Of Glucse In 37.5 Gm Tube PO PRN PRN Hypoglycemia Protocol Ceftriaxone Sodium 1 gm/ 50 mls @ 100 mls/hr 04/30/25 09:00 05/01/25 08:26 Sodium Chloride IVPB 100 mls/hr Q24H FIONA Administration Dextrose 1,000 mls @ 100 mls/hr 04/29/25 12:53 Dextrose 5% 1,000 Ml IVPB PRN PRN Hypoglycemia Protocol Dextrose 1,000 mls @ 50 mls/hr 05/01/25 08:50 05/02/25 02:18 Dextrose 5% 1,000 Ml IV CONT 50 mls/hr .Q20H FIONA Administration Insulin Aspart 2 - 5 units 04/29/25 18:00 05/02/25 02:17 Insulin Aspart (*Bkc) 100 Units/Ml SUB-Q Not Given Q6HR FIONA Protocol Magnesium Citrate 300 ml 04/29/25 15:56 Magnesium Citrate 300 Ml Btl PO ONCE PRN Constipation Magnesium Hydroxide 30 ml 04/29/25 15:56 Magnesium Hydroxide Susp 30 Ml Udc PO DAILY PRN Constipation Memantine 5 mg 04/29/25 17:00 05/01/25 16:08 Memantine 5 Mg Tablet FEED TUBE 5 mg BID FIONA Administration Ondansetron HCl 4 mg 04/29/25 13:00 Ondansetron Inj 4 Mg/2 Ml Vial IV PUSH Q6H PRN Nausea And Vomiting Potassium Phos/Sodium Phos 1 packet 04/30/25 09:00 05/01/25 13:31 Potassium/Phosphorus/Sodium 1.5 Gm Packet FEED TUBE Not Given DAILY FIONA Sodium Bicarbonate 650 mg 04/29/25 17:00 04/29/25 17:00 Sodium Bicarbonate Tab 650 Mg Tablet FEED TUBE 650 mg On Hold: 04/30/25 07:31 BID FIONA Administration Thiamine HCl 100 mg 04/30/25 09:00 05/01/25 08:27 Thiamine Hcl 100 Mg Tablet FEED TUBE 100 mg QAM FIONA Administration Vitamin D 10 mcg 04/30/25 09:00 05/01/25 08:27 Cholecalciferol (Vitamin D3) 10 Mcg (400 Units) Tablet FEED TUBE 10 mcg DAILY FIONA Administration Radiology Results: ITS Impressions Chest/Abdomen/Pelvis CT 04/29/25 11:44 IMPRESSION: 1. Directed noncontrast exam demonstrating no gross acute intrathoracic process identified. 10 mm spiculated right lower lobe nodule concerning for possible malignant lesion. Correlate with short interval follow-up chest CT or PET/CT. 2. Limited evaluation of the abdomen and pelvis; no acute surgical abnormality identified. Possible wall thickening in the sigmoid region which could be associated with inflammatory/infectious colitis or stercoral colitis. Renal Ultrasound 04/30/25 15:33 IMPRESSION: 1. Bilateral diffuse increased renal cortical echogenicity consistent with medical renal disease. No hydronephrosis. 2. Cholelithiasis with additional indeterminate 1.7 x 1.2 x 0.9 cm nonshadowing echogenic nodule at the fundus which could represent a sludge ball or potentially a gallbladder polyp. Consider further evaluation with ultrasound or pre and postcontrast MRI or CT. Labs Labs: Laboratory Results - last 24 hr 05/01/25 05/01/25 05/01/25 11:32 12:15 16:10 WBC RBC Hgb Hct MCV MCH MCHC RDW Plt Count MPV Immature Gran % (Auto) Neut % (Auto) Lymph % (Auto) [place] % (Auto) Eos % (Auto) Baso % (Auto) Lymph # (Auto) [place] # (Auto) Eos # (Auto) Baso # (Auto) Abs Immat Gran (auto) Absolute Neuts (auto) Absolute Nucleated RBC Nucleated RBC % % Immature Plt Fraction Sodium 152 H 151 H Potassium 3.7 4.0 Chloride 121 H 119 H Carbon Dioxide 27 27 Anion Gap 4 5 BUN 64 H D 63 H Creatinine 1.75 H 1.69 H Estim Creat Clear Calc 21 22 Estimated GFR 29 L 30 L Glucose 162 H 118 H POC Capillary Glucose 167 H Calcium 8.2 L 8.1 L Phosphorus 3.7 Magnesium Total Bilirubin AST ALT Alkaline Phosphatase Total Creatine Kinase Total Protein Albumin 2.9 L 05/01/25 05/01/25 05/02/25 17:42 23:42 04:42 WBC 8.4 RBC 2.81 L Hgb 8.2 L Hct 26.2 L MCV 93.2 MCH 29.2 MCHC 31.3 L RDW 13.2 Plt Count 198 MPV 13.0 H Immature Gran % (Auto) 0.4 Neut % (Auto) 68.9 Lymph % (Auto) 23.3 [place] % (Auto) 4.7 Eos % (Auto) 2.6 Baso % (Auto) 0.1 L Lymph # (Auto) 1.97 [place] # (Auto) 0.4 Eos # (Auto) 0.2 Baso # (Auto) 0.0 Abs Immat Gran (auto) 0.03 Absolute Neuts (auto) 5.8 Absolute Nucleated RBC 0.000 Nucleated RBC % 0.0 % Immature Plt Fraction 4.4 Sodium 148 H Potassium 4.0 Chloride 118 H Carbon Dioxide 26 Anion Gap 4 BUN 54 H Creatinine 1.68 H Estim Creat Clear Calc 22 Estimated GFR 30 L Glucose 122 H POC Capillary Glucose 142 H 116 H Calcium 8.3 L Phosphorus Magnesium 2.8 H Total Bilirubin 0.2 AST 63 H ALT 104 H Alkaline Phosphatase 97 Total Creatine Kinase 614 H Total Protein 5.7 L Albumin 2.6 L 05/02/25 06:49 WBC RBC Hgb Hct MCV MCH MCHC RDW Plt Count MPV Immature Gran % (Auto) Neut % (Auto) Lymph % (Auto) [place] % (Auto) Eos % (Auto) Baso % (Auto) Lymph # (Auto) [place] # (Auto) Eos # (Auto) Baso # (Auto) Abs Immat Gran (auto) Absolute Neuts (auto) Absolute Nucleated RBC Nucleated RBC % % Immature Plt Fraction Sodium Potassium Chloride Carbon Dioxide Anion Gap BUN Creatinine Estim Creat Clear Calc Estimated GFR Glucose POC Capillary Glucose 137 H Calcium Phosphorus Magnesium Total Bilirubin AST ALT Alkaline Phosphatase Total Creatine Kinase Total Protein Albumin Quality VTE Prophylaxis VTE prophylaxis: mechanical ordered
[2025-05-02] MEDS: cefTRIAXone 1 GM in SODIUM CHLORIDE 0.9% IV 50 ML 100 ML IVPB (07:57)
[2025-05-02] MEDS: CHOLECALCIFEROL (VITAMIN D3) 10 MCG (400 UNITS) TABLET FEED TUBE (07:58)
[2025-05-02] MEDS: ASPIRIN 81 MG CHEWABLE TABLET FEED TUBE (07:58)
[2025-05-02] MEDS: THIAMINE HCL 100 MG TABLET FEED TUBE (07:58)
[2025-05-02] MEDS: POTASSIUM/PHOSPHORUS/SODIUM 1.5 GM PACKET 1 PACKET FEED TUBE (07:58)
[2025-05-02] MEDS: MEMANTINE 5 MG TABLET FEED TUBE ×2 (07:58→16:05)
--- NOTE | 2025-05-02 12:16 | P.PNNP_ITS ---
Progress Note: A&P Assessment and Plan (1) Hypernatremia: Code(s): E87.0 - Hyperosmolality and hypernatremia Status: Acute Assessment and Plan: * slowly improving * as noted on presentation * suspect related to severe free water deficit complicated by G-tube malfunction * IVFs adjusted to 1/2NS to provide free water as well as volume resuscitation * attempt to wean off today * resumed free water flushes * titrate as needed * follow trend of repeat sodium levels (2) Acute kidney injury: Code(s): N17.9 - Acute kidney failure, unspecified Status: Acute Assessment and Plan: * slow improvement noted * as noted on admission * normal creatinine at baseline (from labs in August 2024) * suspect due to volume depletion possilby worsened by infection (UTI + bacteremia) * evaluation to date noted: * renal ultrasound w/o obstruction but findings suggestive of CKD * urine electrolytes non-prerenal * 10% urine eosinophils (likely due to inflammation on UA) * moderate proteinuria * CPK slightly elevated (but not enought to affect kidney function) * appears to be responding to IVF resuscitation * wean off IVFs * follow trend of repeat labs and UOP * possible new baseline creatinine(?) (3) Acute UTI: Code(s): N39.0 - Urinary tract infection, site not specified Status: Acute Assessment and Plan: * amdission UA noted: * turbid appearance, 2+ protein, 1+ blood, positive nitrates, 3+ leuk esterase, greater than 100 WBC, occasional epithelial cells, 4+ bacteria * urine culture with Citrobacter amalonaticus * blood culures noted as well * complicated by chronic aguayo catheter - exchanged in ER * on antibiotics * Infectious Disease consulted (4) PEG tube malfunction: Code(s): K94.23 - Gastrostomy malfunction Status: Acute Assessment and Plan: * significant leakage around stoma of PEG tube on admission * GI consulted for replacement of tube * PEG tube replaced on 04/30 without complications * functioning appropriately at this time (5) Severe protein-calorie malnutrition: Code(s): E43 - Unspecified severe protein-calorie malnutrition Status: Acute Assessment and Plan: * reportred weight loss of nearly 80 lb in 7 months * likely complicated by #4 * on tube feeds * [employer] recommendations noted (6) Anemia: Code(s): D64.9 - Anemia, unspecified Status: Acute Assessment and Plan: * noted with IVF hydration * due to AMRITA/ARF and acute illness * follow trend of H/H (7) Essential (primary) hypertension: Code(s): I10 - Essential (primary) hypertension Status: Chronic Assessment and Plan: * despite history, soft BP noted since admission * holding BP medications for now * follow trned of hemodynamics (8) Diabetes mellitus with hyperglycemia: Code(s): E11.65 - Type 2 diabetes mellitus with hyperglycemia Status: Acute Assessment and Plan: * follow accu-cheks * glycemic control per hospitalist Will continue to follow. L Subjective Date/time seen: 05/02/25 12:16 Interval history: Follow-up for acute kidney injury/acute renal failure and acute hypernatremia. Sodium as well as renal function/creatinine appear to be improving with current interventions/therapy to date; results of urine and blood cultures noted -- antibiotic adjusted; no change in mentation; no other issues/events overnight or earlier this morning. Exam 2 Narrative: General: thin/frail and elderly female in NAD Heart: normal S1 and S2; no rub Lungs: clear to auscultation Abdomen: soft, nontender, nondistended, positive bowel sounds Extremities: no cyanosis or clubbing; no edema; contracted Skin: warm and intact; + loss of muscle mass Objective Data Vital Signs Vital Signs: Vital Signs Temp Pulse Resp BP Pulse Ox O2 Del Method 05/02/25 12:00 95 05/02/25 11:58 98.1 F 93 14 120/65 100 05/02/25 08:00 94 05/02/25 08:00 100 Room Air 05/02/25 08:00 97.8 F 95 12 132/83 100 05/02/25 04:00 89 05/02/25 03:44 98.6 F 94 20 129/75 100 05/02/25 00:00 94 05/01/25 23:51 97.5 F L 50 L 16 112/66 94 05/01/25 20:00 103 H 05/01/25 20:00 Room Air 05/01/25 20:00 97.3 F L 104 H 16 143/87 H 100 Intake/Output Intake/Output: Intake & Output 04/29/25 04/30/25 05/01/25 05/02/25 23:59 23:59 23:59 23:59 Intake Total 3182.5 2660.5 4095 305 Output Total 400 1600 1100 1375 Balance 2782.5 1060.5 2995 -1070 Meds/Results Medications: Active Medications Generic Name Dose Route Start Last Admin Trade Name Freq PRN Reason Stop Dose Admin Acetaminophen 650 mg 04/29/25 12:53 Acetaminophen Elixir 325 Mg/10.15 Ml Udc FEED TUBE Q6H PRN Mild Pain (1-3) or Fever Acetaminophen 500 mg 04/29/25 15:56 Acetaminophen 500 Mg Tablet FEED TUBE Q6H PRN Pain 1-3 Aspirin 81 mg 04/30/25 09:00 05/02/25 07:58 Aspirin 81 Mg Chewable Tablet FEED TUBE 81 mg DAILY FIONA Administration Atorvastatin Calcium 80 mg 04/29/25 21:00 04/29/25 21:48 Atorvastatin 40 Mg Tablet FEED TUBE 80 mg On Hold: 04/30/25 08:47 HS FIONA Administration Bisacodyl 10 mg 04/29/25 15:56 Bisacodyl 10 Mg Suppository RECTAL DAILY PRN Constipation Dextrose 12.5 gm 04/29/25 12:53 Dextrose 50% 25 Gm/50 Ml Syringe IV PUSH PRN PRN Hypoglycemia Protocol Glucagon 1 mg 04/29/25 12:53 Glucagon For Inj 1 Mg Vial IM PRN PRN Hypoglycemia Protocol Glucose 15 gm 04/29/25 12:53 Glucose Oral Gel 15 Gm Of Glucse In 37.5 Gm Tube PO PRN PRN Hypoglycemia Protocol Dextrose 1,000 mls @ 100 mls/hr 04/29/25 12:53 Dextrose 5% 1,000 Ml IVPB PRN PRN Hypoglycemia Protocol Dextrose 1,000 mls @ 50 mls/hr 05/01/25 08:50 05/02/25 02:18 Dextrose 5% 1,000 Ml IV CONT 50 mls/hr .Q20H FIONA Administration Cefazolin Sodium 500 mg/ 50 mls @ 100 mls/hr 05/02/25 18:00 05/02/25 17:01 Dextrose IVPB 100 mls/hr Q12H FIONA Administration Insulin Aspart 2 - 5 units 04/29/25 18:00 05/02/25 18:19 Insulin Aspart (*Bkc) 100 Units/Ml SUB-Q Not Given Q6HR FIONA Protocol Magnesium Citrate 300 ml 04/29/25 15:56 Magnesium Citrate 300 Ml Btl PO ONCE PRN Constipation Magnesium Hydroxide 30 ml 04/29/25 15:56 Magnesium Hydroxide Susp 30 Ml Udc PO DAILY PRN Constipation Memantine 5 mg 04/29/25 17:00 05/02/25 16:05 Memantine 5 Mg Tablet FEED TUBE 5 mg BID FIONA Administration Mupirocin 1 applic 05/02/25 21:00 Mupirocin 2% Oint 22 Gm Tube EACH NARE 05/07/25 09:01 Q12HR [facility] Ondansetron HCl 4 mg 04/29/25 13:00 Ondansetron Inj 4 Mg/2 Ml Vial IV PUSH Q6H PRN Nausea And Vomiting Perflutren Lipid Microsphere 0 ml 05/02/25 11:53 Perflutren Lipid Microspheres 1.5 Ml Vial Diluted To 10 Ml Total Volume IV PUSH 05/05/25 11:55 ONCE PRN adequate visualization Protocol Potassium Phos/Sodium Phos 1 packet 04/30/25 09:00 05/02/25 07:58 Potassium/Phosphorus/Sodium 1.5 Gm Packet FEED TUBE 1 packet DAILY FIONA Administration Sodium Bicarbonate 650 mg 04/29/25 17:00 04/29/25 17:00 Sodium Bicarbonate Tab 650 Mg Tablet FEED TUBE 650 mg On Hold: 04/30/25 07:31 BID FIONA Administration Thiamine HCl 100 mg 04/30/25 09:00 05/02/25 07:58 Thiamine Hcl 100 Mg Tablet FEED TUBE 100 mg QAM FIONA Administration Vancomycin HCl 1 each 05/02/25 12:04 Vancomycin For Acute Kidney Injury IVPB PRN PRN Vancomycin Protocol Vitamin D 10 mcg 04/30/25 09:00 05/02/25 07:58 Cholecalciferol (Vitamin D3) 10 Mcg (400 Units) Tablet FEED TUBE 10 mcg DAILY FIONA Administration Radiology Results: ITS Impressions Chest/Abdomen/Pelvis CT 04/29/25 11:44 IMPRESSION: 1. Directed noncontrast exam demonstrating no gross acute intrathoracic process identified. 10 mm spiculated right lower lobe nodule concerning for possible malignant lesion. Correlate with short interval follow-up chest CT or PET/CT. 2. Limited evaluation of the abdomen and pelvis; no acute surgical abnormality identified. Possible wall thickening in the sigmoid region which could be associated with inflammatory/infectious colitis or stercoral colitis. Renal Ultrasound 04/30/25 15:33 IMPRESSION: 1. Bilateral diffuse increased renal cortical echogenicity consistent with medical renal disease. No hydronephrosis. 2. Cholelithiasis with additional indeterminate 1.7 x 1.2 x 0.9 cm nonshadowing echogenic nodule at the fundus which could represent a sludge ball or potentially a gallbladder polyp. Consider further evaluation with ultrasound or pre and postcontrast MRI or CT. Labs Labs: Laboratory Tests 05/02/25 04:42 05/02/25 12:03 05/02/25 05/02/25 04:42 11:56 Sodium 148 H 146 H Potassium 4.0 Chloride 118 H Carbon Dioxide 26 Anion Gap 4 BUN 54 H Creatinine 1.68 H 1.56 H Estimated GFR 30 L 33 L Glucose 122 H Calcium 8.3 L Magnesium 2.8 H Total Bilirubin 0.2 AST 63 H ALT 104 H Alkaline Phosphatase 97 Total Creatine Kinase 614 H Total Protein 5.7 L Albumin 2.6 L Microbiology 04/29/25 11:03 Blood Blood Culture - Preliminary 04/29/25 11:03 Blood Blood Culture - Preliminary Staphylococcus epidermidis 04/29/25 11:18 Urine [place] - Final Citrobacter amalonaticus
[2025-05-02] MEDS: VANCOMYCIN 750 MG/NS 250 ML 750 MG/250 ML BAG 250 MG IVPB (12:28)
[2025-05-02 12:38] LABS: Estimated CRCL calculation 22 ml/min; Estimated Glomerular Filt Rate 31
[2025-05-02 12:39] LABS: Anion Gap 4 mmol/L (4-12); Blood Urea Nitrogen 50 mg/dL (7-17); Calcium 8.1 mg/dL (8.4-10.2); Carbon Dioxide 26 mmol/L (22-30); Chloride 116 mmol/L (98-107); Estimated CRCL calculation 23 ml/min; Estimated Glomerular Filt Rate 33; Glucose 125 mg/dL (65-110); Potassium 3.9 mmol/L (3.4-5.0); Sodium 146 mmol/L (137-145)
--- NOTE | 2025-05-02 13:13 | PCNFU ---
Nutrition Follow-Up Complete: Severe Protein Calorie Malnutrition as related to inadequate protein-energy intake with increased protein energy needs in setting of chronic disease as evidenced by significant weight loss 63 ibs (37%); severe subcutaneous fat loss (orbital fat pads) and severe muscle wasting (temporalis, clavicle). Meet estimated nutritional needs - Progressing with tube feeding. Goal: Pt current nutrition is Jevity 1.h @ 55 ml/h with flushes 150 ml q 4 hours. Nutrition recommendation: No new recommendations. Continue current nutrition care plan and tube feeding orders. Agree with orders Last recorded weight is 49.5 kg. 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 PEG tube was replaced as it was non-functional when admitted so unknown if patient was getting tube feeding at [facility] in light of extreme weight loss. Current Jevity 1.5 @ 55 ml/h with flushes 150 ml q 4 hours provides 1815 kcal, 70 g protein, 1736 ml free water including flushes. Meets needs @ 37 kcal/kg, 1.4 g protein/kg. Adequate for needs. Continue same order at [facility] is recommended. Will monitor weight, labs, skin, diet orders, meds every Monday and Monday.
[2025-05-02 14:08] LABS: MRSA (PCR) DETECTED (NOT DETECTE)
[2025-05-02] MEDS: ceFAZolin 500 MG in DEXTROSE 5% IN WATER 50 ML 100 MG IVPB (17:01)
[2025-05-02] MEDS: MUPIROCIN 2% OINT 22 GM TUBE 1 APPLIC EACH NARE (20:29)
[2025-05-02 20:38] LABS: Anion Gap 2 mmol/L (4-12); Blood Urea Nitrogen 45 mg/dL (7-17); Calcium 7.9 mg/dL (8.4-10.2); Carbon Dioxide 28 mmol/L (22-30); Chloride 114 mmol/L (98-107); Estimated CRCL calculation 23 ml/min; Estimated Glomerular Filt Rate 32; Glucose 115 mg/dL (65-110); Potassium 4.0 mmol/L (3.4-5.0); Sodium 144 mmol/L (137-145)
[2025-05-03] VITALS (11 sets, daily range): BP systolic 131–183; BP diastolic 64–82; PULSE 78–92; RESP 16–24; TEMP 36.3–37; O2SAT 100
[2025-05-03] MEDS: DEXTROSE 5% 1,000 ML 1,000 ML 50 ML IV CONT (02:01)
[2025-05-03 05:05] LABS: Hematocrit 26.5 % (37.0-47.0); Hemoglobin 8.3 g/dL (12.0-15.0); Immature Granulocyte Percent A 0.4 % (0-0.5); Lymphocytes Absolute Auto 2.20 K/mm3 (0.9-3.2); Mean Corpuscular HGB Conc 31.3 g/dl (32-36); Mean Corpuscular Hemoglobin 29.3 pg (26-34); Mean Corpuscular Volume 93.6 fl (80-100); Nucleated Red Blood Cells Absolute Auto 0.000 K/mm3 (0.0-0.012); Nucleated Red Blood Cells Perc 0.0 % (0.0-0.2); Platelet Count Result 181 k/mm3 (150-375); Red Blood Count 2.83 M/mm3 (4.2-5.4); White Blood Count 7.8 K/mm3 (4.5-10.0)
[2025-05-03 05:23] LABS: Alanine Aminotransferase 118 U/L (6-35); Albumin Level 2.6 g/dL (3.5-5.1); Alkaline Phosphatase 95 U/L (38-126); Anion Gap 4 mmol/L (4-12); Aspartate Amino Transferase 81 U/L (14-36); Bilirubin,Total 0.2 mg/dL (0.2-1.3); Blood Urea Nitrogen 43 mg/dL (7-17); Calcium 8.2 mg/dL (8.4-10.2); Carbon Dioxide 27 mmol/L (22-30); Chloride 113 mmol/L (98-107); Creatine Kinase 431 U/L (30-135); Estimated CRCL calculation 24 ml/min; Estimated Glomerular Filt Rate 34; Glucose 120 mg/dL (65-110); Magnesium 2.6 mg/dL (1.6-2.3); Potassium 4.5 mmol/L (3.4-5.0); Sodium 144 mmol/L (137-145); Total Protein 5.6 g/dL (6.3-8.2)
[2025-05-03] MEDS: ceFAZolin 500 MG in DEXTROSE 5% IN WATER 50 ML 100 MG IVPB ×2 (05:44→17:07)
--- NOTE | 2025-05-03 06:56 | P.PNIM_ITS ---
Progress Note: A&P Assessment and Plan (1) Bacteremia: Code(s): R78.81 - Bacteremia Status: Acute Assessment and Plan: * suspected source: UTI * blood cultures drawn on 04/29 * Urine culture: Citrobacter amalonaticus * Repeat blood cultures ordered * Echo: G1DD, EF 60-65%, trace AVR, MVR, TVR * IV Vanc 1gm q12 hours, pharmacy to dose * Infectious Disease consult, appreciate further recommendations (2) Acute kidney injury superimposed on CKD: Code(s): N17.9 - Acute kidney failure, unspecified; N18.9 - Chronic kidney disease, unspecified Status: Acute Assessment and Plan: * Nephrology consulted - appreciate further recommendations * IV fluids given on admit and patient changed from LR to 0.45% NaCl at 100 mL/hr plus tube feeds/flushes with free water * 05/03 - Creatinine continues to improve: 2.51 -> 1.92 -> 1.68 -> 1.52 (3) Hypernatremia: Code(s): E87.0 - Hyperosmolality and hypernatremia Status: Acute Assessment and Plan: * Nephrology consulted, IV fluids given on admit and patient changed from LR to 0.45% NaCl at 100 mL/hr plus tube feeds/flushes with free water * Na steadily decreasin -> 155 -> 152 -> 144 (4) Acute UTI: Code(s): N39.0 - Urinary tract infection, site not specified Status: Acute Assessment and Plan: * UA: Turbid, pH greater than 9, 2+ protein, 1+ blood, positive nitrates, 3+ leuk esterase, greater than 100 WBC, occasional epithelial cells, 4+ bacteria * no previous micro available for review * started on Ceftriaxone on 04/29, continue inpatient * Shoemaker replaced * UC - Citrobacter amalonaticus (5) Severe protein-calorie malnutrition: Code(s): E43 - Unspecified severe protein-calorie malnutrition Status: Acute Assessment and Plan: * Weight loss of nearly 80 lb in 7 months * Dietitian recommendation Jevity 1.5 75 mL/hr with free water flushes (currently 75 mL Q4 while on IV fluids but recommend 200 mL Q4.) * G-J tube leaking since admission and unknown time prior to hospitalization. * Gastroenterology consulted * New 18 F tube placed (6) PEG tube malfunction: Code(s): K94.23 - Gastrostomy malfunction Status: Acute Assessment and Plan: * On exam there appears to be significant leakage around stoma of PEG tube * GI consulted for replacement of tube * PEG replaced on 04/30 without complications * Continue tube feedings (7) Pressure ulcer of left hip: Qualifiers: Pressure injury stage: unspecified pressure injury stage Qualified Code(s): L89.229 - Pressure ulcer of left hip, unspecified stage Code(s): L89.229 - Pressure ulcer of left hip, unspecified stage Status: Acute Assessment and Plan: * Recommend pressure off loading and wound care consult (8) Diabetes mellitus with hyperglycemia: Code(s): E11.65 - Type 2 diabetes mellitus with hyperglycemia Status: Acute Assessment and Plan: * Q.6 hour fingerstick glucose and low-dose sliding scale insulin correction * Previous A1c 6.0 in July of 2024 * A1C: 5.7% this visit (9) Essential (primary) hypertension: Code(s): I10 - Essential (primary) hypertension Status: Chronic Assessment and Plan: * Blood pressures have been low since admission without current antihypertensive medications * Continue to hold antihypertensives given low BP * 138/68 (10) HLD (hyperlipidemia): Qualifiers: Hyperlipidemia type: unspecified Qualified Code(s): E78.5 - Hyperlipidemia, unspecified Code(s): E78.5 - Hyperlipidemia, unspecified Status: Chronic Assessment and Plan: * Hold statin due to AMRITA with elevated CK levels and mildly elevated liver enzymes * Consider restarting at lower dose once electrolyte/renal improvements Subjective Date/time seen: 05/03/25 06:56 Interval history: 69-year-old female patient admitted for hypernatremia AMRITA anemia and severe weight loss. She is nonverbal and no family present at time of evaluation. Patient resides in a nursing facility [facility] after a prior stroke. She has lost nearly 80 lbs in 7 months. Patient unable to answer any questions or even shake head yes and no. She has a G-J tube in place. 05/03/2025 Patient in bed at time of exam. No acute overnight events. No fevers or leukocytosis. Kidney function improving, Cr down to 1.52. Repeat blood cultures still pending. Nasal MRSA (+) -> initiate mupirocin ointment to each nare. Continue Cefazolin and Vanc. ID consult pending. Review of Systems Review of Systems: ROS unobtainable: Yes unobtainable due to medical condition and unobtainable due to mental status Exam Narrative: GENERAL: Appears older than stated age, contracted, nonverbal HEAD: Normocephalic, atraumatic. ENT:? Mucous membranes dry. CHEST: Clear to auscultation.? No respiratory distress. HEART: Regular rate and rhythm. ? Normal peripheral pulses. ABDOMEN: Soft, nontender, loss subcutaneous tissue, gastric tube leaking EXTREMITIES: No peripheral edema. Contracted SKIN: Warm dry pale appearing NEURO: Does not follow commands or track reliably Const: Other: He , female, chronically ill-appearing, nontoxic appearance, no grimacing or distress noted HENMT: Face/Nose/Sinus: Normal nares present Other: Tacky mucous membranes Eyes: General: appearance normal, both eyes and all related structures Sclera: sclerae normal Pupils: Equal, round and reactive pupils present EOM: EOMs intact bilaterally Resp: Effort & Inspection: normal respiratory effort Auscultation: clear to auscultation bilaterally Cardio: Rate: regular rate Rhythm: regular rhythm Other: S1-S2 present without murmur, rub, ectopy GI: Other: Abdomen soft, nondistended, normoactive bowel sounds in all quadrants. G-tube present, initially leaking however stopcock placed. no signs of infection. Skin: General skin exam: normal color, no rashes or lesions noted and wounds noted (L hip, erythematous wound bed without drainage) Wounds: no wounds and wounds noted (L hip, erythematous wound bed without drainage) Other: Poor skin turgor Neuro: Cranial nerves: Yes Equal, round and reactive pupils present Other: A&Ox0, alert, right and left leg resistant to extension and grimacing with range of motion. Extrem: General: normal to inspection Psych: Other: Flat affect. Objective Data Vital Signs Vital Signs: Vital Signs - 24 hr 05/02/25 08:00 05/02/25 08:00 05/02/25 08:00 Temperature 97.8 F Pulse Rate 95 94 Respiratory Rate 12 Blood Pressure 132/83 Pulse Oximetry 100 100 Oxygen Delivery Room Air 05/02/25 11:58 05/02/25 12:00 05/02/25 15:56 Temperature 98.1 F 99.1 F Pulse Rate 93 95 87 Respiratory Rate 14 16 Blood Pressure 120/65 116/64 Pulse Oximetry 100 100 Oxygen Delivery 05/02/25 16:00 05/02/25 20:00 05/02/25 20:00 Temperature 97.4 F L Pulse Rate 91 86 Respiratory Rate 16 Blood Pressure 124/56 L Pulse Oximetry 100 Oxygen Delivery Room Air 05/02/25 20:00 05/02/25 23:31 05/03/25 00:00 Temperature 97.4 F L Pulse Rate 82 85 86 Respiratory Rate 16 Blood Pressure 113/58 L Pulse Oximetry 100 Oxygen Delivery 05/03/25 03:55 05/03/25 04:00 Temperature 97.4 F L Pulse Rate 82 79 Respiratory Rate 17 Blood Pressure 132/64 Pulse Oximetry 100 Oxygen Delivery Intake/Output Intake/Output: Intake & Output 04/30/25 05/01/25 05/02/25 05/03/25 23:59 23:59 23:59 23:59 Intake Total 2660.5 4095 2405 920 Output Total 1600 1100 1375 600 Balance 1060.5 2995 1030 320 Meds/Results Medications: Active Medications Generic Name Dose Route Start Last Admin Trade Name Freq PRN Reason Stop Dose Admin Acetaminophen 650 mg 04/29/25 12:53 Acetaminophen Elixir 325 Mg/10.15 Ml Udc FEED TUBE Q6H PRN Mild Pain (1-3) or Fever Acetaminophen 500 mg 04/29/25 15:56 Acetaminophen 500 Mg Tablet FEED TUBE Q6H PRN Pain 1-3 Aspirin 81 mg 04/30/25 09:00 05/02/25 07:58 Aspirin 81 Mg Chewable Tablet FEED TUBE 81 mg DAILY FIONA Administration Atorvastatin Calcium 80 mg 04/29/25 21:00 04/29/25 21:48 Atorvastatin 40 Mg Tablet FEED TUBE 80 mg On Hold: 04/30/25 08:47 HS FIONA Administration Bisacodyl 10 mg 04/29/25 15:56 Bisacodyl 10 Mg Suppository RECTAL DAILY PRN Constipation Dextrose 12.5 gm 04/29/25 12:53 Dextrose 50% 25 Gm/50 Ml Syringe IV PUSH PRN PRN Hypoglycemia Protocol Glucagon 1 mg 04/29/25 12:53 Glucagon For Inj 1 Mg Vial IM PRN PRN Hypoglycemia Protocol Glucose 15 gm 04/29/25 12:53 Glucose Oral Gel 15 Gm Of Glucse In 37.5 Gm Tube PO PRN PRN Hypoglycemia Protocol Dextrose 1,000 mls @ 100 mls/hr 04/29/25 12:53 Dextrose 5% 1,000 Ml IVPB PRN PRN Hypoglycemia Protocol Dextrose 1,000 mls @ 50 mls/hr 05/01/25 08:50 05/03/25 02:01 Dextrose 5% 1,000 Ml IV CONT 50 mls/hr .Q20H FIONA Administration Cefazolin Sodium 500 mg/ 50 mls @ 100 mls/hr 05/02/25 18:00 05/03/25 05:44 Dextrose IVPB 100 mls/hr Q12H FIONA Administration Insulin Aspart 2 - 5 units 04/29/25 18:00 05/03/25 02:01 Insulin Aspart (*Bkc) 100 Units/Ml SUB-Q Not Given Q6HR FIONA Protocol Magnesium Citrate 300 ml 04/29/25 15:56 Magnesium Citrate 300 Ml Btl PO ONCE PRN Constipation Magnesium Hydroxide 30 ml 04/29/25 15:56 Magnesium Hydroxide Susp 30 Ml Udc PO DAILY PRN Constipation Memantine 5 mg 04/29/25 17:00 05/02/25 16:05 Memantine 5 Mg Tablet FEED TUBE 5 mg BID FIONA Administration Mupirocin 1 applic 05/02/25 21:00 05/02/25 20:29 Mupirocin 2% Oint 22 Gm Tube EACH NARE 05/07/25 09:01 1 applic Q12HR FIONA Administration Ondansetron HCl 4 mg 04/29/25 13:00 Ondansetron Inj 4 Mg/2 Ml Vial IV PUSH Q6H PRN Nausea And Vomiting Perflutren Lipid Microsphere 0 ml 05/02/25 11:53 Perflutren Lipid Microspheres 1.5 Ml Vial Diluted To 10 Ml Total Volume IV PUSH 05/05/25 11:55 ONCE PRN adequate visualization Protocol Potassium Phos/Sodium Phos 1 packet 04/30/25 09:00 05/02/25 07:58 Potassium/Phosphorus/Sodium 1.5 Gm Packet FEED TUBE 1 packet DAILY FIONA Administration Sodium Bicarbonate 650 mg 04/29/25 17:00 04/29/25 17:00 Sodium Bicarbonate Tab 650 Mg Tablet FEED TUBE 650 mg On Hold: 04/30/25 07:31 BID FIONA Administration Thiamine HCl 100 mg 04/30/25 09:00 05/02/25 07:58 Thiamine Hcl 100 Mg Tablet FEED TUBE 100 mg QAM FIONA Administration Vancomycin HCl 1 each 05/02/25 12:04 Vancomycin For Acute Kidney Injury IVPB PRN PRN Vancomycin Protocol Vitamin D 10 mcg 04/30/25 09:00 05/02/25 07:58 Cholecalciferol (Vitamin D3) 10 Mcg (400 Units) Tablet FEED TUBE 10 mcg DAILY FIONA Administration Radiology Results: ITS Impressions Chest/Abdomen/Pelvis CT 04/29/25 11:44 IMPRESSION: 1. Directed noncontrast exam demonstrating no gross acute intrathoracic process identified. 10 mm spiculated right lower lobe nodule concerning for possible malignant lesion. Correlate with short interval follow-up chest CT or PET/CT. 2. Limited evaluation of the abdomen and pelvis; no acute surgical abnormality identified. Possible wall thickening in the sigmoid region which could be associated with inflammatory/infectious colitis or stercoral colitis. Renal Ultrasound 04/30/25 15:33 IMPRESSION: 1. Bilateral diffuse increased renal cortical echogenicity consistent with medical renal disease. No hydronephrosis. 2. Cholelithiasis with additional indeterminate 1.7 x 1.2 x 0.9 cm nonshadowing echogenic nodule at the fundus which could represent a sludge ball or potentially a gallbladder polyp. Consider further evaluation with ultrasound or pre and postcontrast MRI or CT. Labs Labs: Laboratory Results - last 24 hr 05/02/25 05/02/25 05/02/25 11:37 11:56 12:03 WBC RBC Hgb Hct MCV MCH MCHC RDW Plt Count MPV Immature Gran % (Auto) Neut % (Auto) Lymph % (Auto) [place] % (Auto) Eos % (Auto) Baso % (Auto) Lymph # (Auto) [place] # (Auto) Eos # (Auto) Baso # (Auto) Abs Immat Gran (auto) Absolute Neuts (auto) Absolute Nucleated RBC Nucleated RBC % Sodium 146 H Potassium 3.9 Chloride 116 H Carbon Dioxide 26 Anion Gap 4 BUN 50 H Creatinine 1.56 H 1.63 H Estim Creat Clear Calc 23 22 Estimated GFR 33 L 31 L Glucose 125 H POC Capillary Glucose 129 H Calcium 8.1 L Magnesium Total Bilirubin AST ALT Alkaline Phosphatase Total Creatine Kinase Total Protein Albumin Nasal MRSA (PCR) Vancomycin Trough < 5.0 L 05/02/25 05/02/25 05/02/25 12:05 17:57 20:10 WBC RBC Hgb Hct MCV MCH MCHC RDW Plt Count MPV Immature Gran % (Auto) Neut % (Auto) Lymph % (Auto) [place] % (Auto) Eos % (Auto) Baso % (Auto) Lymph # (Auto) [place] # (Auto) Eos # (Auto) Baso # (Auto) Abs Immat Gran (auto) Absolute Neuts (auto) Absolute Nucleated RBC Nucleated RBC % Sodium 144 Potassium 4.0 Chloride 114 H Carbon Dioxide 28 Anion Gap 2 L BUN 45 H Creatinine 1.59 H Estim Creat Clear Calc 23 Estimated GFR 32 L Glucose 115 H POC Capillary Glucose 126 H Calcium 7.9 L Magnesium Total Bilirubin AST ALT Alkaline Phosphatase Total Creatine Kinase Total Protein Albumin Nasal MRSA (PCR) Detected A* Vancomycin Trough 05/02/25 05/03/25 05/03/25 23:22 04:39 05:32 WBC 7.8 RBC 2.83 L Hgb 8.3 L Hct 26.5 L MCV 93.6 MCH 29.3 MCHC 31.3 L RDW 13.0 Plt Count 181 MPV 12.9 H Immature Gran % (Auto) 0.4 Neut % (Auto) 62.0 Lymph % (Auto) 28.2 [place] % (Auto) 5.9 Eos % (Auto) 3.2 Baso % (Auto) 0.3 Lymph # (Auto) 2.20 [place] # (Auto) 0.5 Eos # (Auto) 0.3 Baso # (Auto) 0.0 Abs Immat Gran (auto) 0.03 Absolute Neuts (auto) 4.9 Absolute Nucleated RBC 0.000 Nucleated RBC % 0.0 Sodium 144 Potassium 4.5 Chloride 113 H Carbon Dioxide 27 Anion Gap 4 BUN 43 H Creatinine 1.52 H Estim Creat Clear Calc 24 Estimated GFR 34 L Glucose 120 H POC Capillary Glucose 119 H 143 H Calcium 8.2 L Magnesium 2.6 H Total Bilirubin 0.2 AST 81 H ALT 118 H Alkaline Phosphatase 95 Total Creatine Kinase 431 H Total Protein 5.6 L Albumin 2.6 L Nasal MRSA (PCR) Vancomycin Trough Quality VTE Prophylaxis VTE prophylaxis: mechanical ordered
[2025-05-03] MEDS: MUPIROCIN 2% OINT 22 GM TUBE 1 APPLIC EACH NARE ×2 (09:22→20:22)
[2025-05-03] MEDS: POTASSIUM/PHOSPHORUS/SODIUM 1.5 GM PACKET 1 PACKET FEED TUBE (09:22)
[2025-05-03] MEDS: THIAMINE HCL 100 MG TABLET FEED TUBE (09:22)
[2025-05-03] MEDS: MEMANTINE 5 MG TABLET FEED TUBE ×2 (09:22→17:07)
[2025-05-03] MEDS: CHOLECALCIFEROL (VITAMIN D3) 10 MCG (400 UNITS) TABLET FEED TUBE (09:22)
[2025-05-03] MEDS: ASPIRIN 81 MG CHEWABLE TABLET FEED TUBE (09:22)
[2025-05-03] MEDS: ACETAMINOPHEN ELIXIR 325 MG/10.15 ML UDC 650 MG FEED TUBE (09:41)
--- NOTE | 2025-05-03 12:06 | P.PNNP_ITS ---
Progress Note: A&P Assessment and Plan (1) Hypernatremia: Code(s): E87.0 - Hyperosmolality and hypernatremia Status: Acute Assessment and Plan: * hypernatremia * suspect related to severe free water deficit complicated by G-tube malfunction * now getting D5W. * resumed free water flushes * Sodium level is at the upper limits of normal. Will continue D5W for a little bit longer and then switch to half-normal saline if the creatinine is still above her baseline (2) Acute kidney injury: Code(s): N17.9 - Acute kidney failure, unspecified Status: Acute Assessment and Plan: * AMRITA * normal creatinine at baseline (from labs in August 2024) * suspect due to volume depletion possilby worsened by infection (UTI + bacteremia) * evaluation to date noted: * renal ultrasound w/o obstruction but findings suggestive of CKD * urine electrolytes non-prerenal * 10% urine eosinophils (likely due to inflammation on UA) * moderate proteinuria * CPK slightly elevated (but not enought to affect kidney function) * appears to be responding to IVF resuscitation * wean off IVFs * creatinine is still above her baseline. * She may need more IV fluids. * Certainly no sign of volume overload. * UTI may slow down recovery of kidney function * May have a new baseline but hopefully will be lower than what her current creatinine is. (3) Acute UTI: Code(s): N39.0 - Urinary tract infection, site not specified Status: Acute Assessment and Plan: * amdission UA noted: * turbid appearance, 2+ protein, 1+ blood, positive nitrates, 3+ leuk esterase, greater than 100 WBC, occasional epithelial cells, 4+ bacteria * urine culture with Citrobacter amalonaticus * blood culures noted as well * complicated by chronic aguayo catheter - exchanged in ER * on antibiotics * Infectious Disease consulted (4) PEG tube malfunction: Code(s): K94.23 - Gastrostomy malfunction Status: Acute Assessment and Plan: * significant leakage around stoma of PEG tube on admission * GI consulted for replacement of tube * PEG tube replaced on 04/30 without complications * functioning appropriately at this time (5) Severe protein-calorie malnutrition: Code(s): E43 - Unspecified severe protein-calorie malnutrition Status: Acute Assessment and Plan: * reportred weight loss of nearly 80 lb in 7 months * likely complicated by #4 * on tube feeds * [employer] recommendations noted (6) Anemia: Code(s): D64.9 - Anemia, unspecified Status: Acute Assessment and Plan: * noted with IVF hydration * due to AMRITA/ARF and acute illness * hemoglobin stable in the 8 the last 4 days. (7) Essential (primary) hypertension: Code(s): I10 - Essential (primary) hypertension Status: Chronic Assessment and Plan: * Systolic blood pressure good in the 130 * on no blood pressure medications right now * we can full these in as the blood pressure rises (8) Diabetes mellitus with hyperglycemia: Code(s): E11.65 - Type 2 diabetes mellitus with hyperglycemia Status: Acute Assessment and Plan: * follow accu-cheks * glycemic control per hospitalist Will continue to follow. Subjective Date/time seen: 05/03/25 12:06 Interval history: the patient looks comfortable in bed. G-tube is working again. Exam Narrative: General: thin/frail and elderly female in NAD Heart: normal S1 and S2; no rub Or gallop Lungs: clear Abdomen: soft, nontender, nondistended, positive bowel sounds Extremities: no cyanosis or clubbing; no edema; contracted Skin: warm and intact; + loss of muscle mass Objective Data Vital Signs Vital Signs: Vital Signs - 24 hr 05/02/25 15:56 05/02/25 16:00 05/02/25 20:00 Temperature 99.1 F 97.4 F L Pulse Rate 87 91 86 Respiratory Rate 16 16 Blood Pressure 116/64 124/56 L Pulse Oximetry 100 100 Oxygen Delivery 05/02/25 20:00 05/02/25 20:00 05/02/25 23:31 Temperature 97.4 F L Pulse Rate 82 85 Respiratory Rate 16 Blood Pressure 113/58 L Pulse Oximetry 100 Oxygen Delivery Room Air 05/03/25 00:00 05/03/25 03:55 05/03/25 04:00 Temperature 97.4 F L Pulse Rate 86 82 79 Respiratory Rate 17 Blood Pressure 132/64 Pulse Oximetry 100 Oxygen Delivery 05/03/25 07:37 05/03/25 08:00 05/03/25 08:00 Temperature 98.2 F Pulse Rate 88 92 Respiratory Rate 16 Blood Pressure 146/81 H Pulse Oximetry 100 Oxygen Delivery Room Air 05/03/25 11:53 Temperature 98.6 F Pulse Rate 85 Respiratory Rate 24 H Blood Pressure 138/68 Pulse Oximetry 100 Oxygen Delivery Intake/Output Intake/Output: Intake & Output 04/30/25 05/01/25 05/02/25 05/03/25 23:59 23:59 23:59 23:59 Intake Total 2660.5 4095 2405 970 Output Total 1600 1100 1375 600 Balance 1060.5 2995 1030 370 Meds/Results Medications: Active Medications Generic Name Dose Route Start Last Admin Trade Name Freq PRN Reason Stop Dose Admin Acetaminophen 650 mg 04/29/25 12:53 05/03/25 09:41 Acetaminophen Elixir 325 Mg/10.15 Ml Udc FEED TUBE 650 mg Q6H PRN Administration Mild Pain (1-3) or Fever Acetaminophen 500 mg 04/29/25 15:56 Acetaminophen 500 Mg Tablet FEED TUBE Q6H PRN Pain 1-3 Aspirin 81 mg 04/30/25 09:00 05/03/25 09:22 Aspirin 81 Mg Chewable Tablet FEED TUBE 81 mg DAILY FIONA Administration Atorvastatin Calcium 80 mg 04/29/25 21:00 04/29/25 21:48 Atorvastatin 40 Mg Tablet FEED TUBE 80 mg On Hold: 04/30/25 08:47 HS FIONA Administration Bisacodyl 10 mg 04/29/25 15:56 Bisacodyl 10 Mg Suppository RECTAL DAILY PRN Constipation Dextrose 12.5 gm 04/29/25 12:53 Dextrose 50% 25 Gm/50 Ml Syringe IV PUSH PRN PRN Hypoglycemia Protocol Glucagon 1 mg 04/29/25 12:53 Glucagon For Inj 1 Mg Vial IM PRN PRN Hypoglycemia Protocol Glucose 15 gm 04/29/25 12:53 Glucose Oral Gel 15 Gm Of Glucse In 37.5 Gm Tube PO PRN PRN Hypoglycemia Protocol Dextrose 1,000 mls @ 100 mls/hr 04/29/25 12:53 Dextrose 5% 1,000 Ml IVPB PRN PRN Hypoglycemia Protocol Cefazolin Sodium 500 mg/ 50 mls @ 100 mls/hr 05/02/25 18:00 05/03/25 06:14 Dextrose IVPB Infused Q12H FIONA Infusion Insulin Aspart 2 - 5 units 04/29/25 18:00 05/03/25 09:21 Insulin Aspart (*Bkc) 100 Units/Ml SUB-Q Not Given Q6HR FIONA Protocol Magnesium Citrate 300 ml 04/29/25 15:56 Magnesium Citrate 300 Ml Btl PO ONCE PRN Constipation Magnesium Hydroxide 30 ml 04/29/25 15:56 Magnesium Hydroxide Susp 30 Ml Udc PO DAILY PRN Constipation Memantine 5 mg 04/29/25 17:00 05/03/25 09:22 Memantine 5 Mg Tablet FEED TUBE 5 mg BID FIONA Administration Mupirocin 1 applic 05/02/25 21:00 05/03/25 09:22 Mupirocin 2% Oint 22 Gm Tube EACH NARE 05/07/25 09:01 1 applic Q12HR FIONA Administration Ondansetron HCl 4 mg 04/29/25 13:00 Ondansetron Inj 4 Mg/2 Ml Vial IV PUSH Q6H PRN Nausea And Vomiting Perflutren Lipid Microsphere 0 ml 05/02/25 11:53 Perflutren Lipid Microspheres 1.5 Ml Vial Diluted To 10 Ml Total Volume IV PUSH 05/05/25 11:55 ONCE PRN adequate visualization Protocol Potassium Phos/Sodium Phos 1 packet 04/30/25 09:00 05/03/25 09:22 Potassium/Phosphorus/Sodium 1.5 Gm Packet FEED TUBE 1 packet DAILY FIONA Administration Sodium Bicarbonate 650 mg 04/29/25 17:00 04/29/25 17:00 Sodium Bicarbonate Tab 650 Mg Tablet FEED TUBE 650 mg On Hold: 04/30/25 07:31 BID FIONA Administration Thiamine HCl 100 mg 04/30/25 09:00 05/03/25 09:22 Thiamine Hcl 100 Mg Tablet FEED TUBE 100 mg QAM FIONA Administration Vancomycin HCl 1 each 05/02/25 12:04 Vancomycin For Acute Kidney Injury IVPB PRN PRN Vancomycin Protocol Vancomycin HCl 1 each 05/03/25 11:55 Vancomycin Pharmacist To Dose IVPB 05/07/25 12:00 PER PROTOCOL FIONA Vitamin D 10 mcg 04/30/25 09:00 05/03/25 09:22 Cholecalciferol (Vitamin D3) 10 Mcg (400 Units) Tablet FEED TUBE 10 mcg DAILY FIONA Administration Radiology Results: ITS Impressions Chest/Abdomen/Pelvis CT 04/29/25 11:44 IMPRESSION: 1. Directed noncontrast exam demonstrating no gross acute intrathoracic process identified. 10 mm spiculated right lower lobe nodule concerning for possible malignant lesion. Correlate with short interval follow-up chest CT or PET/CT. 2. Limited evaluation of the abdomen and pelvis; no acute surgical abnormality identified. Possible wall thickening in the sigmoid region which could be associated with inflammatory/infectious colitis or stercoral colitis. Renal Ultrasound 04/30/25 15:33 IMPRESSION: 1. Bilateral diffuse increased renal cortical echogenicity consistent with medical renal disease. No hydronephrosis. 2. Cholelithiasis with additional indeterminate 1.7 x 1.2 x 0.9 cm nonshadowing echogenic nodule at the fundus which could represent a sludge ball or potentially a gallbladder polyp. Consider further evaluation with ultrasound or pre and postcontrast MRI or CT. Labs Labs: Laboratory Results - last 24 hr 05/02/25 05/02/25 05/02/25 11:56 12:03 12:05 WBC RBC Hgb Hct MCV MCH MCHC RDW Plt Count MPV Immature Gran % (Auto) Neut % (Auto) Lymph % (Auto) [place] % (Auto) Eos % (Auto) Baso % (Auto) Lymph # (Auto) [place] # (Auto) Eos # (Auto) Baso # (Auto) Abs Immat Gran (auto) Absolute Neuts (auto) Absolute Nucleated RBC Nucleated RBC % Sodium 146 H Potassium 3.9 Chloride 116 H Carbon Dioxide 26 Anion Gap 4 BUN 50 H Creatinine 1.56 H 1.63 H Estim Creat Clear Calc 23 22 Estimated GFR 33 L 31 L Glucose 125 H POC Capillary Glucose Calcium 8.1 L Magnesium Total Bilirubin AST ALT Alkaline Phosphatase Total Creatine Kinase Total Protein Albumin Nasal MRSA (PCR) Detected A* Vancomycin Trough < 5.0 L 05/02/25 05/02/25 05/02/25 17:57 20:10 23:22 WBC RBC Hgb Hct MCV MCH MCHC RDW Plt Count MPV Immature Gran % (Auto) Neut % (Auto) Lymph % (Auto) [place] % (Auto) Eos % (Auto) Baso % (Auto) Lymph # (Auto) [place] # (Auto) Eos # (Auto) Baso # (Auto) Abs Immat Gran (auto) Absolute Neuts (auto) Absolute Nucleated RBC Nucleated RBC % Sodium 144 Potassium 4.0 Chloride 114 H Carbon Dioxide 28 Anion Gap 2 L BUN 45 H Creatinine 1.59 H Estim Creat Clear Calc 23 Estimated GFR 32 L Glucose 115 H POC Capillary Glucose 126 H 119 H Calcium 7.9 L Magnesium Total Bilirubin AST ALT Alkaline Phosphatase Total Creatine Kinase Total Protein Albumin Nasal MRSA (PCR) Vancomycin Trough 05/03/25 05/03/25 05/03/25 04:39 05:32 11:47 WBC 7.8 RBC 2.83 L Hgb 8.3 L Hct 26.5 L MCV 93.6 MCH 29.3 MCHC 31.3 L RDW 13.0 Plt Count 181 MPV 12.9 H Immature Gran % (Auto) 0.4 Neut % (Auto) 62.0 Lymph % (Auto) 28.2 [place] % (Auto) 5.9 Eos % (Auto) 3.2 Baso % (Auto) 0.3 Lymph # (Auto) 2.20 [place] # (Auto) 0.5 Eos # (Auto) 0.3 Baso # (Auto) 0.0 Abs Immat Gran (auto) 0.03 Absolute Neuts (auto) 4.9 Absolute Nucleated RBC 0.000 Nucleated RBC % 0.0 Sodium 144 Potassium 4.5 Chloride 113 H Carbon Dioxide 27 Anion Gap 4 BUN 43 H Creatinine 1.52 H Estim Creat Clear Calc 24 Estimated GFR 34 L Glucose 120 H POC Capillary Glucose 143 H 147 H Calcium 8.2 L Magnesium 2.6 H Total Bilirubin 0.2 AST 81 H ALT 118 H Alkaline Phosphatase 95 Total Creatine Kinase 431 H Total Protein 5.6 L Albumin 2.6 L Nasal MRSA (PCR) Vancomycin Trough
[2025-05-03] MEDS: VANCOMYCIN 750 MG/NS 250 ML 750 MG/250 ML BAG 250 MG IVPB (14:51)
[2025-05-04] VITALS (8 sets, daily range): BP systolic 119–143; BP diastolic 67–84; PULSE 76–97; RESP 12–17; TEMP 36.6–37.3; O2SAT 94–100
[2025-05-04] MEDS: DEXTROSE 5% 1,000 ML 1,000 ML 50 ML IV CONT (01:58)
[2025-05-04 04:59] LABS: Hematocrit 27.1 % (37.0-47.0); Hemoglobin 8.7 g/dL (12.0-15.0); Immature Granulocyte Percent A 0.4 % (0-0.5); Lymphocytes Absolute Auto 1.91 K/mm3 (0.9-3.2); Mean Corpuscular HGB Conc 32.1 g/dl (32-36); Mean Corpuscular Hemoglobin 29.0 pg (26-34); Mean Corpuscular Volume 90.3 fl (80-100); Nucleated Red Blood Cells Absolute Auto 0.000 K/mm3 (0.0-0.012); Nucleated Red Blood Cells Perc 0.0 % (0.0-0.2); Platelet Count Result 198 k/mm3 (150-375); Red Blood Count 3.00 M/mm3 (4.2-5.4); White Blood Count 7.1 K/mm3 (4.5-10.0)
[2025-05-04 05:30] LABS: Alanine Aminotransferase 100 U/L (6-35); Albumin Level 2.6 g/dL (3.5-5.1); Alkaline Phosphatase 101 U/L (38-126); Anion Gap 3 mmol/L (4-12); Aspartate Amino Transferase 79 U/L (14-36); Bilirubin,Total 0.2 mg/dL (0.2-1.3); Blood Urea Nitrogen 35 mg/dL (7-17); Calcium 8.0 mg/dL (8.4-10.2); Carbon Dioxide 27 mmol/L (22-30); Chloride 108 mmol/L (98-107); Estimated CRCL calculation 27 ml/min; Estimated Glomerular Filt Rate 39; Glucose 110 mg/dL (65-110); Magnesium 2.4 mg/dL (1.6-2.3); Potassium 4.1 mmol/L (3.4-5.0); Sodium 138 mmol/L (137-145); Total Protein 5.7 g/dL (6.3-8.2)
[2025-05-04] MEDS: ceFAZolin 500 MG in DEXTROSE 5% IN WATER 50 ML 100 MG IVPB ×2 (05:50→17:00)
[2025-05-04] MEDS: VANCOMYCIN 750 MG/NS 250 ML 750 MG/250 ML BAG 200 MG IVPB (06:20)
--- NOTE | 2025-05-04 06:42 | P.PNIM_ITS ---
Progress Note: A&P Assessment and Plan (1) Bacteremia: Code(s): R78.81 - Bacteremia Status: Acute Assessment and Plan: * suspected source: UTI * blood cultures drawn on 04/29 * Aerobic shows Staph Epidermidis - likely contaminate * Urine culture: Citrobacter amalonaticus * Repeat blood cultures ordered, pending * Echo: G1DD, EF 60-65%, trace AVR, MVR, TVR * IV Vanc 1gm q12 hours, pharmacy to dose * Infectious Disease consult, appreciate further recommendations (2) Acute kidney injury superimposed on CKD: Code(s): N17.9 - Acute kidney failure, unspecified; N18.9 - Chronic kidney disease, unspecified Status: Acute Assessment and Plan: * Nephrology consulted - appreciate further recommendations * IV fluids given on admit and patient changed from LR to 0.45% NaCl at 100 mL/hr plus tube feeds/flushes with free water * 05/04- Creatinine continues to improve: 2.51 -> 1.92 -> 1.68 -> 1.35 (3) Hypernatremia: Code(s): E87.0 - Hyperosmolality and hypernatremia Status: Acute Assessment and Plan: * Nephrology consulted, IV fluids given on admit and patient changed from LR to 0.45% NaCl at 100 mL/hr plus tube feeds/flushes with free water * Na steadily decreasin -> 155 -> 152 -> 138 (4) Acute UTI: Code(s): N39.0 - Urinary tract infection, site not specified Status: Acute Assessment and Plan: * UA: Turbid, pH greater than 9, 2+ protein, 1+ blood, positive nitrates, 3+ leuk esterase, greater than 100 WBC, occasional epithelial cells, 4+ bacteria * no previous micro available for review * started on Ceftriaxone on 04/29 * Shoemaker replaced * UC - Citrobacter amalonaticus * Switched to Cefazolin 05/02 (5) Severe protein-calorie malnutrition: Code(s): E43 - Unspecified severe protein-calorie malnutrition Status: Acute Assessment and Plan: * Weight loss of nearly 80 lb in 7 months * Dietitian recommendation Jevity 1.5 75 mL/hr with free water flushes (currently 75 mL Q4 while on IV fluids but recommend 200 mL Q4.) * G-J tube leaking since admission and unknown time prior to hospitalization. * Gastroenterology consulted * New 18 F tube placed (6) PEG tube malfunction: Code(s): K94.23 - Gastrostomy malfunction Status: Acute Assessment and Plan: * On exam there appears to be significant leakage around stoma of PEG tube * GI consulted for replacement of tube * PEG replaced on 04/30 without complications * Continue tube feedings (7) Pressure ulcer of left hip: Qualifiers: Pressure injury stage: unspecified pressure injury stage Qualified Code(s): L89.229 - Pressure ulcer of left hip, unspecified stage Code(s): L89.229 - Pressure ulcer of left hip, unspecified stage Status: Acute Assessment and Plan: * Recommend pressure off loading and wound care consult (8) Diabetes mellitus with hyperglycemia: Code(s): E11.65 - Type 2 diabetes mellitus with hyperglycemia Status: Acute Assessment and Plan: * Q.6 hour fingerstick glucose and low-dose sliding scale insulin correction * Previous A1c 6.0 in July of 2024 * A1C: 5.7% this visit (9) Essential (primary) hypertension: Code(s): I10 - Essential (primary) hypertension Status: Chronic Assessment and Plan: * Blood pressures have been low since admission without current antihypertensive medications * Continue to hold antihypertensives given low BP * 143/67 (10) HLD (hyperlipidemia): Qualifiers: Hyperlipidemia type: unspecified Qualified Code(s): E78.5 - Hyperlipidemia, unspecified Code(s): E78.5 - Hyperlipidemia, unspecified Status: Chronic Assessment and Plan: * Hold statin due to AMRITA with elevated CK levels and mildly elevated liver enzymes * Consider restarting at lower dose once electrolyte/renal improvements Subjective Date/time seen: 05/04/25 06:42 Interval history: 69-year-old female patient admitted for hypernatremia AMRITA anemia and severe weight loss. She is nonverbal and no family present at time of evaluation. Patient resides in a nursing facility [facility] after a prior stroke. She has lost nearly 80 lbs in 7 months. Patient unable to answer any questions or even shake head yes and no. She has a G-J tube in place. 05/04/2025 Patient in bed at time of exam. No acute overnight events. Remains afebrile without leukocytosis. Repeat blood cultures still pending. Previous cultures show Staph E. in aerobic bottle only, likely contaminate but given concurrent nasal MRSA infection and UTI, will continue IV abx until repeat cultures are resulted. Kidney function and hypermagnesemia continues to improve. Review of Systems Review of Systems: ROS unobtainable: Yes unobtainable due to medical condition and unobtainable due to mental status Exam Narrative: GENERAL: Appears older than stated age, contracted, nonverbal HEAD: Normocephalic, atraumatic. ENT:? Mucous membranes dry. CHEST: Clear to auscultation.? No respiratory distress. HEART: Regular rate and rhythm. ? Normal peripheral pulses. ABDOMEN: Soft, nontender, loss subcutaneous tissue, gastric tube in place, no signs of leakage EXTREMITIES: No peripheral edema. Contracted SKIN: Warm dry pale appearing NEURO: Does not follow commands or track reliably Const: Other: , female, chronically ill-appearing, nontoxic appearance, no grimacing or distress noted HENMT: Face/Nose/Sinus: Normal nares present Other: Tacky mucous membranes Eyes: General: appearance normal, both eyes and all related structures Sclera: sclerae normal Pupils: Equal, round and reactive pupils present EOM: EOMs intact bilaterally Resp: Effort & Inspection: normal respiratory effort Auscultation: clear to auscultation bilaterally Cardio: Rate: regular rate Rhythm: regular rhythm Other: S1-S2 present without murmur, rub, ectopy GI: Other: Abdomen soft, nondistended, normoactive bowel sounds in all quadrants. G-tube present, no signs of leakage, infection. Skin: General skin exam: normal color, no rashes or lesions noted and wounds noted (L hip, erythematous wound bed without drainage) Wounds: no wounds and wounds noted (L hip, erythematous wound bed without drainage) Other: Poor skin turgor Neuro: Cranial nerves: Yes Equal, round and reactive pupils present Other: A&Ox0, alert, right and left leg resistant to extension and grimacing with range of motion. Extrem: General: normal to inspection Psych: Other: Flat affect. Objective Data Vital Signs Vital Signs: Vital Signs - 24 hr 05/03/25 07:37 05/03/25 08:00 05/03/25 08:00 Temperature 98.2 F Pulse Rate 88 92 Respiratory Rate 16 Blood Pressure 146/81 H Pulse Oximetry 100 Oxygen Delivery Room Air 05/03/25 11:53 05/03/25 12:00 05/03/25 16:00 Temperature 98.6 F Pulse Rate 85 82 84 Respiratory Rate 24 H Blood Pressure 138/68 Pulse Oximetry 100 Oxygen Delivery 05/03/25 16:00 05/03/25 19:23 05/03/25 20:00 Temperature 97.5 F L 97.5 F L Pulse Rate 78 85 Respiratory Rate 22 H 16 Blood Pressure 183/82 H 142/69 H Pulse Oximetry 100 100 Oxygen Delivery Room Air 05/03/25 20:00 05/03/25 23:38 05/04/25 00:00 Temperature 97.5 F L Pulse Rate 88 89 91 Respiratory Rate 16 Blood Pressure 131/70 Pulse Oximetry 100 Oxygen Delivery 05/04/25 03:45 05/04/25 04:00 Temperature 97.8 F Pulse Rate 81 86 Respiratory Rate 17 Blood Pressure 121/70 Pulse Oximetry 94 Oxygen Delivery Intake/Output Intake/Output: Intake & Output 05/01/25 05/02/25 05/03/25 05/04/25 23:59 23:59 23:59 23:59 Intake Total 4095 2705 1020 Output Total 1100 1375 1500 1250 Balance 2995 9850 480 1250 Meds/Results Medications: Active Medications Generic Name Dose Route Start Last Admin Trade Name Freq PRN Reason Stop Dose Admin Acetaminophen 650 mg 04/29/25 12:53 05/03/25 09:41 Acetaminophen Elixir 325 Mg/10.15 Ml Udc FEED TUBE 650 mg Q6H PRN Administration Mild Pain (1-3) or Fever Acetaminophen 500 mg 04/29/25 15:56 Acetaminophen 500 Mg Tablet FEED TUBE Q6H PRN Pain 1-3 Aspirin 81 mg 04/30/25 09:00 05/03/25 09:22 Aspirin 81 Mg Chewable Tablet FEED TUBE 81 mg DAILY FIONA Administration Atorvastatin Calcium 80 mg 04/29/25 21:00 04/29/25 21:48 Atorvastatin 40 Mg Tablet FEED TUBE 80 mg On Hold: 04/30/25 08:47 HS FIONA Administration Bisacodyl 10 mg 04/29/25 15:56 Bisacodyl 10 Mg Suppository RECTAL DAILY PRN Constipation Dextrose 12.5 gm 04/29/25 12:53 Dextrose 50% 25 Gm/50 Ml Syringe IV PUSH PRN PRN Hypoglycemia Protocol Glucagon 1 mg 04/29/25 12:53 Glucagon For Inj 1 Mg Vial IM PRN PRN Hypoglycemia Protocol Glucose 15 gm 04/29/25 12:53 Glucose Oral Gel 15 Gm Of Glucse In 37.5 Gm Tube PO PRN PRN Hypoglycemia Protocol Dextrose 1,000 mls @ 100 mls/hr 04/29/25 12:53 Dextrose 5% 1,000 Ml IVPB PRN PRN Hypoglycemia Protocol Cefazolin Sodium 500 mg/ 50 mls @ 100 mls/hr 05/02/25 18:00 05/04/25 05:50 Dextrose IVPB 100 mls/hr Q12H FIONA Administration Dextrose 1,000 mls @ 50 mls/hr 05/03/25 15:45 05/04/25 01:58 Dextrose 5% 1,000 Ml IV CONT 05/04/25 11:44 50 mls/hr .Q20H FIONA Administration Vancomycin HCl 750 mg in 250 mls @ 250 mls/hr 05/04/25 06:00 05/04/25 06:20 Vancomycin 750 Mg/Ns 250 Ml IVPB 05/04/25 06:59 200 mls/hr ONCE ONE Administration Insulin Aspart 2 - 5 units 04/29/25 18:00 05/04/25 05:51 Insulin Aspart (*Bkc) 100 Units/Ml SUB-Q Not Given Q6HR FIONA Protocol Magnesium Citrate 300 ml 04/29/25 15:56 Magnesium Citrate 300 Ml Btl PO ONCE PRN Constipation Magnesium Hydroxide 30 ml 04/29/25 15:56 Magnesium Hydroxide Susp 30 Ml Udc PO DAILY PRN Constipation Memantine 5 mg 04/29/25 17:00 05/03/25 17:07 Memantine 5 Mg Tablet FEED TUBE 5 mg BID FIONA Administration Mupirocin 1 applic 05/02/25 21:00 05/03/25 20:22 Mupirocin 2% Oint 22 Gm Tube EACH NARE 05/07/25 09:01 1 applic Q12HR FIONA Administration Ondansetron HCl 4 mg 04/29/25 13:00 Ondansetron Inj 4 Mg/2 Ml Vial IV PUSH Q6H PRN Nausea And Vomiting Perflutren Lipid Microsphere 0 ml 05/02/25 11:53 Perflutren Lipid Microspheres 1.5 Ml Vial Diluted To 10 Ml Total Volume IV PUSH 05/05/25 11:55 ONCE PRN adequate visualization Protocol Potassium Phos/Sodium Phos 1 packet 04/30/25 09:00 05/03/25 09:22 Potassium/Phosphorus/Sodium 1.5 Gm Packet FEED TUBE 1 packet DAILY FIONA Administration Sodium Bicarbonate 650 mg 04/29/25 17:00 04/29/25 17:00 Sodium Bicarbonate Tab 650 Mg Tablet FEED TUBE 650 mg On Hold: 04/30/25 07:31 BID FIONA Administration Thiamine HCl 100 mg 04/30/25 09:00 05/03/25 09:22 Thiamine Hcl 100 Mg Tablet FEED TUBE 100 mg QAM FIONA Administration Vancomycin HCl 1 each 05/02/25 12:04 Vancomycin For Acute Kidney Injury IVPB PRN PRN Vancomycin Protocol Vitamin D 10 mcg 04/30/25 09:00 05/03/25 09:22 Cholecalciferol (Vitamin D3) 10 Mcg (400 Units) Tablet FEED TUBE 10 mcg DAILY FIONA Administration Radiology Results: ITS Impressions Chest/Abdomen/Pelvis CT 04/29/25 11:44 IMPRESSION: 1. Directed noncontrast exam demonstrating no gross acute intrathoracic process identified. 10 mm spiculated right lower lobe nodule concerning for possible malignant lesion. Correlate with short interval follow-up chest CT or PET/CT. 2. Limited evaluation of the abdomen and pelvis; no acute surgical abnormality identified. Possible wall thickening in the sigmoid region which could be associated with inflammatory/infectious colitis or stercoral colitis. Renal Ultrasound 04/30/25 15:33 IMPRESSION: 1. Bilateral diffuse increased renal cortical echogenicity consistent with medical renal disease. No hydronephrosis. 2. Cholelithiasis with additional indeterminate 1.7 x 1.2 x 0.9 cm nonshadowing echogenic nodule at the fundus which could represent a sludge ball or potentially a gallbladder polyp. Consider further evaluation with ultrasound or pre and postcontrast MRI or CT. Labs Labs: Laboratory Results - last 24 hr 05/03/25 05/03/25 05/03/25 11:47 12:21 17:00 WBC RBC Hgb Hct MCV MCH MCHC RDW Plt Count MPV Immature Gran % (Auto) Neut % (Auto) Lymph % (Auto) [place] % (Auto) Eos % (Auto) Baso % (Auto) Lymph # (Auto) [place] # (Auto) Eos # (Auto) Baso # (Auto) Abs Immat Gran (auto) Absolute Neuts (auto) Absolute Nucleated RBC Nucleated RBC % Sodium Potassium Chloride Carbon Dioxide Anion Gap BUN Creatinine Estim Creat Clear Calc Estimated GFR Glucose POC Capillary Glucose 147 H 108 H Calcium Phosphorus Magnesium Total Bilirubin AST ALT Alkaline Phosphatase Total Protein Albumin Vancomycin Trough Random Vancomycin 6.8 L 05/03/25 05/04/25 05/04/25 23:27 04:15 05:39 WBC 7.1 RBC 3.00 L Hgb 8.7 L Hct 27.1 L MCV 90.3 MCH 29.0 MCHC 32.1 RDW 12.7 Plt Count 198 MPV 13.0 H Immature Gran % (Auto) 0.4 Neut % (Auto) 63.3 Lymph % (Auto) 26.8 [place] % (Auto) 6.2 Eos % (Auto) 3.2 Baso % (Auto) 0.1 L Lymph # (Auto) 1.91 [place] # (Auto) 0.4 Eos # (Auto) 0.2 Baso # (Auto) 0.0 Abs Immat Gran (auto) 0.03 Absolute Neuts (auto) 4.5 Absolute Nucleated RBC 0.000 Nucleated RBC % 0.0 Sodium 138 Potassium 4.1 Chloride 108 H Carbon Dioxide 27 Anion Gap 3 L BUN 35 H Creatinine 1.35 H Estim Creat Clear Calc 27 Estimated GFR 39 L Glucose 110 POC Capillary Glucose 130 H 128 H Calcium 8.0 L Phosphorus 3.5 Magnesium 2.4 H Total Bilirubin 0.2 AST 79 H ALT 100 H Alkaline Phosphatase 101 Total Protein 5.7 L Albumin 2.6 L Vancomycin Trough 11.7 Random Vancomycin Quality VTE Prophylaxis VTE prophylaxis: mechanical ordered
[2025-05-04] MEDS: MEMANTINE 5 MG TABLET FEED TUBE ×2 (09:29→16:52)
[2025-05-04] MEDS: ASPIRIN 81 MG CHEWABLE TABLET FEED TUBE (09:29)
[2025-05-04] MEDS: ACETAMINOPHEN 500 MG TABLET FEED TUBE (09:29)
[2025-05-04] MEDS: CHOLECALCIFEROL (VITAMIN D3) 10 MCG (400 UNITS) TABLET FEED TUBE (09:29)
[2025-05-04] MEDS: THIAMINE HCL 100 MG TABLET FEED TUBE (09:29)
[2025-05-04] MEDS: SODIUM CHLORIDE 0.45% 1,000 ML 50 ML IV CONT (09:29)
[2025-05-04] MEDS: POTASSIUM/PHOSPHORUS/SODIUM 1.5 GM PACKET 1 PACKET FEED TUBE (09:30)
[2025-05-04] MEDS: MUPIROCIN 2% OINT 22 GM TUBE 1 APPLIC EACH NARE ×2 (09:31→20:05)
--- NOTE | 2025-05-04 11:29 | P.PNNP_ITS ---
Progress Note: A&P Assessment and Plan (1) Hypernatremia: Code(s): E87.0 - Hyperosmolality and hypernatremia Status: Acute Assessment and Plan: * hypernatremia * suspect related to severe free water deficit complicated by G-tube malfunction * off D5W and getting tube feedings plus free water flushes * Sodium level is better. (2) Acute kidney injury: Code(s): N17.9 - Acute kidney failure, unspecified Status: Acute Assessment and Plan: * AMRITA * normal creatinine at baseline (from labs in August 2024) * suspect due to volume depletion possilby worsened by infection (UTI + bacteremia) * evaluation to date noted: * renal ultrasound w/o obstruction but findings suggestive of CKD * urine electrolytes non-prerenal * 10% urine eosinophils (likely due to inflammation on UA) * moderate proteinuria * CPK slightly elevated (but not enought to affect kidney function) * appears to be responding to IVF resuscitation * wean off IVFs * creatinine is still above her baseline. * Getting 0.45ns starting today because sodium is better but the creatinine is still a little bit above her usual. * no sign of volume overload. * UTI may slow down recovery of kidney function * Creatinine seems to have improved but still above baseline (3) Acute UTI: Code(s): N39.0 - Urinary tract infection, site not specified Status: Acute Assessment and Plan: * amdission UA noted: * turbid appearance, 2+ protein, 1+ blood, positive nitrates, 3+ leuk esterase, greater than 100 WBC, occasional epithelial cells, 4+ bacteria * urine culture with Citrobacter amalonaticus * blood culures noted as well * complicated by chronic aguayo catheter - exchanged in ER * on antibiotics * Infectious Disease consulted (4) PEG tube malfunction: Code(s): K94.23 - Gastrostomy malfunction Status: Acute Assessment and Plan: * significant leakage around stoma of PEG tube on admission * GI consulted for replacement of tube * PEG tube replaced on 04/30 without complications * functioning appropriately at this time (5) Severe protein-calorie malnutrition: Code(s): E43 - Unspecified severe protein-calorie malnutrition Status: Acute Assessment and Plan: * reportred weight loss of nearly 80 lb in 7 months * likely complicated by #4 * on tube feeds * [employer] Stock Plan Administrator recommendations noted (6) Anemia: Code(s): D64.9 - Anemia, unspecified Status: Acute Assessment and Plan: * noted with IVF hydration * due to AMRITA/ARF and acute illness * hemoglobin stable in the 8 the last 4 days. (7) Essential (primary) hypertension: Code(s): I10 - Essential (primary) hypertension Status: Chronic Assessment and Plan: * Systolic blood pressure good in the 130 * on no blood pressure medications right now * we can full these in as the blood pressure rises (8) Diabetes mellitus with hyperglycemia: Code(s): E11.65 - Type 2 diabetes mellitus with hyperglycemia Status: Acute Assessment and Plan: * follow accu-cheks * glycemic control per hospitalist Will continue to follow. Subjective Date/time seen: 05/04/25 11:29 Interval history: patient not verbal but looks comfortable Exam Narrative: General: thin/frail and elderly female in NAD Heart: normal S1 and S2; no rub Or gallop Lungs: clear Abdomen: soft, nontender, nondistended, positive bowel sounds Extremities: no cyanosis or clubbing; no edema; contracted Skin: warm and intact; + loss of muscle mass Objective Data Vital Signs Vital Signs: Vital Signs - 24 hr 05/03/25 11:53 05/03/25 12:00 05/03/25 16:00 Temperature 98.6 F Pulse Rate 85 82 84 Respiratory Rate 24 H Blood Pressure 138/68 Pulse Oximetry 100 Oxygen Delivery 05/03/25 16:00 05/03/25 19:23 05/03/25 20:00 Temperature 97.5 F L 97.5 F L Pulse Rate 78 85 Respiratory Rate 22 H 16 Blood Pressure 183/82 H 142/69 H Pulse Oximetry 100 100 Oxygen Delivery Room Air 05/03/25 20:00 05/03/25 23:38 05/04/25 00:00 Temperature 97.5 F L Pulse Rate 88 89 91 Respiratory Rate 16 Blood Pressure 131/70 Pulse Oximetry 100 Oxygen Delivery 05/04/25 03:45 05/04/25 04:00 05/04/25 08:00 Temperature 97.8 F 97.8 F Pulse Rate 81 86 85 Respiratory Rate 17 16 Blood Pressure 121/70 143/67 H Pulse Oximetry 94 100 Oxygen Delivery Intake/Output Intake/Output: Intake & Output 05/01/25 05/02/25 05/03/25 05/04/25 23:59 23:59 23:59 23:59 Intake Total 4095 2705 1020 50 Output Total 1100 1375 1500 1250 Balance 2995 7800 480 1200 Meds/Results Medications: Active Medications Generic Name Dose Route Start Last Admin Trade Name Freq PRN Reason Stop Dose Admin Acetaminophen 650 mg 04/29/25 12:53 05/03/25 09:41 Acetaminophen Elixir 325 Mg/10.15 Ml Udc FEED TUBE 650 mg Q6H PRN Administration Mild Pain (1-3) or Fever Acetaminophen 500 mg 04/29/25 15:56 05/04/25 09:29 Acetaminophen 500 Mg Tablet FEED TUBE 500 mg Q6H PRN Administration Pain 1-3 Aspirin 81 mg 04/30/25 09:00 05/04/25 09:29 Aspirin 81 Mg Chewable Tablet FEED TUBE 81 mg DAILY FIONA Administration Atorvastatin Calcium 80 mg 04/29/25 21:00 04/29/25 21:48 Atorvastatin 40 Mg Tablet FEED TUBE 80 mg On Hold: 04/30/25 08:47 HS FIONA Administration Bisacodyl 10 mg 04/29/25 15:56 Bisacodyl 10 Mg Suppository RECTAL DAILY PRN Constipation Dextrose 12.5 gm 04/29/25 12:53 Dextrose 50% 25 Gm/50 Ml Syringe IV PUSH PRN PRN Hypoglycemia Protocol Glucagon 1 mg 04/29/25 12:53 Glucagon For Inj 1 Mg Vial IM PRN PRN Hypoglycemia Protocol Glucose 15 gm 04/29/25 12:53 Glucose Oral Gel 15 Gm Of Glucse In 37.5 Gm Tube PO PRN PRN Hypoglycemia Protocol Dextrose 1,000 mls @ 100 mls/hr 04/29/25 12:53 Dextrose 5% 1,000 Ml IVPB PRN PRN Hypoglycemia Protocol Cefazolin Sodium 500 mg/ 50 mls @ 100 mls/hr 05/02/25 18:00 05/04/25 06:20 Dextrose IVPB Infused Q12H FIONA Infusion Sodium Chloride 1,000 mls @ 50 mls/hr 05/04/25 08:05 05/04/25 09:29 Sodium Chloride 0.45% IV CONT 50 mls/hr .Q20H FIONA Administration Insulin Aspart 2 - 5 units 04/29/25 18:00 05/04/25 05:51 Insulin Aspart (*Bkc) 100 Units/Ml SUB-Q Not Given Q6HR FIONA Protocol Magnesium Citrate 300 ml 04/29/25 15:56 Magnesium Citrate 300 Ml Btl PO ONCE PRN Constipation Magnesium Hydroxide 30 ml 04/29/25 15:56 Magnesium Hydroxide Susp 30 Ml Udc PO DAILY PRN Constipation Memantine 5 mg 04/29/25 17:00 05/04/25 09:29 Memantine 5 Mg Tablet FEED TUBE 5 mg BID FIONA Administration Mupirocin 1 applic 05/02/25 21:00 05/04/25 09:31 Mupirocin 2% Oint 22 Gm Tube EACH NARE 05/07/25 09:01 1 applic Q12HR FIONA Administration Ondansetron HCl 4 mg 04/29/25 13:00 Ondansetron Inj 4 Mg/2 Ml Vial IV PUSH Q6H PRN Nausea And Vomiting Perflutren Lipid Microsphere 0 ml 05/02/25 11:53 Perflutren Lipid Microspheres 1.5 Ml Vial Diluted To 10 Ml Total Volume IV PUSH 05/05/25 11:55 ONCE PRN adequate visualization Protocol Potassium Phos/Sodium Phos 1 packet 04/30/25 09:00 05/04/25 09:30 Potassium/Phosphorus/Sodium 1.5 Gm Packet FEED TUBE 1 packet DAILY FIONA Administration Sodium Bicarbonate 650 mg 04/29/25 17:00 04/29/25 17:00 Sodium Bicarbonate Tab 650 Mg Tablet FEED TUBE 650 mg On Hold: 04/30/25 07:31 BID FIONA Administration Thiamine HCl 100 mg 04/30/25 09:00 05/04/25 09:29 Thiamine Hcl 100 Mg Tablet FEED TUBE 100 mg QAM FIONA Administration Vancomycin HCl 1 each 05/02/25 12:04 Vancomycin For Acute Kidney Injury IVPB PRN PRN Vancomycin Protocol Vitamin D 10 mcg 04/30/25 09:00 05/04/25 09:29 Cholecalciferol (Vitamin D3) 10 Mcg (400 Units) Tablet FEED TUBE 10 mcg DAILY FIONA Administration Radiology Results: ITS Impressions Chest/Abdomen/Pelvis CT 04/29/25 11:44 IMPRESSION: 1. Directed noncontrast exam demonstrating no gross acute intrathoracic process identified. 10 mm spiculated right lower lobe nodule concerning for possible malignant lesion. Correlate with short interval follow-up chest CT or PET/CT. 2. Limited evaluation of the abdomen and pelvis; no acute surgical abnormality identified. Possible wall thickening in the sigmoid region which could be associated with inflammatory/infectious colitis or stercoral colitis. Renal Ultrasound 04/30/25 15:33 IMPRESSION: 1. Bilateral diffuse increased renal cortical echogenicity consistent with medical renal disease. No hydronephrosis. 2. Cholelithiasis with additional indeterminate 1.7 x 1.2 x 0.9 cm nonshadowing echogenic nodule at the fundus which could represent a sludge ball or potentially a gallbladder polyp. Consider further evaluation with ultrasound or pre and postcontrast MRI or CT. Labs Labs: Laboratory Results - last 24 hr 05/03/25 05/03/25 05/03/25 11:47 12:21 17:00 WBC RBC Hgb Hct MCV MCH MCHC RDW Plt Count MPV Immature Gran % (Auto) Neut % (Auto) Lymph % (Auto) Saunders % (Auto) Eos % (Auto) Baso % (Auto) Lymph # (Auto) Saunders # (Auto) Eos # (Auto) Baso # (Auto) Abs Immat Gran (auto) Absolute Neuts (auto) Absolute Nucleated RBC Nucleated RBC % Sodium Potassium Chloride Carbon Dioxide Anion Gap BUN Creatinine Estim Creat Clear Calc Estimated GFR Glucose POC Capillary Glucose 147 H 108 H Calcium Phosphorus Magnesium Total Bilirubin AST ALT Alkaline Phosphatase Total Protein Albumin Vancomycin Trough Random Vancomycin 6.8 L 05/03/25 05/04/25 05/04/25 23:27 04:15 05:39 WBC 7.1 RBC 3.00 L Hgb 8.7 L Hct 27.1 L MCV 90.3 MCH 29.0 MCHC 32.1 RDW 12.7 Plt Count 198 MPV 13.0 H Immature Gran % (Auto) 0.4 Neut % (Auto) 63.3 Lymph % (Auto) 26.8 Saunders % (Auto) 6.2 Eos % (Auto) 3.2 Baso % (Auto) 0.1 L Lymph # (Auto) 1.91 Saunders # (Auto) 0.4 Eos # (Auto) 0.2 Baso # (Auto) 0.0 Abs Immat Gran (auto) 0.03 Absolute Neuts (auto) 4.5 Absolute Nucleated RBC 0.000 Nucleated RBC % 0.0 Sodium 138 Potassium 4.1 Chloride 108 H Carbon Dioxide 27 Anion Gap 3 L BUN 35 H Creatinine 1.35 H Estim Creat Clear Calc 27 Estimated GFR 39 L Glucose 110 POC Capillary Glucose 130 H 128 H Calcium 8.0 L Phosphorus 3.5 Magnesium 2.4 H Total Bilirubin 0.2 AST 79 H ALT 100 H Alkaline Phosphatase 101 Total Protein 5.7 L Albumin 2.6 L Vancomycin Trough 11.7 Random Vancomycin
[2025-05-05] VITALS (8 sets, daily range): BP systolic 119–162; BP diastolic 60–99; PULSE 79–102; RESP 16–18; TEMP 36.3–37.1; O2SAT 99–100
[2025-05-05 00:54] LABS: Hematocrit 26.9 % (37.0-47.0); Hemoglobin 8.9 g/dL (12.0-15.0); Immature Granulocyte Percent A 0.2 % (0-0.5); Lymphocytes Absolute Auto 1.75 K/mm3 (0.9-3.2); Mean Corpuscular HGB Conc 33.1 g/dl (32-36); Mean Corpuscular Hemoglobin 29.5 pg (26-34); Mean Corpuscular Volume 89.1 fl (80-100); Nucleated Red Blood Cells Absolute Auto 0.000 K/mm3 (0.0-0.012); Nucleated Red Blood Cells Perc 0.0 % (0.0-0.2); Platelet Count Result 190 k/mm3 (150-375); Red Blood Count 3.02 M/mm3 (4.2-5.4); White Blood Count 8.3 K/mm3 (4.5-10.0)
[2025-05-05 01:13] LABS: Alanine Aminotransferase 89 U/L (6-35); Albumin Level 2.8 g/dL (3.5-5.1); Alkaline Phosphatase 122 U/L (38-126); Anion Gap 5 mmol/L (4-12); Aspartate Amino Transferase 74 U/L (14-36); Bilirubin,Total 0.3 mg/dL (0.2-1.3); Blood Urea Nitrogen 31 mg/dL (7-17); Calcium 8.4 mg/dL (8.4-10.2); Carbon Dioxide 26 mmol/L (22-30); Chloride 107 mmol/L (98-107); Estimated CRCL calculation 28 ml/min; Estimated Glomerular Filt Rate 41; Glucose 111 mg/dL (65-110); Magnesium 2.2 mg/dL (1.6-2.3); Potassium 4.0 mmol/L (3.4-5.0); Sodium 138 mmol/L (137-145); Total Protein 5.9 g/dL (6.3-8.2)
[2025-05-05] MEDS: VANCOMYCIN 750 MG/NS 250 ML 750 MG/250 ML BAG 250 MG IVPB (03:07)
[2025-05-05] MEDS: ceFAZolin 500 MG in DEXTROSE 5% IN WATER 50 ML 100 MG IVPB ×2 (05:26→16:25)
[2025-05-05] MEDS: THIAMINE HCL 100 MG TABLET FEED TUBE (09:06)
[2025-05-05] MEDS: ASPIRIN 81 MG CHEWABLE TABLET FEED TUBE (09:06)
[2025-05-05] MEDS: MEMANTINE 5 MG TABLET FEED TUBE ×2 (09:06→16:17)
[2025-05-05] MEDS: CHOLECALCIFEROL (VITAMIN D3) 10 MCG (400 UNITS) TABLET FEED TUBE (09:06)
[2025-05-05] MEDS: POTASSIUM/PHOSPHORUS/SODIUM 1.5 GM PACKET 1 PACKET FEED TUBE (09:06)
[2025-05-05] MEDS: MUPIROCIN 2% OINT 22 GM TUBE 1 APPLIC EACH NARE (09:07)
--- NOTE | 2025-05-05 09:25 | P.PNNP_ITS ---
Progress Note: A&P Assessment and Plan (1) Hypernatremia: Code(s): E87.0 - Hyperosmolality and hypernatremia Status: Acute Assessment and Plan: * Sodium level now normal back on tube feeding flushes and tube feedings. (2) Acute kidney injury: Code(s): N17.9 - Acute kidney failure, unspecified Status: Acute Assessment and Plan: * AMRITA * normal creatinine at baseline (from labs in August 2024) * suspect due to volume depletion possilby worsened by infection (UTI + bacteremia) * evaluation to date noted: * renal ultrasound w/o obstruction but findings suggestive of CKD * urine electrolytes non-prerenal * 10% urine eosinophils (likely due to inflammation on UA) * moderate proteinuria * CPK slightly elevated (but not enought to affect kidney function) * Creatinine is slowly dropping. * There may have been a component of ATN which delays recovery. * She is tolerating tube feeding flushes and her tube feedings. * Will stop her IV fluid and watch labs (3) Acute UTI: Code(s): N39.0 - Urinary tract infection, site not specified Status: Acute Assessment and Plan: * admission UA noted: * turbid appearance, 2+ protein, 1+ blood, positive nitrates, 3+ leuk esterase, greater than 100 WBC, occasional epithelial cells, 4+ bacteria * urine culture with Citrobacter amalonaticus * blood cultures noted as well * complicated by chronic aguayo catheter - exchanged in ER * on Ancef and vancomycin * Infectious Disease consulted (4) PEG tube malfunction: Code(s): K94.23 - Gastrostomy malfunction Status: Acute Assessment and Plan: * significant leakage around stoma of PEG tube on admission * PEG tube replaced on 04/30 without complications * functioning appropriately at this time (5) Severe protein-calorie malnutrition: Code(s): E43 - Unspecified severe protein-calorie malnutrition Status: Acute Assessment and Plan: * reportred weight loss of nearly 80 lb in 7 months * likely complicated by #4 * on tube feeds * Keyseater Operator recommendations noted (6) Anemia: Code(s): D64.9 - Anemia, unspecified Status: Acute Assessment and Plan: * due to AMRITA/ARF and acute illness * Hemoglobin slowly improve crease thing. (7) Essential (primary) hypertension: Code(s): I10 - Essential (primary) hypertension Status: Chronic Assessment and Plan: * Systolic blood pressure good as it ranges mostly in the 110-134 range. Occasional outlier from time to time. * on no blood pressure medications right now * She was on amlodipine and losartan. These are still on hold. (8) Diabetes mellitus with hyperglycemia: Code(s): E11.65 - Type 2 diabetes mellitus with hyperglycemia Status: Acute Assessment and Plan: * follow accu-cheks * glycemic control per hospitalist Will continue to follow. Subjective Date/time seen: 05/05/25 09:25 Interval history: Patient is comfortable in bed. Not very interactive Exam Narrative: General: thin/frail and elderly female in NAD Heart: normal S1 and S2; no rub Or gallop Lungs: clear bilaterally Abdomen: soft, nontender, nondistended, positive bowel sounds Extremities: no edema; contracted right hand Skin: warm and intact; + loss of muscle mass Objective Data Vital Signs Vital Signs: Vital Signs - 24 hr 05/04/25 12:00 05/04/25 12:00 05/04/25 15:50 Temperature Pulse Rate 76 79 88 Respiratory Rate 16 Blood Pressure 119/71 137/84 Pulse Oximetry 100 100 Oxygen Delivery 05/04/25 16:00 05/04/25 20:00 05/04/25 20:00 Temperature 99.1 F Pulse Rate 85 97 Respiratory Rate 12 Blood Pressure 123/78 Pulse Oximetry 100 Oxygen Delivery Room Air 05/04/25 20:00 05/05/25 00:00 05/05/25 00:00 Temperature 97.4 F L Pulse Rate 97 102 H 102 H Respiratory Rate 16 Blood Pressure 119/99 H Pulse Oximetry 100 Oxygen Delivery 05/05/25 04:00 05/05/25 04:00 05/05/25 07:52 Temperature 98.8 F 97.9 F Pulse Rate 79 97 85 Respiratory Rate 18 16 Blood Pressure 162/78 H 134/67 Pulse Oximetry 100 100 Oxygen Delivery Intake/Output Intake/Output: Intake & Output 11/21/25 11/22/25 11/23/25 11/24/25 23:59 23:59 23:59 23:59 Intake Total 2705 1020 100 300 Output Total 1375 1500 3000 1550 Balance 3094 -247 -8728 -3301 Meds/Results Medications: Active Medications Generic Name Dose Route Start Last Admin Trade Name Freq PRN Reason Stop Dose Admin Acetaminophen 650 mg 04/29/25 12:53 05/03/25 09:41 Acetaminophen Elixir 325 Mg/10.15 Ml Udc FEED TUBE 650 mg Q6H PRN Administration Mild Pain (1-3) or Fever Acetaminophen 500 mg 04/29/25 15:56 05/04/25 09:29 Acetaminophen 500 Mg Tablet FEED TUBE 500 mg Q6H PRN Administration Pain 1-3 Aspirin 81 mg 04/30/25 09:00 05/05/25 09:06 Aspirin 81 Mg Chewable Tablet FEED TUBE 81 mg DAILY FIONA Administration Atorvastatin Calcium 80 mg 04/29/25 21:00 04/29/25 21:48 Atorvastatin 40 Mg Tablet FEED TUBE 80 mg On Hold: 04/30/25 08:47 HS FIONA Administration Bisacodyl 10 mg 04/29/25 15:56 Bisacodyl 10 Mg Suppository RECTAL DAILY PRN Constipation Dextrose 12.5 gm 04/29/25 12:53 Dextrose 50% 25 Gm/50 Ml Syringe IV PUSH PRN PRN Hypoglycemia Protocol Glucagon 1 mg 04/29/25 12:53 Glucagon For Inj 1 Mg Vial IM PRN PRN Hypoglycemia Protocol Glucose 15 gm 04/29/25 12:53 Glucose Oral Gel 15 Gm Of Glucse In 37.5 Gm Tube PO PRN PRN Hypoglycemia Protocol Dextrose 1,000 mls @ 100 mls/hr 04/29/25 12:53 Dextrose 5% 1,000 Ml IVPB PRN PRN Hypoglycemia Protocol Cefazolin Sodium 500 mg/ 50 mls @ 100 mls/hr 05/02/25 18:00 05/05/25 05:56 Dextrose IVPB Infused Q12H FIONA Infusion Sodium Chloride 1,000 mls @ 50 mls/hr 05/04/25 08:05 05/04/25 09:29 Sodium Chloride 0.45% IV CONT 50 mls/hr .Q20H FIONA Administration Insulin Aspart 2 - 5 units 04/29/25 18:00 05/05/25 07:05 Insulin Aspart (*Bkc) 100 Units/Ml SUB-Q Not Given Q6HR FIONA Protocol Magnesium Citrate 300 ml 04/29/25 15:56 Magnesium Citrate 300 Ml Btl PO ONCE PRN Constipation Magnesium Hydroxide 30 ml 04/29/25 15:56 Magnesium Hydroxide Susp 30 Ml Udc PO DAILY PRN Constipation Memantine 5 mg 04/29/25 17:00 05/05/25 09:06 Memantine 5 Mg Tablet FEED TUBE 5 mg BID FIONA Administration Mupirocin 1 applic 05/02/25 21:00 05/05/25 09:07 Mupirocin 2% Oint 22 Gm Tube EACH NARE 05/07/25 09:01 1 applic Q12HR FIONA Administration Ondansetron HCl 4 mg 04/29/25 13:00 Ondansetron Inj 4 Mg/2 Ml Vial IV PUSH Q6H PRN Nausea And Vomiting Perflutren Lipid Microsphere 0 ml 05/02/25 11:53 Perflutren Lipid Microspheres 1.5 Ml Vial Diluted To 10 Ml Total Volume IV PUSH 05/05/25 11:55 ONCE PRN adequate visualization Protocol Potassium Phos/Sodium Phos 1 packet 04/30/25 09:00 05/05/25 09:06 Potassium/Phosphorus/Sodium 1.5 Gm Packet FEED TUBE 1 packet DAILY FIONA Administration Sodium Bicarbonate 650 mg 04/29/25 17:00 04/29/25 17:00 Sodium Bicarbonate Tab 650 Mg Tablet FEED TUBE 650 mg On Hold: 04/30/25 07:31 BID FIONA Administration Thiamine HCl 100 mg 04/30/25 09:00 05/05/25 09:06 Thiamine Hcl 100 Mg Tablet FEED TUBE 100 mg QAM FIONA Administration Vancomycin HCl 1 each 05/02/25 12:04 Vancomycin For Acute Kidney Injury IVPB PRN PRN Vancomycin Protocol Vitamin D 10 mcg 04/30/25 09:00 05/05/25 09:06 Cholecalciferol (Vitamin D3) 10 Mcg (400 Units) Tablet FEED TUBE 10 mcg DAILY FIONA Administration Radiology Results: ITS Impressions Chest/Abdomen/Pelvis CT 04/29/25 11:44 IMPRESSION: 1. Directed noncontrast exam demonstrating no gross acute intrathoracic process identified. 10 mm spiculated right lower lobe nodule concerning for possible malignant lesion. Correlate with short interval follow-up chest CT or PET/CT. 2. Limited evaluation of the abdomen and pelvis; no acute surgical abnormality identified. Possible wall thickening in the sigmoid region which could be associated with inflammatory/infectious colitis or stercoral colitis. Renal Ultrasound 04/30/25 15:33 IMPRESSION: 1. Bilateral diffuse increased renal cortical echogenicity consistent with medical renal disease. No hydronephrosis. 2. Cholelithiasis with additional indeterminate 1.7 x 1.2 x 0.9 cm nonshadowing echogenic nodule at the fundus which could represent a sludge ball or potentially a gallbladder polyp. Consider further evaluation with ultrasound or pre and postcontrast MRI or CT. Labs Labs: Laboratory Results - last 24 hr 04/30/25 05/04/25 05/04/25 07:43 11:55 18:02 WBC RBC Hgb Hct MCV MCH MCHC RDW Plt Count MPV Immature Gran % (Auto) Neut % (Auto) Lymph % (Auto) Jones % (Auto) Eos % (Auto) Baso % (Auto) Lymph # (Auto) Jones # (Auto) Eos # (Auto) Baso # (Auto) Abs Immat Gran (auto) Absolute Neuts (auto) Absolute Nucleated RBC Nucleated RBC % Sodium Potassium Chloride Carbon Dioxide Anion Gap BUN Creatinine Estim Creat Clear Calc Estimated GFR Glucose POC Capillary Glucose 111 H 103 Calcium Phosphorus Magnesium Total Bilirubin AST ALT Alkaline Phosphatase Total Protein Albumin Random Vancomycin Antibody Screen Negative 05/04/25 05/05/25 05/05/25 23:59 00:35 07:01 WBC 8.3 RBC 3.02 L Hgb 8.9 L Hct 26.9 L MCV 89.1 MCH 29.5 MCHC 33.1 RDW 12.6 Plt Count 190 MPV 12.4 H Immature Gran % (Auto) 0.2 Neut % (Auto) 70.7 Lymph % (Auto) 21.1 Jones % (Auto) 5.1 Eos % (Auto) 2.8 Baso % (Auto) 0.1 L Lymph # (Auto) 1.75 Jones # (Auto) 0.4 Eos # (Auto) 0.2 Baso # (Auto) 0.0 Abs Immat Gran (auto) 0.02 Absolute Neuts (auto) 5.9 Absolute Nucleated RBC 0.000 Nucleated RBC % 0.0 Sodium 138 Potassium 4.0 Chloride 107 Carbon Dioxide 26 Anion Gap 5 BUN 31 H Creatinine 1.27 H Estim Creat Clear Calc 28 Estimated GFR 41 L Glucose 111 H POC Capillary Glucose 110 H 121 H Calcium 8.4 Phosphorus 3.5 Magnesium 2.2 Total Bilirubin 0.3 AST 74 H ALT 89 H Alkaline Phosphatase 122 Total Protein 5.9 L Albumin 2.8 L Random Vancomycin 15.1 Antibody Screen
--- NOTE | 2025-05-05 10:12 | WPDIDCN ---
Assessment and Plan Assessment and plan (1) Acute UTI: Code(s): N39.0 - Urinary tract infection, site not specified Status: Acute (2) Diabetes mellitus with hyperglycemia: Code(s): E11.65 - Type 2 diabetes mellitus with hyperglycemia Status: Acute Assessment and Plan: ASSESSMENT: 1. Citrobacter UTI 2. Blood cxs with Staph epidermidis 1/2--contaminant-->repeat blood cxs on 05/02 NGTD 3. CKD 4. DM 5. HTN, HL, stroke, s/p feeding tube RECOMMENDATIONS: ok to discharge on po doxycycline 100 mg bid x 5 days Plan ASSESSMENT: 1. Citrobacter UTI 2. Blood cxs with Staph epidermidis 1/2--contaminant-->repeat blood cxs on 05/02 NGTD 3. CKD 4. DM 5. HTN, HL, stroke, s/p feeding tube RECOMMENDATIONS: ok to discharge on po doxycycline 100 mg bid x 5 days d/w nursing staff Pt was seen via video telehealth consultation with the assistance of staff. Chart, data and patient info reviewed. Patient was located at [facility] while I was in my [place] office. Pt gave consent. HPI Data of Consult Date/Time: 05/05/25 10:12 Requesting Physician: Chano Polanco MD Primary Care Provider: UNKNOWN,DOCTOR Consult Narrative Reason for consult: UTI Narrative: Dorene Silva is a 69 year old female with pmhx/o stroke, DM, HTN, HL, CKD, presented to hospital from [place] for hypotension, AMRITA, and AMS. Work up revealed blood cx positive for Staph epi and UCx positive for Citrobacter. On ancef. Pt nonverbal. 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 Dysarthria as late effect of stroke Acute ischemic left middle cerebral artery (MCA) stroke Dysphagia as late effect of stroke Right homonymous hemianopsia Type 2 diabetes mellitus without complications Aneurysm, carotid artery, internal Essential (primary) hypertension HLD (hyperlipidemia) CKD (chronic kidney disease) Smoker Surgical History Surgical History PEG (percutaneous endoscopic gastrostomy) status Social History Social History Smoking packs per day: 0.5 Smoking cigarettes per day: 10.0 Smoking status: Current every day smoker Alcohol intake: unknown Substance use: unknown Do You Feel Safe in your Home?: Yes Lack of Transportation: No Lack of Food: Never True Current Housing: I Have Housing Concerned About Future Housing: Decline to Answer Difficulty Paying Gas/Electric Bills: Decline to Answer Difficulty Paying for Meds: Decline to Answer Currently Unemployed: Decline to Answer Education: Don't Know Difficulty w/ Childcare or Family Care: Decline to Answer Spiritual care concerns: No Meds Home Medications and Allergies Home Medications ?Medication ?Instructions ?Recorded ?Confirmed ?Type acetaminophen 325 mg tablet 500 mg feeding tube Q6H PRN pain 07/26/24 04/29/25 History amlodipine 10 mg tablet (Norvasc) 5 mg feeding tube DAILY 07/26/24 04/29/25 History aspirin 81 mg chewable tablet 81 mg feeding tube DAILY 07/26/24 04/29/25 History atorvastatin 80 mg tablet (Lipitor) 80 mg feeding tube HS 07/26/24 04/29/25 History bisacodyl 10 mg rectal suppository 10 mg RECTAL DAILY PRN constipation 04/29/25 04/29/25 History cholecalciferol (vitamin D3) 1 tablet feeding tube DAILY 04/29/25 04/29/25 History losartan 25 mg tablet 25 mg feeding tube DAILY 04/29/25 04/29/25 History magnesium citrate 300 ml PO ONCE PRN constipation 04/29/25 04/29/25 History magnesium hydroxide 400 mg/5 mL 30 ml PO DAILY PRN constipation 04/29/25 04/29/25 History oral suspension (Milk of Magnesia) memantine 5 mg tablet 5 mg feeding tube BID 04/29/25 04/29/25 History potassium, sodium phosphates 280 1 packet feeding tube DAILY 04/29/25 04/29/25 History mg-160 mg-250 mg oral powder packet sodium bicarbonate 650 mg tablet 650 mg feeding tube BID GERD 04/29/25 04/29/25 History sodium phosphates 19 gram-7 118 ml RECTAL DAILY PRN 04/29/25 04/29/25 History gram/118 mL enema (Fleet Enema) constipation thiamine HCl (vitamin B1) 100 mg 100 mg PO DAILY 04/29/25 04/29/25 History capsule Allergies Allergy/AdvReac Type Severity Reaction Status Date / Time No Known Allergies Allergy Verified 04/29/25 14:31 Vital Signs Vital Signs - 24 hr 05/04/25 12:00 05/04/25 12:00 05/04/25 15:50 Temperature Pulse Rate 76 79 88 Respiratory Rate 16 Blood Pressure 119/71 137/84 Pulse Oximetry 100 100 Oxygen Delivery 05/04/25 16:00 05/04/25 20:00 05/04/25 20:00 Temperature 99.1 F Pulse Rate 85 97 Respiratory Rate 12 Blood Pressure 123/78 Pulse Oximetry 100 Oxygen Delivery Room Air 05/04/25 20:00 05/05/25 00:00 05/05/25 00:00 Temperature 97.4 F L Pulse Rate 97 102 H 102 H Respiratory Rate 16 Blood Pressure 119/99 H Pulse Oximetry 100 Oxygen Delivery 05/05/25 04:00 05/05/25 04:00 05/05/25 07:52 Temperature 98.8 F 97.9 F Pulse Rate 79 97 85 Respiratory Rate 18 16 Blood Pressure 162/78 H 134/67 Pulse Oximetry 100 100 Oxygen Delivery Results Labs 05/05/25 00:35 05/05/25 00:35 Labs: Short CBC 05/05/25 Range/Units 00:35 WBC 8.3 (4.5-10.0) K/mm3 Hgb 8.9 L (12.0-15.0) g/dL Hct 26.9 L (37.0-47.0) % Plt Count 190 (150-375) k/mm3 [facility] 05/05/25 00:35 Sodium 138 Potassium 4.0 Chloride 107 Carbon Dioxide 26 BUN 31 H Creatinine 1.27 H Glucose 111 H Calcium 8.4 Liver Function 05/05/25 Range/Units 00:35 Total Bilirubin 0.3 (0.2-1.3) mg/dL AST 74 H (14-36) U/L ALT 89 H (6-35) U/L Alkaline Phosphatase 122 (38-126) U/L Albumin 2.8 L (3.5-5.1) g/dL
--- NOTE | 2025-05-05 14:51 | P.DS_ITS ---
DS: Admitting Diagnosis Discharge Date 05/05/2025 Admitting Diagnosis AMS DS: Discharge Diagnosis Discharge Diagnosis (1) Bacteremia: Code(s): R78.81 - Bacteremia Status: Acute Assessment and Plan: * suspected source: UTI * blood cultures drawn on 04/29 * Aerobic shows Staph Epidermidis - likely contaminate * Urine culture: Citrobacter amalonaticus * Repeat blood cultures ordered, pending * Echo: G1DD, EF 60-65%, trace AVR, MVR, TVR * IV Vanc 1gm q12 hours, pharmacy to dose * Infectious Disease consult, appreciate further recommendations (2) Acute kidney injury superimposed on CKD: Code(s): N17.9 - Acute kidney failure, unspecified; N18.9 - Chronic kidney disease, unspecified Status: Acute Assessment and Plan: * Nephrology consulted - appreciate further recommendations * IV fluids given on admit and patient changed from LR to 0.45% NaCl at 100 mL/hr plus tube feeds/flushes with free water * 05/04- Creatinine continues to improve: 2.51 -> 1.92 -> 1.68 -> 1.35 (3) Hypernatremia: Code(s): E87.0 - Hyperosmolality and hypernatremia Status: Acute Assessment and Plan: * Nephrology consulted, IV fluids given on admit and patient changed from LR to 0.45% NaCl at 100 mL/hr plus tube feeds/flushes with free water * Na steadily decreasin -> 155 -> 152 -> 138 (4) Acute UTI: Code(s): N39.0 - Urinary tract infection, site not specified Status: Acute Assessment and Plan: * UA: Turbid, pH greater than 9, 2+ protein, 1+ blood, positive nitrates, 3+ leuk esterase, greater than 100 WBC, occasional epithelial cells, 4+ bacteria * no previous micro available for review * started on Ceftriaxone on 04/29 * Shoemaker replaced * UC - Citrobacter amalonaticus * Switched to Cefazolin 05/02 (5) Severe protein-calorie malnutrition: Code(s): E43 - Unspecified severe protein-calorie malnutrition Status: Acute Assessment and Plan: * Weight loss of nearly 80 lb in 7 months * Dietitian recommendation Jevity 1.5 75 mL/hr with free water flushes (currently 75 mL Q4 while on IV fluids but recommend 200 mL Q4.) * G-J tube leaking since admission and unknown time prior to hospitalization. * Gastroenterology consulted * New 18 F tube placed (6) PEG tube malfunction: Code(s): K94.23 - Gastrostomy malfunction Status: Acute Assessment and Plan: * On exam there appears to be significant leakage around stoma of PEG tube * GI consulted for replacement of tube * PEG replaced on 04/30 without complications * Continue tube feedings (7) Pressure ulcer of left hip: Qualifiers: Pressure injury stage: unspecified pressure injury stage Qualified Code(s): L89.229 - Pressure ulcer of left hip, unspecified stage Code(s): L89.229 - Pressure ulcer of left hip, unspecified stage Status: Acute Assessment and Plan: * Recommend pressure off loading and wound care consult (8) Diabetes mellitus with hyperglycemia: Code(s): E11.65 - Type 2 diabetes mellitus with hyperglycemia Status: Acute Assessment and Plan: * Q.6 hour fingerstick glucose and low-dose sliding scale insulin correction * Previous A1c 6.0 in July of 2024 * A1C: 5.7% this visit (9) Essential (primary) hypertension: Code(s): I10 - Essential (primary) hypertension Status: Chronic Assessment and Plan: * Blood pressures have been low since admission without current antihypertensive medications * Continue to hold antihypertensives given low BP * 143/67 (10) HLD (hyperlipidemia): Qualifiers: Hyperlipidemia type: unspecified Qualified Code(s): E78.5 - Hyperlipidemia, unspecified Code(s): E78.5 - Hyperlipidemia, unspecified Status: Chronic Assessment and Plan: * Hold statin due to AMRITA with elevated CK levels and mildly elevated liver enzymes * Consider restarting at lower dose once electrolyte/renal improvements DS: Summary Hospital Course Reason for hospitalization: Unconscious Hospital Course: Per HPI: 69 y/o F with PMH of CVA (nonverbal, RUE weakness s/p mechanical thrombectomy and now has g-tube), DM, hypernatremia, HTN, HLD, and CKD presents here with unconsciousness and tachypnea. HPI obtained through EMS report, ED provider report, and chart review as the patient is nonverbal at baseline. The patient arrives from [facility] via EMS for further evaluation of unconsciousness and a rapid respiratory rate. Staff at the [facility] checked the patient's vitals and reported a initial blood pressure of 40/20. Upon EMS arrival, patient's blood pressure was 90/50. She was given a 500 mL bolus while in route to the hospital. She arrived 77/41. She was given an additional 2L and BP has improved to 138/36. She arrived with a soiled depends and uncapped. Per ED doc, appeared very dry upon appearance. No further history available. Patient is nonverbal at baseline due to a previous stroke for which she was seen at [facility] and underwent a thrombectomy. She then failed multiple swallow studies and had a G-tube placed. She additionally has residual right hemiparesis. Initial VS at presentation: 98.3? F, HR 94, R 33, 77/41, and 100% on RA. BP now 138/36 with fluid resuscitation. ED workup showed: WBC 10.7, hemoglobin 10.0 (10.8 on 08/10/2024), INR 1.0, sodium 159 (139 on 08/10/2024), creatinine 2.51/BUN 115/GFR 19 (0.85 and GFR >60 on 08/10/2024), glucose 127, calcium 7.9, albumin 3.0, and UA consistent with UTI. CT of the abdomen/chest/pelvis showed no acute intrathoracic process, 10 mm spiculated right lower lobe nodule concerning for possible malignant lesion, possible wall thickening in the sigmoid region which could be associated with inflammatory/infectious colitis or stercoral colitis. Hospital Course: Nephrology consulted regarding hypernatremia/AMRITA/UTI - suspect related to severe free water deficit complicated by G tube malfunction. Nephro adjusted IVFs to 1/2 NS. GI consulted regarding PEG tube malfunction - this was replaced on 04/30 and was continued for tube feedings and medications. Hypernatremia continued to improve throughout hospitalization, by 05/02 hypernatremia had resolved and remained stable. Urinary culture showed growth of citrobacter. Initial blood culture showed growth of gram + cocci, infectious disease was consulted and patient was continued on Cefazolin and started on IV Vanc, nasal MRSA was also drawn and was positive - mupirocin ointment was also started. Repeat blood cultures were drawn given possibility of bacteremia. Aerobic bottle in the first set eventually grew Staph E., likely contaminate, repeat cultures drawn on 11/21 showed NGTD. Infectious disease recommended discharging the patient on doxycycline 100mg BID x 5 days. Pt has otherwise remained hemodynamically stable throughout hospitalization, remains afebrile, without leukocytosis, on room air. Pt stable for discharge at this time - will discharge back to [facility]. Status at Discharge Functional status at discharge: bed bound Overall status at discharge: patient is back to baseline Time Spent with Patient Time attestation: Total time spent providing and/or coordinating discharge services: 32 Exam Narrative: GENERAL: Appears older than stated age, contracted, nonverbal HEAD: Normocephalic, atraumatic. ENT:? Mucous membranes dry. CHEST: Clear to auscultation.? No respiratory distress. HEART: Regular rate and rhythm. ? Normal peripheral pulses. ABDOMEN: Soft, nontender, loss subcutaneous tissue, gastric tube in place, no signs of leakage EXTREMITIES: No peripheral edema. Contracted SKIN: Warm dry pale appearing NEURO: Does not follow commands or track reliably Const: Other: , female, chronically ill-appearing, nontoxic appearance, no grimacing or distress noted HENMT: Face/Nose/Sinus: Normal nares present Other: Tacky mucous membranes Eyes: General: appearance normal, both eyes and all related structures Sclera: sclerae normal Pupils: Equal, round and reactive pupils present EOM: EOMs intact bilaterally Resp: Effort & Inspection: normal respiratory effort Auscultation: clear to auscultation bilaterally Cardio: Rate: regular rate Rhythm: regular rhythm Other: S1-S2 present without murmur, rub, ectopy GI: Other: Abdomen soft, nondistended, normoactive bowel sounds in all quadrants. G-tube present, no signs of leakage, infection. Skin: General skin exam: normal color, no rashes or lesions noted and wounds noted (L hip, erythematous wound bed without drainage) Wounds: no wounds and wounds noted (L hip, erythematous wound bed without drainage) Other: Poor skin turgor Neuro: Cranial nerves: Yes Equal, round and reactive pupils present Other: A&Ox0, alert, right and left leg resistant to extension and grimacing with range of motion. Extrem: General: normal to inspection Psych: Other: Flat affect. DS: Data Data Completed and Pending Labs on day of discharge: Labs from last 24 hours 05/05/25 05/05/25 05/05/25 12:16 07:01 00:35 WBC 8.3 RBC 3.02 L Hgb 8.9 L Hct 26.9 L MCV 89.1 MCH 29.5 MCHC 33.1 RDW 12.6 Plt Count 190 MPV 12.4 H Immature Gran % (Auto) 0.2 Neut % (Auto) 70.7 Lymph % (Auto) 21.1 [place] % (Auto) 5.1 Eos % (Auto) 2.8 Baso % (Auto) 0.1 L Lymph # (Auto) 1.75 [place] # (Auto) 0.4 Eos # (Auto) 0.2 Baso # (Auto) 0.0 Abs Immat Gran (auto) 0.02 Absolute Neuts (auto) 5.9 Absolute Nucleated RBC 0.000 Nucleated RBC % 0.0 Sodium 138 Potassium 4.0 Chloride 107 Carbon Dioxide 26 Anion Gap 5 BUN 31 H Creatinine 1.27 H Estim Creat Clear Calc 28 Estimated GFR 41 L Glucose 111 H POC Capillary Glucose 148 H 121 H Calcium 8.4 Phosphorus 3.5 Magnesium 2.2 Total Bilirubin 0.3 AST 74 H ALT 89 H Alkaline Phosphatase 122 Total Protein 5.9 L Albumin 2.8 L Random Vancomycin 15.1 Antibody Screen 05/04/25 05/04/25 04/30/25 23:59 18:02 07:43 WBC RBC Hgb Hct MCV MCH MCHC RDW Plt Count MPV Immature Gran % (Auto) Neut % (Auto) Lymph % (Auto) [place] % (Auto) Eos % (Auto) Baso % (Auto) Lymph # (Auto) [place] # (Auto) Eos # (Auto) Baso # (Auto) Abs Immat Gran (auto) Absolute Neuts (auto) Absolute Nucleated RBC Nucleated RBC % Sodium Potassium Chloride Carbon Dioxide Anion Gap BUN Creatinine Estim Creat Clear Calc Estimated GFR Glucose POC Capillary Glucose 110 H 103 Calcium Phosphorus Magnesium Total Bilirubin AST ALT Alkaline Phosphatase Total Protein Albumin Random Vancomycin Antibody Screen Negative Preliminary micro results at discharge 05/02/25 12:41 Blood Culture - Preliminary Blood 05/02/25 12:46 Blood Culture - Preliminary Blood Discharge Plan Discharge Attending physician on discharge: Denis Mayers Consulting providers: Faheem Galan; Tre Patel; Mikie Salcedo Discharging Clinician: Tre Patel Anticipated Discharge Date/Time: 05/05/25 18:33 Patient Disposition: [facility] Activity: as tolerated Diet: tube feeding Discharge Instructions: Discharge disposition: Sue Moreland Take medications as prescribed. You will be prescribed Doxycycline 100mg to be taken twice daily for 5 days. Monitor blood pressures Take caution while standing, rising, or moving Change positions slowly taking a break between each position change If you standing feel dizzy sit back down and take a break Encouraged to continue with yearly vaccinations Return to the emergency department if you develop sudden shortness of breath, chest pain, nausea, vomiting, upset stomach or intractable diarrhea Return to the emergency department if you develop fever greater than 101.5 Follow-up with the primary care physician within 1-2 weeks Thank you for choosing [facility] for your healthcare needs Patient Instructions: Antibiotic Form, Aspirin (By mouth), How to Stop Smoking (GEN), Blood Thinners (GEN) Patient Language: [place] Leone[place] Stand Alone Forms: General Discharge Information Follow-up/Referrals: [facility] [Other] Discharge Medications: New doxycycline hyclate 100 mg capsule 100 mg PO BID Qty: 10 0RF Continued bisacodyl 10 mg suppository 10 mg RECTAL DAILY PRN (Reason: constipation) cholecalciferol (vitamin D3) 1 tablet feeding tube DAILY magnesium citrate Solution 300 ml PO ONCE PRN (Reason: constipation) Rx Instructions: as a single dose Fleet Enema 19-7 gram/118 mL enema 118 ml RECTAL DAILY PRN (Reason: constipation) losartan 25 mg tablet 25 mg feeding tube DAILY memantine 5 mg tablet 5 mg feeding tube BID magnesium hydroxide [Milk of Magnesia] 400 mg/5 mL suspension 30 ml PO DAILY PRN (Reason: constipation) Patient Comments: If no BM in 3 days potassium, sodium phosphates 280-160-250 mg powder in packet 1 packet feeding tube DAILY sodium bicarbonate 650 mg tablet 650 mg feeding tube BID thiamine HCl (vitamin B1) 100 mg capsule 100 mg PO DAILY acetaminophen 325 mg tablet 500 mg feeding tube Q6H PRN (Reason: pain) amlodipine [Norvasc] 10 mg tablet 5 mg feeding tube DAILY aspirin 81 mg tablet,chewable 81 mg feeding tube DAILY atorvastatin [Lipitor] 80 mg tablet 80 mg feeding tube HS Date of admission: 04/29/25 16:10 Primary Care Provider: [facility] Admitting Provider: Chano Polanco Attending physician on admission: Chano Polanco Condition: Serious Quality VTE Prophylaxis VTE prophylaxis: mechanical ordered
== END 2025-05-05 19:45 | DRG 698 ==
LOC: ANHED 10:41 → ANH2MED 13:10
PROVIDERS: Internal Medicine Nephrology; Neurological Surgery; Nurse Practitioner; Student in an Organized Health Care Education/Training Program; Admitting Provider Internal Medicine; Emergency Provider Emergency Medicine; Visit Provider Physician Assistant
DX: T83.511A Infection and inflammatory reaction due to indwelling urethral catheter, initial encounter (principal); E43 Unspecified severe protein-calorie malnutrition; N17.9 Acute kidney failure, unspecified; E87.0 Hyperosmolality and hypernatremia; K94.23 Gastrostomy malfunction; I69.351 Hemiplegia and hemiparesis following cerebral infarction affecting right dominant side; Z68.1 Body mass index [BMI] 19.9 or less, adult; N39.0 Urinary tract infection, site not specified; E88.A Wasting disease (syndrome) due to underlying condition; B96.89 Other specified bacterial agents as the cause of diseases classified elsewhere; N18.9 Chronic kidney disease, unspecified; I12.9 Hypertensive chronic kidney disease with stage 1 through stage 4 chronic kidney disease, or unspecified chronic kidney disease; E86.0 Dehydration; L89.229 Pressure ulcer of left hip, unspecified stage; I69.322 Dysarthria following cerebral infarction; D63.1 Anemia in chronic kidney disease; E11.65 Type 2 diabetes mellitus with hyperglycemia; E11.22 Type 2 diabetes mellitus with diabetic chronic kidney disease; E78.5 Hyperlipidemia, unspecified; R06.82 Tachypnea, not elsewhere classified; I69.391 Dysphagia following cerebral infarction; I69.320 Aphasia following cerebral infarction; F17.210 Nicotine dependence, cigarettes, uncomplicated
CPT/HCPCS: 36415; 71250; 74176; 76770; 80048; 80053; 80069; 80202; 81001; 82271; 82274; 82550; 82565; 82570; 82607; 82728; 82746; 82948; 83036; 83540; 83550; 83605; 83735; 83986; 84100; 84156; 84295; 84300; 84540; 85025; 85055; 85610; 85730; 85999; 86140; 86850; 86900; 86901; 87040; 87086; 87186; 87637; 87641; 93306; 96361; 96365; 96372; 99212; 99285; A9270; G0378; G0463; J0690; J0696; J1650; J3373; J7070; J7120; P9047

== ENCOUNTER 2025-06-08 06:22 | Emergency (ER) | payer MEDICARE, MEDICAID, SELFPAY ==
[2025-06-08] VITALS (7 sets, daily range): BP systolic 97–112; BP diastolic 60–70; PULSE 81–107; RESP 15–19; TEMP 36.8; O2SAT 98–100
--- NOTE | ~2025-06-08 | XR_ITS ---
Examination: XR abdomen gastric tube insert Clinical History: placed G tube Comparison: CT chest abdomen pelvis 04/29/2025 Technique: Portable AP supine abdomen Findings/impression:: 1. NG tube tip overlying expected location of gastric body. 2. Scattered colonic gas and stool. 3. Small bowel loops poorly seen. 4. Otherwise no acute abnormality. Reviewed, dictated and finalized at location R. [employer]TS DEVELOPER
--- NOTE | 2025-06-08 06:17 | PC.NURSE ---
Dressing changed due to saturation
--- NOTE | 2025-06-08 07:29 | ED.GENADULT ---
HPI - General Adult General Chief complaint: Recheck/Abnormal Lab/Rx Stated complaint: g-tube leaking Time Seen by Provider: 06/08/25 06:51 History of Present Illness HPI narrative: 69-year-old female presented to the emergency department for evaluation for a leaking G-tube. Patient presents the ED from [facility]. Patient is nonverbal secondary to a prior history of a stroke. Patient does have history of hypertension, type 2 diabetes and CVA. Patient is G-tube dependent. Previous EMR documentation does show a 18 Albanian G-tube. This was changed on 04/29. Related Data Home Medications ?Medication ?Instructions ?Recorded ?Confirmed ?Last Taken ?Type acetaminophen 325 mg tablet 500 mg feeding tube Q6H PRN pain 07/26/24 04/29/25 Unknown History amlodipine 10 mg tablet (Norvasc) 5 mg feeding tube DAILY 07/26/24 04/29/25 Unknown History aspirin 81 mg chewable tablet 81 mg feeding tube DAILY 07/26/24 04/29/25 Unknown History atorvastatin 80 mg tablet (Lipitor) 80 mg feeding tube HS 07/26/24 04/29/25 Unknown History bisacodyl 10 mg rectal suppository 10 mg RECTAL DAILY PRN constipation 04/29/25 04/29/25 Unknown History cholecalciferol (vitamin D3) 1 tablet feeding tube DAILY 04/29/25 04/29/25 Unknown History losartan 25 mg tablet 25 mg feeding tube DAILY 04/29/25 04/29/25 Unknown History magnesium citrate 300 ml PO ONCE PRN constipation 04/29/25 04/29/25 Unknown History magnesium hydroxide 400 mg/5 mL 30 ml PO DAILY PRN constipation 04/29/25 04/29/25 Unknown History oral suspension (Milk of Magnesia) memantine 5 mg tablet 5 mg feeding tube BID 04/29/25 04/29/25 Unknown History potassium, sodium phosphates 280 1 packet feeding tube DAILY 04/29/25 04/29/25 Unknown History mg-160 mg-250 mg oral powder packet sodium bicarbonate 650 mg tablet 650 mg feeding tube BID GERD 04/29/25 04/29/25 Unknown History sodium phosphates 19 gram-7 118 ml RECTAL DAILY PRN 04/29/25 04/29/25 Unknown History gram/118 mL enema (Fleet Enema) constipation thiamine HCl (vitamin B1) 100 mg 100 mg PO DAILY 04/29/25 04/29/25 Unknown History capsule Allergies Allergy/AdvReac Type Severity Reaction Status Date / Time No Known Allergies Allergy Verified 04/29/25 14:31 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 Dysarthria as late effect of stroke Acute ischemic left middle cerebral artery (MCA) stroke Dysphagia as late effect of stroke Right homonymous hemianopsia Type 2 diabetes mellitus without complications Aneurysm, carotid artery, internal Essential (primary) hypertension HLD (hyperlipidemia) CKD (chronic kidney disease) Smoker Surgical History Surgical History PEG (percutaneous endoscopic gastrostomy) status Social History Social History Smoking packs per day: 0.5 Smoking cigarettes per day: 10.0 Smoking status: Current every day smoker Alcohol intake: unknown Substance use: unknown Lack of Transportation: No Lack of Food: Never True Current Housing: I Have Housing Concerned About Future Housing: Decline to Answer Difficulty Paying Gas/Electric Bills: Decline to Answer Difficulty Paying for Meds: Decline to Answer Currently Unemployed: Decline to Answer Education: Don't Know Difficulty w/ Childcare or Family Care: Decline to Answer Spiritual care concerns: No Exam Narrative: APPEARANCE: Well appearing, no pain, no distress, well-nourished. HEAD: normocephalic, atraumatic. EYES: PERRLA/EOMI, conjunctivae clear. NOSE: Normal no drainage RESPIRATORY: Airway patent, respirations nonlabored. Clear to auscultation bilaterally, no rales, rhonchi, wheezing. CARDIOVASCULAR: Regular rate and rhythm without murmurs rubs or gallops. ABDOMINAL: Soft nontender abdomen, will appearing gastrostomy site, some leaking from around the tube MUSCULOSKELETAL: Moves all extremities. Strength/ROM intact, No edema, No calf tenderness. NEURO: Alert. Cranial nerves II through XII intact. Good gait. Good coordination SKIN: Warm, dry. Normal Color Course Vital Signs Vital signs: Vital Signs Temperature 98.2 F 06/08/25 06:08 Pulse Rate 107 H 06/08/25 06:08 Respiratory Rate 18 06/08/25 06:08 Blood Pressure 108/65 06/08/25 06:08 Pulse Oximetry 100 06/08/25 06:08 Oxygen Delivery Room Air 06/08/25 06:08 Temperature 98.2 F 06/08/25 06:08 Pulse Rate 98 06/08/25 10:02 Respiratory Rate 17 06/08/25 10:02 Blood Pressure 102/63 06/08/25 10:02 Pulse Oximetry 99 06/08/25 10:02 Oxygen Delivery Room Air 06/08/25 06:08 Procedures Feeding Tube Replacement Feeding Tube #1: Feeding Tube Placement Date: 06/08/25 Feeding Tube Placement Time: 09:16 Type of Tube: gastrostomy Insertion Site Prior to Procedure: clean Tube Used for Reinsertion: Bard Albanian Tube Size (F): 20 Balloon size (mL): 10 Verification of Placement: KUB Tube Secured by: attachment device Patient Tolerated Procedure: well and no complications MDM MDM Narrative Medical decision making narrative: 69-year-old female present to the emergency department for evaluation for G-tube issue. Patient's G-tube was exchanged in the emergency department without issue. Dressing was replaced. Patient had no signs of discomfort or distress. X-ray did confirm proper placement of the G-tube. Patient was discharged back to her care facility. Differential Diagnosis Differential Diagnosis: Dislodged G-tube, G-tube malfunction, abscess Imaging Data Attestation: I personally reviewed and interpreted this imaging study as follows: My impression: X-ray: G-tube in location Discharge Plan Discharge Clinical Impression: Gastrostomy tube dysfunction Patient Disposition: NH Care Home/Asst Living Condition: Stable Instructions: Antibiotic Form, How to Use and Care for Your PEG Tube (DC) Additional Instructions: Have close follow-up with your primary care physician's. Patient Language: Kyrgyz Prescriptions: No Action bisacodyl 10 mg suppository 10 mg RECTAL DAILY PRN (Reason: constipation) cholecalciferol (vitamin D3) 1 tablet feeding tube DAILY magnesium citrate Solution 300 ml PO ONCE PRN (Reason: constipation) Rx Instructions: as a single dose Fleet Enema 19-7 gram/118 mL enema 118 ml RECTAL DAILY PRN (Reason: constipation) losartan 25 mg tablet 25 mg feeding tube DAILY memantine 5 mg tablet 5 mg feeding tube BID magnesium hydroxide [Milk of Magnesia] 400 mg/5 mL suspension 30 ml PO DAILY PRN (Reason: constipation) Patient Comments: If no BM in 3 days potassium, sodium phosphates 280-160-250 mg powder in packet 1 packet feeding tube DAILY sodium bicarbonate 650 mg tablet 650 mg feeding tube BID thiamine HCl (vitamin B1) 100 mg capsule 100 mg PO DAILY doxycycline hyclate 100 mg capsule 100 mg PO BID Qty: 10 0RF acetaminophen 325 mg tablet 500 mg feeding tube Q6H PRN (Reason: pain) amlodipine [Norvasc] 10 mg tablet 5 mg feeding tube DAILY aspirin 81 mg tablet,chewable 81 mg feeding tube DAILY atorvastatin [Lipitor] 80 mg tablet 80 mg feeding tube HS Follow-up/Referrals: [facility] [Other]
--- NOTE | 2025-06-08 09:22 | PC.NURSE ---
this RN and EDP Dr. Coker at bedside to change pt gtube. EDP replaced with a 20fr tube. pt tolerated well. 4x4 applied around the site. xray ordered to verify placement
== END 2025-06-08 11:15 ==
PROVIDERS: Emergency Provider Emergency Medicine
DX: K94.23 Gastrostomy malfunction (principal); Z86.73 Personal history of transient ischemic attack (TIA), and cerebral infarction without residual deficits; I12.9 Hypertensive chronic kidney disease with stage 1 through stage 4 chronic kidney disease, or unspecified chronic kidney disease; E11.22 Type 2 diabetes mellitus with diabetic chronic kidney disease; N18.9 Chronic kidney disease, unspecified; Z87.891 Personal history of nicotine dependence
CPT/HCPCS: 43762; 99283